=== PATIENT | female | born 1940 | race Caucasian/White ===

== ENCOUNTER 2019-04-30 11:19 | Outpatient (CLI) | payer MEDICARE, OTHER, SELFPAY ==
[2019-04-30 12:04] LABS: Basophils # 0.1 10^3/uL (0.0-0.1); Basophils % 1.1 %; Eosinophils # 0.4 10^3/uL (0.0-0.8); Eosinophils % 4.4 %; Hematocrit 36.5 % (37.0-47.0); Hemoglobin 11.9 g/dL (11.5-15.3); Lymphocytes # 2.5 10^3/uL (0.8-4.8); Lymphocytes % 30.6 %; Mean Corpuscular HGB Conc 32.6 g/dL (30.0-36.0); Mean Corpuscular Hemoglobin 30.4 pg (28.0-34.0); Mean Corpuscular Volume 93.1 fL (81-99); Mean Platelet Volume 9.4 fL (7.4-10.4); Monocytes # 0.6 10^3/uL (0.2-0.9); Monocytes % 7.9 %; Neutrophils # 4.5 10^3/uL (1.8-7.7); Neutrophils % 55.6 %; Nucleated Red Blood Cells % 0 %; Platelet Count 373 10^3/cmm (130-400); Red Blood Count 3.92 10^6/uL (4.1-5.3); Red Cell Distribution Width 12.3 % (12.1-15.1)
[2019-04-30 12:22] LABS: Alanine Aminotransferase < 5 U/L (0-33); Albumin Level 4.1 g/dL (3.5-5.2); Alkaline Phosphatase 84 IU/L (35-105); Anion Gap 19.2 (5-19); Aspartate Amino Transferase 12 U/L (0-32); Blood Urea Nitrogen 13 mg/dL (8-23); Calcium 9.4 mg/dL (8.5-10.5); Carbon Dioxide 23 mmol/L (22-29); Chloride 103 mmol/L (98-107); Glucose 108 mg/dL (65-115); Potassium 4.2 mmol/L (3.5-5.1); Sodium 141 mmol/L (136-145); Total Bilirubin 0.5 mg/dL (0.15-1.2); Total Protein 7.1 g/dL (6.6-8.7)
[2019-04-30 14:34] LABS: Ferritin 64 ng/mL (15-150); Iron 99 ug/dL (37-145); Percent Saturation 34.8 % (20-50); Thyroid Stimulating Hormone 1.39 uIU/mL (0.27-4.20); Total Iron Binding Capacity 284 mcg/dl; Unsaturated Iron Binding 185 ug/dL (112-347)
--- NOTE | 2019-05-04 08:43 | ONC FU_ITS ---
Dr. Foley Patient Follow-Up Note Patient: Haylie Garcia Unit #: [id number]: 1940 Dicatated By: Zeke Foley M.D.Date of Visit:Apr 30, 2019 Onc Med Follow-up/Prog Note Chief Complaint: Von Willebrand's disease/pulmonary embolism. History of Present Illness: This is a 78 year-old woman with a known history of von Willebrand's disease who was diagnosed with multiple pulmonary emboli in April 2016. I had seen her initially on 05/21/2016. She gave a history of what appeared to be mild von Willebrand's disease. It was initially diagnosed at around age 41. She didn't know the specific subtype, and it may not have even been determined. I did not have any records available. She had indicated that her treatment had been limited to prophylactic DDAVP infusions prior to procedures. She was having excessive bruising at the time of the initial diagnosis. She had no other bleeding manifestations. She indicated that she also was found to have both pernicious anemia and iron deficiency. She has been on long-term B12 injections. On 04/25/2016 she had presented to the emergency room with shortness of breath which have been getting worse over a period of at least one week. She actually had started getting short of breath a few months earlier, but at that point it was mainly just with more strenuous exertion. At that time she had been traveling back and forth to [place] frequently to help care for a sister who was terminally ill with cancer. Her breathing, though, got worse fairly abruptly. Her evaluation in the emergency room included CT pulmonary angiogram which showed bilateral upper lobe, right middle lobe and left lower lobe segmental level pulmonary emboli. Also noted was bilateral lower lobe subsegmental atelectasis or scarring and a mosaic perfusion pattern of the lung parenchyma. She was admitted to the hospital where she began on anticoagulation with apixaban. Her further evaluation included echocardiogram which showed mild diastolic and systolic dysfunction with global hypokinesis and estimated ejection fraction of 52%. A Sestamibi stress test on 04/27/2016 showed a normal perfusion scan ejection fraction estimated at 66%. She was discharged home on apixaban 10 mg twice a day. At the time of her initial visit she continued to complain of fatigue and exertional dyspnea. A follow-up CT pulmonary angiogram on 05/23/2016 showed interval resolution of the bilateral segmental and subsegmental multilobar pulmonary emboli compared to the study from 04/25/2016. Also noted was moderate improvement of the mosaic attenuation throughout the lungs. With that finding and her ongoing complain of exertional dyspnea, she had pulmonary consultation with Dr. Jose A Deshpande in [place] on 07/18/2016. He felt that her fatigue and exertional dyspnea was likely related to the apixaban, and he had recommended transitioning her anticoagulation to warfarin. In the meantime, she had cardiology follow-up with Dr. Peraza, and he opted to switch her from apixaban to rivaroxaban 20 mg daily. As of her followup visit here in October 2016 she changed her maintenance anticoagulation to apixaban 2.5 mg bid. She has additional history of exercise-induced asthma, and she has been on treatment with Advair and Singulair. Her other medical illnesses include hypertension, GERD, degenerative arthritis, and osteoporosis. She is a nonsmoker. INTERIM HISTORY: She was seen in the emergency room with bronchitis on 04/18/2017. CT pulmonary angiogram at that time showed no evidence for pulmonary embolism. There was slight atelectasis in the lung bases, right greater than left. There was no acute infiltrate. There was no mediastinal or hilar adenopathy noted. I had seen her for a follow-up visit on 08/22/2017. She was otherwise stable clinically, at that point I did arrange for pulmonary consultation with Dr. Mark Ochoa. Her further evaluation did include a sleep study, which apparently did show evidence of sleep apnea. She was started on CPAP, but she tolerated it poorly. I had seen her for a follow-up visit on 05/29/2018. At that point she appeared stable clinically other than she was having significant pain in her right foot. Bone scan on 06/09/2018 showed increased uptake in all 3 phases of the bone scan involving the right foot and ankle. The appearance was suggestive of stress fracture. She was referred to Dr. Crooks for further management. She is seen for a follow-up visit. She complains that her energy is gone, though she is still able to do some light work at home. Her ECOG score is 1. She has good appetite. She has not had fever or night sweats, but she does complain that she stays hot all the time. She has had ongoing problems with her right foot and she complains that it stays swollen, but it has been gradually healing. She has some hoarseness and she previously has seen Dr. Garcia for a nodule in her throat. She continues to complain of shortness of breath. She says her breathing is no better. She does not complain of cough and she has not been having chest pain. She was having nausea, but that she attributes to antibiotic therapy, and it is better now. Bowel and bladder function have been okay. She has generalized joint pain. She also has been having muscle spasms. She does not complain of headache. She does have dizziness. She has no focal neurologic symptoms. Medications: Advair Diskus 1 (250-50 mcg/dose) Aerosol Powder, Breath Activated Inhalation b.i.d., Eliquis 1 (2.5 mg) Tablet Oral b.i.d., Imdur 1 Tablet (of 30 mg) Tablet SR 24 HR Oral daily, Klor-Con M20 1 Tablet (of 20 meq) Tablet, controlled release Oral b.i.d., Lodine 1 (400 mg) Tablet Oral b.i.d., Neurontin 1 Tablet (of 300 mg) Capsule Oral t.i.d., Protonix 1 Tablet (of 40 mg) Tablet, enteric coated Oral b.i.d., Requip 2 (0.25 mg) Tablet Oral daily PRN, Singulair 1 Tablet (of 10 mg) Oral daily PRN, Toprol XL 1 Tablet (of 100 mg) Tablet SR 24 HR Oral b.i.d., Verapamil HCl ER 1 Tablet (of 300 mg) Capsule SR 24 HR Oral daily, Vitamin B12 1 Solution Oral q 4 weeks for 1 dose, Zantac 1 Tablet (of 150 mg) Oral b.i.d. Allergies: Aminoglycosides, Amoxicillin, Aspirin, ChlordiazePOXIDE HCl, Codeine Sulfate, Dexamethasone, Etomidate, Milk, Neosporin Original, Onion, Penicillin V Potassium, Polysporin, and Valium. Review of Systems: Constitutional - Her energy is low and she is very tired. She is able to do light work at home. Her appetite is good and her weight is down a couple of pounds since her last visit. No fever, chills, hot flashes, or night sweats. ECOG score is 1, ENMT - She has sinus congestion/drainage. No mouth sores. She has sore throat. Her voice is raspy and hoarse. No difficulty swallowing, Hematologic/Lymphatic - She bruises easily, Respiratory - She has shortness of breath with activity. No cough. No pleuritic pain or hemoptysis, Cardiovascular - No angina pain. No palpitations, Gastrointestinal - She has had some nausea and acid reflux while being on Keflex. No diarrhea or constipation. No blood in the stool or black stools, Genitourinary (F) - No dysuria or hematuria. No urinary frequency. No urgency or incontinence, Musculoskeletal - She has pain in her hips, mostly in her right side. She has muscle spasms. She has pain in her right foot and in both hands, Integumentary - She has a healing wound on the right foot, Neurologic - No headache. She takes Meclizine 3 times a day for dizziness. No numbness/paresthesias or other focal neurologic symptoms, Psychiatric - No anxiety or depression. No insomnia. Vital Signs: Performed on Apr 30, 2019 13:00 Height - 64.00 in Weight - 193.4 lbs (LOW) BSA - 1.93 sq.m BMI - 33.20 (HIGH) Temperature - 98.4 F Pulse - 102 /min (HIGH) Respiration - 24 /min BP - 147/76 mm(hg) (HIGH) O2 Sat - 95 % (LOW) Pain - 0 Physical Examination: Constitutional - She looks pretty good generally, though she still appears short of breath with any effort, Eyes - Sclerae nonicteric. Conjunctivae clear, ENMT - No lesions noted in the oral cavity, Hematologic/Lymphatic - No cervical, clavicular, or axillary adenopathy, Respiratory - Lungs sound clear with some decrease in air movement bilaterally, Cardiovascular - Heart rhythm is regular. There is a II/ systolic murmur. There is no gallop or rub noted, Abdomen - Mildly distended but soft. Liver and spleen are not enlarged. There is no abdominal mass or ascites noted and there is no inguinal adenopathy, Extremities - There is mild pedal edema on the right. The wound does appear to be healing. The foot is warm to touch. She has palpable dorsalis pedis pulses, Neurologic - No focal neurologic deficits noted. Lab/Imaging: Test performed on Apr 30, 2019 11:51 Sodium 141 mmol/L Potassium 4.2 mmol/L Chloride 103 mmol/L CO2 23 mmol/L Anion Gap 19.2 BUN 13 mg/dL Creatinine 0.7 mg/dL Cr Clearance (Est) 93.21 mL/min Glucose 108 mg/dL Calcium 9.4 mg/dL Protein, Total 7.1 g/dL Albumin 4.1 g/dL Globulin 3.0 g/dL Bilirubin, Total 0.5 mg/dL ALT (SGPT) < 5 U/L AST (SGOT) 12 U/L Alkaline Phosphatase 84 IU/L WBC 8.0 10 3/uL RBC 3.92 10 6/uL HGB 11.9 g/dL HCT 36.5 % MCV 93.1 fL MCH 30.4 pg MCHC 32.6 g/dL RDW 12.3 % Platelet Count 373 10 3/cmm MPV 9.4 fL Neutrophils 4.5 10 3/uL Lymphocytes 2.5 10 3/uL Monocytes 0.6 10 3/uL Eosinophils 0.4 10 3/uL Basophils 0.1 10 3/uL Neutrophil % 55.6 % Lymphocyte % 30.6 % Monocyte % 7.9 % Eosinophil % 4.4 % Basophils % 1.1 % Impression: 1. Patient with episode of bilateral pulmonary emboli in April 2016. This may been precipitated by multiple car trips to [place]. 2. She has a known history of mild von Willebrand's disease, specific subtype unknown to me. Her previous treatment has been limited to prophylactic infusions of DDAVP prior to surgical procedures. She has had easy bruising, but no other bleeding manifestations. Her other medical illnesses include: 3. Hypertension. 4. Exercise-induced asthma. 5. She has a history of pernicious anemia, for which she has been on long-term B12 replacement. 6. She also reports having a history of iron deficiency. 7. GERD. 8. Degenerative arthritis/degenerative disease of the spine. 9. Osteoporosis. She began anticoagulation with apixaban with the initial diagnosis of the pulmonary emboli in April 2016. Her follow-up CT pulmonary angiogram on 05/23/2016 showed interval resolution of the pulmonary emboli as well as moderate improvement of mosaic attenuation throughout the lungs. Despite that improvement, she continued to have fatigue and exertional dyspnea with very limited activity tolerance. There was no significant improvement in her symptoms after transitioning her anticoagulation from apixaban to rivaroxaban. As of her follow-up visit on 10/16/2016 she has continued anticoagulation with apixaban at a maintenance dosage of 2.5 mg twice a day. She restarted Lodine for her arthritis pain. Repeat CT pulmonary angiogram on 04/18/2017 showed no evidence of pulmonary embolism or other acute pathology. She continued, though, to have shortness of breath and limited activity tolerance. I was not been able to determine a specific cause for it. Her echocardiogram showed adequate LV function. Her pulmonary function studies showed no significant obstructive defect. There was a decrease in diffusion capacity, but it was felt to be normal when corrected for alveolar volume. She then had further pulmonary consultation with Dr. Mark Ochoa. She apparently was found to have evidence of sleep apnea on her sleep study, and she was started on CPAP, which she tolerated very poorly. She did have some improvement in her activity tolerance with pulmonary rehabilitation. In May 2018 she had presented with increasing pain in her right ankle and foot. X-ray showed no acute findings, but a subsequent bone scan showed findings consistent with stress fracture. That problem has been managed by Dr. Crooks and it has been resolving very gradually. She is otherwise continued to have shortness of breath and limited activity tolerance. A specific cause for that has not really been determined. Her overall clinical status, though, remained stable. Plan: She will continue anticoagulation with apixaban 2.5 mg bid. I will see her again in 6 months, or sooner as needed. Signed By: Zeke Foley M.D. <<Signature on File>>
== END 2019-04-30 11:20 | disposition home or self-care (01) ==
LOC: ONCMED 11:19
PROVIDERS: PCP Family Medicine; Visit Provider Internal Medicine Medical Oncology
DX: D68.0 Von Willebrand disease (principal); D64.9 Anemia, unspecified; R53.83 Other fatigue; J45.990 Exercise induced bronchospasm; I10 Essential (primary) hypertension; K21.9 Gastro-esophageal reflux disease without esophagitis; M19.90 Unspecified osteoarthritis, unspecified site; M81.0 Age-related osteoporosis without current pathological fracture; Z79.51 Long term (current) use of inhaled steroids; Z86.711 Personal history of pulmonary embolism
CPT/HCPCS: 36415; 80053; 82728; 83540; 83550; 84443; 85025; G0463

== ENCOUNTER 2019-07-22 08:53 | Emergency (ER) | payer MEDICARE, OTHER, SELFPAY ==
--- NOTE | 2019-07-22 09:03 | XR_ITS ---
WS: [id number] PORTABLE CHEST HISTORY: SOB COMPARISON: 07/21/2018 Subsegmental atelectasis at the lingula. No pneumonia. No pleural effusion or pneumothorax. Cardiac size: Normal. Mediastinum/Aorta: Mild ectasia and atherosclerosis aorta. No osseous abnormality seen. XR/XR chest 1V portable [id number] IMPRESSION: Subsegmental lingular atelectasis. No pneumonia.
--- NOTE | 2019-07-22 09:03 | ECG_ITS ---
Measurements Intervals [place] Rate: 79 P: 22 MT: 141 QRS: -20 QRSD: 89 T: 14 QT: 382 QTc: 438 SINUS RHYTHM MODERATE VOLTAGE CRITERIA FOR LVH, CONSIDER NORMAL VARIANT [MEETS CRITERIA IN ONE OF: R(aVL), S(V1), R(V5), R(V5/V6)+S(V1)] Compared to ECG 04/18/2017 08:45:20 T-wave abnormality no longer present Electronically Signed On 07-22-2019 20:35:05 CDT by Salud Mccartney M.D. [email or web address]
[2019-07-22 09:20] VITALS: BP 154/74; PULSE 80; RESP 18; TEMP 37.2; O2SAT 93; BMI 32.5
--- NOTE | 2019-07-22 09:20 | W.ED.SOB ---
HPI - SOB/Dyspnea General: Chief Complaint: Shortness of Breath/Dyspnea Stated Complaint: SHORTNESS OF BREATH Time Seen by Provider: 07/22/19 09:20 Source: patient Mode of arrival: ambulatory Limitations: no limitations History of Present Illness: HPI Narrative: Patient is a 78-year-old female who presents to ED today with complaint of shortness of breath. Patient tells me she initially began feeling short of breath about a week ago. On she was seen by her PCP who gave her IM steroids and a prescription for a steroid taper and cefdinir. Patient thought initially she was getting a little better however today while being active and cleaning her house she developed worsening shortness of breath that made her concerned. Patient tells me she has had exertional dyspnea for quite some time now. States she used to walk 4-5 miles a day and now can barely walk around her house. She does have a history of asthma and takes albuterol and fluticasone/salmeterol at home. States her chart says she has a hx of COPD but has not definitely every been diagnosed with that. She states her shortness of breath does not feel like a typical asthma attack. She does have a history of pulmonary emboli that were diagnosed after a long car ride from [place]. She takes Eliquis for that. Patient has not been running fevers. She reports a small cough beginning this morning-no hemoptysis. Denies chest pains. Reports mild bilateral lower extremity swelling. States she does not have a history of CHF. MD elicited complaint: shortness of breath Severity: moderate Exacerbating factors: exertion Relieving factors: nothing Known history of: asthma and PE Associated symptoms: Deny abdominal pain, chest congestion, chest pain, dizziness, fever(s), hemoptysis, lightheadedness, nausea, orthopnea, palpitations, syncope or vomiting Related Data: Home oxygen amount: none Review of Systems General: Reports: 10 or more systems reviewed and unremarkable except in HPI and below Const: Denies: fever(s), chills, body aches, fatigue or malaise Eyes: Denies: change in vision, blurry vision, photophobia, floaters or seeing flashes ENMT: Denies: throat pain, enlarged tonsils or odynophagia Card: Reports: dyspnea on exertion; Denies: chest pain, palpitations, irregular heart rhythm, swelling of feet/ankles, lightheadedness, syncope, pre-syncope, orthopnea, leg pain with exertion or acrocyanosis Resp: Reports: dyspnea and non-productive cough; Denies: wheezing, pain on inspiration, hemoptysis or chest congestion GI: Denies: abdominal pain, nausea, vomiting, heartburn or diarrhea : Denies: flank pain or dysuria Musc: Denies: neck pain, back pain or joint pain Skin/Breast: Denies: rash Neuro: Denies: headache(s), numbness in extremities, weakness in extremities, sensory changes, difficulty walking or dizziness [facility] ED PFSH: Medical History (Updated 07/22/19 @ 12:14 by KAITLYN Dobbs) Afib Anemia Asthma Chronic GERD COPD (chronic obstructive pulmonary disease) Pulmonary embolism PVD (peripheral vascular disease) Sleep apnea Von Willebrand disease Surgical History H/O: hysterectomy (~1975) History of tonsillectomy (~1959) Social History Smoking and tobacco status: never smoked Alcohol intake: never Marital status: Current occupational status: retired Physical Exam Const: COMMON NORMALS: average body habitus, patient oriented x3, no limitations, healthy appearing, alert and well nourished GENERAL APPEARANCE: in distress (speaks in short sentences ) ORIENTATION/CONSCIOUSNESS: Yes oriented to person, Yes oriented to place and Yes oriented to time HENMT: COMMON NORMALS: normocephalic and atraumatic HEAD & SCALP: normocephalic and atraumatic Chest: COMMONS NORMALS: normal inspection of the chest and normal palpation of entire chest wall Resp: COMMON NORMALS: clear to auscultation bilaterally EFFORT & INSPECTION: No able to speak in complete sentences and Yes tachypneic (mild) AUSCULTATION: clear to auscultation bilaterally Cardio: COMMON NORMALS: regular rate and regular rhythm RATE: regular rate RHYTHM: regular rhythm GI: COMMON NORMALS: Normal to inspection, nondistended, normoactive bowel sounds present, Soft to palpation, non-tender, No hepatosplenomegaly present and no masses PALPATION: Yes Soft to palpation and Yes No hepatosplenomegaly present Extremity: COMMON NORMALS: normal to inspection Neuro: KYLAH COMA SCALE: document GCS findings Kylah coma scale eye opening: Spontaneous [place] coma scale verbal response: Orientated [place] coma scale motor response: Obey commands Kylah coma scale total score: 15 COMMON NORMALS: patient oriented x3, moves all extremities, no focal motor deficits, no sensory deficits noted and gait normal SENSORIUM/ORIENTATION: Yes alert, Yes oriented to person, Yes oriented to place and Yes oriented to time Skin: COMMON NORMALS: no rashes or lesions noted GENERAL SKIN EXAM: no rashes or lesions noted Course Vital Signs: Vital signs: Vital Signs Temperature 98.9 F 07/22/19 09:20 Pulse Rate 77 07/22/19 11:32 Respiratory Rate 20 H 07/22/19 11:32 Blood Pressure 137/79 07/22/19 11:32 Pulse Oximetry 91 07/22/19 11:32 MDM - SOB/Dyspnea MDM Narrative: Medical decision making narrative: Patient reports chronic exertional dyspnea. She apparently had seen a science faculty member in [place] back in 2016 but has not had any further follow-up. I did recommend a repeat pulmonology consultation and she is agreeable to see Dr. Plummer here. On patient's labs she has a mild leukocytosis at 12.6. Her chemistry panel is essentially normal. Her BNP and troponin were both within normal limits. Her CXR shows no effusion or pneumonia. She does have some atelectasis. Her CTA is negative for pulmonary embolus. Patient is not tachycardic or hypoxic. Spoke with Dr. Mensah who agrees that patient is stable for outpt treatment-recommends placing her on another round of steroids and switching abx to doxycycline. Return to ED precautions given. Lab Data: Labs: Lab Results 07/22/19 07/22/19 07/22/19 Range/Units 09:56 09:56 09:56 WBC 12.6 H (4.0-10.0) 10^3/ uL RBC 3.99 L (4.1-5.3) 10^6/u L Hgb 12.5 (11.5-15.3) g/dL Hct 38.7 (37.0-47.0) % MCV 97.0 (81-99) fL MCH 31.3 (28.0-34.0) pg MCHC 32.3 (30.0-36.0) g/dL RDW 12.8 (12.1-15.1) % Plt Count 364 (130-400) 10^3/c mm MPV 9.6 (7.4-10.4) fL Neut % (Auto) 57.4 % Lymph % (Auto) 31.4 % [place] % (Auto) 8.0 % Eos % (Auto) 1.3 % Baso % (Auto) 0.2 % Neut # (Auto) 7.2 (1.8-7.7) 10^3/u L Lymph # (Auto) 4.0 (0.8-4.8) 10^3/u L [place] # (Auto) 1.0 H (0.2-0.9) 10^3/u L Eos # (Auto) 0.2 (0.0-0.8) 10^3/u L Baso # (Auto) 0.0 (0.0-0.1) 10^3/u L Nucleated RBC % (a uto) 0 % Nucleated RBCs # 0.0 /100WBC Specimen Type Sample Site ABG pH (7.35-7.45) ABG pCO2 (35-45) mmHg ABG pO2 (80.0-100.0) mmH g ABG HCO3 (22-26) mmol/L ABG O2 Saturation ABG Base Excess (-2.0-2.0) mmol/ L Maxx Test A-a O2 Gradient (5-10) mmHg Hematocrit (37-47) % Hgb O2 Saturation (95-100) % Carboxyhemoglobin (0.4-20.1) %THgb Methemoglobin (0.4-1.5) % Total Hemoglobin (12-16) g/dL Ionized Calcium (1.1-1.4) mmol/L O2 Delivery Device Interpretive Program Coordinator ID Sodium 137 (136-145) mmol/L Potassium 4.0 (3.5-5.1) mmol/L Chloride 100 (98-107) mmol/L Carbon Dioxide 24 (22-29) mmol/L Anion Gap 17.0 (5-19) BUN 19 (8-23) mg/dL Creatinine 0.8 (0.5-0.9) mg/dL Glucose 98 (65-115) mg/dL Calculated Osmolal ity 280 L (285-295) mOsm/k g Calcium 9.5 (8.5-10.5) mg/dL Total Bilirubin 0.5 (0.15-1.2) mg/dL AST 10 (0-32) U/L ALT 9 (0-33) U/L Alkaline Phosphata se 71 (35-105) IU/L Troponin T Baselin e 9 (0-10) ng/mL NT-Pro-B Natriuret Pep 181 (0-450) pg/mL Total Protein 6.4 L (6.6-8.7) g/dL Albumin 4.1 (3.5-5.2) g/dL Globulin 2.3 (1.3-4.6) g/dL 07/22/19 Range/Units 10:17 WBC (4.0-10.0) 10^3/ uL RBC (4.1-5.3) 10^6/u L Hgb (11.5-15.3) g/dL Hct (37.0-47.0) % MCV (81-99) fL MCH (28.0-34.0) pg MCHC (30.0-36.0) g/dL RDW (12.1-15.1) % Plt Count (130-400) 10^3/c mm MPV (7.4-10.4) fL Neut % (Auto) % Lymph % (Auto) % [place] % (Auto) % Eos % (Auto) % Baso % (Auto) % Neut # (Auto) (1.8-7.7) 10^3/u L Lymph # (Auto) (0.8-4.8) 10^3/u L [place] # (Auto) (0.2-0.9) 10^3/u L Eos # (Auto) (0.0-0.8) 10^3/u L Baso # (Auto) (0.0-0.1) 10^3/u L Nucleated RBC % (a uto) % Nucleated RBCs # /100WBC Specimen Type Arterial Sample Site Radial, right ABG pH 7.47 H (7.35-7.45) ABG pCO2 40.7 (35-45) mmHg ABG pO2 64.5 L (80.0-100.0) mmH g ABG HCO3 29.8 H (22-26) mmol/L ABG O2 Saturation 93.6 ABG Base Excess 5.7 H (-2.0-2.0) mmol/ L Maxx Test Pos A-a O2 Gradient 34.5 H (5-10) mmHg Hematocrit 40.1 (37-47) % Hgb O2 Saturation 91.5 L (95-100) % Carboxyhemoglobin 1.2 (0.4-20.1) %THgb Methemoglobin 1.1 (0.4-1.5) % Total Hemoglobin 13.1 (12-16) g/dL Ionized Calcium 1.2 (1.1-1.4) mmol/L O2 Delivery Device Room air Interpretive Program Coordinator ID havar Sodium 140.0 (136-145) mmol/L Potassium 3.9 (3.5-5.1) mmol/L Chloride (98-107) mmol/L Carbon Dioxide (22-29) mmol/L Anion Gap (5-19) BUN (8-23) mg/dL Creatinine (0.5-0.9) mg/dL Glucose 88.0 (65-115) mg/dL Calculated Osmolal ity (285-295) mOsm/k g Calcium (8.5-10.5) mg/dL Total Bilirubin (0.15-1.2) mg/dL AST (0-32) U/L ALT (0-33) U/L Alkaline Phosphata se (35-105) IU/L Troponin T Baselin e (0-10) ng/mL NT-Pro-B Natriuret Pep (0-450) pg/mL Total Protein (6.6-8.7) g/dL Albumin (3.5-5.2) g/dL Globulin (1.3-4.6) g/dL Imaging Data^: CXR: Radiologist's impression: [address] [address] XRay Report Signed Patient: Haylie Garcia Unit #: [id number] : 1940 Age/Sex: 78 / F ADM Date: 07/22/19 Loc: ER Room/Bed: Attending Dr: Ordering Provider/Ordering MD: Jennifer Deleon Date of Service: 07/22/19 Procedure(s): XR chest 1V portable [id number] Accession Number(s): [id number] Report Number: [id number] WS: [id number] PORTABLE CHEST HISTORY: SOB COMPARISON: 07/21/2018 Subsegmental atelectasis at the lingula. No pneumonia. No pleural effusion or pneumothorax. Cardiac size: Normal. Mediastinum/Aorta: Mild ectasia and atherosclerosis aorta. No osseous abnormality seen. XR/XR chest 1V portable [id number] IMPRESSION: Subsegmental lingular atelectasis. No pneumonia. Dictated By: Annika Quintero DO Signed By: Annika Quintero DO Signed Date/Time: 07/22/19 100 DD/ 04 CTA Chest: Radiologist's impression: [place] [address] CT Scan Report Signed Patient: Haylie Garcia Unit #: [id number] : 1940 Age/Sex: 78 / F ADM Date: 07/22/19 Loc: ER Room/Bed: Attending Dr: Ordering Provider/Ordering MD: Jennifer Deleon Date of Service: 07/22/19 Procedure(s): CT angio chest PE protcl [id number] Accession Number(s): [id number] Report Number: [id number] WS: [id number] CT CHEST ANGIOGRAPHY WITH REFORMATS HISTORY: SOB; hx of PE TECHNIQUE: Contiguous axial images are obtained through the chest during arterial injection of intravenous contrast. Images are reconstructed to evaluate the pulmonary arteries. MIP imaging also reviewed. All CT scans at [facility] use at least one of these dose optimization techniques: automated exposure control; mA and/or kV adjustment per patient size (includes targeted exams where dose is matched to clinical indication); or iterative reconstruction. CONTRAST: Omnipaque 350; 95 mL IV. DLP: 547.42 mGy.cm COMPARISON: 04/18/2017 Excellent opacification of the pulmonary arteries. No filling defects to the segmental and subsegmental branches. Pulmonary artery size is normal. Mild atherosclerosis aorta. Cardiac chamber size is slightly enlarged. No filling defect in the LEFT atrial appendage. No pericardial effusion. No pleural effusions. Subsegmental atelectasis at the lingula and at the lung bases bilaterally. No mass or pneumonia. Mild atherosclerosis of aorta. No adenopathy. No abnormality in the upper abdomen. Increase in thoracic kyphosis. CT/CT angio chest PE protcl [id number] IMPRESSION: 1. No pulmonary embolism. 2. Mild atherosclerosis aorta. 3. Subsegmental atelectasis at the lung bases and lingula. 4. No pneumonia. 5. Mild cardiomegaly. Dictated By: Annika Quintero DO Signed By: Annika Quintero DO Signed Date/Time: 07/22/19 1130 DD/ 1126 EKG Data^: EKG 1: EKG Interpretation Date: 07/22/19 EKG interpretation time: 10:12 Interpretation: Sinus rhythm Rate 79 No ischemic changes noted EKG 2: EKG Interpretation Date: 07/22/19 EKG interpretation time: 12:03 Interpretation: Sinus rhythm Rate 75 No ischemic changes noted; no changes noted from EKG performed on same day Discharge Plan Discharge Patient Disposition: Home, Self-Care Clinical Impression: COPD exacerbation Condition: Stable Prescriptions: New prednisone 10 mg tablet 10 mg PO DAILY 7 Days Qty: 27 RF: 0 doxycycline monohydrate 100 mg capsule 100 mg PO BID 10 Days Qty: 20 RF: 0 No Action fluticasone propion-salmeterol [Advair Diskus] 250-50 mcg/dose blister with device 1 inh INHALATION BID RF: 0 albuterol sulfate [ProAir HFA] 90 mcg/actuation HFA aerosol inhaler 2 puff INHALATION QID PRN (Reason: Shortness Of Breath) RF: 0 Eliquis 2.5 mg tablet 2.5 mg PO BID RF: 0 verapamil 300 mg capsule, [address] 300 mg PO DAILY RF: 0 potassium chloride 20 mEq tablet extended release 20 meq PO BID RF: 0 isosorbide mononitrate 30 mg tablet extended release 24 hr 30 mg PO DAILY RF: 0 gabapentin [Neurontin] 300 mg capsule 300 mg PO TID RF: 0 pantoprazole 40 mg tablet,delayed release (DR/EC) 40 mg PO DAILY RF: 0 ropinirole 0.5 mg tablet 1 mg PO BID RF: 0 methylprednisolone 4 mg Tablet See Rx Instructions .ROUTE .COMPLEX RF: 0 etodolac 400 mg Tablet 400 mg PO BID RF: 0 cefdinir 300 mg Capsule 300 mg PO BID RF: 0 cyanocobalamin (vitamin B-12) 1,000 mcg/mL Kit 1,000 mcg IM Q30D RF: 0 Discharge Orders: Discharge Order (Routine); Ordered 07/22/19 Ordered By: Jennifer Deleon Referrals: Roslyn Reeder MD [Primary Care Provider] - Activity Restrictions/Additional Instructions: As discussed case management should contact you to set you up with a pulmonology appointment with Dr. Plummer. I am placing you on a different antibiotic and another steroid taper. Please follow-up with primary care if you cannot see Dr. Plummer in the next week or so. You need to return to the emergency department for worsening shortness of breath, chest pain, difficulty breathing, fevers, or any other concerns you may have. Coding Level of Care Code ED Feather Mixer for Elishag Fwd Exam Comprehensive
--- NOTE | 2019-07-22 09:34 | CT_ITS ---
WS: [id number] CT CHEST ANGIOGRAPHY WITH REFORMATS HISTORY: SOB; hx of PE TECHNIQUE: Contiguous axial images are obtained through the chest during arterial injection of intrav enous contrast. Images are reconstructed to evaluate the pulmonary arteries. MIP imaging also reviewe d. All CT scans at [facility] use at least one of these dose optimization techniques: aut omated exposure control; mA and/or kV adjustment per patient size (includes targeted exams where dose is matched to clinical indication); or iterative reconstruction. CONTRAST: Omnipaque 350; 95 mL IV. DLP: 547.42 mGy.cm COMPARISON: 04/18/2017 Excellent opacification of the pulmonary arteries. No filling defects to the segmental and subsegment al branches. Pulmonary artery size is normal. Mild atherosclerosis aorta. Cardiac chamber size is sli ghtly enlarged. No filling defect in the LEFT atrial appendage. No pericardial effusion. No pleural e ffusions. Subsegmental atelectasis at the lingula and at the lung bases bilaterally. No mass or pneum onia. Mild atherosclerosis of aorta. No adenopathy. No abnormality in the upper abdomen. Increase in thoracic kyphosis. CT/CT angio chest PE protcl [id number] IMPRESSION: 1. No pulmonary embolism. 2. Mild atherosclerosis aorta. 3. Subsegmental atelectasis at the lung bases and lingula. 4. No pneumonia. 5. Mild cardiomegaly.
[2019-07-22 10:08] LABS: Basophils % 0.2 %; Eosinophils # 0.2 10^3/uL (0.0-0.8); Eosinophils % 1.3 %; Hematocrit 38.7 % (37.0-47.0); Hemoglobin 12.5 g/dL (11.5-15.3); Lymphocytes % 31.4 %; Mean Corpuscular HGB Conc 32.3 g/dL (30.0-36.0); Mean Corpuscular Hemoglobin 31.3 pg (28.0-34.0); Mean Platelet Volume 9.6 fL (7.4-10.4); Neutrophils # 7.2 10^3/uL (1.8-7.7); Neutrophils % 57.4 %; Nucleated Red Blood Cells % 0 %; Platelet Count 364 10^3/cmm (130-400); Red Blood Count 3.99 10^6/uL (4.1-5.3); Red Cell Distribution Width 12.8 % (12.1-15.1); White Blood Count 12.6 10^3/uL (4.0-10.0)
[2019-07-22] MEDS: ipratropium-albuterol 3 mL Neb INHALATION (10:16)
[2019-07-22 10:25] VITALS: PULSE 76; RESP 16; O2SAT 93
[2019-07-22 10:29] LABS: ABG PCO2 40.7 mmHg (35-45); ABG PH Result 7.47 (7.35-7.45); Alveolar-Arterial Oxygen Gradi 34.5 mmHg (5-10); Arterial Blood Gas Hematocrit 40.1 % (37-47); Base Excess ABG 5.7 mmol/L (-2.0-2.0); Blood Gas Allen Test Pos; Blood Gas Sample Site Radial, right; Blood Gas Sample Type Arterial; Carboxyhemoglobin 1.2 %THgb (0.4-20.1); HCO3 ABG 29.8 mmol/L (22-26); HGB O2 Sat 91.5 % (95-100); Ionized Calcium Level - ABG 1.2 mmol/L (1.1-1.4); Methemoglobin 1.1 % (0.4-1.5); Oxygen Device ROOM AIR; Oxygen Saturation ABG 93.6; PO2 ABG 64.5 mmHg (80.0-100.0); Potassium Level - ABG 3.9 mmol/L (3.5-5.0); Total Hemoglobin 13.1 g/dL (12-16)
[2019-07-22 10:30] LABS: Troponin(5th) Baseline 9 ng/mL (0-10)
[2019-07-22 10:33] VITALS: PULSE 80; RESP 16; O2SAT 93
[2019-07-22 10:39] LABS: Alanine Aminotransferase 9 U/L (0-33); Albumin Level 4.1 g/dL (3.5-5.2); Alkaline Phosphatase 71 IU/L (35-105); Aspartate Amino Transferase 10 U/L (0-32); Blood Urea Nitrogen 19 mg/dL (8-23); Calcium 9.5 mg/dL (8.5-10.5); Carbon Dioxide 24 mmol/L (22-29); Chloride 100 mmol/L (98-107); Globulin 2.3 g/dL (1.3-4.6); Glucose 98 mg/dL (65-115); NT Pro B Type Natriuretic Pept 181 pg/mL (0-450); Osmolality Calculated 280 mOsm/kg (285-295); Sodium 137 mmol/L (136-145); Total Bilirubin 0.5 mg/dL (0.15-1.2); Total Protein 6.4 g/dL (6.6-8.7)
[2019-07-22] MEDS: iohexol 350 mg/mL 100 mL Btl IV (11:11)
[2019-07-22 11:32] VITALS: BP 137/79; PULSE 77; RESP 20; O2SAT 91
--- NOTE | 2019-07-22 11:34 | ECG_ITS ---
Measurements Intervals [place] Rate: 75 P: 26 AK: 154 QRS: -19 QRSD: 86 T: 1 QT: 406 QTc: 455 SINUS RHYTHM LEFT VENTRICULAR HYPERTROPHY AND ST-T CHANGE [VOLTAGE CRITERIA PLUS ST/T AB ABNORMALITY] Compared to ECG 04/18/2017 08:45:20 ST (T wave) deviation now present T-wave abnormality no longer present Electronically Signed On 07-22-2019 20:35:16 CDT by Salud Mccartney M.D. [email or web address]
[2019-07-22 12:36] VITALS: BP 164/85; PULSE 76; RESP 21; O2SAT 96
--- NOTE | 2019-07-23 13:46 | DCPLANNER ---
watershed manager had message to schedule a follow up appointment for patient with [facility]. watershed manager called the ortho clinic, spoke with Jannette, a follow up appointment was scheduled for Saturday, August 10, 2019 at 2:[address] Plummer. Clinic will call patient with appointment information.
--- NOTE | 2019-08-18 09:54 | DCPLANNER ---
Patient did attend appointment scheduled for 08.10.19 with [facility].
== END 2019-07-22 12:37 | disposition home or self-care (01) ==
PROVIDERS: Emergency Provider Physician Assistant; PCP Family Medicine
DX: J44.1 Chronic obstructive pulmonary disease with (acute) exacerbation (principal); Z79.01 Long term (current) use of anticoagulants; I48.91 Unspecified atrial fibrillation; J44.9 Chronic obstructive pulmonary disease, unspecified
CPT/HCPCS: 12345; 36600; 71045; 71275; 80051; 80053; 82810; 83880; 83986; 84484; 85025; 93005; 94640; 99283; 99284; Q9967

== ENCOUNTER 2019-09-11 11:28 | Outpatient (CLI) | payer MEDICARE, OTHER, SELFPAY ==
--- NOTE | 2019-09-11 11:45 | USCV_ITS ---
Haylie Garcia Age: 78 Gender: F : 1940 Exam Date: 09/11/2019 12:10 Ordering Phys: Vivian Plummer MD Technologist: Dimple Lee [place] [facility] [place]: shortness of breath BP: / HR: 89 Rhythm: Sinus Technical Quality: Adequate MEASUREMENTS (Male / Female) Normal Values 2D ECHO LV Diastolic Diameter PLAX 3.9 cm 4.2 - 5.9 / 3.9 - 5.3 cm LV Systolic Diameter PLAX 1.4 cm IVS Diastolic Thickness 1.6 cm 0.6 - 1.0 / 0.6 - 0.9 cm IVS Systolic Thickness 1.9 cm LVPW Diastolic Thickness 1.1 cm 0.6 - 1.0 / 0.6 - 0.9 cm LVPW Systolic Thickness 2.0 cm LVOT Diameter 2.0 cm LV Ejection Fraction 2D Teich 91.8 % LV Ejection Fraction MOD 2C 85.0 % LV Ejection Fraction 2C AL 84.9 % LA Diameter 4.5 cm LA Width 3.0 cm LA Height 5.0 cm RA Width 2.2 cm RA Height 4.7 cm M-MODE LV Diastolic Diameter MM 4.9 cm 4.2 - 5.9 / 3.9 - 5.3 cm LV Systolic Diameter MM 3.5 cm LV Ejection Fraction MM Teich 55.1 % IVS Diastolic Thickness MM 1.0 cm 0.6 - 1.0 / 0.6 - 0.9 cm IVS Systolic Thickness MM 1.1 cm LVPW Diastolic Thickness MM 0.9 cm 0.6 - 1.0 / 0.6 - 0.9 cm LVPW Systolic Thickness MM 1.6 cm Aortic Annulus Diameter 3.5 cm LA Ao Ratio MM 1.3 MV E Point Septal Separation 0.5 cm DOPPLER AV Peak Velocity 138.0 cm/s LVOT Peak Velocity 104.0 cm/s AV Area Cont Eq vti 2.5 cm squared AV Area Cont Eq pk 2.4 cm squared MV E' Velocity 10.0 cm/s TR Peak Velocity 165.0 cm/s TR Peak Gradient 10.8 mmHg Right Atrial Pressure 3.0 mmHg Pulmonary Artery Systolic Pressu 13.9 mmHg PV Peak Velocity 102.0 cm/s RV Acceleration Time 0.1 s FINDINGS Left Ventricle Normal left ventricular cavity size. Normal left ventricular systolic function. No regional wall motion abnormalities. Left ventricular ejection fraction is estimated at 55 %. Right Ventricle The right ventricle is normal in size and function. Right Atrium The right atrium is normal in size. Left Atrium The left atrium is normal in size. Mitral Valve Moderately thickened mitral valve. No mitral valve stenosis. Mild mitral valve regurgitation. Aortic Valve Mild aortic valve calcification. No aortic valve stenosis. No aortic valve regurgitation. Tricuspid Valve Structurally normal tricuspid valve without significant stenosis or regurgitation. Pulmonary artery systolic pressure is normal. Pulmonic Valve Structurally normal pulmonic valve without significant stenosis. There is no pulmonic regurgitation. Pericardium Normal pericardium without effusion. Aorta Normal ascending aorta dimension. CONCLUSIONS 1-Normal left ventricular cavity size. Normal left ventricular systolic function. No regional wall motion abnormalities. Left ventricular ejection fraction is estimated at 55 %. 2-There is no pericardial effusion. 3-No significant valve abnormalities. 4-Pulmonary artery systolic pressure is within normal limits. 5-Right atrial pressure is around 5 mm of mercury. 6-No significant change since the prior echocardiogram study of 03/07/2017. Erika Peraza MD (Electronically Signed) Final Date: 13 September 2019 18:20 S
--- NOTE | 2019-09-11 14:25 | PFTS_ITS ---
Date of Study:09/11/19 Date of Dictation: MECHANICS: Forced vital capacity (FVC) is mildly reduced. Forced expiratory volume in one second (FEV1) is normal. FEV1/FVC is normal. FLOW VOLUME LOOP: Reduced flow at lower lung volume with scooping. LUNG VOLUMES: Total lung capacity (TLC) is normal. Residual volume (RV) is normal. DIFFUSING CAPACITY FOR CARBON MONOXIDE: Mildly reduced. INTERPRETATION: The pulmonary function tests are consistent with minimal restriction. The maximal voluntary ventilation, maximal expiratory and inspiratory pressures are reduced. Lung volumes are normal. Gas exchange (DLCO) is mildly reduced. MTDD
--- NOTE | 2019-09-11 14:33 | PFTS_ITS ---
Date of Study:09/22/19 Date of Dictation: MECHANICS: Forced vital capacity (FVC) is minimally reduced. Forced expiratory volume in one second (FEV1) is normal. FEV1/FVC is normal. FLOW VOLUME LOOP: Mild scooping. LUNG VOLUMES: Total lung capacity (TLC) is normal. Residual volume (RV) is normal. DIFFUSING CAPACITY FOR CARBON MONOXIDE: Mildly reduced. INTERPRETATION: The pulmonary function tests are essentially normal. Lung volumes are normal. Gas exchange (DLCO) is mildly reduced. MTDD
== END 2019-09-11 11:29 | disposition home or self-care (01) ==
LOC: RAD 11:32
PROVIDERS: PCP Family Medicine; Visit Provider Internal Medicine Critical Care Medicine
DX: R06.02 Shortness of breath (principal)
CPT/HCPCS: 93306; 94010; 94726; 94729

== ENCOUNTER 2019-09-23 08:18 | Outpatient (CLI) | payer MEDICARE, OTHER, SELFPAY ==
--- NOTE | 2019-09-23 08:44 | CT_ITS ---
WS: [id number] CT scan of the neck. Additional two-dimensional coronal and sagittal reconstruction was performed. Clinical Data: CHRONIC PHARYNGITIS Comparison: None. DLP: 2304.[address] scans at [facility] use at least one of these dose optimization techniques: automat ed exposure control; mA and/or kV adjustment per patient size (includes targeted exams where dose is matched to clinical indication); or iterative reconstruction. Findings: No lymphadenopathy is noted. The salivary glands are unremarkable. There is no prevertebral soft tiss ue swelling. The larynx is symmetric. The thyroid gland shows normal enhancement. The floor of the mo uth and parapharyngeal spaces are normal. The oral cavity is unremarkable. The carotid arteries bifurcate normally. The cervical spine is unremarkable. The lung apices show no abnormalities. The portions of the intracranial circulation which are seen demonstrate no abnormaliti es. The mastoid air cells, internal auditory canals, sella turcica, paranasal sinuses and intraorbita l contents show no significant abnormalities. There is an enhancing lesion which is well circumscribe d of the left middle cranial fossa measuring 2.03 cm. The appearance and location are suggestive of a meningioma. Impression: 1. Negative CT scan of the neck. 2. Incidental finding of left middle cranial fossa enhancing lesion measuring 2.03 cm which is most l ikely a meningioma. 3. Recommend MRI of the head and brain with contrast.
[2019-09-23] MEDS: iohexol 300 mg/mL 100 mL Btl IV (09:40)
[2019-09-23 09:47] LABS: Blood Urea Nitrogen 16 mg/dL (8-23)
== END 2019-09-23 08:19 | disposition home or self-care (01) ==
LOC: RADWPI 08:24
PROVIDERS: Family Provider Family Medicine; PCP Family Medicine; Visit Provider Specialist
DX: J31.2 Chronic pharyngitis (principal)
CPT/HCPCS: 70491; 82565; 84520; Q9967

== ENCOUNTER 2019-10-05 11:59 | Outpatient (CLI) | payer MEDICARE, OTHER, SELFPAY ==
--- NOTE | 2019-10-05 12:06 | XRR_ITS ---
PROCEDURE INFORMATION: Exam: XR Left Knee Exam date and time: 10/05/2019 12:32 PM Age: 78 years old Clinical indication: Swelling or effusion of joint; Knee; Prior surgery; Surgery date: 6+ months; Surgery type: Torn ligament; Patient HX: C/O sudden pain and swelling x 2 weeks. HX of skin cancer; Additional info: Left knee pain TECHNIQUE: Imaging protocol: XR Left knee. Views: 1 or 2 views. COMPARISON: No relevant prior studies available. FINDINGS: Bones/joints: No fracture. No dislocation. There is tricompartmental osteoarthritis, most severe in the patellofemoral joint compartment. Soft tissues: No acute soft tissue abnormality. XR/XR knee LT 1-2V [id number] IMPRESSION: Osteoarthritis.
[2019-10-05 13:01] LABS: Blood Urea Nitrogen 13 mg/dL (8-23); Calcium 8.9 mg/dL (8.5-10.5); Carbon Dioxide 25 mmol/L (22-29); Chloride 102 mmol/L (98-107); Glucose 111 mg/dL (65-115); Osmolality Calculated 287 mOsm/kg (285-295); Sodium 140 mmol/L (136-145); Uric Acid 4.2 mg/dL (2.4-5.7)
== END 2019-10-05 12:00 | disposition home or self-care (01) ==
LOC: RAD 12:05
PROVIDERS: PCP Family Medicine; Visit Provider Internal Medicine Critical Care Medicine
DX: M17.12 Unilateral primary osteoarthritis, left knee
CPT/HCPCS: 73560; 80048; 84550

== ENCOUNTER → 2019-10-12 14:41 | Outpatient (BNVA) | payer MEDICARE, OTHER, SELFPAY | PROVIDERS: PCP Family Medicine; Visit Provider Family Medicine | DX: M17.12 Unilateral primary osteoarthritis, left knee (principal); R09.89 Other specified symptoms and signs involving the circulatory and respiratory systems | CPT/HCPCS: 84550; 86431 ==

== ENCOUNTER 2019-10-14 08:29 | Outpatient (CLI) | payer MEDICARE, OTHER, SELFPAY ==
--- NOTE | 2019-10-14 09:06 | MR_ITS ---
WS: [id number] MRI HEAD WITH CONTRAST TECHNIQUE: Sagittal T1, T2 axial, T2 axial FLAIR, axial susceptibility weighted imaging, axial diffus ion weighted images, and coronal T2 images were obtained. Pre and post-T1 axial and post T1 coronal i mages. ADC and FSPGR images. CLINICAL INFORMATION: BENIGN NEOPLASM OF MENINGES COMPARISON: September 23, 2019 FINDINGS: No evidence of restricted diffusion to suggest acute ischemia. Ventricular system and basal cisterns are patent. Mild small vessel changes. Moderate parenchymal volume loss. Normal posterior fossa. Norm al vascular flow voids at the skull base. No extra-axial fluid collections. Mild mucosal thickening in the paranasal sinuses and mastoid air cells. Dural based enhancing lesion left middle cranial fossa consistent with meningioma. This measures 1.7 x 1.9 x 1.9 CM. Mass effect on the left anterior temporal lobe and inferior frontal lobe. No underlyi ng edema. Meningioma slightly abuts the left middle cerebral artery without significant stenosis. Additional tiny possible lesion measuring 5 mm at the dorsal medulla caudal to the fourth ventricle. This is equivocal and difficult to visualize due to artifact. Recommend 3-6 month follow-up with MRI of the head without and with gadolinium enhancement IAC protocol. This may represent a small ependymo ma/subependymoma. Normal optic chiasm and pituitary infundibulum. Cavernous sinuses and Meckel's cave normal in appeara nce. No other abnormal areas of enhancement. MR/MR head wo/w con [id number] IMPRESSION: 1. Left middle cranial fossa meningioma measuring 1.7 x 1.9 x 1.9 cm 2. Associated mass effect on the left anterior temporal lobe and inferior fron sandhya lobe. No underlying edema. 3. Additional tiny possible lesion measuring 5 mm at the dorsal medulla caudal to the fourth ventricle. This is equivocal and difficult to visualize due to a rtifact. Recommend 3-6 month follow-up with MRI of the head without and with ga dolinium enhancement IAC protocol. This may represent a small ependymoma/subepe ndymoma. 4. No restricted diffusion to suggest acute ischemia. 5. Mild small vessel changes. Moderate parenchymal volume loss. 6. Mild mucosal thickening in the paranasal sinuses.
== END 2019-10-14 08:30 | disposition home or self-care (01) ==
LOC: RADWPI 08:33
PROVIDERS: PCP Family Medicine; Visit Provider Specialist
DX: D32.9 Benign neoplasm of meninges, unspecified (principal); R22.0 Localized swelling, mass and lump, head
CPT/HCPCS: 70553; A9579

== ENCOUNTER 2019-10-28 09:55 | Outpatient (CLI) | payer MEDICARE, OTHER, SELFPAY ==
--- NOTE | 2019-10-28 10:15 | USCV_ITS ---
Haylie Garcia Age: 79 Gender: F : 1940 Exam Date: 10/28/2019 10:22 Ordering Phys: Erika Peraza MD ([email or web address]) Technologist: Rin Lozano Exam Location: [facility] [place] Indication: HISTORY: Swollen legs PROCEDURES: The venous duplex Doppler examination of both lower extremities was performed in the standard fashion. The following venous structures were evaluated: common femoral vein, the greater saphenous vein, superficial femoral vein, and the popliteal vein. In addition, the posterior tibial veins were evaluated. The SSV was also examined FINDINGS: No reflux worth mentioning. The veins were found to be easily compressible with spontaneous blood flow. Non pulsatile flow pattern. CONCLUSIONS No evidence of DVT in the above-mentioned identifiable veins. No significant venous reflux Dr Salud Mccartney MD FAC (Electronically Signed) Final Date: 29 October 2019 08:21 S
== END 2019-10-28 09:56 | disposition home or self-care (01) ==
LOC: RAD 09:58
PROVIDERS: PCP Family Medicine; Visit Provider Internal Medicine Cardiovascular Disease
DX: I83.893 Varicose veins of bilateral lower extremities with other complications (principal); M79.89 Other specified soft tissue disorders
CPT/HCPCS: 93970

== ENCOUNTER 2019-10-30 08:05 | Outpatient (CLI) | payer MEDICARE, OTHER, SELFPAY ==
[2019-10-30 09:56] LABS: Basophils # 0.1 10^3/uL (0.0-0.1); Basophils % 0.9 %; Eosinophils # 0.3 10^3/uL (0.0-0.8); Eosinophils % 4.5 %; Hematocrit 36.5 % (37.0-47.0); Hemoglobin 11.4 g/dL (11.5-15.3); Lymphocytes # 2.3 10^3/uL (0.8-4.8); Lymphocytes % 41.8 %; Mean Corpuscular HGB Conc 31.2 g/dL (30.0-36.0); Mean Corpuscular Hemoglobin 30.2 pg (28.0-34.0); Mean Corpuscular Volume 96.8 fL (81-99); Monocytes # 0.7 10^3/uL (0.2-0.9); Monocytes % 11.6 %; Neutrophils # 2.28 10^3/uL (1.8-7.7); Neutrophils % 40.8 %; Nucleated Red Blood Cells % 0 %; Platelet Count 361 10^3/cmm (130-400); Red Blood Count 3.77 10^6/uL (4.1-5.3); Red Cell Distribution Width 13.1 % (12.1-15.1); White Blood Count 5.6 10^3/uL (4.0-10.0)
[2019-10-30 10:35] LABS: 25 Hydroxy Vitamin D 21 ng/mL (30-100); Alanine Aminotransferase 8 U/L (0-33); Alkaline Phosphatase 68 IU/L (35-105); Anion Gap 14.7 (5-19); Aspartate Amino Transferase 10 U/L (0-32); Blood Urea Nitrogen 18 mg/dL (8-23); Calcium 8.4 mg/dL (8.5-10.5); Carbon Dioxide 24 mmol/L (22-29); Chloride 105 mmol/L (98-107); Globulin 2.5 g/dL (1.3-4.6); Glucose 132 mg/dL (65-115); Osmolality Calculated 288 mOsm/kg (285-295); Potassium 3.7 mmol/L (3.5-5.1); Sodium 140 mmol/L (136-145); Total Bilirubin 0.4 mg/dL (0.15-1.2); Total Protein 6.5 g/dL (6.6-8.7)
[2019-10-30 10:38] LABS: Erythrocyte Sedimentation Rate 35 mm/hr (0-15)
[2019-10-31 08:25] LABS: PROTEIN, TOTAL 5.8 g/dL (6.1-8.1)
[2019-11-02 12:57] LABS: ALBUMIN 3.7 g/dL (3.8-4.8); ALPHA 1 GLOBULIN 0.3 g/dL (0.2-0.3); ALPHA 2 GLOBULIN 0.8 g/dL (0.5-0.9); BETA 1 GLOBULIN 0.4 g/dL (0.4-0.6); BETA 2 GLOBULIN 0.2 g/dL (0.2-0.5); GAMMA GLOBULIN 0.5 g/dL (0.8-1.7)
[2019-11-02 16:47] LABS: KAPPA LIGHT CHAIN, FREE, SERUM 15.6 mg/L (3.3-19.4); KAPPA/LAMBDA LIGHT CHAINS FREE 1.47 (0.26-1.65); LAMBDA LIGHT CHAIN, FREE, SERU 10.6 mg/L (5.7-26.3)
== END 2019-10-30 08:06 | disposition home or self-care (01) ==
LOC: ONCMED 11:41
PROVIDERS: PCP Family Medicine; Visit Provider Internal Medicine Medical Oncology
DX: D68.0 Von Willebrand disease (principal); D51.0 Vitamin B12 deficiency anemia due to intrinsic factor deficiency; E61.1 Iron deficiency; E83.32 Hereditary vitamin D-dependent rickets (type 1) (type 2)
CPT/HCPCS: 80053; 82306; 83883; 84155; 84165; 85025; 85651

== ENCOUNTER 2019-11-03 13:36 | Outpatient (CLI) | payer MEDICARE, OTHER, SELFPAY ==
--- NOTE | 2019-11-05 08:39 | ONC FU_ITS ---
Dr. Foley Patient Follow-Up Note Patient: Haylie Garcia Unit #: [id number]: 1940 Dicatated By: Zeke Foley M.D.Date of Visit:Nov 03, 2019 Onc Med Follow-up/Prog Note Chief Complaint: Von Willebrand's disease/pulmonary embolism. History of Present Illness: This is a 79 year-old woman with a known history of von Willebrand's disease who was diagnosed with multiple pulmonary emboli in April 2016. I had seen her initially on 05/21/2016. She gave a history of what appeared to be mild von Willebrand's disease. It was initially diagnosed at around age 41. She didn't know the specific subtype, and it may not have even been determined. I did not have any records available. She had indicated that her treatment had been limited to prophylactic DDAVP infusions prior to procedures. She was having excessive bruising at the time of the initial diagnosis. She had no other bleeding manifestations. She indicated that she also was found to have both pernicious anemia and iron deficiency. She has been on long-term B12 injections. On 04/25/2016 she had presented to the emergency room with shortness of breath which have been getting worse over a period of at least one week. She actually had started getting short of breath a few months earlier, but at that point it was mainly just with more strenuous exertion. At that time she had been traveling back and forth to [place] frequently to help care for a sister who was terminally ill with cancer. Her breathing, though, got worse fairly abruptly. Her evaluation in the emergency room included CT pulmonary angiogram which showed bilateral upper lobe, right middle lobe and left lower lobe segmental level pulmonary emboli. Also noted was bilateral lower lobe subsegmental atelectasis or scarring and a mosaic perfusion pattern of the lung parenchyma. She was admitted to the hospital where she began on anticoagulation with apixaban. Her further evaluation included echocardiogram which showed mild diastolic and systolic dysfunction with global hypokinesis and estimated ejection fraction of 52%. A Sestamibi stress test on 04/27/2016 showed a normal perfusion scan ejection fraction estimated at 66%. She was discharged home on apixaban 10 mg twice a day. At the time of her initial visit she continued to complain of fatigue and exertional dyspnea. A follow-up CT pulmonary angiogram on 05/23/2016 showed interval resolution of the bilateral segmental and subsegmental multilobar pulmonary emboli compared to the study from 04/25/2016. Also noted was moderate improvement of the mosaic attenuation throughout the lungs. With that finding and her ongoing complain of exertional dyspnea, she had pulmonary consultation with Dr. Jose A Deshpande in [place] on 07/18/2016. He felt that her fatigue and exertional dyspnea was likely related to the apixaban, and he had recommended transitioning her anticoagulation to warfarin. In the meantime, she had cardiology follow-up with Dr. Peraza, and he opted to switch her from apixaban to rivaroxaban 20 mg daily. As of her followup visit here in October 2016 she changed her maintenance anticoagulation to apixaban 2.5 mg bid. She has additional history of exercise-induced asthma, and she has been on treatment with Advair and Singulair. Her other medical illnesses include hypertension, GERD, degenerative arthritis, and osteoporosis. She is a nonsmoker. INTERIM HISTORY: She was seen in the emergency room with bronchitis on 04/18/2017. CT pulmonary angiogram at that time showed no evidence for pulmonary embolism. There was slight atelectasis in the lung bases, right greater than left. There was no acute infiltrate. There was no mediastinal or hilar adenopathy noted. I had seen her for a follow-up visit on 08/22/2017. She was otherwise stable clinically, at that point I did arrange for pulmonary consultation with Dr. Mark Ochoa. Her further evaluation did include a sleep study, which apparently did show evidence of sleep apnea. She was started on CPAP, but she tolerated it poorly. I had seen her for a follow-up visit on 05/29/2018. At that point she appeared stable clinically other than she was having significant pain in her right foot. Bone scan on 06/09/2018 showed increased uptake in all 3 phases of the bone scan involving the right foot and ankle. The appearance was suggestive of stress fracture. She was referred to Dr. Crooks for further management. On 07/22/2019 she was seen in the emergency room with shortness of breath. She was diagnosed with COPD exacerbation. Her CT pulmonary angiogram showed no evidence of pulmonary embolism and no evidence of pneumonia or other acute pathololgy. In September she had seen Dr. Max because of persistent sore throat and hoarseness. Her evaluation included a neck CT which showed an incidental finding of a left middle cranial fossa enhancing lesion measuring 2.03 cm felt to be most likely a meningioma. Further evaluation with head MRI on 10/14/2019 showed a dural based enhancing lesion in the left middle cranial fossa consistent with a meningioma. It measured 1.7 x 1.9 x 1.9 cm. There was associated mass effect on the left anterior temporal bone and inferior frontal lobe. There was an additional possible lesion at the doral medulla caudal to the fourth ventricle measuring 5 mm. There were no other significant findings. She is seen for a follow-up visit. She continues to complain of shortness of breath. She has limited activity. Her ECOG score is 1. She has good appetite. She has not had fever. She says she has sweating all the time. She says she wakes up with sore throat and she still has hoarseness. She sometimes has cough. She has occasional chest pain in asociation with more strenuous activity. She has been having acid reflux, and she says that Protonix is not working. She has no other GI or complaints other than acid reflux. She has been having pain in both legs just below the knees. At times the pain is pretty severe. She says her arthritis overall is getting worse. She takes meclizine as needed for dizziness. She does not have headache or focal neurologic symptoms. Medications: Advair Diskus 1 (250-50 mcg/dose) Aerosol Powder, Breath Activated Inhalation b.i.d., Bumetanide 1 Tablet (of 1 mg) Oral daily, Eliquis 1 (2.5 mg) Tablet Oral b.i.d., Ferrous Sulfate 1 Tablet (of 325 (65 fe) mg) Oral daily, Folic Acid 1 Tablet (of 400 mcg) Oral daily, Imdur 1 Tablet (of 30 mg) Tablet SR 24 HR Oral daily, Klor-Con M20 1 Tablet (of 20 meq) Tablet, controlled release Oral daily, Lodine 1 (400 mg) Tablet Oral b.i.d., Magnesium 1 Capsule Oral daily, Meclizine HCl 1 Tablet (of 25 mg) Oral t.i.d. PRN, Neurontin 1 Tablet (of 300 mg) Capsule Oral t.i.d., Requip 2 Tablet (of 1 mg) Oral daily PRN, Singulair 1 Tablet (of 10 mg) Oral daily PRN, Toprol XL 1 Tablet (of 100 mg) Tablet SR 24 HR Oral b.i.d., Verapamil HCl ER 1 Tablet (of 300 mg) Capsule SR 24 HR Oral daily, Vitamin C 1 Capsule (of 500 mg) Oral daily, Vitamin D3 1 Tablet Oral daily, Zantac 1 Tablet (of 150 mg) Oral b.i.d. Allergies: Aminoglycosides, Amoxicillin, Aspirin, ChlordiazePOXIDE HCl, Codeine Sulfate, Dexamethasone, Etomidate, Milk, Neosporin Original, Onion, Penicillin V Potassium, Polysporin, and Valium. Review of Systems: Constitutional - She has limited activity. Appetite is good and weight is stable. No fever. She has sweating with activity. ECOG score is 1, ENMT - She has sinus congestion/drainage. No mouth sores. She has been waking up with sore throat and she has been having hoarseness. No difficulty swallowing, Hematologic/Lymphatic - She has had some bruising, Respiratory - She has shortness of breath. She sometimes has cough. No pleuritic pain or hemoptysis, Cardiovascular - She has occasional chest pain which tends to be associated with more strenuous activity. No palpitations, Gastrointestinal - No nausea or vomiting. She has acid reflux. No diarrhea or constipation. No blood in the stool or black stools, Genitourinary (F) - No dysuria or hematuria. No urinary frequency. No urgency or incontinence, Musculoskeletal - She has been having awful pain in both legs, just below the knees. It is worse with activity. Overall, her arthritis is getting worse, Integumentary - No skin rash, Neurologic - No headache. She takes meclizine for dizziness. No numbness or tingling. No other focal neurologic symptoms, Psychiatric - No anxiety or depression. Most of the time she sleeps OK. Vital Signs: Performed on Nov 03, 2019 13:49 Height - 64.00 in Weight - 195.6 lbs (HIGH) BSA - 1.94 sq.m BMI - 33.57 (HIGH) Temperature - 98.3 F (LOW) Pulse - 89 /min Respiration - 26 /min BP - 131/73 mm(hg) O2 Sat - 92 % (LOW) Pain - 0 Physical Examination: Constitutional - She appears short of breath with effort, Eyes - Sclerae nonicteric. Conjunctivae clear, ENMT - No lesions noted in the oral cavity, Hematologic/Lymphatic - No cervical, clavicular, or axillary adenopathy, Respiratory - Lungs sound clear with diminished air movement bilaterally, Cardiovascular - Heart rhythm is regular. There is a II/ systolic murmur. There is no gallop or rub noted, Abdomen - Mildly distended but soft. Liver and spleen are not enlarged. There is no abdominal mass or ascites noted and there is no inguinal adenopathy, Extremities - Mild edema. There is mild tenderness in the anterior tibial area just below the knees on both sides. Dorsalis pedis pulses are palpable bilaterally, Neurologic - No focal neurologic deficits noted. Lab/Imaging: Test performed on Oct 30, 2019 08:05 Sodium 140 mmol/L Vitamin D (25-Hydroxy), Total 21 ng/mL Potassium 3.7 mmol/L Chloride 105 mmol/L CO2 24 mmol/L Anion Gap 14.7 BUN 18 mg/dL Creatinine 0.7 mg/dL Cr Clearance (Est) 91.7300 mL/min Glucose 132 mg/dL Calcium 8.4 mg/dL Protein, Total 6.5 g/dL Albumin 4.0 g/dL Globulin 2.5 g/dL Bilirubin, Total 0.4 mg/dL ALT (SGPT) 8 U/L AST (SGOT) 10 U/L Alkaline Phosphatase 68 IU/L ESR (Sed Rate) 35 mm/hr WBC 5.6 10 3/uL RBC 3.77 10 6/uL HGB 11.4 g/dL HCT 36.5 % MCV 96.8 fL MCH 30.2 pg MCHC 31.2 g/dL RDW 13.1 % Platelet Count 361 10 3/cmm MPV 10.0 fL Neutrophils 2.28 10 3/uL Lymphocytes 2.3 10 3/uL Monocytes 0.7 10 3/uL Eosinophils 0.3 10 3/uL Basophils 0.1 10 3/uL Neutrophil % 40.8 % Lymphocyte % 41.8 % Monocyte % 11.6 % Eosinophil % 4.5 % Basophils % 0.9 % NRBC % 0 % Impression: 1. Patient with episode of bilateral pulmonary emboli in April 2016. This may been precipitated by multiple car trips to [place]. 2. She has a known history of mild von Willebrand's disease, specific subtype unknown to me. Her previous treatment has been limited to prophylactic infusions of DDAVP prior to surgical procedures. She has had easy bruising, but no other bleeding manifestations. Her other medical illnesses include: 3. Hypertension. 4. Exercise-induced asthma. 5. She has a history of pernicious anemia, for which she has been on long-term B12 replacement. 6. She also reports having a history of iron deficiency. 7. GERD. 8. Degenerative arthritis/degenerative disease of the spine. 9. Osteoporosis. She began anticoagulation with apixaban with the initial diagnosis of the pulmonary emboli in April 2016. Her follow-up CT pulmonary angiogram on 05/23/2016 showed interval resolution of the pulmonary emboli as well as moderate improvement of mosaic attenuation throughout the lungs. Despite that improvement, she continued to have fatigue and exertional dyspnea with very limited activity tolerance. There was no significant improvement in her symptoms after transitioning her anticoagulation from apixaban to rivaroxaban. As of her follow-up visit on 10/16/2016 she has continued anticoagulation with apixaban at a maintenance dosage of 2.5 mg twice a day. She restarted Lodine for her arthritis pain. Repeat CT pulmonary angiogram on 04/18/2017 showed no evidence of pulmonary embolism or other acute pathology. She continued, though, to have shortness of breath and limited activity tolerance. I was not been able to determine a specific cause for it. Her echocardiogram showed adequate LV function. Her pulmonary function studies showed no significant obstructive defect. There was a decrease in diffusion capacity, but it was felt to be normal when corrected for alveolar volume. She then had further pulmonary consultation with Dr. Mark Ochoa. She apparently was found to have evidence of sleep apnea on her sleep study, and she was started on CPAP, which she tolerated very poorly. She did have some improvement in her activity tolerance with pulmonary rehabilitation. In May 2018 she had presented with increasing pain in her right ankle and foot. X-ray showed no acute findings, but a subsequent bone scan showed findings consistent with stress fracture. That problem was managed by Dr. Crooks. During follow-up she continued to complain of shortness of breath. In July she was seen in the emergency room and was diagnosed with a COPD exacerbation. At that time she had another negative CT pulmonary angiogram. She had also complained of persistent sore throat and hoarseness, for which she was seen by Dr. Max. On evaluation she was found to have a left middle cranial fossa lesion which appeared consistent with meningioma. She has had this evaluated previously in [place], as far back as 2007. As of February 2012 the lesion appeared stable on her follow-up MRI there and the reported findings appear similar to the current study. At this point she is still very short of breath with effort. She has a resting room air oxygen saturation of 90%, and after walking it drops to 86% with a heart rate of 106. On walking with oxygen at 3 L/min her oxygen saturation increases to 93% with heart rate 102, and at rest that increases to 96% with heart rate 87. Plan: I will arrange to have her start home oxygen. She will continue anticoagulation with apixaban 2.5 mg bid. She will be given a prescription for Pepcid for her acid reflux. I will see her again in 6 months, or sooner as needed. In the meantime, I will request her pior MRI from [place] for comparison. Signed By: Zeke Foley M.D. <<Signature on File>>
== END 2019-11-03 13:37 | disposition home or self-care (01) ==
LOC: ONCMED 13:39
PROVIDERS: PCP Family Medicine; Visit Provider Internal Medicine Medical Oncology
DX: D68.0 Von Willebrand disease (principal); Z86.711 Personal history of pulmonary embolism; J44.9 Chronic obstructive pulmonary disease, unspecified; K21.9 Gastro-esophageal reflux disease without esophagitis; I10 Essential (primary) hypertension; D51.0 Vitamin B12 deficiency anemia due to intrinsic factor deficiency; M19.90 Unspecified osteoarthritis, unspecified site; M47.9 Spondylosis, unspecified; M81.0 Age-related osteoporosis without current pathological fracture; Z79.01 Long term (current) use of anticoagulants; Z99.81 Dependence on supplemental oxygen
CPT/HCPCS: 99214

== ENCOUNTER 2020-02-10 10:15 | Outpatient (CLI) | payer MEDICARE, OTHER, SELFPAY ==
[2020-02-10 11:58] LABS: Basophils # 0.1 10^3/uL (0.0-0.1); Basophils % 1.3 %; Eosinophils # 0.2 10^3/uL (0.0-0.8); Eosinophils % 2.4 %; Hematocrit 36.3 % (37.0-47.0); Hemoglobin 11.9 g/dL (11.5-15.3); Lymphocytes # 2.6 10^3/uL (0.8-4.8); Lymphocytes % 29.3 %; Mean Corpuscular HGB Conc 32.8 g/dL (30.0-36.0); Mean Corpuscular Hemoglobin 30.7 pg (28.0-34.0); Mean Corpuscular Volume 93.6 fL (81-99); Mean Platelet Volume 10.3 fL (7.4-10.4); Monocytes # 0.9 10^3/uL (0.2-0.9); Monocytes % 9.7 %; Neutrophils # 4.98 10^3/uL (1.8-7.7); Neutrophils % 56.7 %; Nucleated Red Blood Cells % 0 %; Platelet Count 375 10^3/cmm (130-400); Red Blood Count 3.88 10^6/uL (4.1-5.3); Red Cell Distribution Width 12.2 % (12.1-15.1); White Blood Count 8.8 10^3/uL (4.0-10.0)
[2020-02-10 12:31] LABS: Alanine Aminotransferase 10 U/L (0-33); Albumin Level 4.2 g/dL (3.5-5.2); Alkaline Phosphatase 101 IU/L (35-105); Aspartate Amino Transferase 11 U/L (0-32); Blood Urea Nitrogen 14 mg/dL (8-23); Carbon Dioxide 25 mmol/L (22-29); Chloride 104 mmol/L (98-107); Globulin 2.2 g/dL (1.3-4.6); Glucose 97 mg/dL (65-115); Lactate Dehydrogenase 174 U/L (135-214); Osmolality Calculated 290 mOsm/kg (285-295); Sodium 140 mmol/L (136-145); Total Bilirubin 0.3 mg/dL (0.15-1.2); Total Protein 6.4 g/dL (6.6-8.7)
[2020-02-10 12:59] LABS: Erythrocyte Sedimentation Rate 40 mm/hr (0-15)
[2020-02-10 13:03] LABS: Ferritin 98 ng/mL (15-150); Iron 78 ug/dL (37-145); Percent Saturation 26.9 % (20-50); Total Iron Binding Capacity 289 mcg/dl; Unsaturated Iron Binding 211 ug/dL (112-347)
== END 2020-02-10 10:16 | disposition home or self-care (01) ==
LOC: ONCMED 13:25
PROVIDERS: PCP Family Medicine; Visit Provider Internal Medicine Medical Oncology
DX: D68.0 Von Willebrand disease (principal); D51.0 Vitamin B12 deficiency anemia due to intrinsic factor deficiency; E61.1 Iron deficiency
CPT/HCPCS: 36415; 80053; 82728; 83540; 83550; 83615; 85025; 85651

== ENCOUNTER 2020-02-11 06:01 | Outpatient (CLI) | payer MEDICARE, OTHER, SELFPAY ==
--- NOTE | 2020-02-14 15:51 | ONC FU_ITS ---
Dr. Foley Patient Follow-Up Note Patient: Haylie Garcia Unit #: [id number]: 1940 Dicatated By: Zeke Foley M.D.Date of Visit:Feb 11, 2020 Onc Med Follow-up/Prog Note Chief Complaint: Von Willebrand's disease/pulmonary embolism. History of Present Illness: This is a 79 year-old woman with a known history of von Willebrand's disease who was diagnosed with multiple pulmonary emboli in April 2016. I had seen her initially on 05/21/2016. She gave a history of what appeared to be mild von Willebrand's disease. It was initially diagnosed at around age 41. She didn't know the specific subtype, and it may not have even been determined. I did not have any records available. She had indicated that her treatment had been limited to prophylactic DDAVP infusions prior to procedures. She was having excessive bruising at the time of the initial diagnosis. She had no other bleeding manifestations. She indicated that she also was found to have both pernicious anemia and iron deficiency. She has been on long-term B12 injections. On 04/25/2016 she had presented to the emergency room with shortness of breath which have been getting worse over a period of at least one week. She actually had started getting short of breath a few months earlier, but at that point it was mainly just with more strenuous exertion. At that time she had been traveling back and forth to [place] frequently to help care for a sister who was terminally ill with cancer. Her breathing, though, got worse fairly abruptly. Her evaluation in the emergency room included CT pulmonary angiogram which showed bilateral upper lobe, right middle lobe and left lower lobe segmental level pulmonary emboli. Also noted was bilateral lower lobe subsegmental atelectasis or scarring and a mosaic perfusion pattern of the lung parenchyma. She was admitted to the hospital where she began on anticoagulation with apixaban. Her further evaluation included echocardiogram which showed mild diastolic and systolic dysfunction with global hypokinesis and estimated ejection fraction of 52%. A Sestamibi stress test on 04/27/2016 showed a normal perfusion scan ejection fraction estimated at 66%. She was discharged home on apixaban 10 mg twice a day. At the time of her initial visit she continued to complain of fatigue and exertional dyspnea. A follow-up CT pulmonary angiogram on 05/23/2016 showed interval resolution of the bilateral segmental and subsegmental multilobar pulmonary emboli compared to the study from 04/25/2016. Also noted was moderate improvement of the mosaic attenuation throughout the lungs. With that finding and her ongoing complain of exertional dyspnea, she had pulmonary consultation with Dr. Jose A Deshpande in [place] on 07/18/2016. He felt that her fatigue and exertional dyspnea was likely related to the apixaban, and he had recommended transitioning her anticoagulation to warfarin. In the meantime, she had cardiology follow-up with Dr. Peraza, and he opted to switch her from apixaban to rivaroxaban 20 mg daily. As of her followup visit here in October 2016 she changed her maintenance anticoagulation to apixaban 2.5 mg bid. She has additional history of exercise-induced asthma, and she has been on treatment with Advair and Singulair. Her other medical illnesses include hypertension, GERD, degenerative arthritis, and osteoporosis. She is a nonsmoker. INTERIM HISTORY: She was seen in the emergency room with bronchitis on 04/18/2017. CT pulmonary angiogram at that time showed no evidence for pulmonary embolism. There was slight atelectasis in the lung bases, right greater than left. There was no acute infiltrate. There was no mediastinal or hilar adenopathy noted. I had seen her for a follow-up visit on 08/22/2017. She was otherwise stable clinically, at that point I did arrange for pulmonary consultation with Dr. Mark Ochoa. Her further evaluation did include a sleep study, which apparently did show evidence of sleep apnea. She was started on CPAP, but she tolerated it poorly. I had seen her for a follow-up visit on 05/29/2018. At that point she appeared stable clinically other than she was having significant pain in her right foot. Bone scan on 06/09/2018 showed increased uptake in all 3 phases of the bone scan involving the right foot and ankle. The appearance was suggestive of stress fracture. She was referred to Dr. Crooks for further management. On 07/22/2019 she was seen in the emergency room with shortness of breath. She was diagnosed with COPD exacerbation. Her CT pulmonary angiogram showed no evidence of pulmonary embolism and no evidence of pneumonia or other acute pathololgy. In September she had seen Dr. Max because of persistent sore throat and hoarseness. Her evaluation included a neck CT which showed an incidental finding of a left middle cranial fossa enhancing lesion measuring 2.03 cm felt to be most likely a meningioma. Further evaluation with head MRI on 10/14/2019 showed a dural based enhancing lesion in the left middle cranial fossa consistent with a meningioma. It measured 1.7 x 1.9 x 1.9 cm. There was associated mass effect on the left anterior temporal bone and inferior frontal lobe. There was an additional possible lesion at the doral medulla caudal to the fourth ventricle measuring 5 mm. There were no other significant findings. She is seen for a follow-up visit. She comes in today reporting that she has been having swelling in her feet and legs for the last 2 weeks. She recently started an increased dosage of bumetanide, 2 mg daily, but thus far with no improvement. She is still short of breath with any activity and she has very limited activity tolerance. She still gets things done, but she says it takes longer. Her ECOG score is 1. She has good appetite. She has not had fever. She has sweating with activity. She has some cough, but not a lot. She does not complain of chest pain. She has no GI/ complaints other than occasional acid reflux. She says her joints ache all the time. She has restless leg syndrome, and that seems to be getting worse. She has no focal neurologic symptoms. Medications: Advair Diskus 1 (250-50 mcg/dose) Aerosol Powder, Breath Activated Inhalation b.i.d., Bumetanide 1 Tablet (of 2 mg) Oral daily, Eliquis 1 (2.5 mg) Tablet Oral b.i.d., Ferrous Sulfate 1 Tablet (of 325 (65 fe) mg) Oral daily, Folic Acid 1 Tablet (of 400 mcg) Oral daily, Imdur 1 Tablet (of 30 mg) Tablet SR 24 HR Oral daily, Klor-Con M20 1 Tablet (of 20 meq) Tablet, controlled release Oral daily, Lodine 1 (400 mg) Tablet Oral b.i.d., Magnesium 1 Capsule Oral daily, Meclizine HCl 1 Tablet (of 25 mg) Oral t.i.d. PRN, Neurontin 1 Tablet (of 600 mg) Capsule Oral t.i.d., Requip 2 Tablet (of 1 mg) Oral daily PRN, Singulair 1 Tablet (of 10 mg) Oral daily PRN, Toprol XL 1 Tablet (of 100 mg) Tablet SR 24 HR Oral b.i.d., Verapamil HCl ER 1 Tablet (of 300 mg) Capsule SR 24 HR Oral daily, Vitamin C 1 Capsule (of 500 mg) Oral daily, Vitamin D3 1 Tablet Oral daily, Zantac 1 Tablet (of 150 mg) Oral b.i.d. Allergies: Aminoglycosides, Amoxicillin, Aspirin, ChlordiazePOXIDE HCl, Codeine Sulfate, Dexamethasone, Etomidate, Milk, Neosporin Original, Onion, Penicillin V Potassium, Polysporin, and Valium. Review of Systems: Constitutional - She has limited activity tolerance. She still completes most of her activities, but she says it takes longer. Appetite is good. She has not had fever. She does have sweating with activity. ECOG score is 1, ENMT - She has sinus drainage, but no more than normal. No mouth sores. No sore throat or difficulty swallowing, Hematologic/Lymphatic - She has easy bruising, Respiratory - She has shortness of breath. She has some cough, but not a lot. No pleuritic pain or hemoptysis, Cardiovascular - No angina pain. No palpitations. She is having increased swelling in the lower extremities, Gastrointestinal - No nausea or vomiting. She occasionally has acid reflux. No diarrhea or constipation. No blood in the stool or black stools, Genitourinary (F) - No dysuria or hematuria. No urinary frequency. No urgency or incontinence, Musculoskeletal - She aches all the time. She has restless leg syndrome, and she says that is getting worse, Integumentary - No skin rash, Neurologic - No headache. She takes meclizine for dizziness. No numbness or tingling. No other focal neurologic symptoms, Psychiatric - No anxiety or depression. No insomnia. Vital Signs: Performed on Feb 11, 2020 13:02 Height - 64.00 in Weight - 192.4 lbs (LOW) BSA - 1.92 sq.m BMI - 33.03 (HIGH) Temperature - 97.5 F (LOW) Pulse - 86 /min Respiration - 24 /min BP - 142/86 mm(hg) (HIGH) O2 Sat - 96 % Pain - 2 Physical Examination: Constitutional - She appears short of breath with effort, Eyes - Sclerae nonicteric. Conjunctivae clear, ENMT - No lesions noted in the oral cavity, Hematologic/Lymphatic - No cervical, clavicular, or axillary adenopathy, Respiratory - Lungs sound clear with diminished air movement bilaterally, Cardiovascular - Heart rhythm is regular. There is a II/ systolic murmur. There is no gallop or rub noted, Abdomen - Mildly distended but soft. Liver and spleen are not enlarged. There is no abdominal mass or ascites noted and there is no inguinal adenopathy, Extremities - She now has 2-3+ lower extremity edema. There are scattered purpuric lesions, Neurologic - No focal neurologic deficits noted. Lab/Imaging: CBC shows hemoglobin 11.9 g, white blood cell count 8800, and platelet count 375,000. Comprehensive metabolic profile is unremarkable. Impression: 1. Patient with episode of bilateral pulmonary emboli in April 2016. This may been precipitated by multiple car trips to [place]. 2. She has a known history of mild von Willebrand's disease, specific subtype unknown to me. Her previous treatment has been limited to prophylactic infusions of DDAVP prior to surgical procedures. She has had easy bruising, but no other bleeding manifestations. Her other medical illnesses include: 3. Hypertension. 4. Exercise-induced asthma. 5. She has a history of pernicious anemia, for which she has been on long-term B12 replacement. 6. She also reports having a history of iron deficiency. 7. GERD. 8. Degenerative arthritis/degenerative disease of the spine. 9. Osteoporosis. She began anticoagulation with apixaban with the initial diagnosis of the pulmonary emboli in April 2016. Her follow-up CT pulmonary angiogram on 05/23/2016 showed interval resolution of the pulmonary emboli as well as moderate improvement of mosaic attenuation throughout the lungs. Despite that improvement, she continued to have fatigue and exertional dyspnea with very limited activity tolerance. There was no significant improvement in her symptoms after transitioning her anticoagulation from apixaban to rivaroxaban. As of her follow-up visit on 10/16/2016 she has continued anticoagulation with apixaban at a maintenance dosage of 2.5 mg twice a day. She restarted Lodine for her arthritis pain. Repeat CT pulmonary angiogram on 04/18/2017 showed no evidence of pulmonary embolism or other acute pathology. She continued, though, to have shortness of breath and limited activity tolerance. I was not been able to determine a specific cause for it. Her echocardiogram showed adequate LV function. Her pulmonary function studies showed no significant obstructive defect. There was a decrease in diffusion capacity, but it was felt to be normal when corrected for alveolar volume. She then had further pulmonary consultation with Dr. Mark Ochoa. She apparently was found to have evidence of sleep apnea on her sleep study, and she was started on CPAP, which she tolerated very poorly. She did have some improvement in her activity tolerance with pulmonary rehabilitation. In May 2018 she had presented with increasing pain in her right ankle and foot. X-ray showed no acute findings, but a subsequent bone scan showed findings consistent with stress fracture. That problem was managed by Dr. Crooks. During follow-up she continued to complain of shortness of breath. In July she was seen in the emergency room and was diagnosed with a COPD exacerbation. At that time she had another negative CT pulmonary angiogram. She had also complained of persistent sore throat and hoarseness, for which she was seen by Dr. Max. On evaluation she was found to have a left middle cranial fossa lesion which appeared consistent with meningioma. She has had this evaluated previously in [place], as far back as 2007. As of February 2012 the lesion appeared stable on her follow-up MRI there and the reported findings appear similar to the current study. During follow-up she was started on home oxygen, as she was desaturating with activity. She comes in now with increasing lower extremity edema over the past 2 weeks. Thus far it has not responded to an increase in her bumetanide dosage to 2 mg daily. Plan: She continues anticoagulation with apixaban 2.5 mg twice daily. She will increase bumetanide to 2 mg twice daily. I also asked her to start weighing herself more regularly. I will recheck her chemistry studies next week. In the meantime, she is to let us know if the swelling is not getting better. Signed By: Zeke Foley M.D. <<Signature on File>>
== END 2020-02-11 06:02 | disposition home or self-care (01) ==
LOC: ONCMED 06:04
PROVIDERS: PCP Family Medicine; Visit Provider Internal Medicine Medical Oncology
DX: D68.0 Von Willebrand disease (principal); I26.99 Other pulmonary embolism without acute cor pulmonale; J45.990 Exercise induced bronchospasm; R60.0 Localized edema; I10 Essential (primary) hypertension; K21.9 Gastro-esophageal reflux disease without esophagitis; M19.90 Unspecified osteoarthritis, unspecified site; D51.0 Vitamin B12 deficiency anemia due to intrinsic factor deficiency; Z79.899 Other long term (current) drug therapy; Z79.01 Long term (current) use of anticoagulants
CPT/HCPCS: 99214

== ENCOUNTER 2020-02-18 10:02 | Outpatient (CLI) | payer MEDICARE, OTHER, SELFPAY ==
[2020-02-18 15:32] LABS: Anion Gap 17.2 (5-19); Blood Urea Nitrogen 24 mg/dL (8-23); Calcium 8.9 mg/dL (8.5-10.5); Carbon Dioxide 31 mmol/L (22-29); Chloride 93 mmol/L (98-107); Glucose 75 mg/dL (65-115); NT Pro B Type Natriuretic Pept 164 pg/mL (0-450); Osmolality Calculated 289 mOsm/kg (285-295); Potassium 3.2 mmol/L (3.5-5.1); Sodium 138 mmol/L (136-145)
== END 2020-02-18 10:03 | disposition home or self-care (01) ==
LOC: ONCMED 15:47
PROVIDERS: PCP Family Medicine; Visit Provider Internal Medicine Medical Oncology
DX: D68.0 Von Willebrand disease (principal); D51.0 Vitamin B12 deficiency anemia due to intrinsic factor deficiency; E61.1 Iron deficiency; R60.9 Edema, unspecified
CPT/HCPCS: 36415; 80048; 83735; 83880

== ENCOUNTER 2020-02-25 08:29 | Emergency (ER) | payer MEDICARE, OTHER, SELFPAY ==
[2020-02-25 08:38] VITALS: BP 150/80; PULSE 73; RESP 20; TEMP 36.7; O2SAT 95; BMI 32.8
--- NOTE | 2020-02-25 08:52 | XR_ITS ---
WS: [id number] XR chest 1V portable [id number] REASON FOR EXAM: Weakness FINDINGS: The chest is unchanged compared to the most recent examination of 07/22/2019. Moderate tortuosity thoracic aorta without aneurysmal dilatation. The heart is at the upper limits of normal in size Presumed linear fibrotic scarring in the left lung base. Calcified granulomatous changes both hemitho races. No active pulmonary parenchymal or pleural disease noted. Moderate changes in the mid and lower thoracic spine and the shoulder joints. XR/XR chest 1V portable [id number] IMPRESSION: Stable abnormal chest with no acute abnormality.
--- NOTE | 2020-02-25 08:52 | ECG_ITS ---
[facility] Test Date: 2020-02-25 Pat Name: Haylie Garcia Department: Room: Gender: Female Ophthalmology Technician: : 1940 Requested By: Patrick Marin Order Number: [id number] Eugenia Box MD: Salud Mccartney M.D. Measurements Intervals [place] Rate: 70 P: 45 FL: 208 QRS: -20 QRSD: 88 T: -6 QT: 415 QTc: 449 Interpretive Statements SINUS RHYTHM LOW QRS VOLTAGE IN PRECORDIAL LEADS [QRS DEFLECTION < 1.0 mV IN CHEST LEADS] MODERATE VOLTAGE CRITERIA FOR LVH, CONSIDER NORMAL VARIANT [MEETS CRITERIA IN ONE OF: R(aVL), S(V1), R(V5), R(V5/V6)+S(V1)] POSSIBLE ANTERIOR MYOCARDIAL INFARCTION [30 ms Q WAVE IN V3/V4, OR R < 0.2 mV IN V4], OF INDETERMINATE AGE INTERPRETATION BASED ON A DEFAULT AGE OF 40 YEARS Compared to ECG 07/22/2019 12:03:38 Low QRS voltage now present Myocardial infarct finding now present ST (T wave) deviation no longer present Electronically Signed On 02-25-2020 22:42:42 [employer] by Salud Mccartney M.D. [id number]
--- NOTE | 2020-02-25 08:54 | ED_ITS ---
HPI - Weakness General: Chief complaint: Weakness Stated complaint: FEELS WEAK, DEHYDRATION Time Seen by Provider: 02/25/20 08:38 History of Present Illness: HPI Narrative: Patient is a 79-year-old female who comes to the ED with weakness. Past medical history of PE, COPD, A. fib, PVD, von Willebrand's disease, fibromyalgia and GERD. Patient says approximately 1 month ago her feet started to swell and she was placed on Bumex daily. She was not having any relief with that dose of Dr. Foley I increased it to twice a day and added metolazone. Patient took that for couple days and all her swelling went down and on February 18 she felt very weak. She has stopped taking the water pill and her last dose was on Saturday. She saw her PCP on February 22 and they told her that she is dehydrated. They told her to come to the ED if she is not feeling better. Patient drink about a Gatorade yesterday and woke up today still not feeling very well and she had gained 5 pounds from yesterday. She denies any past CHF diagnosis. Denies any chest pain or Increasing shortness of breath. Patient says she has some shortness of breath but has been chronic, but no acute change. MD Complaint: generalized weakness Associated symptoms: Denies chest pain, chills, dysuria, fever(s), headache(s), nausea or vomiting Review of Systems Const: Reports: other (Generalized weakness); Denies: fever(s), chills or fatigue Eyes: Denies: change in vision or eye discomfort ENMT: Denies: throat pain, odynophagia, nasal discharge or nasal congestion Card: Reports: edema (bilateral lower leg edema); Denies: chest pain, palpitations, swelling of feet/ankles, dyspnea on exertion or orthopnea Resp: Reports: dyspnea (chronic issue-no acute change); Denies: productive cough or non-productive cough GI: Denies: abdominal pain, nausea, vomiting, diarrhea, constipation or hematochezia : Denies: flank pain, dysuria or hematuria Musc: Denies: neck pain, back pain or extremity swelling Skin/Breast: Denies: rash or new lesions Neuro: Denies: headache(s), numbness in extremities or weakness in extremities PFSH ED PFSH: Medical History Afib Anemia Asthma Chronic GERD COPD (chronic obstructive pulmonary disease) Pulmonary embolism PVD (peripheral vascular disease) Sleep apnea Von Willebrand disease Surgical History H/O: hysterectomy (~1975) History of tonsillectomy (~1959) Social History Smoking and tobacco status: never smoked Alcohol intake: never Lives independently: Yes Household members: spouse Marital status: Current occupational status: retired History of recent travel: No Current gender identity: Female Physical Exam Const: COMMON NORMALS: no acute distress, patient oriented x3 and alert GENERAL APPEARANCE: cooperative and comfortable HENMT: COMMON NORMALS: normocephalic HEAD & SCALP: normocephalic MOUTH: Normal oral and palatal mucosa present THROAT: posterior oropharynx normal and uvula midline Eye: COMMON NORMALS: Equal, round and reactive pupils present PUPIL: Yes Equal, round and reactive pupils present Neck/C-Spine: COMMON NORMALS: supple GENERAL: Yes normal visual inspection Resp: COMMON NORMALS: normal respiratory effort, No retractions, No use of accessory muscles and clear to auscultation bilaterally AUSCULTATION: clear to auscultation bilaterally Cardio: COMMON NORMALS: regular rate, regular rhythm, S1 normal heart sound present, S2 normal heart sound present, No gallops present (Cardio), No clicks present (Cardio), No murmurs present (Cardio) and Peripheral pulses 2+ throughout RATE: regular rate RHYTHM: regular rhythm HEART SOUNDS: S1 n ormal heart sound present and S2 normal heart sound present PERIPHERAL PULSES: Peripheral pulses 2+ throughout GI: COMMON NORMALS: Normal to inspection, nondistended, normoactive bowel sounds present, Soft to palpation, non-tender and no masses PALPATION: Yes Soft to palpation : COMMON NORMALS: Yes no CVA tenderness BLADDER/KIDNEY EXAM: Yes no CVA tenderness Back/Pelvis: COMMON NORMALS: no CVA tenderness Extremity: GENERAL: Yes normal exam except as noted and Yes edema (1+ pitting edema bilaterally) Neuro: COMMON NORMALS: patient oriented x3 and moves all extremities SENSORIUM/ORIENTATION: Yes alert Skin: GENERAL SKIN EXAM: dry skin Course Vital Signs: Vital signs: Vital Signs Temperature 98.0 F 02/25/20 08:38 Pulse Rate 70 02/25/20 11:38 Respiratory Rate 18 02/25/20 11:38 Blood Pressure 165/80 02/25/20 11:38 Pulse Oximetry 95 02/25/20 11:38 MDM - Weakness MDM Narrative: Medical decision making narrative: Patient is a 79-year-old female comes to the ED with weakness. Patient has a history of A. fib, COPD, GERD and von Willebrand's disease. Patient had been seeing her PCP for the past month to address some bilateral lower extremity edema. She was put on some Bumex and her dose was increased. Patient's edema greatly improved last Saturday after the increased dose but she started feeling unwell and weak. She went and saw her PCP on February 22 and they told her she was dehydrated. Saturday, February 23 patient drink lots of Gatorade and she still is not feeling better. She has not taken any of her diuretic since last February 18. Patient says she is put on 5 pounds since yesterday when she drank all the Gatorade. Exam shows a patient in no acute distress or pain. Lungs were clear to auscultation bilaterally. Patient does have 1+ pitting edema bilaterally in the lower extremities. CBC and CMP were unremarkable. UA showed no signs of UTI. Troponin negative, BNP 242 and EKG showed normal sinus rhythm [address] segment elevation or depression seen. Chest x-ray showed no acute abnormalities. Patient's creatinine on 02/17 was elevated at 1.1, so some of her weakness symptoms are probably the result of dehydration from diuretic. Today her creatinine is 0.7. Patient was diagnosed with weakness and she was instructed to continue taking her meds as prescribed. I told her she can take h er Bumex to help with lower extremity edema as needed. Follow-up with her PCP in 7 to 10 days for reevaluation. Return to ED precautions given. Patient understood and agreed with plan. Lab Data: Attestation: I reviewed the patient's lab results. Labs: Lab Results 02/25/20 02/25/20 02/25/20 Range/Units 09:00 09:00 09:00 WBC 7.4 (4.0-10.0) 10^3/ uL RBC 3.91 L (4.1-5.3) 10^6/u L Hgb 11.9 (11.5-15.3) g/dL Hct 36.5 L (37.0-47.0) % MCV 93.4 (81-99) fL MCH 30.4 (28.0-34.0) pg MCHC 32.6 (30.0-36.0) g/dL RDW 12.0 L (12.1-15.1) % Plt Count 358 (130-400) 10^3/c mm MPV 9.9 (7.4-10.4) fL Neut % (Auto) 53.3 % Lymph % (Auto) 33.4 % [place] % (Auto) 8.9 % Eos % (Auto) 2.7 % Baso % (Auto) 1.3 % Neut # (Auto) 3.96 (1.8-7.7) 10^3/u L Lymph # (Auto) 2.5 (0.8-4.8) 10^3/u L [place] # (Auto) 0.7 (0.2-0.9) 10^3/u L Eos # (Auto) 0.2 (0.0-0.8) 10^3/u L Baso # (Auto) 0.1 (0.0-0.1) 10^3/u L Nucleated RBC % (a uto) 0 % Nucleated RBCs # 0.0 /100WBC Sodium 138 (136-145) mmol/L Potassium 3.7 (3.5-5.1) mmol/L Chloride 97 L (98-107) mmol/L Carbon Dioxide 30 H (22-29) mmol/L Anion Gap 14.7 (5-19) BUN 13 (8-23) mg/dL Creatinine 0.7 (0.5-0.9) mg/dL GFR Calculation Not Reportable Glucose 91 (65-115) mg/dL Calculated Osmolal ity 286 (285-295) mOsm/k g Calcium 9.1 (8.5-10.5) mg/dL Total Bilirubin 0.4 (0.15-1.2) mg/dL AST 13 (0-32) U/L ALT 11 (0-33) U/L Alkaline Phosphata se 91 (35-105) IU/L Troponin T Baselin e 9 (0-10) ng/L NT-Pro-B Natriuret Pep 242 (0-450) pg/mL Total Protein 5.9 L (6.6-8.7) g/dL Albumin 4.1 (3.5-5.2) g/dL Globulin 1.8 (1.3-4.6) g/dL Urine Color (Yellow) Urine Appearance (CLEAR) Urine pH (5-7) Ur Specific Gravit y (1.005-1.030) Urine Protein (Negative) Urine Glucose (UA) (Normal) Urine Ketones (Negative) Urine Blood (Negative) Urine Nitrate (Negative) Urine Bilirubin (Negative) Urine Urobilinogen (Negative) mg/dL Ur Leukocyte Latosha ase (Negative) Urine RBC (0-2) /hpf Urine WBC (0-5) /hpf Ur Squamous Epith Cells (0-5) /hpf Amorphous Sediment Urine Bacteria (NONE) /hpf Urine Mucus /hpf 02/25/20 Range/Units 09:55 WBC (4.0-10.0) 10^3/ uL RBC (4.1-5.3) 10^6/u L Hgb (11.5-15.3) g/dL Hct (37.0-47.0) % MCV (81-99) fL MCH (28.0-34.0) pg MCHC (30.0-36.0) g/dL RDW (12.1-15.1) % Plt Count (130-400) 10^3/c mm MPV (7.4-10.4) fL Neut % (Auto) % Lymph % (Auto) % [place] % (Auto) % Eos % (Auto) % Baso % (Auto) % Neut # (Auto) (1.8-7.7) 10^3/u L Lymph # (Auto) (0.8-4.8) 10^3/u L [place] # (Auto) (0.2-0.9) 10^3/u L Eos # (Auto) (0.0-0.8) 10^3/u L Baso # (Auto) (0.0-0.1) 10^3/u L Nucleated RBC % (a uto) % Nucleated RBCs # /100WBC Sodium (136-145) mmol/L Potassium (3.5-5.1) mmol/L Chloride (98-107) mmol/L Carbon Dioxide (22-29) mmol/L Anion Gap (5-19) BUN (8-23) mg/dL Creatinine (0.5-0.9) mg/dL GFR Calculation Glucose (65-115) mg/dL Calculated Osmolal ity (285-295) mOsm/k g Calcium (8.5-10.5) mg/dL Total Bilirubin (0.15-1.2) mg/dL AST (0-32) U/L ALT (0-33) U/L Alkaline Phosphata se (35-105) IU/L Troponin T Baselin e (0-10) ng/L NT-Pro-B Natriuret Pep (0-450) pg/mL Total Protein (6.6-8.7) g/dL Albumin (3.5-5.2) g/dL Globulin (1.3-4.6) g/dL Urine Color Straw (Yellow) Urine Appearance Clear (CLEAR) Urine pH 8.0 H (5-7) Ur Specific Gravit y 1.010 (1.005-1.030) Urine Protein Neg (Negative) Urine Glucose (UA) Norm (Normal) Urine Ketones Negative (Negative) Urine Blood Neg (Negative) Urine Nitrate Negative (Negative) Urine Bilirubin 1+ H (Negative) Urine Urobilinogen Norm (Negative) mg/dL Ur Leukocyte Latosha ase Negative (Negative) Urine RBC None (0-2) /hpf Urine WBC 0-4 H (0-5) /hpf Ur Squamous Epith Cells 0-4 H (0-5) /hpf Amorphous Sediment Not Reportable Urine Bacteria Trace (NONE) /hpf Urine Mucus Trace /hpf Imaging Data^: CXR: Attestation: I personally reviewed and interpreted this imaging study as follows: Radiologist's impression: [address] [address] XRay Report Signed Patient: Haylie Garcia Unit #: [id number] : 1940 Age/Sex: 79 / F ADM Date: 02/25/20 Loc: ER Room/Bed: Attending Dr: Ordering Provider/Ordering MD: Patrick Marin Date of Service: 02/25/20 Procedure(s): XR chest 1V portable [id number] Accession Number(s): [id number] Report Number: [id number] WS: [id number] XR chest 1V portable [id number] REASON FOR EXAM: Weakness FINDINGS: The chest is unchanged compared to the most recent examination of 07/22/2019. Moderate tortuosity thoracic aorta without aneurysmal dilatation. The heart is at the upper limits of normal in size Presumed linear fibrotic scarring in the left lung base. Calcified granulomatous changes both hemithoraces. No active pulmonary parenchymal or pleural disease noted. Moderate changes in the mid and lower thoracic spine and the shoulder joints. XR/XR chest 1V portable [id number] IMPRESSION: Stable abnormal chest with no acute abnormality. Dictated By: Kosta Guevara Jr, MD Signed By: Kosta Guevara Jr, MD Signed Date/Time: 02/25/20916 DD/ 4 EKG Data^: EKG 1: Attestation: I personally reviewed and interpreted this EKG as follows: EKG interpretation date: 02/25/20 Interpretation: Normal sinus rhythm, 70 bpm, no ST segment elevation or depression seen. Discharge Plan Discharge Patient Disposition: Home Clinical Impression: Generalized weakness Condition: Stable Prescriptions: No Action ferrous sulfate 325 mg (65 mg iron) tablet 325 mg PO DAILY@06 RF: 0 bumetanide 2 mg tablet 2 mg PO DAILY Qty: 30 RF: 2 albuterol sulfate [ProAir HFA] 90 mcg/actuation HFA aerosol inhaler 2 puff INHALATION QID PRN (Reason: Shortness Of Breath) RF: 0 Eliquis 2.5 mg tablet 2.5 mg PO BID@ RF: 0 verapamil 300 mg capsule, [address] 300 mg PO DAILY@ RF: 0 ropinirole 0.5 mg tablet 2 mg PO BEDTIME@ RF: 0 potassium chloride 20 mEq tablet extended release 20 meq PO DAILY@06 RF: 0 etodolac 400 mg Tablet 400 mg PO BID@ RF: 0 cyanocobalamin (vitamin B-12) 1,000 mcg/mL Kit 1,000 mcg IM Q30D RF: 0 Advair Diskus 250-50 mcg/dose blister with device 1 inh INHALATION BID@ RF: 0 Neurontin 600 mg tablet See Rx Instructions .ROUTE .COMPLEX RF: 0 isosorbide mononitrate 30 mg tablet extended release 24 hr 30 mg PO DAILY@06 RF: 0 metoprolol succinate 100 mg tablet extended release 24 hr 100 mg PO DAILY@21 RF: 0 omeprazole 20 mg capsule,delayed release(DR/EC) 20 mg PO DAILY@12 RF: 0 Discharge Orders: Discharge ED (Routine); Ordered 02/25/20 Ordered By: Patrick Marin Referrals: Roslyn Reeder MD [Primary Care Provider] - Discharge Diet: Regular Discharge Activity: Increase activity as tolerated Patient Instructions: Weakness (Generalized) Activity Restrictions/Additional Instructions: Follow-up with medical provider as directed. Contact your PCP or damage appraiser and try to set up an appointment with them in the next 7 to 10 days. Continue taking home medications as prescribed. Take Bumex to reduce any leg swelling. Return to the ER or your medical provider if condition worsens. Please read and understand discharge instructions. If any questions, please ask. Coding Level of Care Code ED Ag Equipment Field Service Technician for Julio Fwsully Exam Comprehensive
[2020-02-25 09:24] VITALS: BP 148/68; PULSE 73; RESP 17; O2SAT 93
[2020-02-25 09:27] LABS: Basophils # 0.1 10^3/uL (0.0-0.1); Basophils % 1.3 %; Eosinophils # 0.2 10^3/uL (0.0-0.8); Eosinophils % 2.7 %; Hematocrit 36.5 % (37.0-47.0); Hemoglobin 11.9 g/dL (11.5-15.3); Lymphocytes # 2.5 10^3/uL (0.8-4.8); Lymphocytes % 33.4 %; Mean Corpuscular HGB Conc 32.6 g/dL (30.0-36.0); Mean Corpuscular Hemoglobin 30.4 pg (28.0-34.0); Mean Corpuscular Volume 93.4 fL (81-99); Mean Platelet Volume 9.9 fL (7.4-10.4); Monocytes # 0.7 10^3/uL (0.2-0.9); Monocytes % 8.9 %; Neutrophils # 3.96 10^3/uL (1.8-7.7); Neutrophils % 53.3 %; Nucleated Red Blood Cells % 0 %; Platelet Count 358 10^3/cmm (130-400); Red Blood Count 3.91 10^6/uL (4.1-5.3); White Blood Count 7.4 10^3/uL (4.0-10.0)
[2020-02-25 09:42] LABS: Troponin(5th) Baseline 9 ng/L (0-10)
[2020-02-25 09:50] LABS: Alanine Aminotransferase 11 U/L (0-33); Albumin Level 4.1 g/dL (3.5-5.2); Alkaline Phosphatase 91 IU/L (35-105); Anion Gap 14.7 (5-19); Aspartate Amino Transferase 13 U/L (0-32); Blood Urea Nitrogen 13 mg/dL (8-23); Calcium 9.1 mg/dL (8.5-10.5); Carbon Dioxide 30 mmol/L (22-29); Chloride 97 mmol/L (98-107); Globulin 1.8 g/dL (1.3-4.6); Glucose 91 mg/dL (65-115); NT Pro B Type Natriuretic Pept 242 pg/mL (0-450); Osmolality Calculated 286 mOsm/kg (285-295); Potassium 3.7 mmol/L (3.5-5.1); Sodium 138 mmol/L (136-145); Total Bilirubin 0.4 mg/dL (0.15-1.2); Total Protein 5.9 g/dL (6.6-8.7)
[2020-02-25 10:27] LABS: Bacteria Urine TRACE /hpf; Bilirubin Urine 1+ (Negative); Blood Urine Neg (Negative); Glucose Urine UA Norm (Normal); Ketones Urine Negative (Negative); Leukocyte Esterase Urine Negative (Negative); Mucus Urine TRACE /hpf; Nitrate Urine Negative (Negative); Protein Urine Neg (Negative); Squamous Epithelial Cell Urine 0-4 /hpf (0-5); Urine Appearance Clear (CLEAR); Urine Color Straw (Yellow); Urobilinogen Urine Norm (Negative); WBC Urine 0-4 /hpf (0-5)
[2020-02-25 10:28] LABS: Add Urine Culture? No
[2020-02-25 11:24] VITALS: BP 165/80; PULSE 70; RESP 18; O2SAT 95
[2020-02-25 11:38] VITALS: BP 165/80; PULSE 70; RESP 18; O2SAT 95
== END 2020-02-25 11:39 | disposition home or self-care (01) ==
PROVIDERS: Emergency Provider Physician Assistant; PCP Family Medicine
DX: R53.1 Weakness (principal); Z79.01 Long term (current) use of anticoagulants; I48.91 Unspecified atrial fibrillation; J44.9 Chronic obstructive pulmonary disease, unspecified; D68.0 Von Willebrand disease
CPT/HCPCS: 12345; 71045; 80053; 81001; 83880; 84484; 85025; 93005; 99283

== ENCOUNTER → 2020-03-07 15:07 | Outpatient (BNVA) | payer MEDICARE, OTHER, SELFPAY | PROVIDERS: PCP Family Medicine; Visit Provider Nurse Practitioner Family | DX: Z20.828 Contact with and (suspected) exposure to other viral communicable diseases (principal); R06.02 Shortness of breath; R50.9 Fever, unspecified | CPT/HCPCS: 71046; 87635 ==

== ENCOUNTER 2020-03-11 11:22 | Inpatient (IN) | payer MEDICARE, OTHER, SELFPAY ==
[2020-03-11] VITALS (43 sets, daily range): BP systolic 122–177; BP diastolic 75–99; PULSE 61–101; RESP 18–40; TEMP 36.8–37.1; O2SAT 54–96; BMI 56.4
--- NOTE | 2020-03-11 11:36 | XR_ITS ---
WS: [id number] Exam: XR chest 1V portable [id number] Date/Time of Exam: 03/11/2020 11:50 AM Reason For Exam: sob Comparison 03/07/2020. There are now groundglass infiltrates throughout the mid and lower lung zones bilaterally consistent with pneumonia. Heart size is normal. The mediastinum and bony thorax are intact. The lungs are fully expanded. No pleural effusions. XR/XR chest 1V portable [id number] IMPRESSION: 1. New groundglass infiltrates throughout the mid and lower lung zones bilatera lly consistent with pneumonia. This pattern can be seen with Covid 19 pneumonia but is nonspecific.
--- NOTE | 2020-03-11 11:38 | ECG_ITS ---
[facility] Test Date: 2020-03-11 Pat Name: Haylie Garcia Department: Room: Gender: Female Building Performance Consultant: : 1940 Requested By: Alejandra Meraz Order Number: [id number] Isauro MD: Nick Cano M.D. Measurements Intervals [place] Rate: 96 P: 13 NM: 165 QRS: -15 QRSD: 86 T: 10 QT: 349 QTc: 441 Interpretive Statements SINUS RHYTHM LOW QRS VOLTAGE IN PRECORDIAL LEADS [QRS DEFLECTION < 1.0 mV IN CHEST LEADS] LEFT VENTRICULAR HYPERTROPHY AND ST-T CHANGE [VOLTAGE CRITERIA PLUS ST/T ABNORMALITY] Compared to ECG 02/25/2020 09:04:40 ST (T wave) deviation now present Myocardial infarct finding no longer present Electronically Signed On 03-11-2020 18:24:04 RETAIL BANKER by Nick Cano M.D. [email or web address]
[2020-03-11 11:54] LABS: ABG PH Result 7.47 (7.35-7.45); Alveolar-Arterial Oxygen Gradi 77.8 mmHg (5-10); Arterial Blood Gas Hematocrit 36.8 % (37-47); Base Excess ABG 3.5 mmol/L (-2.0-2.0); Blood Gas Allen Test Pos; Blood Gas Operator Identificat glc; Blood Gas Sample Site Radial, right; Blood Gas Sample Type Arterial; Carboxyhemoglobin 1.2 %THgb (0.4-20.1); HCO3 ABG 27.1 mmol/L (22-26); HGB O2 Sat 90.2 % (95-100); Ionized Calcium Level - ABG 1.1 mmol/L (1.1-1.4); Methemoglobin 0.5 % (0.4-1.5); Oxygen Device NRB; Oxygen Saturation ABG 91.8
--- NOTE | 2020-03-11 11:58 | ED_ITS ---
HPI - COVID General: Chief Complaint: COVID symptoms Stated Complaint: COVID POSTIVE Time Seen by Provider: 03/11/20 11:30 Source: patient Mode of arrival: ambulatory Limitations: no limitations Triage information: Has fever, cough or shortness of breath . Exposure to COVID + person last 14 days History of Present Illness: HPI Narrative: 79-year-old female presents to emergency room chief complaint of progressive shortness of breath difficulty breathing has been ongoing since Saturday. The patient recently found to be Covid positive on this past Saturday. The patient reports progressive shortness of breath with difficulty breathing. Patient reports of progressive edema on her legs reports a history of both lung issues with COPD. She reports she is started on some steroids couple of days ago. She reports that her is also sick but was Covid negative. MD complaint: known COVID positive (March 07, 2020) Prior covid testing: yes, results known COVID 19 common symptoms: positive cough, non-productive cough, productive cough, dyspnea, fatigue, nasal congestion and diarrhea; negative fever(s), chills, body aches, nausea or vomiting COVID 19 other sytmptoms: positive chest pressure, requiring oxygen and requiring more oxygen; negative chest pain Onset (ago): day(s) (5) Severity: moderate and rapidly worsening Pertinent comorbid conditions: COPD/respiratory disease Treatment prior to arrival: antibiotics and steroids COVID Results: Nasal/Oral Coronavirus 2019 PCR Detected H 03/07/20 15:22 03/07/20 Review of Systems General: Reports: 10 or more systems reviewed and unremarkable except in HPI and below Const: Reports: change in appetite and fatigue; Denies: fever(s), chills, body aches, change in weight or change in sleep pattern Eyes: Denies: change in vision, blurry vision, blind spots, photophobia, eye discomfort, eye discharge, floaters, seeing flashes or decreased night vision ENMT: Reports: nasal congestion Card: Reports: swelling of feet/ankles and dyspnea on exertion; Denies: chest pain Resp: Reports: dyspnea, productive cough, non-productive cough, wheezing and chest congestion GI: Reports: diarrhea; Denies: abdominal pain, nausea, vomiting, hematemesis, coffee ground emesis, dysphagia or constipation : Denies: flank pain, urinary frequency or urinary urgency Musc: Denies: neck pain, back pain or extremity pain Skin/Breast: Denies: rash, pruritus, skin pain or skin swelling Psych: Denies: anxiety or depression Endo: Reports: tired all the time; Denies: polydipsia PFSH ED PFSH: Medical History (Updated 03/11/20 @ 14:43 by Rocael Mi) Afib Anemia Asthma Chronic GERD COPD (chronic obstructive pulmonary disease) Pulmonary embolism PVD (peripheral vascular disease) Sleep apnea Von Willebrand disease Surgical History H/O: hysterectomy (~1975) History of tonsillectomy (~1959) Social History (Updated 03/07/20 @ 14:13 by ANA Morel) Smoking and tobacco status: never smoked Alcohol intake: never Lives independently: Yes Household members: spouse Marital status: Current occupational status: retired History of recent travel: No Current gender identity: Female Physical Exam Const: COMMON NORMALS: no acute distress and patient oriented x3 EXAM LIMITATIONS: altered mental status GENERAL APPEARANCE: cooperative, well de veloped and in distress HENMT: COMMON NORMALS: normocephalic and atraumatic HEAD & SCALP: normal to inspection, normocephalic and atraumatic Eye: COMMON NORMALS: Equal, round and reactive pupils present and EOMs intact bilaterally PUPIL: Yes Equal, round and reactive pupils present Neck/C-Spine: COMMON NORMALS: full ROM and supple GENERAL: Yes normal visual inspection Chest: COMMONS NORMALS: normal inspection of the chest and normal palpation of entire chest wall Resp: COMMON NORMALS: normal respiratory effort (Patient has moderate wheezing noted bilaterally diminished breath sounds ap) EFFORT & INSPECTION: Yes abnormal respiratory pattern, Yes tachypneic and Yes decreased respiratory effort AUSCULTATION: wheezes Cardio: COMMON NORMALS: regular rate (Tachycardic heart rates in the low 100s.) GI: COMMON NORMALS: Normal to inspection, nondistended, normoactive bowel sounds present, Soft to palpation and non-tender INSPECTION: Yes normal to inspection PALPATION: Yes Soft to palpation Extremity: COMMON NORMALS: normal to inspection, full ROM and capillary refill normal Neuro: COMMON NORMALS: patient oriented x3, CN's II-XII intact bilaterally, moves all extremities and no focal motor deficits Psych: COMMON NORMALS: mental status grossly normal, Normal thought process present, cooperative, normal affect and speech normal SPEECH: Yes normal speech THOUGHT PROCESS: Normal thought process present Skin: COMMON NORMALS: no rashes or lesions noted and no wounds GENERAL SKIN EXAM: no rashes or lesions noted Course ED course: due to the patient's significant symptoms an IV was established ABG obtained neb treatments provided as well steroids will continue to follow. Underlying concerns or worsening of Covid pneumonia versus bronchitis are prominent. Spoke to Dr. Sequeira at 1400 is granted acceptance of the patient patient will going to the VICU, patient is currently on BiPAP oxygen saturation 90-92% on 65% FiO2. Vital Signs: Vital signs: Vital Signs Temperature 98.7 F 03/11/20 11:39 Pulse Rate 97 03/11/20 14:19 Respiratory Rate 22 H 03/11/20 14:19 Blood Pressure 151/85 03/11/20 14:19 Pulse Oximetry 94 03/11/20 14:19 MDM - COVID Differential Diagnosis: Differential diagnosis: Likely COVID 19, other viral infection, bacterial infection, pneumonia, copd exacerbation and CHF exacerbation Lab Data: Labs: Lab Results 03/11/20 03/11/20 03/11/20 Range/Units 11:44 12:30 12:30 WBC 9.2 (4.0-10.0) 10^3/ uL RBC 3.56 L (4.1-5.3) 10^6/u L Hgb 10.7 L (11.5-15.3) g/dL Hct 33.4 L (37.0-47.0) % MCV 93.8 (81-99) fL MCH 30.1 (28.0-34.0) pg MCHC 32.0 (30.0-36.0) g/dL RDW 13.1 (12.1-15.1) % Plt Count 290 (130-400) 10^3/c mm MPV 9.9 (7.4-10.4) fL Neut % (Auto) 73.9 % Lymph % (Auto) 16.1 % [place] % (Auto) 8.5 % Eos % (Auto) 0.0 % Baso % (Auto) 0.2 % Neut # (Auto) 6.82 (1.8-7.7) 10^3/u L Lymph # (Auto) 1.5 (0.8-4.8) 10^3/u L [place] # (Auto) 0.8 (0.2-0.9) 10^3/u L Eos # (Auto) 0.0 (0.0-0.8) 10^3/u L Baso # (Auto) 0.0 (0.0-0.1) 10^3/u L Nucleated RBC % (a uto) 0 % Nucleated RBCs # 0.0 /100WBC Specimen Type Arterial Sample Site Radial, right ABG pH 7.47 H (7.35-7.45) ABG pCO2 37.0 (35-45) mmHg ABG pO2 60.0 L (80.0-100.0) mmH g ABG HCO3 27.1 H (22-26) mmol/L ABG O2 Saturation 91.8 ABG Base Excess 3.5 H (-2.0-2.0) mmol/ L Maxx Test Pos A-a O2 Gradient 77.8 H (5-10) mmHg Hematocrit 36.8 L (37-47) % Hgb O2 Saturation 90.2 L (95-100) % Carboxyhemoglobin 1.2 (0.4-20.1) %THgb Methemoglobin 0.5 (0.4-1.5) % Total Hemoglobin 12.0 (12-16) g/dL Sodium 145.0 H 145 (131-143) mmol/L Potassium 3.0 L 3.5 (3.5-5.0) mmol/L Glucose 95.0 90 (70-115) mg/dL Ionized Calcium 1.1 (1.1-1.4) mmol/L O2 Delivery Device Nrb O2 Liters/Min 15.0 % FiO2 100.0 % Vehicle Calibration Engineer ID glc Chloride 105 (98-107) mmol/L Carbon Dioxide 28 (22-29) mmol/L Anion Gap 15.5 (5-19) BUN 13 (8-23) mg/dL Creatinine 0.7 (0.5-0.9) mg/dL GFR Calculation Not Reportable Calculated Osmolal ity 300 H (285-295) mOsm/k g Calcium 8.1 L (8.5-10.5) mg/dL Ferritin 361 H (15-150) ng/mL Total Bilirubin 0.3 (0.15-1.2) mg/dL AST 24 (0-32) U/L ALT 9 (0-33) U/L Alkaline Phosphata se 80 (35-105) IU/L Lactate Dehydrogen ase 493 H (135-214) U/L Troponin T Gen 5 n g/L (0-10) ng/L NT-Pro-B Natriuret Pep 1402 H (0-450) pg/mL Total Protein 5.8 L (6.6-8.7) g/dL Albumin 3.6 (3.5-5.2) g/dL Globulin 2.2 (1.3-4.6) g/dL 03/11/20 Range/Units 12:30 WBC (4.0-10.0) 10^3/ uL RBC (4.1-5.3) 10^6/u L Hgb (11.5-15.3) g/dL Hct (37.0-47.0) % MCV (81-99) fL MCH (28.0-34.0) pg MCHC (30.0-36.0) g/dL RDW (12.1-15.1) % Plt Count (130-400) 10^3/c mm MPV (7.4-10.4) fL Neut % (Auto) % Lymph % (Auto) % [place] % (Auto) % Eos % (Auto) % Baso % (Auto) % Neut # (Auto) (1.8-7.7) 10^3/u L Lymph # (Auto) (0.8-4.8) 10^3/u L [place] # (Auto) (0.2-0.9) 10^3/u L Eos # (Auto) (0.0-0.8) 10^3/u L Baso # (Auto) (0.0-0.1) 10^3/u L Nucleated RBC % (a uto) % Nucleated RBCs # /100WBC Specimen Type Sample Site ABG pH (7.35-7.45) ABG pCO2 (35-45) mmHg ABG pO2 (80.0-100.0) mmH g ABG HCO3 (22-26) mmol/L ABG O2 Saturation ABG Base Excess (-2.0-2.0) mmol/ L Maxx Test A-a O2 Gradient (5-10) mmHg Hematocrit (37-47) % Hgb O2 Saturation (95-100) % Carboxyhemoglobin (0.4-20.1) %THgb Methemoglobin (0.4-1.5) % Total Hemoglobin (12-16) g/dL Sodium (131-143) mmol/L Potassium (3.5-5.0) mmol/L Glucose (70-115) mg/dL Ionized Calcium (1.1-1.4) mmol/L O2 Delivery Device O2 Liters/Min % FiO2 % Vehicle Calibration Engineer ID Chloride (98-107) mmol/L Carbon Dioxide (22-29) mmol/L Anion Gap (5-19) BUN (8-23) mg/dL Creatinine (0.5-0.9) mg/dL GFR Calculation Calculated Osmolal ity (285-295) mOsm/k g Calcium (8.5-10.5) mg/dL Ferritin (15-150) ng/mL Total Bilirubin (0.15-1.2) mg/dL AST (0-32) U/L ALT (0-33) U/L Alkaline Phosphata se (35-105) IU/L Lactate Dehydrogen ase (135-214) U/L Troponin T Gen 5 n g/L 14 H (0-10) ng/L NT-Pro-B Natriuret Pep (0-450) pg/mL Total Protein (6.6-8.7) g/dL Albumin (3.5-5.2) g/dL Globulin (1.3-4.6) g/dL EKG Data: EKG 1: Attestation: I personally reviewed and interpreted this EKG as follows: EKG interpretation date: 03/11/20 EKG interpretation time: 12:18 Prior EKG tracings: not available for review Ischemic changes: non-specific ST-T wave changes Other EKG comments: Normal sinus rhythm rate of [address] segment alterations appreciated with mild left ventricular hypertrophy appreciated otherwise unremarkable. COVID Results: Nasal/Oral Coronavirus 2019 PCR Detected H 03/07/20 15:22 03/07/20 Discharge Plan Discharge Patient Disposition: Admitted As Inpatient Clinical Impression: Acute hypoxemic respiratory failure due to COVID-19 Condition: Stable Coding Level of Care Code ED Engraver Tender for Chg Fwd Exam Comprehensive
[2020-03-11] MEDS: ipratropium-albuterol 3 mL Neb INHALATION (12:32)
[2020-03-11 12:59] LABS: Basophils % 0.2 %; Hematocrit 33.4 % (37.0-47.0); Hemoglobin 10.7 g/dL (11.5-15.3); Lymphocytes # 1.5 10^3/uL (0.8-4.8); Lymphocytes % 16.1 %; Mean Corpuscular Hemoglobin 30.1 pg (28.0-34.0); Mean Corpuscular Volume 93.8 fL (81-99); Mean Platelet Volume 9.9 fL (7.4-10.4); Monocytes # 0.8 10^3/uL (0.2-0.9); Monocytes % 8.5 %; Neutrophils # 6.82 10^3/uL (1.8-7.7); Neutrophils % 73.9 %; Nucleated Red Blood Cells % 0 %; Platelet Count 290 10^3/cmm (130-400); Red Blood Count 3.56 10^6/uL (4.1-5.3); Red Cell Distribution Width 13.1 % (12.1-15.1); White Blood Count 9.2 10^3/uL (4.0-10.0)
[2020-03-11 13:11] LABS: Troponin T (5th) Once 14 ng/L (0-10)
[2020-03-11 13:20] LABS: Alanine Aminotransferase 9 U/L (0-33); Albumin Level 3.6 g/dL (3.5-5.2); Alkaline Phosphatase 80 IU/L (35-105); Blood Urea Nitrogen 13 mg/dL (8-23); Calcium 8.1 mg/dL (8.5-10.5); Carbon Dioxide 28 mmol/L (22-29); Chloride 105 mmol/L (98-107); Ferritin 361 ng/mL (15-150); Globulin 2.2 g/dL (1.3-4.6); Glucose 90 mg/dL (65-115); NT Pro B Type Natriuretic Pept 1402 pg/mL (0-450); Osmolality Calculated 300 mOsm/kg (285-295); Sodium 145 mmol/L (136-145); Total Bilirubin 0.3 mg/dL (0.15-1.2); Total Protein 5.8 g/dL (6.6-8.7)
[2020-03-11] MEDS: sodium chloride 0.9% 1,000 ML 150 ML IV (13:21)
[2020-03-11] MEDS: dexamethasone 10 mg/mL INJ IVP (13:21)
[2020-03-11 13:28] LABS: Anion Gap 15.5 (5-19); Aspartate Amino Transferase 24 U/L (0-32); Lactate Dehydrogenase 493 U/L (135-214); Potassium 3.5 mmol/L (3.5-5.1)
[2020-03-11 15:52] LABS: ABG PCO2 38.3 mmHg (35-45); ABG PH Result 7.44 (7.35-7.45); Arterial Blood Gas Hematocrit 35.1 % (37-47); Base Excess ABG 1.7 mmol/L (-2.0-2.0); Blood Gas Operator Identificat glc; Blood Gas Sample Site Brachial, left; Blood Gas Sample Type Arterial; Carboxyhemoglobin 0.9 %THgb (0.4-20.1); HCO3 ABG 25.9 mmol/L (22-26); HGB O2 Sat 93.8 % (95-100); Ionized Calcium Level - ABG 1.1 mmol/L (1.1-1.4); Methemoglobin 0.6 % (0.4-1.5); Oxygen Device BIPAP; Oxygen Saturation ABG 95.1; PO2 ABG 73.8 mmHg (80.0-100.0); Potassium Level - ABG 3.1 mmol/L (3.5-5.0); Total Hemoglobin 11.5 g/dL (12-16)
[2020-03-11] MEDS: ondansetron 2 mg/ML SDV 2 mL 4 MG IVP (18:38)
[2020-03-11] MEDS: ketorolac 30 mg/mL INJ 15 MG IVP (18:38)
--- NOTE | 2020-03-11 21:57 | P.HP_ITS ---
Providers/Chief Complaint Admitting Physician: Eileen Sequeira Primary Care Provider: Roslyn Reeder MD Chief Complaint: COVID POSTIVE History of Present Illness 79-year-old female with past medical history significant for Von Willebrand's disease with subsequent pulmonary embolism on eliquis 2.5 mg PO BID, gastroesophageal reflux disease, osteoporosis, hypertension, pernicious anemia on b21 replacement, meningioma with associated mass effect, paroxysmal atrial fibrillation, peripheral vascular disease, obstructive sleep apnea non compliant with CPAP, and chronic obstructive pulmonary disease who is presenting to ER with shortness of breath. patient was recently seen by primary care physician with a complaint of upper respiratory tract infection. She was prescribed azithromycin and prednisone. COVID-19 test was later found to be positive on 03/07. Continued to have ongoing fever, chills, bellyaches, headache and intermittent cough. Due to this patient presented to the ER for evaluation. Patient was apparently having labored respiration. She was placed on BiPAP aft er which oxygen saturations had improved to 92% however she was requiring 65% FiO2. Emergency room patient was given Decadron 10 mg IV x1. This was listed as patient's allergy and thus not continued as patient noted severe myalgias. Laboratory workup on arrival showed a WBC of 9.2, hemoglobin 10.7, hematocrit 33.4 and a platelet count of 290. sodium 145, potassium 3.5, chloride 105, bicarb 28, BUN 13 and creatinine is 0.7. Arterial blood gases showed a pH 7.44, pCO2 38.3, PO2 of 73.8 and a bicarb 25.9. Ferritin of 361, LDH of 493, troponin of 14, proBNP of 1402. Chest x-ray on arrival showed new ground-glass infiltrates throughout mid and lower lung zones bilaterally consistent with pneumonia. Review of Systems General: Reports: 10 or more systems reviewed and unremarkable except in HPI and below Medications/Allergies Home Medications Medication Instructions Recorded Confirmed Last Taken Type albuterol sulfate 90 mcg/actuation 2 puff INHALATION QID PRN 07/16/19 03/11/20 07/22/19 History aerosol inhaler apixaban 2.5 mg tablet 2.5 mg PO BID@06,21 07/16/19 03/11/20 03/11/20 History ropinirole 0.5 mg tablet 2 mg PO BEDTIME@21 tab 07/16/19 03/11/20 03/10/20 History verapamil 300 mg capsule 24hr 300 mg PO DAILY@ cap 07/16/19 03/11/20 03/10/[address],ext.release cyanocobalamin (vitamin B-12) 1,000 mcg IM Q30D 07/22/19 03/11/20 02/23/20 History etodolac 400 mg PO BID@07/22/19 03/11/20 03/10/20 History ferrous sulfate 325 mg (65 mg 325 mg PO DAILY@06 tab 10/02/19 03/11/20 03/10/20 History iron) tablet potassium chloride 20 mEq 20 meq PO DAILY@06 tab 10/02/19 03/11/20 03/10/20 History tablet,extended release fluticasone propion-salmeterol 1 inh INHALATION BID@02/25/20 03/11/20 03/11/20 History [Advair Diskus] gabapentin [Neurontin] See Rx Instructions .ROUTE .COMPLEX 02/25/20 03/11/20 03/11/20 History isosorbide mononitrate 30 mg PO DAILY@02/25/20 03/11/20 03/10/20 History metoprolol succinate 100 mg PO DAILY@02/25/20 03/11/20 03/10/20 History omeprazole 20 mg PO DAILY@12 02/25/20 03/11/20 03/10/20 History azithromycin 250 mg tablet See Rx Instructions PO .COMPLEX #6 03/07/20 03/11/20 03/11/20 Rx tab ondansetron HCl 4 mg tablet 4 mg PO Q6H PRN #10 tab 03/08/20 03/11/20 Unknown Rx prednisone 20 mg tablet 20 mg PO DAILY #20 tab 03/08/20 03/11/20 03/10/20 Rx Allergies Allergy/AdvReac Type Severity Reaction Status Date / Time Aminoglycosides Allergy Unknown Verified 02/23/20 16:19 aspirin Allergy Unknown Verified 03/07/20 14:10 bacitracin [From Polysporin] Allergy Unknown Verified 03/07/20 14:10 chlordiazepoxide Allergy Unknown Verified 03/07/20 14:10 codeine Allergy Unknown Verified 03/07/20 14:10 dexamethasone Allergy Unknown Verified 03/07/20 14:10 diazepam [From Valium] Allergy Unknown Verified 03/07/20 14:10 etomidate Allergy Unknown Verified 03/07/20 14:10 hydrocortisone Allergy Unknown Verified 03/07/20 14:10 lactose Allergy Unknown Verified 03/07/20 14:10 miconazole Allergy Unknown Verified 03/07/20 14:10 [From Neosporin AF] Penicillins Allergy Unknown Verified 03/07/20 14:10 phenobarbital Allergy Unknown Verified 03/07/20 14:10 polymyxin B [From Polysporin] Allergy Unknown Verified 03/07/20 14:10 PFSH Acute PFSH: Medical History (Updated 03/11/20 @ 14:43 by Rocael Mi) Afib Anemia Asthma Chronic GERD COPD (chronic obstructive pulmonary disease) Pulmonary embolism PVD (peripheral vascular disease) Sleep apnea Von Willebrand disease Surgical History H/O: hysterectomy (~1975) History of tonsillectomy (~1959) Social History (Updated 03/07/20 @ 14:13 by ANA Morel) Smoking and tobacco status: never smoked Alcohol intake: never Lives independently: Yes Household members: spouse Marital status: Current occupational status: retired History of recent travel: No Current gender identity: Female Vitals/I&O/Wt Last Vital Signs Temp 98.2 F 03/11/20 22:09 Pulse 76 03/12/20 11:10 Resp 26 H 03/12/20 10:00 BP 183/94 03/12/20 05:00 Pulse Ox 93 03/12/20 11:10 03/11/20 03/12/20 03/12/20 22:59 06:59 14:59 Intake Total 320 / 320 1000 / 1000 Balance 320 / 320 1000 / 1000 Weight last 48 hrs Weight 87.543 kg Weight 87.815 kg Weight 83.915 kg Physical Exam Narrative: EXAM NARRATIVE: General : Alert, awake, oriented x 3 HEENT : Grossly unremarkable Chest : Mildly labored respiration on bipap Abd : Non-distended Ext : Mild bilateral LE edema Data : 03/12/20 04:08 03/12/20 04:08 A&P Assessment and plan (1) Acute hypoxemic respiratory failure due to COVID-19: Status: Acute (2) Asthma exacerbation in COPD: Status: Acute (3) Von Willebrand disease: Status: Acute (4) Sleep apnea: Status: Acute (5) Pulmonary embolus: Status: Acute Acute hypoxic respiratory distress due to COVID-19 with underlying hx of Asthma - 03/07 - COVID-19 positive - Chest xray - >B/l Ground-glass opacities - Ferritin 361, LDH of 493. - S/p prednisone prior to arrival / Decadron 10 mg IV x 1 in ER - Will hold off on further steroids due to intolerance - Will d/w pharmacy to start Remdesivir 200 mg IV x 1 -> 100 mg IV daily - Continue albuterol MDI - Resume Advair 1 puff BID - No obvious superimposed underlying bacterial component - Will trend inflammatory markers - Ferritin, CRP, D-dimer q2days - Check pro-calcitonin - Continue BiPAP, Wean Fio2 - > transition to heated HFNC - Chest x-ray in 2 days - Droplet precautions Additional Medical Problems - Paroxysmal Atrial fibrillation - Von Willibrands disease / Pulmonary embolism - Pernecious Anemia on B12 replacement - Meningioma with mass effect - Osteoporosis - Hypertension - PVD - GERD DVT ppx - Eliquis 2.5 mg PO BID CODE STATUS : FULL CODE Attestations Medical Necessity Statement*: Due to hypoxic respiratory failure patient require over 2 midnights stay in hospital for evaluation and treatment. Time Spent in Patient Care: Greater than 35 minutes (>than 50% of time spent in counselling and/or direct pt care on unit) . Coding Level of Care Code Acute Lawn Care Technician for Julio Fwsully Diagnoses Acute hypoxemic respiratory failure due to COVID-19 U07.1; J96.01 Asthma exacerbation in COPD J44.1; J45.901 Von Willebrand disease D68.0 Sleep apnea G47.30 Pulmonary embolus I26.99
[2020-03-12] VITALS (246 sets, daily range): BP systolic 134–184; BP diastolic 71–114; PULSE 60–105; RESP 17–45; TEMP 36.9–37.6; O2SAT 67–99; BMI 33.2
[2020-03-12] MEDS: sodium chloride 0.9% 1,000 ML 100 ML IV ×2 (00:48→11:35)
--- NOTE | 2020-03-12 03:21 | PC.NURSE ---
TRANSFER FROM ER Report received from Patrick in ER. Reported that patient had been given dexamethasone and zofran. Vital signs within normal range at this time. Patient on BIPAP at 65% and alert and oriented. Patient brought to unit by CAT Gage and accompanied by RT.
--- NOTE | 2020-03-12 03:33 | PC.NURSE ---
HYPERTENSION Physician notified of patient being hypertensive. Patients BP has been trending upward, currently 182/92. Patient takes 100 mg metoprolol succinate at home. Physician ordered one time dose now and daily at 2100 like patient takes at home.
--- NOTE | 2020-03-12 03:35 | PC.NURSE ---
LOVENOX DOSE Lovenox order clarified with Dr. Zepeda due to patients Von Willebrand disease. Patient already on chronic eliquis 2.5 mg twice daily. Lovenox order discontinued and patient will continue on home eliquis.
[2020-03-12 03:43] LABS: ABG PCO2 40.2 mmHg (35-45); ABG PH Result 7.43 (7.35-7.45); Arterial Blood Gas Hematocrit 28.7 % (37-47); Base Excess ABG 2.2 mmol/L (-2.0-2.0); Blood Gas Allen Test Pos; Blood Gas Sample Site Radial, left; Blood Gas Sample Type Arterial; HCO3 ABG 26.7 mmol/L (22-26); Oxygen Device BIPAP
[2020-03-12] MEDS: metoprolol succinate ER (24 HR) 100 mg Tablet PO ×2 (04:01→20:25)
[2020-03-12] MEDS: apixaban 5 mg Tablet 2.5 MG PO ×2 (05:48→20:25)
[2020-03-12] MEDS: isosorbide mononitrate ER 30 mg Tablet PO (05:48)
[2020-03-12 06:02] LABS: Basophils % 0.2 %; Hematocrit 32.8 % (37.0-47.0); Hemoglobin 10.6 g/dL (11.5-15.3); Lymphocytes # 0.8 10^3/uL (0.8-4.8); Lymphocytes % 12.8 %; Mean Corpuscular HGB Conc 32.3 g/dL (30.0-36.0); Mean Corpuscular Hemoglobin 29.9 pg (28.0-34.0); Mean Corpuscular Volume 92.7 fL (81-99); Monocytes # 0.4 10^3/uL (0.2-0.9); Monocytes % 5.6 %; Neutrophils # 5.16 10^3/uL (1.8-7.7); Neutrophils % 79.7 %; Nucleated Red Blood Cells % 0 %; Platelet Count 297 10^3/cmm (130-400); Red Blood Count 3.54 10^6/uL (4.1-5.3); Red Cell Distribution Width 13.1 % (12.1-15.1); White Blood Count 6.5 10^3/uL (4.0-10.0)
[2020-03-12] MEDS: ondansetron 2 mg/ML SDV 2 mL 4 MG IVP (06:12)
[2020-03-12] MEDS: hyDRALAzine 20 mg/mL INJ 1 mL 5 MG IVP (06:12)
[2020-03-12 06:24] LABS: Alanine Aminotransferase 8 U/L (0-33); Albumin Level 3.4 g/dL (3.5-5.2); Alkaline Phosphatase 78 IU/L (35-105); Anion Gap 14.6 (5-19); Aspartate Amino Transferase 20 U/L (0-32); Blood Urea Nitrogen 14 mg/dL (8-23); Calcium 8.2 mg/dL (8.5-10.5); Carbon Dioxide 26 mmol/L (22-29); Chloride 106 mmol/L (98-107); Globulin 2.7 g/dL (1.3-4.6); Glucose 140 mg/dL (65-115); Osmolality Calculated 299 mOsm/kg (285-295); Potassium 3.6 mmol/L (3.5-5.1); Sodium 143 mmol/L (136-145); Total Bilirubin 0.3 mg/dL (0.15-1.2); Total Protein 6.1 g/dL (6.6-8.7)
[2020-03-12] MEDS: bumetanide 1 mg Tablet PO (08:01)
--- NOTE | 2020-03-12 13:32 | PC.NURSE ---
Shift update Patient has been up to bedside commode to void multiple times this shift. Patient becomes very short of breath and oxygen drops in the low 80's but is able to recover quickly. Patient was placed on high flow nasal canula this am and was switched back to bipap around 1200. Resting in bed with eyes closed.
[2020-03-12] MEDS: remdesivir 200 MG in sodium chloride 0.9% (100 ml) 100 ML 100 MG IV (20:25)
--- NOTE | 2020-03-12 20:30 | PM.PN ---
Subjective Subjective: Interval history: 79-year-old female with past medical history significant for Von Willebrand's disease with subsequent pulmonary embolism on eliquis 2.5 mg PO BID, gastroesophageal reflux disease, osteoporosis, hypertension, pernicious anemia on b21 replacement, meningioma with associated mass effect, paroxysmal atrial fibrillation, peripheral vascular disease, obstructive sleep apnea non compliant with CPAP, and chronic obstructive pulmonary disease who is presenting to ER with shortness of breath. patient was recently seen by primary care physician with a complaint of upper respiratory tract infection. She was prescribed azithromycin and prednisone. COVID-19 test was later found to be positive on 03/07. Continued to have ongoing fever, chills, bellyaches, headache and intermittent cough. Due to this patient presented to the ER for evaluation. Patient was apparently having labored respiration. She was placed on BiPAP after which oxygen saturations had improved to 92% however she was requiring 65% FiO2. Emergency room patient was given Decadron 10 mg IV x1. This was listed as patient's allergy and thus not continued as patient noted severe myalgias. Laboratory workup on arrival showed a WBC of 9.2, hemoglobin 10.7, hematocrit 33.4 and a platelet count of 290. sodium 145, potassium 3.5, chloride 105, bicarb 28, BUN 13 and creatinine is 0.7. Arterial blood gases showed a pH 7.44, pCO2 38.3, PO2 of 73.8 and a bicarb 25.9. Ferritin of 361, LDH of 493, troponin of 14, proBNP of 1402. Chest x-ray on arrival showed new ground-glass infiltrates throughout mid and lower lung zones bilaterally consistent with pneumonia. Subjective: 03/12/2019 Upon admission patient was not continued on decadron. Was started on remdesivir 200 mg IV x 1 -> 100 mg IV daily. No fever, chills, nausea or vomiting. Noted to have desaturation due to non-compliance with bipap. Medications: Reviewed: Yes Vitals/I&O/Wt Last Vital Signs Temp 98.5 F 03/12/20 18:59 Pulse 76 03/12/20 18:10 Resp 33 H 03/12/20 18:10 BP 152/71 03/12/20 18:10 Pulse Ox 90 03/12/20 18:10 03/12/20 03/12/20 03/12/20 06:59 14:59 22:59 Intake Total 320 / 320 1000 / 1000 Balance 320 / 320 1000 / 1000 Weight last 48 hrs Weight 87.543 kg Weight 87.815 kg Weight 83.915 kg Physical Exam Narrative: EXAM NARRATIVE: General : Alert, awake, oriented x 3 HEENT : Grossly unremarkable Chest : Mildly labored respiration on bipap Abd : Non-distended Ext : Mild bilateral LE edema Urinary Catheter Management^: Jimenez: Cath Placed During This Visit: yes Reason for Continuing Indwelling Catheter: Accurate Measurement of Urinary Output in Critically Ill Patients Urinary Catheter Date of Insertion: 03/12/20 Urinary Catheter Time of Insertion: 12:34 Data : 03/12/20 04:08 03/12/20 04:08 A&P Assessment and plan (1) Acute hypoxemic respiratory failure due to COVID-19: Status: Acute (2) Asthma exacerbation in COPD: Status: Acute (3) Von Willebrand disease: Status: Acute (4) Sleep apnea: Status: Acute (5) Pulmonary embolus: Status: Acute Acute Hypoxic respiratory distress due to COVID-19 with underlying hx of Asthma - 03/07 - COVID-19 positive - Chest xray - >B/l Ground-glass opacities - Ferritin 361, LDH of 493. - S/p prednisone prior to arrival / Decadron 10 mg IV x 1 in ER - Will hold off on further steroids due to intolerance - Remdesivir 200 mg IV x 1 -> 100 mg IV daily - Continue albuterol MDI - Advair 1 puff BID - No obvious superimposed underlying bacterial component - Will trend inflammatory markers - Ferritin, CRP, D-dimer q2days - Check pro-calcitonin in AM - Continue BiPAP, Wean Fio2 - > transition to heated HFNC - If remaining on high fio2 - patient is high risk to get intubated - Chest x-ray in am - Droplet precautions Additional Medical Problems - Paroxysmal Atrial fibrillation - Von Willibrands disease / Pulmonary embolism - Pernicious Anemia on B12 replacement - Meningioma with mass effect - Osteoporosis - Hypertension - PVD - GERD DVT ppx - Eliquis 2.5 mg PO BID CODE STATUS : FULL CODE Attestations Medical Necessity Statement*: Patient will require further hospitalization for management of respiratory failure Time Spent in Patient Care: Greater than 35 minutes (>than 50% of time spent in counselling and/or direct pt care on unit). Coding Level of Care Code Acute Polymer Specialist for Chg Fwd Diagnoses Acute hypoxemic respiratory failure due to COVID-19 U07.1; J96.01 Asthma exacerbation in COPD J44.1; J45.901 Von Willebrand disease D68.0 Sleep apnea G47.30 Pulmonary embolus I26.99
--- NOTE | 2020-03-12 22:44 | PC.NURSE ---
ASSUMING CARE Patient is resting in bed with eyes closed on BIPAP with FiO2 at 80%. Patient denies any needs at this time. Respiratory rate of 28/minute and oxygen saturation of 93%.
--- NOTE | 2020-03-12 23:08 | PC.NURSE ---
WISHES Patient was expressing concerns regarding discussion with physician today about possible need for intubation if patients oxygen demand continues to increase. Patient was told that it was completely her decision and patient decided that she was nervous about plan of care and her outcome, but verbalized to nurse that she does wish to have all interventions done in the event of an emergency or need for intubation.
[2020-03-13] VITALS (294 sets, daily range): BP systolic 117–183; BP diastolic 55–89; PULSE 55–80; RESP 15–38; TEMP 37.4–37.5; O2SAT 80–97
[2020-03-13 04:47] LABS: ABG PCO2 37.3 mmHg (35-45); Arterial Blood Gas Hematocrit 37.3 % (37-47); Base Excess ABG 5.4 mmol/L (-2.0-2.0); Blood Gas Sample Site Brachial, right; Blood Gas Sample Type Arterial; HCO3 ABG 28.9 mmol/L (22-26); Oxygen Device BIPAP; PO2 ABG 82.9 mmHg (80.0-100.0)
[2020-03-13 05:14] LABS: Basophils % 0.1 %; Hematocrit 32.2 % (37.0-47.0); Hemoglobin 10.5 g/dL (11.5-15.3); Lymphocytes # 1.2 10^3/uL (0.8-4.8); Lymphocytes % 10.2 %; Mean Corpuscular HGB Conc 32.6 g/dL (30.0-36.0); Monocytes # 0.9 10^3/uL (0.2-0.9); Monocytes % 7.4 %; Neutrophils # 9.84 10^3/uL (1.8-7.7); Neutrophils % 81.2 %; Nucleated Red Blood Cells % 0 %; Platelet Count 339 10^3/cmm (130-400); Red Cell Distribution Width 13.1 % (12.1-15.1); White Blood Count 12.1 10^3/uL (4.0-10.0)
[2020-03-13 05:48] LABS: Procalcitonin 0.05 ng/mL (0-0.5)
[2020-03-13 06:00] LABS: D Dimer 1.63 ug/mIFEU (0-0.59)
[2020-03-13 06:03] LABS: Alanine Aminotransferase 8 U/L (0-33); Albumin Level 3.1 g/dL (3.5-5.2); Alkaline Phosphatase 70 IU/L (35-105); Anion Gap 14.9 (5-19); Aspartate Amino Transferase 17 U/L (0-32); Blood Urea Nitrogen 15 mg/dL (8-23); Calcium 7.8 mg/dL (8.5-10.5); Carbon Dioxide 27 mmol/L (22-29); Chloride 104 mmol/L (98-107); Ferritin 349 ng/mL (15-150); Globulin 2.7 g/dL (1.3-4.6); Glucose 101 mg/dL (65-115); Osmolality Calculated 297 mOsm/kg (285-295); Sodium 143 mmol/L (136-145); Total Bilirubin 0.4 mg/dL (0.15-1.2); Total Protein 5.8 g/dL (6.6-8.7)
[2020-03-13 06:11] LABS: Potassium 2.9 mmol/L (3.5-5.1)
--- NOTE | 2020-03-13 06:17 | PC.NURSE ---
BIPAP Patients BIPAP taken off of patient to take oral medications, patient quickly transitioned to 15 L high flow nasal cannula to take oral medications. Before putting patient back on BIPAP, nasal cannula removed. Patient was blowing nose and coughing and quickly desatted to low 70s. Patient instructed on importance of getting back on BIPAP and recovered within a few minutes.
--- NOTE | 2020-03-13 07:00 | XRR_ITS ---
PROCEDURE INFORMATION: Exam: XR Chest, 1 View Exam date and time: 03/12/2020 11:59 PM Age: 79 years old Clinical indication: Shortness of breath; Additional info: Respiratory failure TECHNIQUE: Imaging protocol: XR of the chest Views: 1 view. COMPARISON: CR XR chest 1V portable [id number] 03/11/2020 12:34 PM FINDINGS: Lungs: Bilateral interstitial pulmonary infiltrates are present predominantly in the right upper lobe and left base. The infiltrates in the right upper lobe are worsening when compared to previous study. This could be due to interstitial pneumonia probably viral in nature. Pleural space: Unremarkable. No pleural effusion. No pneumothorax. Heart/Mediastinum: Unremarkable. No cardiomegaly. Bones/joints: Unremarkable. XR/XR chest 1V portable [id number] IMPRESSION: Worsening interstitial pulmonary infiltrates.
--- NOTE | 2020-03-13 07:06 | PC.NURSE ---
OFF BIPAP Patient was found off BIPAP in her room with oxygen saturation in the low 80s. Once placed back on patient, she had a hard time recovering. Eliquis and imdur not given at this time to give patient time to recover. Breathing in the upper 30s per minute and oxygen in low 90s.
[2020-03-13] MEDS: hyDRALAzine 10 mg Tablet PO ×3 (08:44→21:50)
[2020-03-13] MEDS: bumetanide 1 mg Tablet PO (08:44)
[2020-03-13] MEDS: isosorbide mononitrate ER 30 mg Tablet PO (08:44)
[2020-03-13] MEDS: apixaban 5 mg Tablet 2.5 MG PO ×2 (08:44→21:50)
--- NOTE | 2020-03-13 09:16 | P.PN_ITS ---
Subjective Subjective: Interval history: 79-year-old female with past medical history significant for Von Willebrand's disease with subsequent pulmonary embolism on eliquis 2.5 mg PO BID, gastroesophageal reflux disease, osteoporosis, hypertension, pernicious anemia on b21 replacement, meningioma with associated mass effect, paroxysmal atrial fibrillation, peripheral vascular disease, obstructive sleep apnea non compliant with CPAP, and chronic obstructive pulmonary disease who is presenting to ER with shortness of breath. patient was recently seen by primary care physician with a complaint of upper respiratory tract infection. She was prescribed azithromycin and prednisone. COVID-19 test was later found to be positive on 03/07. Continued to have ongoing fever, chills, bellyaches, headache and intermittent cough. Due to this patient presented to the ER for evaluation. Patient was apparently having labored respiration. She was placed on BiPAP after which oxygen saturations had improved to 92% however she was requiring 65% FiO2. Emergency room patient was given Decadron 10 mg IV x1. This was listed as patient's allergy and thus not continued as patient noted severe myalgias. Laboratory workup on arrival showed a WBC of 9.2, hemoglobin 10.7, hematocrit 33.4 and a platelet count of 290. sodium 145, potassium 3.5, chloride 105, bicarb 28, BUN 13 and creatinine is 0.7. Arterial blood gases showed a pH 7.44, pCO2 38.3, PO2 of 73.8 and a bicarb 25.9. Ferritin of 361, LDH of 493, troponin of 14, proBNP of 1402. Chest x-ray on arrival showed new ground-glass infiltrates throughout mid and lower lung zones bilaterally consistent with pneumonia. Subjective: 03/12/2019 Upon admission patient was not continued on decadron. Was started on remdesivir 200 mg IV x 1 -> 100 mg IV daily. No fever, chills, nausea or vomiting. Noted to have desaturation due to non-compliance with bipap. 03/13/2019 Patient was stable on bipap. no fever or chills, no nausea or vomiting Medications: Reviewed: Yes Vitals/I&O/Wt Last Vital Signs Temp 99.1 F 03/14/20 04:20 Pulse 76 03/14/20 08:21 Resp 28 H 03/14/20 06:00 BP 130/59 03/14/20 06:00 Pulse Ox 90 03/14/20 08:21 03/13/20 03/14/20 03/14/20 22:59 06:59 14:59 Intake Total 325 / 325 240 / 565 Output Total 1000 / 1000 450 / 1450 Balance -675 / -675 -210 / -885 Weight last 48 hrs Weight 84.17 kg Weight 87.861 kg Physical Exam Narrative: EXAM NARRATIVE: General : Alert, awake, oriented x 3 HEENT : Grossly unremarkable Chest : Mildly labored respiration on bipap Abd : Non-distended Ext : Mild bilateral LE edema Urinary Catheter Management^: Jimenez: Cath Placed During This Visit: yes Reason for Continuing Indwelling Catheter: Accurate Measurement of Urinary Output in Critically Ill Patients Urinary Catheter Date of Insertion: 03/12/20 Urinary Catheter Time of Insertion: 12:34 Data : 03/14/20 04:30 03/14/20 04:30 Micro: Microbiology 03/12/20 09:45 Sputum Culture - Preliminary Sputum - Expectorated Sputum A&P Assessment and plan (1) Acute hypoxemic respiratory failure due to COVID-19: Status: Acute (2) Asthma exacerbation in COPD: Status: Acute (3) Von Willebrand disease: Status: Acute (4) Sleep apnea: Status: Acute (5) Pulmonary embolus: Status: Acute Acute Hypoxic respiratory distress due to COVID-19 with underlying hx of Asthma - 03/07 - COVID-19 positive - Chest xray - >B/l Ground-glass opacities - Ferritin 361, LDH of 493. - S/p prednisone prior to arrival / Decadron 10 mg IV x 1 in ER - Will hold off on further steroids due to intolerance - Remdesivir 200 mg IV x 1 -> 100 mg IV daily - Continue albuterol MDI - Advair 1 puff BID - No obvious superimposed underlying bacterial component - Will trend inflammatory markers - Ferritin, CRP, D-dimer q2days - If remaining on high fio2 - patient is high risk to get intubated - Chest x-ray in am - Droplet precautions - Anticipate likley needing vent in am Additional Medical Problems - Paroxysmal Atrial fibrillation - Von Willibrands disease / Pulmonary embolism - Pernicious Anemia on B12 replacement - Meningioma with mass effect - Osteoporosis - Hypertension - PVD - GERD DVT ppx - Eliquis 2.5 mg PO BID CODE STATUS : FULL CODE Attestations Medical Necessity Statement*: continue hosptialization for management of vent Time Spent in Patient Care: Greater than 35 minutes (>than 50% of time spent in counselling and/or direct pt care on unit) . Coding Level of Care Code Acute Slasher Tender Helper for Julio Francis Diagnoses Acute hypoxemic respiratory failure due to COVID-19 U07.1; J96.01 Asthma exacerbation in COPD J44.1; J45.901 Von Willebrand disease D68.0 Sleep apnea G47.30 Pulmonary embolus I26.99
[2020-03-13] MEDS: lidocaine 1% 5 ML in potassium chloride premix 100 ML 25 ML IV (09:47)
[2020-03-13] MEDS: remdesivir 100 MG in sodium chloride 0.9% (100 ml) 100 ML IV (18:16)
--- NOTE | 2020-03-13 22:42 | PC.NURSE ---
Received bed side shift report from off going nurse. Pt's plan of care reviewed. Pt resting in bed. Respirations are even and unlabored. No s/sx of distress noted. Pt is alert and oriented and able to make her own decisions. Pt denies any pains or concerns at this time. Pt is currently on bi-pap at 80% Fi02 and satting 93%. Pt was asked if she wanted a bed bath tonight but pt refused. Pt is also refusing to be turned at this time. Will continue to monitor pt.
[2020-03-13 23:05] LABS: Glucose Point of Care 101 mg/dL (70-110)
[2020-03-14] VITALS (91 sets, daily range): BP systolic 84–167; BP diastolic 55–74; PULSE 56–109; RESP 14–34; TEMP 37.3–38.5; O2SAT 82–96; BMI 31.8
--- NOTE | 2020-03-14 | XRR_ITS ---
PROCEDURE INFORMATION: Exam: XR Chest, 1 View Exam date and time: 03/14/2020 10:35 PM Age: 79 years old Clinical indication: Device placement; Chest tube; Additional info: Follow up chest tube TECHNIQUE: Imaging protocol: XR of the chest Views: 1 view. COMPARISON: CR XR chest 1V portable [id number] 03/14/2020 8:25 PM FINDINGS: Tubes, catheters and devices: Endotracheal tube tip resides 1.6 cm above the mily. Enteric tube extends to the abdomen. Central vascular catheter tip remains at the upper superior vena cava. Similar position of right chest tube. Lungs: Persistent bilateral pulmonary consolidations most suggestive of pneumonia. Pleural space: Further reduction of right pneumothorax remaining superiorly with pleural separation measuring 2.2 cm. Heart/Mediastinum: Unremarkable. No cardiomegaly. Bones/joints: Unremarkable. Soft tissues: Soft tissue emphysema increased at the right chest wall. XR/XR chest 1V portable [id number] IMPRESSION: 1. Further reduction in the size of residual superior right pneumothorax and improved aeration of the right upper lobe. 2. Persistent bilateral pulmonary consolidations most suspicious for pneumonia.
[2020-03-14 05:44] LABS: Basophils % 0.3 %; Eosinophils % 0.1 %; Hematocrit 33.6 % (37.0-47.0); Hemoglobin 10.8 g/dL (11.5-15.3); Lymphocytes # 1.6 10^3/uL (0.8-4.8); Lymphocytes % 13.5 %; Mean Corpuscular HGB Conc 32.1 g/dL (30.0-36.0); Mean Corpuscular Hemoglobin 30.3 pg (28.0-34.0); Mean Corpuscular Volume 94.4 fL (81-99); Mean Platelet Volume 10.2 fL (7.4-10.4); Monocytes % 8.9 %; Neutrophils # 8.71 10^3/uL (1.8-7.7); Neutrophils % 75.9 %; Nucleated Red Blood Cells % 0 %; Platelet Count 314 10^3/cmm (130-400); Red Blood Count 3.56 10^6/uL (4.1-5.3); Red Cell Distribution Width 13.1 % (12.1-15.1); White Blood Count 11.5 10^3/uL (4.0-10.0)
[2020-03-14 06:12] LABS: Anion Gap 15.8 (5-19); Blood Urea Nitrogen 20 mg/dL (8-23); Calcium 7.9 mg/dL (8.5-10.5); Carbon Dioxide 29 mmol/L (22-29); Chloride 103 mmol/L (98-107); Glucose 96 mg/dL (65-115); Magnesium 1.6 mg/dL (1.7-2.3); Osmolality Calculated 302 mOsm/kg (285-295); Phosphorus 2.9 mg/dL (2.5-4.5); Sodium 145 mmol/L (136-145)
[2020-03-14 06:16] LABS: D Dimer 9.98 ug/mIFEU (0-0.59)
[2020-03-14 06:21] LABS: Potassium 2.8 mmol/L (3.5-5.1)
[2020-03-14] MEDS: apixaban 5 mg Tablet 2.5 MG PO ×2 (06:22→22:33)
[2020-03-14] MEDS: isosorbide mononitrate ER 30 mg Tablet PO (06:22)
[2020-03-14] MEDS: potassium chloride premix 100 ML 25 MEQ IV (08:29)
[2020-03-14] MEDS: lidocaine 1% INJ 20 mL 5 ML IV (08:30)
--- NOTE | 2020-03-14 13:24 | PC.RESP ---
Pulmonary Rehab information sent to patient.
--- NOTE | 2020-03-14 15:34 | PC.SOCIAL ---
Provided pt's daughter, Jerri with IMM. Pt's daughter understood. Placed in chart
[2020-03-14 16:12] LABS: ABG PH Result 7.49 (7.35-7.45); Alveolar-Arterial Oxygen Gradi 55.5 mmHg (5-10); Arterial Blood Gas Hematocrit 37.3 % (37-47); Base Excess ABG 5.1 mmol/L (-2.0-2.0); Blood Gas Allen Test Pos; Blood Gas Operator Identificat AMH; Blood Gas Sample Site Radial, right; Blood Gas Sample Type Arterial; HCO3 ABG 28.8 mmol/L (22-26); HGB O2 Sat 89.1 % (95-100); Ionized Calcium Level - ABG 1.1 mmol/L (1.1-1.4); Oxygen Device BIPAP; Oxygen Saturation ABG 90.9; PO2 ABG 59.1 mmHg (80.0-100.0); Total Hemoglobin 12.2 g/dL (12-16)
[2020-03-14] MEDS: magnesium sulfate premix 2 GM/50 ML PIGGYBACK IV (16:20)
[2020-03-14] MEDS: hyDRALAzine 10 mg Tablet PO (16:20)
--- NOTE | 2020-03-14 18:25 | P.PN_ITS ---
Subjective Subjective: Interval history: 79-year-old female with past medical history significant for Von Willebrand's disease with subsequent pulmonary embolism on eliquis 2.5 mg PO BID, gastroesophageal reflux disease, osteoporosis, hypertension, pernicious anemia on b21 replacement, meningioma with associated mass effect, paroxysmal atrial fibrillation, peripheral vascular disease, obstructive sleep apnea non compliant with CPAP, and chronic obstructive pulmonary disease who is presenting to ER with shortness of breath. patient was recently seen by primary care physician with a complaint of upper respiratory tract infection. She was prescribed azithromycin and prednisone. COVID-19 test was later found to be positive on 03/07. Continued to have ongoing fever, chills, bellyaches, headache and intermittent cough. Due to this patient presented to the ER for evaluation. Patient was apparently having labored respiration. She was placed on BiPAP after which oxygen saturations had improved to 92% however she was requiring 65% FiO2. Emergency room patient was given Decadron 10 mg IV x1. This was listed as patient's allergy and thus not continued as patient noted severe myalgias. Laboratory workup on arrival showed a WBC of 9.2, hemoglobin 10.7, hematocrit 33.4 and a platelet count of 290. sodium 145, potassium 3.5, chloride 105, bicarb 28, BUN 13 and creatinine is 0.7. Arterial blood gases showed a pH 7.44, pCO2 38.3, PO2 of 73.8 and a bicarb 25.9. Ferritin of 361, LDH of 493, troponin of 14, proBNP of 1402. Chest x-ray on arrival showed new ground-glass infiltrates throughout mid and lower lung zones bilaterally consistent with pneumonia. Subjective: 03/12/2020 Upon admission patient was not continued on decadron. Was started on remdesivir 200 mg IV x 1 -> 100 mg IV daily. No fever, chills, nausea or vomiting. Noted to have desaturation due to non-compliance with bipap. 03/13/2020 Patient was stable on bipap. no fever or chills, no nausea or vomiting 03/14/2020 Patient was noted to have difficult oxygenating throughout the day with increased work of breathing with oxygen saturation in 88% to 90% with desaturation with any exertion. Also noted to have fever. Medications: Reviewed: Yes Vitals/I&O/Wt Last Vital Signs Temp 101.3 F H 03/14/20 18:00 Pulse 109 H 03/14/20 19:29 Resp 14 03/14/20 19:29 BP 154/67 03/14/20 18:00 Pulse Ox 82 L 03/14/20 19:29 03/14/20 03/14/20 03/14/20 06:59 14:59 22:59 Intake Total 240 / 565 150 / 150 Output Total 450 / 1450 500 / 500 Balance -210 / -885 -350 / -350 Weight last 48 hrs Weight 84.17 kg Weight 87.861 kg Physical Exam Narrative: EXAM NARRATIVE: General : Labored respiration. Intubated, placed on vent HEENT : ET tube Chest : vented sounds Abd : Non-distended Ext : Mild bilateral LE edema Urinary Catheter Management^: Jimenez: Cath Placed During This Visit: yes Reason for Continuing Indwelling Catheter: Accurate Measurement of Urinary Output in Critically Ill Patients Urinary Catheter Date of Insertion: 03/12/20 Urinary Catheter Time of Insertion: 12:34 Data : 03/14/20 04:30 03/14/20 04:30 Micro: Microbiology 03/12/20 09:45 Sputum Culture - Final Sputum - Expectorated Sputum A&P Assessment and plan (1) Acute hypoxemic respiratory failure due to COVID-19: Status: Acute (2) Asthma exacerbation in COPD: Status: Acute (3) Von Willebrand disease: Status: Acute (4) Sleep apnea: Status: Acute (5) Pulmonary embolus: Status: Acute Acute Hypoxic respiratory distress due to COVID-19 with underlying hx of Asthma - 03/07 - COVID-19 positive - Chest xray - >B/l Ground-glass opacities - Ferritin 361, LDH of 493. - S/p prednisone prior to arrival / Decadron 10 mg IV x 1 in ER - Will hold off on further steroids due to intolerance - Remdesivir 200 mg IV x 1 -> 100 mg IV daily - Continue albuterol MDI - Advair 1 puff BID - Patient was intubated and placed on MV - Fever 101 today - blood culture done stat - Started empirically on vancomycin pharmacy to dose - Aztreonam 1g IV q12hr - Tylenol PRN for fever - Chest x-ray in am - Droplet precautions Left Sided Pneumothorax - S/p chest tube placement - Placed to suction - Repeat chest x-ray in am - Repeat ABG in am - Will consult pulmonary Hypokalemia - K 2.8 - > replaced - Repeat K in am Paroxysmal Atrial fibrillation - On Metoprolol - currently held - May consider starting in am if BP tolerates Von Willibrands disease / Pulmonary embolism - Eliquis 2.5 mg PO BID Additional medical history - Pernicious Anemia on B12 replacement - Meningioma with mass effect - Osteoporosis - Hypertension - PVD - GERD DVT ppx - Eliquis 2.5 mg PO BID CODE STATUS : FULL CODE Attestations Medical Necessity Statement*: Patient intubated placed on mechanical vent. Will require further hospitalization for management Procedures Time out/Consent Time Out Performed: Yes Consent for Procedure: Consent obtained from patient Additional information: Intubation/MV Central line placement Central Line Placement^ Right IJ: Time out performed: Yes Patient placed on monitor/pulse ox: Yes MD prep: mask, gown and gloves Central line prep: sterile drapes applied Ultrasound used for placement: Yes Central line lumen inserted: triple Post procedure: sutured in place, good blood return, all ports aspirated, flushed, capped and sterile dressing applied Post procedure x-ray: tip of catheter in good position Patient tolerated procedure: well Complications: none Additional comments: Supervision: Dr. Mendez Intubation Time out performed: Yes Sedative: other (Propofol ) Mg given: 50 Paralytic: rocuronium Laryngoscope: fiber optic video scope Assist device used: fiber optic device ET tube size: 8 ET tube uncuffed: No Tube secured depth (cm): 24 Tube secured location: teeth Tube placement confirmation: visualized tube passing through cords, equal breath sounds bilaterally, no breath sounds over epigastrium, confirmation by capnometry and color change noted Patient tolerated procedure: well Intubation complications: none Coding Level of Care Code Acute Process Control Programmer for Chg Fwd Diagnoses Acute hypoxemic respiratory failure due to COVID-19 U07.1; J96.01 Asthma exacerbation in COPD J44.1; J45.901 Von Willebrand disease D68.0 Sleep apnea G47.30 Pulmonary embolus I26.99
[2020-03-14] MEDS: rocuronium 10 mg/mL INJ 5mL 84 MG IVP (18:45)
[2020-03-14] MEDS: propofol 1,000 MG/100 ML INJ 15.2 MG IV (18:46)
--- NOTE | 2020-03-14 18:47 | PC.NURSE ---
1835--INTUBATION DONE BY DR BULLOCK 24 LIP, 8.0, 100%, RATE 16, PEEP 10
--- NOTE | 2020-03-14 19:02 | XRR_ITS ---
PROCEDURE INFORMATION: Exam: XR Chest, 1 View Exam date and time: 03/14/2020 7:20 PM Age: 79 years old Clinical indication: Device placement; Other: Intubation, og, central line placement TECHNIQUE: Imaging protocol: XR of the chest Views: 1 view. COMPARISON: CR (CHEST, ) 03/13/2020 7:37 AM FINDINGS: Tubes, catheters and devices: Central vascular catheter placement at the superior vena cava near the right kevin. Enteric tube tip position lateral area of gastric fundus. Endotracheal tube tip positioning 2.0 cm above the mily. Lungs: Consolidation of the atelectatic right lung. Persistent infiltrate left lung most prominent in the lower lung. Pleural space: Unremarkable. No pleural effusion. Heart/Mediastinum: Development of large right pneumothorax possibly tension component with shift of cardiomediastinal structures to the left. Vasculature: Calcified thoracic aorta. Bones/joints: Unremarkable. XR/XR chest 1V portable [id number] IMPRESSION: 1. Large right pneumothorax with suspected tension component. A subsequent chest image demonstrates placement of right chest tube see dictation of follow-up chest. 2. Bilateral pulmonary consolidations suspicious for pneumonia and could be atypical of viral origin.
--- NOTE | 2020-03-14 19:42 | XRR_ITS ---
PROCEDURE INFORMATION: Exam: XR Chest, 1 View Exam date and time: 03/14/2020 7:59 PM Age: 79 years old Clinical indication: Device placement; Chest tube; Additional info: Chest tube placement TECHNIQUE: Imaging protocol: XR of the chest Views: 1 view. COMPARISON: CR XR chest 1V portable [id number] 03/14/2020 7:19 PM FINDINGS: Tubes, catheters and devices: Interval placement of right thoracotomy drainage tube tip projected medially in the mid chest. Reduction of size of right pneumothorax with residual remaining superiorly. Lungs: Consolidation within both lungs predominantly perihilar and lower lobe most suspicious for pneumonia. Pleural space: See Tubes, catheters and devices finding. Heart/Mediastinum: Unremarkable. No cardiomegaly. Bones/joints: Unremarkable. Soft tissues: Soft tissue emphysema right chest wall. Other findings: Similar position of life support structures. XR/XR chest 1V portable [id number] IMPRESSION: Right chest tube placement with reduction in the size of right pneumothorax with residual superiorly.
--- NOTE | 2020-03-14 19:53 | PC.NURSE ---
184- CENTRAL LINE PLACED BY DR BULLOCK & [facility] HERE, PNEUMOTHORAX NOTED TO RIGHT LUNG. DR BULLOCK NOTIFIED. CALLED ER, DR CHANEL TO COME DOWN TO PLACE CHEST TUBE. SEDATION INCREASED FOR PROCEDURE. DR BULLOCK TO NOTIFY FAMILY.
--- NOTE | 2020-03-14 20:11 | XRR_ITS ---
PROCEDURE INFORMATION: Exam: XR Chest, 1 View Exam date and time: 03/14/2020 8:13 PM Age: 79 years old Clinical indication: Device placement; Other: PT o2 sats low after chest tube TECHNIQUE: Imaging protocol: XR of the chest Views: 1 view. COMPARISON: CR XR chest 1V portable [id number] 03/14/2020 7:47 PM FINDINGS: Tubes, catheters and devices: Stable right chest tube. Stable endotracheal tube. Stable enteric tube. Lungs: Continued dense airspace disease and/or atelectasis in the right lung superior to the minor fissure. Stable moderate left basilar atelectasis and/or infiltrate and/or effusion. Pleural space: Stable residual 10-15% right pneumothorax. Heart/Mediastinum: Unremarkable. No cardiomegaly. Bones/joints: Unremarkable. Soft tissues: Slight increased soft tissue emphysema in the right lateral chest wall. XR/XR chest 1V portable [id number] IMPRESSION: 1. Stable right chest tube. 2. Stable residual 10-15% right pneumothorax. 3. Continued dense airspace disease and/or atelectasis in the right lung superior to the minor fissure. 4. Stable moderate left basilar atelectasis and/or infiltrate and/or effusion.
[2020-03-14 20:27] LABS: ABG PCO2 38.7 mmHg (35-45); ABG PH Result 7.42 (7.35-7.45); Alveolar-Arterial Oxygen Gradi 79.9 mmHg (5-10); Arterial Blood Gas Hematocrit 36.2 % (37-47); Base Excess ABG 0.5 mmol/L (-2.0-2.0); Blood Gas Allen Test Pos; Blood Gas Sample Site Radial, left; Blood Gas Sample Type Arterial; Blood Gas Tidal Volume 0.45; Carboxyhemoglobin 1.1 %THgb (0.4-20.1); HGB O2 Sat 82.6 % (95-100); Ionized Calcium Level - ABG 1.1 mmol/L (1.1-1.4); Oxygen Device VENT; Oxygen Saturation ABG 84.4; PO2 ABG 50.6 mmHg (80.0-100.0); Total Hemoglobin 11.8 g/dL (12-16)
--- NOTE | 2020-03-14 21:03 | PC.PHAR ---
Vancomycin is dosed at 1250mg IVPB every 12 hours to produce a predicted trough level of 16.39 (population based pharmacokinetic analysis). A trough level has been ordered from the lab to be obtained before the fourth dose to confirm and adjust if needed.
[2020-03-14] MEDS: lidocaine 1% 5 ML in potassium chloride premix 100 ML 25 ML IV (22:21)
[2020-03-14] MEDS: aztreonam 1,000 MG in sodium chloride 0.9% (plus) 50 ML 100 MG IV (22:22)
[2020-03-14] MEDS: propofol 1,000 MG/100 ML INJ 17.7 MG IV (22:31)
[2020-03-14] MEDS: remdesivir 100 MG in sodium chloride 0.9% (100 ml) 100 ML IV (22:33)
--- NOTE | 2020-03-14 23:34 | W.ED.COVID ---
HPI - COVID General: Chief Complaint: COVID symptoms Stated Complaint: COVID POSTIVE Time Seen by Provider: 03/11/20 11:30 Source: patient Mode of arrival: ambulatory Limitations: no limitations Triage information: Has fever, cough or shortness of breath. Exposure to COVID + person last 14 days History of Present Illness: Severity: moderate and rapidly worsening COVID Results: Nasal/Oral Coronavirus 2019 PCR Detected H 03/07/20 15:22 03/07/20 [facility] ED PFSH: Medical History (Updated 03/11/20 @ 14:43 by Rocael Mi) Afib Anemia Asthma Chronic GERD COPD (chronic obstructive pulmonary disease) Pulmonary embolism PVD (peripheral vascular disease) Sleep apnea Von Willebrand disease Surgical History H/O: hysterectomy (~1975) History of tonsillectomy (~1959) Social History (Updated 03/07/20 @ 14:13 by ANA Morel) Smoking and tobacco status: never smoked Alcohol intake: never Lives independently: Yes Household members: spouse Marital status: Current occupational status: retired History of recent travel: No Current gender identity: Female Procedures Chest Tube Chest Tube 1: Chest Tube Location: right Size of Tube (cm): 28 Chest Tube Prep: Yes betadine prep and sterile drapes applied Incision Made With: #10 blade Post Procedure: sutured to skin and sterile dressing applied Tube Drainage: none Post Procedure CXR?: Yes Patient Tolerated Procedure: Yes Complications: tube needs to be repositioned Progress: I did go back and reposition the tube. Improve or resolve meant of the pneumothorax after repositioning. Course Vital Signs: Vital signs: Vital Signs Temperature 101.3 F H 03/14/20 18:00 Pulse Rate 82 03/14/20 23:01 Respiratory Rate 18 03/14/20 23:01 Blood Pressure 103/57 03/14/20 22:00 Pulse Oximetry 95 03/14/20 23:01 MDM - COVID Lab Data: Labs: Lab Results 03/11/20 03/11/20 03/11/20 Range/Units 11:44 12:30 12:30 WBC 9.2 (4.0-10.0) 10^3/ uL RBC 3.56 L (4.1-5.3) 10^6/u L Hgb 10.7 L (11.5-15.3) g/dL Hct 33.4 L (37.0-47.0) % MCV 93.8 (81-99) fL MCH 30.1 (28.0-34.0) pg MCHC 32.0 (30.0-36.0) g/dL RDW 13.1 (12.1-15.1) % Plt Count 290 (130-400) 10^3/c mm MPV 9.9 (7.4-10.4) fL Neut % (Auto) 73.9 % Lymph % (Auto) 16.1 % [place] % (Auto) 8.5 % Eos % (Auto) 0.0 % Baso % (Auto) 0.2 % Neut # (Auto) 6.82 (1.8-7.7) 10^3/u L Lymph # (Auto) 1.5 (0.8-4.8) 10^3/u L [place] # (Auto) 0.8 (0.2-0.9) 10^3/u L Eos # (Auto) 0.0 (0.0-0.8) 10^3/u L Baso # (Auto) 0.0 (0.0-0.1) 10^3/u L Nucleated RBC % (a uto) 0 % Nucleated RBCs # 0.0 /100WBC Specimen Type Arterial Sample Site Radial, right ABG pH 7.47 H (7.35-7.45) ABG pCO2 37.0 (35-45) mmHg ABG pO2 60.0 L (80.0-100.0) mmH g ABG HCO3 27.1 H (22-26) mmol/L ABG O2 Saturation 91.8 ABG Base Excess 3.5 H (-2.0-2.0) mmol/ L Maxx Test Pos A-a O2 Gradient 77.8 H (5-10) mmHg Hematocrit 36.8 L (37-47) % Hgb O2 Saturation 90.2 L (95-100) % Carboxyhemoglobin 1.2 (0.4-20.1) %THgb Methemoglobin 0.5 (0.4-1.5) % Total Hemoglobin 12.0 (12-16) g/dL Sodium 145.0 H 145 (131-143) mmol/L Potassium 3.0 L 3.5 (3.5-5.0) mmol/L Glucose 95.0 90 (70-115) mg/dL Ionized Calcium 1.1 (1.1-1.4) mmol/L O2 Delivery Device Nrb O2 Liters/Min 15.0 % FiO2 100.0 % Statement Distribution Clerk ID glc Chloride 105 (98-107) mmol/L Carbon Dioxide 28 (22-29) mmol/L Anion Gap 15.5 (5-19) BUN 13 (8-23) mg/dL Creatinine 0.7 (0.5-0.9) mg/dL GFR Calculation Not Reportable Calculated Osmolal ity 300 H (285-295) mOsm/k g Calcium 8.1 L (8.5-10.5) mg/dL Ferritin 361 H (15-150) ng/mL Total Bilirubin 0.3 (0.15-1.2) mg/dL AST 24 (0-32) U/L ALT 9 (0-33) U/L Alkaline Phosphata se 80 (35-105) IU/L Lactate Dehydrogen ase 493 H (135-214) U/L Troponin T Gen 5 n g/L (0-10) ng/L NT-Pro-B Natriuret Pep 1402 H (0-450) pg/mL Total Protein 5.8 L (6.6-8.7) g/dL Albumin 3.6 (3.5-5.2) g/dL Globulin 2.2 (1.3-4.6) g/dL 03/11/20 Range/Units 12:30 WBC (4.0-10.0) 10^3/ uL RBC (4.1-5.3) 10^6/u L Hgb (11.5-15.3) g/dL Hct (37.0-47.0) % MCV (81-99) fL MCH (28.0-34.0) pg MCHC (30.0-36.0) g/dL RDW (12.1-15.1) % Plt Count (130-400) 10^3/c mm MPV (7.4-10.4) fL Neut % (Auto) % Lymph % (Auto) % [place] % (Auto) % Eos % (Auto) % Baso % (Auto) % Neut # (Auto) (1.8-7.7) 10^3/u L Lymph # (Auto) (0.8-4.8) 10^3/u L [place] # (Auto) (0.2-0.9) 10^3/u L Eos # (Auto) (0.0-0.8) 10^3/u L Baso # (Auto) (0.0-0.1) 10^3/u L Nucleated RBC % (a uto) % Nucleated RBCs # /100WBC Specimen Type Sample Site ABG pH (7.35-7.45) ABG pCO2 (35-45) mmHg ABG pO2 (80.0-100.0) mmH g ABG HCO3 (22-26) mmol/L ABG O2 Saturation ABG Base Excess (-2.0-2.0) mmol/ L Maxx Test A-a O2 Gradient (5-10) mmHg Hematocrit (37-47) % Hgb O2 Saturation (95-100) % Carboxyhemoglobin (0.4-20.1) %THgb Methemoglobin (0.4-1.5) % Total Hemoglobin (12-16) g/dL Sodium (131-143) mmol/L Potassium (3.5-5.0) mmol/L Glucose (70-115) mg/dL Ionized Calcium (1.1-1.4) mmol/L O2 Delivery Device O2 Liters/Min % FiO2 % Statement Distribution Clerk ID Chloride (98-107) mmol/L Carbon Dioxide (22-29) mmol/L Anion Gap (5-19) BUN (8-23) mg/dL Creatinine (0.5-0.9) mg/dL GFR Calculation Calculated Osmolal ity (285-295) mOsm/k g Calcium (8.5-10.5) mg/dL Ferritin (15-150) ng/mL Total Bilirubin (0.15-1.2) mg/dL AST (0-32) U/L ALT (0-33) U/L Alkaline Phosphata se (35-105) IU/L Lactate Dehydrogen ase (135-214) U/L Troponin T Gen 5 n g/L 14 H (0-10) ng/L NT-Pro-B Natriuret Pep (0-450) pg/mL Total Protein (6.6-8.7) g/dL Albumin (3.5-5.2) g/dL Globulin (1.3-4.6) g/dL COVID Results: Nasal/Oral Coronavirus 2019 PCR Detected H 03/07/20 15:22 03/07/20 Discharge Plan Discharge Patient Disposition: Admitted As Inpatient Admit Provider: Eileen Sequeira Clinical Impression: Acute hypoxemic respiratory failure due to COVID-19 Condition: Stable Coding Level of Care Code ED Cutter And Presser for Julio Francis
[2020-03-15] VITALS (36 sets, daily range): BP systolic 89–158; BP diastolic 52–85; PULSE 72–150; RESP 12–26; TEMP 37.4–38.8; O2SAT 81–98
--- NOTE | 2020-03-15 | XRR_ITS ---
PROCEDURE INFORMATION: Exam: XR Chest, 1 View Exam date and time: 03/15/2020 1:00 AM Age: 79 years old Clinical indication: Device placement; Chest tube; Additional info: Chest tube adjustment TECHNIQUE: Imaging protocol: XR of the chest Views: 1 view. COMPARISON: CR XR chest 1V portable [id number] 03/14/2020 10:45 PM FINDINGS: Lungs: Persistent bilateral pulmonary consolidations without significant interval change. Pleural space: Residual right apical pneumothorax pleural separation measuring 1.9 cm slightly diminished compared to the chest less than 1 hour previous. Heart/Mediastinum: Stable heart size. Bones/joints: Unremarkable. Soft tissues: Persistent right chest wall soft tissue emphysema. Other findings: Life support structures remain in similar position. XR/XR chest 1V [id number] IMPRESSION: 1. Further reduction in the size of superior right residual pneumothorax. 2. Stable position of life support structures. 3. Similar right lung consolidations with noninclusion of the entirety of the left lung.
[2020-03-15] MEDS: vancomycin 1,250 MG/250 ML PIGGYBACK 250 MG IV ×3 (00:16→21:44)
--- NOTE | 2020-03-15 00:23 | PC.NURSE ---
2000 - Dr Velazquez @ bedside to place chest tube right right pneumothorax. HR 115, O2 78%. Sterile technique used, pt sedated with intubation meds. Pt placed chest tube with immediate air release and placed on atrium, placement confirmed with chest x ray. Central line placement, ET and OG also confirmed by CXR. Physician x 2 verbalized the central line was in good placement and ok to use, good blood return noted in all lumens. ER physician concenred that pt O2 not increasing fast enough, ordered additional CXR to monitor expansion of right lung. 0030 - ER physician not satisfied with lung expansion, at bedside to reposition chest tube.
[2020-03-15] MEDS: propofol 1,000 MG/100 ML INJ 37.9 MG IV (01:34)
[2020-03-15 03:57] LABS: ABG PH Result 7.41 (7.35-7.45); Blood Gas Allen Test Pos; Blood Gas Sample Site Radial, right; Blood Gas Sample Type Arterial; Blood Gas Tidal Volume 0.45; Oxygen Device VENT
[2020-03-15 03:58] LABS: ABG PCO2 39.4 mmHg (35-45); Arterial Blood Gas Hematocrit 26.9 % (37-47); Base Excess ABG 0.5 mmol/L (-2.0-2.0); HCO3 ABG 25.2 mmol/L (22-26); PO2 ABG 67.3 mmHg (80.0-100.0)
[2020-03-15] MEDS: propofol 1,000 MG/100 ML INJ 25.3 MG IV ×5 (05:10→23:06)
[2020-03-15] MEDS: apixaban 5 mg Tablet 2.5 MG PO ×2 (05:11→20:45)
[2020-03-15 05:28] LABS: D Dimer 7.27 ug/mIFEU (0-0.59)
--- NOTE | 2020-03-15 06:00 | XRR_ITS ---
PROCEDURE INFORMATION: Exam: XR Chest, 1 View Exam date and time: 03/15/2020 7:20 AM Age: 79 years old Clinical indication: Other: Hypoxia; Patient HX: Covid TECHNIQUE: Imaging protocol: XR of the chest Views: 1 view. COMPARISON: CR XR chest 1V [id number] 03/14/2020 11:24 PM FINDINGS: Tubes, catheters and devices: Thoracotomy tube slightly within the hemithorax. This has been adjusted from the prior study. Moderate residual pneumothorax. Central venous catheter via the right jugular approach with the tip projecting over the superior vena cava. The endotracheal tube is above the level of the mily. nasogastric tube extends below the diaphragm although the location of the tip not identified as it is outside of the [id number]. Lungs: Patchy ground-glass airspace disease in the perihilar regions and right lower lobe. Dense consolidation left lower lobe. Pleural space: See Tubes, catheters and devices finding. Heart/Mediastinum: Unremarkable. No cardiomegaly. Bones/joints: Unremarkable. XR/XR chest 1V portable [id number] IMPRESSION: 1. Thoracotomy tube slightly within the hemithorax. This has been adjusted from the prior study. Moderate residual pneumothorax. Slightly larger than the previous day's. Subcutaneous emphysema in the soft tissues about the right thorax. 2. Patchy ground-glass airspace disease in the perihilar regions and right lower lobe. Dense consolidation left lower lobe. Minimal change.
[2020-03-15 07:35] LABS: Basophils % 0.2 %; Eosinophils % 0.1 %; Hematocrit 34.9 % (37.0-47.0); Hemoglobin 10.8 g/dL (11.5-15.3); Lymphocytes # 1.6 10^3/uL (0.8-4.8); Lymphocytes % 10.3 %; Mean Corpuscular HGB Conc 30.9 g/dL (30.0-36.0); Mean Corpuscular Hemoglobin 30.3 pg (28.0-34.0); Mean Platelet Volume 10.6 fL (7.4-10.4); Monocytes # 1.2 10^3/uL (0.2-0.9); Monocytes % 7.3 %; Neutrophils # 12.62 10^3/uL (1.8-7.7); Neutrophils % 80.6 %; Nucleated Red Blood Cells % 0 %; Platelet Count 323 10^3/cmm (130-400); Red Blood Count 3.56 10^6/uL (4.1-5.3); Red Cell Distribution Width 13.2 % (12.1-15.1); White Blood Count 15.7 10^3/uL (4.0-10.0)
[2020-03-15 08:02] LABS: Alanine Aminotransferase 7 U/L (0-33); Alkaline Phosphatase 71 IU/L (35-105); Anion Gap 19.6 (5-19); Aspartate Amino Transferase 13 U/L (0-32); Blood Urea Nitrogen 24 mg/dL (8-23); Calcium 8.2 mg/dL (8.5-10.5); Carbon Dioxide 24 mmol/L (22-29); Chloride 102 mmol/L (98-107); Globulin 2.5 g/dL (1.3-4.6); Glucose 98 mg/dL (65-115); Osmolality Calculated 298 mOsm/kg (285-295); Potassium 3.6 mmol/L (3.5-5.1); Sodium 142 mmol/L (136-145); Total Bilirubin 0.5 mg/dL (0.15-1.2); Total Protein 5.5 g/dL (6.6-8.7)
[2020-03-15 08:03] LABS: Lactate (Lactic Acid level) 1.5 mmol/L (0.5-2.2)
[2020-03-15 08:13] LABS: Procalcitonin 0.33 ng/mL (0-0.5)
[2020-03-15] MEDS: LORazepam 2 mg/mL INJ 1 mL IVP (08:15)
[2020-03-15 08:23] LABS: Ferritin 764 ng/mL (15-150)
--- NOTE | 2020-03-15 08:29 | PC.NURSE ---
SEIZURE ACTIVITY-- 0810 DR COPE, RN & RESP THERAPIST IN ROOM. PT BEGAN SEIZING. LASTING APPROXIMATELY 30-60 SECONDS. ATIVAN 2MG IV ORDERED & ADMINISTERED. DR COPE REQUESTED TO HAVE CHEST & HEAD CT WITHOUT CONTRAST DONE.
--- NOTE | 2020-03-15 08:43 | CT_ITS ---
WS: [id number] CT HEAD NONCONTRAST HISTORY: SEIZURE, NEW ONSET TECHNIQUE: Contiguous axial imaging performed through the brain in 2.5 mm imaging. Bone and soft tiss ue windows. Sagittal and coronal reformats reviewed. All CT scans at [facility] use at ast one of these dose optimization techniques: automated exposure control; mA and/or kV adjustment pe r patient size (includes targeted exams where dose is matched to clinical indication); or iterative r econstruction. DLP: 736.99 mGy.cm COMPARISON: None available. No acute intracranial hemorrhage, midline shift or mass effect. Mild atrophy and chronic ischemic disease. No sulcal effacement or hemorrhage. Ventricles: Normal size with no hydrocephalus. No inferior displacement of the cerebellar tonsils. Paranasal sinuses: Postsurgical changes involving the maxillary sinuses. No air-fluid levels. Mastoid air cells: Small amount of fluid in the RIGHT mastoid air cells. Calvarium and scalp: Skull is intact with no soft tissue edema or swelling. CT/CT head wo con* [id number] IMPRESSION: 1. No acute intracranial hemorrhage. 2. Mild atrophy and chronic ischemic disease.
--- NOTE | 2020-03-15 08:43 | CT_ITS ---
WS: [id number] CT CHEST WITHOUT INTRAVENOUS CONTRAST HISTORY: PNEUMOTHORAX, CHEST TUBE PLACEMENT TECHNIQUE: Contiguous 5 mm axial imaging performed on the thorax. Coronal and sagittal reformats are submitted. All CT scans at [facility] use at least one of these dose optimization techniq ues: automated exposure control; mA and/or kV adjustment per patient size (includes targeted exams wh ere dose is matched to clinical indication); or iterative reconstruction. CONTRAST: None DLP: 1132.18 mGy.cm COMPARISON: Chest CT 07/22/2019 Endotracheal tube ends just above the mily. Nasogastric tube is present with tip extending into the stomach. RIGHT jugular line with tip in the distal SVC. There is a single RIGHT chest tube present with the tip extending inferiorly into the atelectatic carlos g. There is a persistent small pneumothorax on the RIGHT. There is diffuse bilateral pulmonary hazine ss and interstitial thickening. Bilateral lower lobe consolidations. Heart size is normal. Moderate a mount of RIGHT sided subcutaneous emphysema. Upper abdomen: Nasogastric tube in the stomach. Visualized upper abdominal structures are negative fo r acute process. Osseous structures: Increase in thoracic kyphosis. CT/CT chest wo con [id number] IMPRESSION: 1. Nasogastric and endotracheal tubes in good position. 2. Right-sided thoracostomy tube with persistent small pneumothorax. 3. Dense areas of consolidation at the lung bases bilaterally from pneumonia, atelectasis with additional pneumonitis and/or edema bilaterally. 4. Subcutaneous emphysema on the RIGHT.
[2020-03-15] MEDS: aztreonam 1,000 MG in sodium chloride 0.9% (plus) 50 ML 100 MG IV ×2 (09:34→20:28)
--- NOTE | 2020-03-15 12:23 | PC.NURSE ---
1015--OFF FLOOR TO CT SCAN. RN & X2 RT TRANSPORT.
--- NOTE | 2020-03-15 12:24 | PC.NURSE ---
1215-- O2 SAT 75%, 100% FIO2. RT IN ROOM. DR BULLOCK & DATAR NOTIFIED.
--- NOTE | 2020-03-15 12:48 | XR_ITS ---
WS: [id number] PORTABLE CHEST HISTORY: Pneumothorax. COMPARISON: 03/15/2020 at 7:25 AM. Nasogastric and endotracheal tubes are unchanged. RIGHT central line with tip in distal SVC. Right-sided chest tube with the proximal port external to the pleural space. There is a small persist ent RIGHT pneumothorax. Similar to the prior study. Continued bilateral pulmonary opacifications without improvement. There may be slight progression of opacification centrally. Cardiac size: Mildly enlarged cardiac silhouette. Mediastinum/Aorta: Normal mediastinum. No osseous abnormality seen. XR/XR chest 1V portable [id number] IMPRESSION: 1. RIGHT thoracostomy tube with the proximal port external to the pleural spac e. 2. Persistent small RIGHT pneumothorax. 3. Persistent bilateral airspace disease. Mild progression since the prior vanessa dy.
--- NOTE | 2020-03-15 13:32 | XRR_ITS ---
PROCEDURE INFORMATION: Exam: XR Chest, 1 View Exam date and time: 03/15/2020 1:46 PM Age: 79 years old Clinical indication: Device placement; Other: S/P thoravent TECHNIQUE: Imaging protocol: XR of the chest Views: 1 view. COMPARISON: CR XR chest 1V portable [id number] 03/15/2020 12:59 PM FINDINGS: Tubes, catheters and devices: ET tube tip at the mily, this could be pulled back 1 cm. Enteric tube tip is beyond the proximal portion of the stomach and is not seen because it is below the inferior margin of the film. Lungs: Continued moderate to severe bilateral pulmonary opacities consistent with pneumonia versus atypical pulmonary edema. Pleural space: Interval placement of a 2nd right chest tube with apparent complete resolution of right pneumothorax. Heart/Mediastinum: Unremarkable. No cardiomegaly. Bones/joints: Unremarkable. Soft tissues: Continued right lower chest tube with the side hole outside the chest cavity. XR/XR chest 1V portable [id number] IMPRESSION: 1. Interval placement of a 2nd right chest tube with apparent complete resolution of right pneumothorax. 2. Continued right lower chest tube with the side hole outside the chest cavity. 3. Continued moderate to severe bilateral pulmonary opacities consistent with pneumonia versus atypical pulmonary edema. 4. ET tube tip at the mily, this could be pulled back 1 cm.
--- NOTE | 2020-03-15 13:48 | ECG_ITS ---
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 Measurements Intervals [place] Rate: 139 P: WI: QRS: -7 QRSD: 79 T: -18 QT: 268 QTc: 408 Interpretive Statements ATRIAL FIBRILLATION WITH RAPID VENTRICULAR RESPONSE INFERIOR MYOCARDIAL INFARCTION [40+ ms Q WAVE AND/OR ST/T ABNORMALITY IN II/aVF], OF INDETERMINATE AGE ST DEPRESSION, CONSIDER SUBENDOCARDIAL INJURY [0.1+ mV ST DEPRESSION] Compared to ECG 03/11/2020 11:40:54 Myocardial infarct finding now present Sinus rhythm no longer present Left ventricular hypertrophy no longer present ST (T wave) deviation still present Electronically Signed On 03-18-2020 13:53:44 INFORMATION SYSTEMS DIRECTOR by Xiomy Juarez M.D. [id number]
[2020-03-15 14:45] LABS: ABG PH Result 7.39 (7.35-7.45); Alveolar-Arterial Oxygen Gradi 78.7 mmHg (5-10); Arterial Blood Gas Hematocrit 34.8 % (37-47); Base Excess ABG 0.5 mmol/L (-2.0-2.0); Blood Gas Allen Test Pos; Blood Gas Operator Identificat MONRO; Blood Gas Sample Site Radial, left; Blood Gas Sample Type Arterial; Blood Gas Tidal Volume 0.45; Carboxyhemoglobin 0.9 %THgb (0.4-20.1); HCO3 ABG 25.7 mmol/L (22-26); HGB O2 Sat 86.2 % (95-100); Ionized Calcium Level - ABG 1.1 mmol/L (1.1-1.4); Methemoglobin 1.1 % (0.4-1.5); Oxygen Device VENT; PO2 ABG 57.3 mmHg (80.0-100.0); Potassium Level - ABG 3.1 mmol/L (3.5-5.0); Total Hemoglobin 11.4 g/dL (12-16)
--- NOTE | 2020-03-15 15:22 | PM.PN ---
Subjective Subjective: Interval history: 79-year-old female with past medical history significant for Von Willebrand's disease with subsequent pulmonary embolism on eliquis 2.5 mg PO BID, gastroesophageal reflux disease, osteoporosis, hypertension, pernicious anemia on b21 replacement, meningioma with associated mass effect, paroxysmal atrial fibrillation, peripheral vascular disease, obstructive sleep apnea non compliant with CPAP, and chronic obstructive pulmonary disease who is presenting to ER with shortness of breath. patient was recently seen by primary care physician with a complaint of upper respiratory tract infection. She was prescribed azithromycin and prednisone. COVID-19 test was later found to be positive on 03/07. Continued to have ongoing fever, chills, bellyaches, headache and intermittent cough. Due to this patient presented to the ER for evaluation. Patient was apparently having labored respiration. She was placed on BiPAP after which oxygen saturations had improved to 92% however she was requiring 65% FiO2. Emergency room patient was given Decadron 10 mg IV x1. This was listed as patient's allergy and thus not continued as patient noted severe myalgias. Laboratory workup on arrival showed a WBC of 9.2, hemoglobin 10.7, hematocrit 33.4 and a platelet count of 290. sodium 145, potassium 3.5, chloride 105, bicarb 28, BUN 13 and creatinine is 0.7. Arterial blood gases showed a pH 7.44, pCO2 38.3, PO2 of 73.8 and a bicarb 25.9. Ferritin of 361, LDH of 493, troponin of 14, proBNP of 1402. Chest x-ray on arrival showed new ground-glass infiltrates throughout mid and lower lung zones bilaterally consistent with pneumonia. Subjective: 03/12/2020 Upon admission patient was not continued on decadron. Was started on remdesivir 200 mg IV x 1 -> 100 mg IV daily. No fever, chills, nausea or vomiting. Noted to have desaturation due to non-compliance with bipap. 03/13/2020 Patient was stable on bipap. no fever or chills, no nausea or vomiting 03/14/2020 Patient was noted to have difficult oxygenating throughout the day with increased work of breathing with oxygen saturation in 88% to 90% with desaturation with any exertion. Also noted to have fever. 03/15/20 Unfortunately patient was noted to have low oxygen saturation this am. Chest tube was repositioned last evening. Noted to have a persistent leak this am. CT chest was performed. Unfortunately patient desturated to mid 70s. Repeat chest xray showed worsening ptx. CTS surgery was consulted at which point an additional anterior chest tube was placed with connected to hemlich one way valve. Oxygen saturation improved subsequently to low 90s. Medications: Reviewed: Yes Vitals/I&O/Wt Last Vital Signs Temp 100.3 F H 03/15/20 12:00 Pulse 90 03/15/20 12:00 Resp 15 03/15/20 13:19 BP 136/70 03/15/20 12:00 Pulse Ox 84 L 03/15/20 12:00 03/15/20 03/15/20 03/15/20 06:59 14:59 22:59 Intake Total 613.047 / 820.047 709.484 / 709.484 Output Total 300 / 800 0 / 0 Balance 313.047 / 20.047 709.484 / 709.484 Weight last 48 hrs Weight 79.107 kg Weight 84.17 kg Physical Exam Narrative: EXAM NARRATIVE: General : Labored respiration. Intubated, placed on vent HEENT : ET tube Chest : vented sounds -R.ant - thoravent -R-lat - Chest tube Abd : Non-distended Ext : Mild bilateral LE edema Urinary Catheter Management^: Jimenez: Cath Placed During This Visit: yes Reason for Continuing Indwelling Catheter: Accurate Measurement of Urinary Output in Critically Ill Patients Urinary Catheter Date of Insertion: 03/12/20 Urinary Catheter Time of Insertion: 12:34 Data : 03/15/20 04:00 03/15/20 04:00 Micro: Microbiology 03/14/20 00:05 Blood Culture - Preliminary Blood SPECIMEN COLLECTED 03/14/20 18:50 Gram Stain - Preliminary Sputum - Endotracheal Wash 03/14/20 21:37 Blood Culture - Preliminary Blood SPECIMEN COLLECTED 03/12/20 09:45 Sputum Culture - Final Sputum - Expectorated Sputum A&P Assessment and plan (1) Acute hypoxemic respiratory failure due to COVID-19: Status: Acute (2) Asthma exacerbation in COPD: Status: Acute (3) Von Willebrand disease: Status: Acute (4) Sleep apnea: Status: Acute (5) Pulmonary embolus: Status: Acute Acute Hypoxic respiratory distress due to COVID-19/PTX with underlying hx of Asthma - 03/07 - COVID-19 positive - Chest xray - >B/l Ground-glass opacities - Ferritin 361, LDH of 493. - S/p prednisone prior to arrival / Decadron 10 mg IV x 1 in ER - Will hold off on further steroids due to intolerance - Exact allergic reaction unknown - Remdesivir 200 mg IV x 1 -> 100 mg IV daily - Continue albuterol - Advair 1 puff BID - Patient was intubated and placed on MV ( 03/14/20) - Continue sedation with Propofol/Fenanyl - Maintain RASS neg 3 - Pulmonary medicine consulted - Repeat CXR in am Left Sided Pneumothorax - S/p chest tube placement - Noted to have persistent leak - CT chest w/o contrast performed - Thoravent chest tube placed in addition - CTS consulted - ABG post ant CT placement - 7.35, PCO2 - 43, PO2 57.3, HCO3 25.7 Sepsis due to COVID19 with super-imposed Bacterial - Persistent fever - Continue remdesivir as noted above - Continue vancomycin pharmacy to dose - Aztreonam 1g IV q12hr - 03/14/20 - Blood culture x 2 - negative - 03/14/20 - Sputum culture - negative - Tylenol PRN for fever - Chest x-ray in am - Droplet precautions Paroxysmal Atrial fibrillation with RVR - On Metoprolol - currently held initially due to hypotension - Started on Cardizem gtt to maintain HR < 110, Hold if SBP < 90 - May consider changing to Lopressor - Obtain ECHO New-onset Seizure on hx of Meningioma - Started on Keppra 500 mg IV BID - No prior documented seizure disorder - Will consider EEG once off sedatives - CT head - No acute intra-cranial bleed - Seizure precautions - Versed/Ativan PRN for seizure like activity Von Willibrands disease / Pulmonary embolism - Eliquis 2.5 mg PO BID - held this am due to chest tube - D/w Pulmonary - start heparin once initial CT removed - Continue SCDs Hypertension - On cardizem gtt currently - Home PO antihypertensive held Pernicious Anemia - B12 replacement prior DVT ppx - Eliquis 2.5 mg PO BID CODE STATUS : FULL CODE Attestations Medical Necessity Statement*: Patient remains in critical condition, will need to continue current hospitalizaiton for management Time Spent in Patient Care: Greater than 35 minutes (>than 50% of time spent in counselling and/or direct pt care on unit). Critical Care Time: Critical Care Time (min): 65 Coding Level of Care Code Acute Quality Assurance Representative for Julio Fwd Diagnoses Acute hypoxemic respiratory failure due to COVID-19 U07.1; J96.01 Asthma exacerbation in COPD J44.1; J45.901 Von Willebrand disease D68.0 Sleep apnea G47.30 Pulmonary embolus I26.99
--- NOTE | 2020-03-15 16:00 | P.OP_ITS ---
Operative Report Date of procedure: March 15, 2020 Pre-op Diagnosis: Respiratory failure currently mechanically ventilated with right pneumothor Post-op diagnosis: same Procedure Done: Right 13 Vietnamese thoracic vent placement Pathology: none sent Surgeon: Joshua Mckeon Anesthesia: Local Condition: critical Disposition: ICU Brief History: 79-year-old female with progressive respiratory failure and positive COVID-19 testing. Numerous comorbidities including history of pulmonary embolism, paroxysmal H fibrillation, obstructive sleep apnea, obstructive pulmonary disease, peripheral vascular disease, and worsening right pneumothorax following mechanical ventilation. Requiring high dilatory settings. Previous right chest tube has failed to resolve right pneumothorax. I was consulted urgently by Dr. Sequeira. To the most recent chest x-ray and CT scan and recommend right thoracic vent placement. Procedure: Ms. Garcia is currently sedated and on mechanical ventilation with high settings. O2 saturation 88 to 90%. Her right anterior chest wall was then sterilely prepped and draped. 1% lidocaine was infiltrated in the mid clavicular line over the second intercostal space. A #11 scalpel blade was used to incise the skin. Next, a trocar 13 Vietnamese thoracic vent was inserted through the incision and then by direct firm and controlled pressure into the right pleural space where the vent was advanced over the trocar as it was removed. There was a prompt return of air under pressure. The vent was secured to the skin with adhesive tabs. The vent was then connected to Pleur-evac 20 cm suction where further air was evacuated. Vital signs remained unchanged throughout the procedure. Dressings were secured. Chest x-ray post procedure reveals improved expansion of the right lung resolution of the pneumothorax. Family was counseled by the VICU staff prior to my arrival in preparation for this bed placement which I proceeded with expeditiously given the critical condition of the patient. I recommend continuing the vent on suction at this time. As well, I would leave the previously placed chest tube in position at least for 24 hours and assess air leak in both systems at that time.
--- NOTE | 2020-03-15 18:16 | PC.NURSE ---
1300- DR BULLOCK NOTIFIED FAMILY OF PT CONDITION. & DAUGHTER WILL BE HERE [place] TO VISIT. ODALYS, VERY UPSET & TEARFUL. STATES THAT SHE (JUANA) DOESN'T WANT ANY HEROIC MEASURES TAKEN, NO CPR, NO FEEDING TUBES. JUST MAKE SURE THAT SHE IS COMFORTABLE & WITHOUT PAIN. NOTIFIED DR BULLOCK OF FAMILY/PT WISHES. SPOKE WITH RENÉE EVANS [phone], SHE REPORTS THAT PT SON IS DRIVING UP FROM [place] AND IT IS A [address] THE FAMILY WOULD LIKE TO LET THE SON SEE HER.
[2020-03-15] MEDS: remdesivir 100 MG in sodium chloride 0.9% (100 ml) 100 ML IV (19:10)
--- NOTE | 2020-03-15 20:25 | PC.NURSE ---
UPDATED FAMILY IN REGARDS TO PT STATUS.
[2020-03-16] VITALS (37 sets, daily range): BP systolic 91–122; BP diastolic 41–80; PULSE 68–130; RESP 12–17; TEMP 36.8–37.7; O2SAT 82–94
[2020-03-16] MEDS: propofol 1,000 MG/100 ML INJ 25.3 MG IV ×2 (03:19→14:51)
[2020-03-16 04:08] LABS: Basophils # 0.1 10^3/uL (0.0-0.1); Basophils % 0.4 %; Eosinophils # 0.2 10^3/uL (0.0-0.8); Eosinophils % 1.4 %; Hematocrit 34.2 % (37.0-47.0); Hemoglobin 10.5 g/dL (11.5-15.3); Lymphocytes # 1.5 10^3/uL (0.8-4.8); Lymphocytes % 8.8 %; Mean Corpuscular HGB Conc 30.7 g/dL (30.0-36.0); Mean Corpuscular Hemoglobin 29.8 pg (28.0-34.0); Mean Corpuscular Volume 97.2 fL (81-99); Monocytes # 1.4 10^3/uL (0.2-0.9); Neutrophils # 13.42 10^3/uL (1.8-7.7); Neutrophils % 79.6 %; Nucleated Red Blood Cells % 0 %; Platelet Count 298 10^3/cmm (130-400); Red Blood Count 3.52 10^6/uL (4.1-5.3); Red Cell Distribution Width 13.3 % (12.1-15.1); White Blood Count 16.9 10^3/uL (4.0-10.0)
[2020-03-16 04:33] LABS: Alanine Aminotransferase 6 U/L (0-33); Albumin Level 2.5 g/dL (3.5-5.2); Alkaline Phosphatase 68 IU/L (35-105); Anion Gap 15.3 (5-19); Aspartate Amino Transferase 9 U/L (0-32); Blood Urea Nitrogen 32 mg/dL (8-23); Calcium 7.9 mg/dL (8.5-10.5); Carbon Dioxide 25 mmol/L (22-29); Chloride 102 mmol/L (98-107); Globulin 2.6 g/dL (1.3-4.6); Glucose 114 mg/dL (65-115); Osmolality Calculated 296 mOsm/kg (285-295); Potassium 3.3 mmol/L (3.5-5.1); Sodium 139 mmol/L (136-145); Total Bilirubin 0.4 mg/dL (0.15-1.2); Total Protein 5.1 g/dL (6.6-8.7)
[2020-03-16 04:38] LABS: Blood Gas Sample Type Arterial
[2020-03-16 04:43] LABS: ABG PCO2 54.4 mmHg (35-45); ABG PH Result 7.26 (7.35-7.45); Arterial Blood Gas Hematocrit 46.7 % (37-47); Base Excess ABG -3.6 mmol/L (-2.0-2.0); HCO3 ABG 24.4 mmol/L (22-26); PO2 ABG 63.7 mmHg (80.0-100.0)
[2020-03-16 04:44] LABS: Procalcitonin 2.05 ng/mL (0-0.5)
[2020-03-16 04:46] LABS: Blood Gas Operator Identificat HARKR; Blood Gas Sample Site Brachial, left; Blood Gas Tidal Volume 0.45; Oxygen Device VENT
[2020-03-16 05:00] LABS: Lactate (Lactic Acid level) 1.4 mmol/L (0.5-2.2)
--- NOTE | 2020-03-16 05:00 | USCV_ITS ---
Haylie Garcia Age: 79 Gender: F : 1940 Exam Date: 03/16/2020 13:40 Ordering Phys: Eileen Sequeira MD Technologist: Nilo Aguilar [place] [facility] [place]: ASSESS LV FUNCTION BP: 94 / 47 HR: 71 Rhythm: Sinus Technical Quality: Technically difficult study MEASUREMENTS (Male / Female) Normal Values 2D ECHO LV Diastolic Diameter PLAX 3.5 cm 4.2 - 5.9 / 3.9 - 5.3 cm LV Systolic Diameter PLAX 2.0 cm IVS Diastolic Thickness 0.8 cm 0.6 - 1.0 / 0.6 - 0.9 cm IVS Systolic Thickness 1.2 cm LVPW Diastolic Thickness 0.9 cm 0.6 - 1.0 / 0.6 - 0.9 cm LVPW Systolic Thickness 1.0 cm LVOT Diameter 2.0 cm LV Ejection Fraction 2D Teich 73.4 % LV Ejection Fraction MOD 2C 62.2 % LV Ejection Fraction 2C AL 62.3 % LA Diameter 4.1 cm LA Width 4.5 cm LA Height 5.4 cm RA Width 4.0 cm RA Height 4.8 cm M-MODE LV Diastolic Diameter MM 5.6 cm 4.2 - 5.9 / 3.9 - 5.3 cm LV Systolic Diameter MM 3.8 cm LV Ejection Fraction MM Teich 61.4 % IVS Diastolic Thickness MM 1.1 cm 0.6 - 1.0 / 0.6 - 0.9 cm IVS Systolic Thickness MM 1.8 cm LVPW Diastolic Thickness MM 1.2 cm 0.6 - 1.0 / 0.6 - 0.9 cm LVPW Systolic Thickness MM 2.2 cm RV Diastolic Diameter MM 1.1 cm Aortic Annulus Diameter 3.3 cm LA Ao Ratio MM 1.4 MV E Point Septal Separation 0.9 cm FINDINGS Left Ventricle Normal left ventricular size and systolic function with no diagnostic regional wall motion abnormalities. Left ventricular ejection fraction is estimated at 70 %. Right Ventricle Probably normal right ventricular systolic function. Right Atrium Right atrium not well visualized. Left Atrium Left atrium not well visualized. Mitral Valve Mitral valve not well visualized. Aortic Valve Aortic valve not well visualized. Tricuspid Valve Tricuspid valve not well visualized. Pulmonic Valve Pulmonic valve not well visualized. Pericardium No pericardial effusion. Aorta Normal-sized inferior vena cava CONCLUSIONS 1. Normal left ventricular size and systolic function with no diagnostic regional wall motion abnormalities. Left ventricular ejection fraction is estimated at 70 %. 2. Probably normal right ventricular systolic function. 3. Direct comparison to previous study is not possible given technical differences in the study. Xiomy Juarez MD (Electronically Signed) Final Date: 16 March 2020 17:35 S
[2020-03-16] MEDS: apixaban 5 mg Tablet 2.5 MG PO ×2 (05:37→21:25)
[2020-03-16 05:48] LABS: Ferritin 681 ng/mL (15-150)
[2020-03-16] MEDS: aztreonam 1,000 MG in sodium chloride 0.9% (plus) 50 ML 100 MG IV ×2 (09:09→21:25)
[2020-03-16 10:37] LABS: Vancomycin Trough 26.8 ug/mL (10-15)
[2020-03-16] MEDS: propofol 1,000 MG/100 ML INJ 15.2 MG IV (11:18)
--- NOTE | 2020-03-16 11:27 | PC.NURSE ---
Washed hands and face
--- NOTE | 2020-03-16 12:46 | PC.SOCIAL ---
IMM not given to pt. Pt is not expected to discharge within 48 hrs.
--- NOTE | 2020-03-16 17:25 | XR_ITS ---
WS: [id number] Portable AP upright chest, 03/16/2020,1805 hours. Clinical Data: chest tube removal Comparison: Portable chest, 03/15/2020. Findings: The right lower chest tube has been removed. No recurrence of pneumothorax is seen. There i s a small right superior chest tube. Bilateral patchy opacifications remain the same. The heart size is not changed. The endotracheal tube remains above the mily. The right internal jugular venous cat heter and nasogastric tube remain unchanged. XR/XR chest 1V portable [id number] Impression: 1. Removal of right lower chest tube with no recurrence of pneumothorax. 2. No change in multiple tubes. 3. No change in bilateral patchy opacifications.
--- NOTE | 2020-03-16 18:03 | P.PN_ITS ---
Subjective Subjective: Interval history: 79-year-old female with past medical history significant for Von Willebrand's disease with subsequent pulmonary embolism on eliquis 2.5 mg PO BID, gastroesophageal reflux disease, osteoporosis, hypertension, pernicious anemia on b21 replacement, meningioma with associated mass effect, paroxysmal atrial fibrillation, peripheral vascular disease, obstructive sleep apnea non compliant with CPAP, and chronic obstructive pulmonary disease who is presenting to ER with shortness of breath. patient was recently seen by primary care physician with a complaint of upper respiratory tract infection. She was prescribed azithromycin and prednisone. COVID-19 test was later found to be positive on 03/07. Continued to have ongoing fever, chills, bellyaches, headache and intermittent cough. Due to this patient presented to the ER for evaluation. Patient was apparently having labored respiration. She was placed on BiPAP after which oxygen saturations had improved to 92% however she was requiring 65% FiO2. Emergency room patient was given Decadron 10 mg IV x1. This was listed as patient's allergy and thus not continued as patient noted severe myalgias. Laboratory workup on arrival showed a WBC of 9.2, hemoglobin 10.7, hematocrit 33.4 and a platelet count of 290. sodium 145, potassium 3.5, chloride 105, bicarb 28, BUN 13 and creatinine is 0.7. Arterial blood gases showed a pH 7.44, pCO2 38.3, PO2 of 73.8 and a bicarb 25.9. Ferritin of 361, LDH of 493, troponin of 14, proBNP of 1402. Chest x-ray on arrival showed new ground-glass infiltrates throughout mid and lower lung zones bilaterally consistent with pneumonia. Subjective: 03/12/2020 Upon admission patient was not continued on decadron. Was started on remdesivir 200 mg IV x 1 -> 100 mg IV daily. No fever, chills, nausea or vomiting. Noted to have desaturation due to non-compliance with bipap. 03/13/2020 Patient was stable on bipap. no fever or chills, no nausea or vomiting 03/14/2020 Patient was noted to have difficult oxygenating throughout the day with increased work of breathing with oxygen saturation in 88% to 90% with desaturation with any exertion. Also noted to have fever. 03/15/20 Unfortunately patient was noted to have low oxygen saturation this am. Chest tube was repositioned last evening. Noted to have a persistent leak this am. CT chest was performed. Unfortunately patient desturated to mid 70s. Repeat chest xray showed worsening ptx. CTS surgery was consulted at which point an additional anterior chest tube was placed with connected to hemlich one way valve. Oxygen saturation improved subsequently to low 90s. 03/16/20 Oxygen saturation improved to 90s. Medications: Reviewed: Yes Vitals/I&O/Wt Last Vital Signs Temp 101.2 F H 03/17/20 00:28 Pulse 88 03/17/20 00:07 Resp 16 03/17/20 00:15 BP 122/56 03/16/20 18:00 Pulse Ox 95 03/17/20 00:07 03/16/20 03/16/20 03/17/20 14:59 22:59 06:59 Intake Total 434.293 / 434.293 458.728 / 893.021 Output Total 0 / 0 200 / 200 Balance 434.293 / 434.293 258.728 / 693.021 Weight last 48 hrs Weight 82.327 kg Weight 79.107 kg Physical Exam Narrative: EXAM NARRATIVE: General : Labored respiration. Intubated, placed on vent HEENT : ET tube Chest : vented sounds -R.ant - thoravent -R-lat - Chest tube- removed Abd : Non-distended Ext : Mild bilateral LE edema Urinary Catheter Management^: Jimenez: Cath Placed During This Visit: yes Reason for Continuing Indwelling Catheter: Accurate Measurement of Urinary Output in Critically Ill Patients Urinary Catheter Date of Insertion: 03/12/20 Urinary Catheter Time of Insertion: 12:34 Data : 03/16/20 03:34 03/16/20 03:34 Micro: Microbiology 03/14/20 18:50 Gram Stain - Final Sputum - Endotracheal Wash Sputum Culture - Preliminary 03/14/20 00:05 Blood Culture - Preliminary Blood NEGATIVE TO DATE 03/14/20 21:37 Blood Culture - Preliminary Blood NEGATIVE TO DATE A&P Assessment and plan (1) Acute hypoxemic respiratory failure due to COVID-19: Status: Acute (2) Asthma exacerbation in COPD: Status: Acute (3) Von Willebrand disease: Status: Acute (4) Sleep apnea: Status: Acute (5) Pulmonary embolus: Status: Acute Acute Hypoxic respiratory distress due to COVID-19/PTX with underlying hx of Asthma - 12/28 - COVID-19 positive - Chest xray - >B/l Ground-glass opacities - Ferritin 361, LDH of 493. - S/p prednisone prior to arrival / Decadron 10 mg IV x 1 in ER - Will hold off on further steroids due to intolerance - Exact allergic reaction unknown - Remdesivir 200 mg IV x 1 -> 100 mg IV daily - Continue albuterol - Advair 1 puff BID - Patient was intubated and placed on MV ( 03/14/20) - Continue sedation with Propofol/Fenanyl - Maintain RASS neg 3 - Pulmonary medicine consulted - Repeat CXR in am Left Sided Pneumothorax - S/p chest tube placement - Noted to have persistent leak - CT chest w/o contrast performed - Thoravent chest tube placed in addition - Initial chest tube removed - CTS consulted - ABG post ant CT placement - 7.35, PCO2 - 43, PO2 57.3, HCO3 25.7 Sepsis due to COVID19 with super-imposed Bacterial - Persistent fever - Continue remdesivir as noted above - Continue vancomycin pharmacy to dose - Aztreonam 1g IV q12hr - 03/14/20 - Blood culture x 2 - negative - 03/14/20 - Sputum culture - negative - Tylenol PRN for fever - Chest x-ray in am - Droplet precautions Paroxysmal Atrial fibrillation with RVR - On Metoprolol - currently held initially due to hypotension - Started on Cardizem gtt to maintain HR < 110, Hold if SBP < 90 - May consider changing to Lopressor - Obtain ECHO New-onset Seizure on hx of Meningioma - Started on Keppra 500 mg IV BID - No prior documented seizure disorder - Will consider EEG once off sedatives - CT head - No acute intra-cranial bleed - Seizure precautions - Versed/Ativan PRN for seizure like activity Von Willibrands disease / Pulmonary embolism - Eliquis 2.5 mg PO BID - D/w Pulmonary - start heparin once initial CT removed - Continue SCDs Hypertension - On cardizem gtt currently - Home PO antihypertensive held Pernicious Anemia - B12 replacement prior DVT ppx - Eliquis 2.5 mg PO BID CODE STATUS : FULL CODE Attestations Medical Necessity Statement*: Continue hospitalization for managemnet of respiratory failure Time Spent in Patient Care: Greater than 35 minutes (>than 50% of time spent in counselling and/or direct pt care on unit) . Coding Level of Care Code Acute Network Architect for Chg Fwd Diagnoses Acute hypoxemic respiratory failure due to COVID-19 U07.1; J96.01 Asthma exacerbation in COPD J44.1; J45.901 Von Willebrand disease D68.0 Sleep apnea G47.30 Pulmonary embolus I26.99
[2020-03-16] MEDS: remdesivir 100 MG in sodium chloride 0.9% (100 ml) 100 ML IV (19:26)
[2020-03-16] MEDS: propofol 1,000 MG/100 ML INJ 17.7 MG IV (19:40)
--- NOTE | 2020-03-16 21:20 | PM.CONSULT ---
Providers/Reason For Consult Consulting Physican/Specialty*: Tulio Diaz MD/Pulmonary Crtical Care Reason for Consult*: Acute hypoxemic respiratory failure secondary to COVID-19 pneumonia, mechanically ventilated, complicated by iatrogenic pneumothorax Attending Physician: Eileen Sequeira Primary Care Provider: Roslyn Reeder MD History of Present Illness History of Present Illness 79-year-old female with PMH y significant for Von Willebrand's disease with subsequent pulmonary embolism on eliquis 2.5 mg PO BID, GERD, osteoporosis, hypertension, pernicious anemia on b21 replacement, meningioma with associated mass effect, paroxysmal atrial fibrillation, PVD, JEANNE non compliant with CPAP, and asthma admitted to Covid ICU for acute respiratory failure secondary to COVID-19 pneumonia. She recently had complaints of upper respiratory tract infection for which she received azithromycin and prednisone. COVID-19 test was later found to be positive on 03/07. Continued to have ongoing fever, chills, bellyaches, headache and intermittent cough and patient presented to the ER for evaluation. She was placed on BiPAP after which oxygen saturations improved to 92% however she was requiring 65% FiO2. Emergency room patient was given Decadron 10 mg IV x1. This was listed as patient's allergy and thus not continued as patient noted severe myalgias. Chest x-ray on arrival showed new ground-glass infiltrates throughout mid and lower lung zones bilaterally consistent with pneumonia.Upon admission patient was not continued on decadron. Was started on remdesivir 200 mg IV x 1 -> 100 mg IV daily. No fever, chills, nausea or vomiting. On day 4 patient was desaturating and required intubation. Later that night, patient developed pneumothorax after central line placement and required a chest tube placement. On day 5 patient had episodes of seizures and also desaturated and CT chest revealed normal resolution of right-sided pneumothorax despite chest tube, increasing entering into the atelectatic lung. A Thora vent was placed anteriorly in second intercostal space with a CT surgeon Dr. Mckeon and patient saturations improved and later imaging showed resolution of pneumothorax. After 24 hours, on day 6 the first chest tube was removed as there was no air leak in the chamber and left Thora vent in place due to persistent air leak in the atrium. Review of Systems General: Reports: ROS unobtainable due to endotracheal tube, ROS unobtainable due to medical condition and ROS unobtainable due to mental status Meds/Allergies Home Medications and Allergies Home Medications Medication Instructions Recorded Confirmed Last Taken Type albuterol sulfate 90 mcg/actuation 2 puff INHALATION QID PRN 07/16/19 03/11/20 07/22/19 History aerosol inhaler apixaban 2.5 mg tablet 2.5 mg PO BID@,07/16/19 03/11/20 03/11/20 History ropinirole 0.5 mg tablet 2 mg PO BEDTIME@ tab 07/16/19 03/11/20 03/10/20 History verapamil 300 mg capsule 24hr 300 mg PO DAILY@ cap 07/16/19 03/11/20 03/10/[address],ext.release cyanocobalamin (vitamin B-12) 1,000 mcg IM Q30D 07/22/19 03/11/20 02/23/20 History etodolac 400 mg PO BID@07/22/19 03/11/20 03/10/20 History ferrous sulfate 325 mg (65 mg 325 mg PO DAILY@ tab 10/02/19 03/11/20 03/10/20 History iron) tablet potassium chloride 20 mEq 20 meq PO DAILY@06 tab 10/02/19 03/11/20 03/10/20 History tablet,extended release fluticasone propion-salmeterol 1 inh INHALATION BID@02/25/20 03/11/20 03/11/20 History [Advair Diskus] gabapentin [Neurontin] See Rx Instructions .ROUTE .COMPLEX 02/25/20 03/11/20 03/11/20 History isosorbide mononitrate 30 mg PO DAILY@02/25/20 03/11/20 03/10/20 History metoprolol succinate 100 mg PO DAILY@02/25/20 03/11/20 03/10/20 History omeprazole 20 mg PO DAILY@02/25/20 03/11/20 03/10/20 History azithromycin 250 mg tablet See Rx Instructions PO .COMPLEX #6 03/07/20 03/11/20 03/11/20 Rx tab ondansetron HCl 4 mg tablet 4 mg PO Q6H PRN #10 tab 03/08/20 03/11/20 Unknown Rx prednisone 20 mg tablet 20 mg PO DAILY #20 tab 03/08/20 03/11/20 03/10/20 Rx Allergies Allergy/AdvReac Type Severity Reaction Status Date / Time Aminoglycosides Allergy Unknown Verified 02/23/20 16:19 aspirin Allergy Unknown Verified 03/07/20 14:10 bacitracin [From Polysporin] Allergy Unknown Verified 03/07/20 14:10 chlordiazepoxide Allergy Unknown Verified 03/07/20 14:10 codeine Allergy Unknown Verified 03/07/20 14:10 dexamethasone Allergy Unknown Verified 03/07/20 14:10 diazepam [From Valium] Allergy Unknown Verified 03/07/20 14:10 etomidate Allergy Unknown Verified 03/07/20 14:10 hydrocortisone Allergy Unknown Verified 03/07/20 14:10 lactose Allergy Unknown Verified 03/07/20 14:10 miconazole Allergy Unknown Verified 03/07/20 14:10 [From Neosporin AF] Penicillins Allergy Unknown Verified 03/07/20 14:10 phenobarbital Allergy Unknown Verified 03/07/20 14:10 polymyxin B [From Polysporin] Allergy Unknown Verified 03/07/20 14:10 Current Medications Current Medications Generic Name Dose Route Start Last Admin Trade Name Freq PRN Reason Stop Dose Admin Albuterol Sulfate 2.5 mg 03/14/20 12:00 03/16/20 19:43 Albuterol 2.5 Mg/0.5 Ml Neb INHALATION 2.5 mg Q4H.RESPIRATORY KUSUM Administration Apixaban 2.5 mg 03/12/20 06:00 03/16/20 05:37 Apixaban 5 Mg Tablet PO 2.5 mg BID@ KUSUM Administration Propofol 1,000 mg in 100 mls @ 0 mls/hr 03/14/20 11:45 03/16/20 19:40 Diprivan IV 35 mcg/kg/min .Q0M KUSUM 17.7 mls/hr Administration Protocol Per Protocol Fentanyl 1,000 mcg/ Sodium 100 mls @ 0 mls/hr 03/14/20 19:15 03/16/20 19:33 Chloride IV 75 mcg/hr .Q0M KUSUM 7.5 mls/hr Administration Protocol Per Protocol Aztreonam 1,000 mg/ Sodium 50 mls @ 100 mls/hr 03/14/20 20:45 03/16/20 09:40 Chloride IV Infused Q12H KUSUM Infusion Protocol Levetiracetam 500 mg/ Sodium 105 mls @ 420 mls/hr 03/15/20 10:15 03/16/20 13:20 Chloride IV Infused Q12H KUSUM Infusion Diltiazem HCl 125 mg/ Sodium 125 mls @ 0 mls/hr 03/15/20 14:00 03/16/20 09:30 Chloride IV 0 mg/hr .Q0M KUSUM 0 mls/hr Titration Protocol Per Protocol Midazolam HCl 100 mg/ Sodium 100 mls @ 0 mls/hr 03/15/20 19:30 03/15/20 19:35 Chloride IV 2 mg/hr .Q0M KUSUM 2 mls/hr Administration Protocol Per Protocol Ondansetron HCl 4 mg 03/12/20 06:03 03/12/20 06:12 Ondansetron 2 Mg/Ml Sdv 2 Ml IVP 4 mg Q6H PRN Administration NAUSEA AND VOMITING PFSH Acute PFSH: Medical History (Updated 03/16/20 @ 22:00 by Tulio Diaz MD) Afib Anemia Asthma Chronic GERD COPD (chronic obstructive pulmonary disease) Pulmonary embolism PVD (peripheral vascular disease) Sleep apnea Von Willebrand disease Surgical History H/O: hysterectomy (~1975) History of tonsillectomy (~1959) Social History Smoking and tobacco status: never smoked Alcohol intake: never Lives independently: Yes Household members: spouse Marital status: Current occupational status: retired History of recent travel: No Current gender identity: Female Vitals/I&O/Wt Last Vital Signs Temp 99.9 F H 03/16/20 19:53 Pulse 81 03/16/20 19:44 Resp 16 03/16/20 19:45 BP 122/56 03/16/20 18:00 Pulse Ox 92 03/16/20 19:44 03/16/20 03/16/20 03/16/20 06:59 14:59 22:59 Intake Total 853.513 / 1963.997 434.293 / 434.293 100 / 534.293 Output Total 200 / 550 0 / 0 200 / 200 Balance 653.513 / 1413.997 434.293 / 434.293 -100 / 334.293 Weight last 48 hrs Weight 181 lb 8 oz Weight 174 lb 6.4 oz Physical Exam Narrative: EXAM NARRATIVE: PHYSICAL EXAM: General: lying in bed, sedated and intubated. HEENT:NCAT, PERRLA, EOMI Neck: Supple Lungs: Diffuse crackles Heart: s1/s2, RRR Abd: soft, NT, ND, BS + Normoactive Extremities: 1+ pedal edema DIRECTOR OF ENGINEERING: sedated and limited DIRECTOR OF ENGINEERING exam possible. SKIN: no rash LDA: # CVC: Right IJ 03/14/2020 # Chest tubes: 13 [place] Thora vent on right chest 03/15/2020 #Pa: 03/12/2019 Urinary Catheter Management^: Pa: Cath Placed During This Visit: yes Reason for Continuing Indwelling Catheter: Accurate Measurement of Urinary Output in Critically Ill Patients Urinary Catheter Date of Insertion: 03/12/20 Urinary Catheter Time of Insertion: 12:34 Data Micro: Micro: Microbiology 03/14/20 18:50 Gram Stain - Final Sputum - Endotrac heal Wash Sputum Culture - P reliminary 03/14/20 00:05 Blood Culture - Pr eliminary Blood NEGATIVE TO RADHA E 03/14/20 21:37 Blood Culture - Pr eliminary Blood NEGATIVE TO RADHA E A&P Assessment and plan (1) Acute hypoxemic respiratory failure due to COVID-19: Status: Acute (2) Edema: Status: Acute Qualifiers: Edema type: localized Qualified Code(s): R60.0 - Localized edema (3) Asthma exacerbation in COPD: Status: Acute (4) Von Willebrand disease: Status: Acute (5) Pneumothorax on right: Status: Acute Overall # 79-year-old Ms. Haylie Garcia admitted to viral ICU for acute hypoxic respiratory failure requiring mechanical ventilation complicated by pneumothorax s/p chest tube with persistent air leak. -NEURO: #seizures secondary to hypoxia/Meningioma #Sedation -Currently on in fentanyl/Versed/propofol - dc versed and start awakening trial -on keppra PULM: #Acute hypoxic and hypercapneic respiratory failure secondary to ARDS due to COVID pna #h/o asthma #right side pnemothorax 03/14/2020 - iatrogenic s/p central line placement vs covid PNA; S/P 1st chest tube 03/14/2020 followed by thoracic vent in 2nd intercostal space on 03/15/2020 # Previous h/o PE - Complete resolution of pneumothorax on imaging - 1st chest tube removed 03/16/2020 as no air leak noted in connected chamber - 2nd Thoracic vent still in place due to persistent air leak in connected chamber -Intubated on 03/14/2020: -ABG today am: 7.26/54/63/24/88% on 450/100/10/12 - increased rate to 16 -Recommended -DuoNeb nebulization every 6 hours prn -If hypoxia is persistent on maximum settings recommended starting on paralytic and prone -CXR: Interval placement of a 2nd right chest tube with apparent complete resolution of right pneumothorax. Continued right lower chest tube with the side hole outside the chest cavity. Continued moderate to severe bilateral pulmonary opacities consistent with pneumonia versus atypical pulmonary edema. -Increased inflammatory markers CRP, ferritin and repeat every 2 days to trend markers of inflammation -not on dexamethasone due to reported allergies - myalgias -Currently on vancomycin & aztreonam CVS: # A fib with RVR - On Cardizem drip -hemodynamically stable -Monitor blood pressure and taper of pressors -Echo 09/13/2019: Normal LV EF 55% GI: -Start tube feeding tomorrow -H2 chevy for GI prophylaxis -Normal LFTs RENAL: -Renal functions worsening -1.9L/500 ml/ + 1.4L -reduced urine out - lasix 40 mg once -Continue pa cath -Avoid nephrotoxins -Monitor BUN/creatinine and electrolytes and supplement accordingly to keep K between 4-4.5, Mg >2 HEM: # h/o Von willbrand Disease - H&H stable -DVT prophylaxis on ELLIQUIS 2.5 MG BID ENDO: -Sugars well controlled -monitor sugars and not on scale coverage ID: #Sepsis secondary to COVID pna -fever spikes and worsening leucocytosis -elevated procalcitonin 2.67- can also be due to worseing renal parameters - lactate normal -Covered with vancomycin, aztreonam - cultures negative so far - follow up final cultures Prognosis: Critical Disposition: Remains in ICU Code:DNR Plan of care and recommendations conveyed to Dr. Sequeira hospitalist on the case, RN and RT ICU CHECKLIST: Problem list updated Verbal orders reviewed and signed Analgesia: Fentanyl Glycemic Control: Not needed Nutrition: start tube feeding tomorrow Restraint Renewal (within 24 hrs): Yes Ulcer Prophylaxis: H2 chevy Chemical Thromboprophylaxis: Prophylaxis: elliquis Mechanical Thromboprophylaxis: Yes Need for Central line: Yes requiring any infusions sedation and pressors Need for Pa catheter: Yes for urine output monitoring Critical Care Time (No Overlap): 45 min This patient has a high probability of sudden, clinically significant deterioration, which requires the highest level of physician preparedness to intervene urgently. I managed/supervised life or organ supporting interventions that required frequent physician assessment. I devoted my full attention in the ICU to the direct care of this patient for the period of time indicated above. Time I spent with family or surrogate(s) is included only if the patient was incapable of providing necessary information or participating in decision making. Time devoted to teaching and to any procedures I billed separately is not included. Services Provided: Telemetry review Mechanical Ventilation Hemodynamic interpretation, assessment and management Review and interpretation of CXR Review and interpretation of lab values Review and interpretation of microbiologic data and culture results Review of medications and administration Review and interpretation of Nutrition requirements and management Discussion of management with other consultants and services Clinical update to family members Consult Attestations Medical Necessity Statement: Acute hypoxic respiratory failure secondary to COVID-19 pneumonia, intubated and mechanically ventilated to provide oxygenation, complicated by pneumothorax with chest tube in place. Time Spent in Patient Care: Greater than 35 minutes (>than 50% of time spent in counselling and/or direct pt care on unit). Critical Care Time: Critical Care Time (min): 45 Coding Level of Care Code New Pt Acute Career Information Specialist for g Fwd Patient Type New History Comprehensive Exam Comprehensive Medical Decision Making High Complexity Diagnoses Acute hypoxemic respiratory failure due to COVID-19 U07.1; J96.01 Edema R60.0 Edema type: localized Asthma exacerbation in COPD J44.1; J45.901 Von Willebrand disease D68.0 Pneumothorax on right J93.9 Time Spent (min) 45
[2020-03-16] MEDS: famotidine 20 mg/2 mL INJ IVP (23:35)
[2020-03-16] MEDS: FUROsemide 10 mg/mL SDV 4mL 40 MG IVP (23:35)
[2020-03-17] VITALS (47 sets, daily range): BP systolic 90–125; BP diastolic 45–80; PULSE 76–123; RESP 16–20; TEMP 36.7–38.6; O2SAT 83–97
[2020-03-17] MEDS: magnesium sulfate premix 2 GM/50 ML PIGGYBACK IV (00:34)
[2020-03-17] MEDS: acetaminophen 650 mg/20.3 mL UDC 500 MG OG-TUBE ×2 (02:01→23:00)
[2020-03-17] MEDS: propofol 1,000 MG/100 ML INJ 12.6 MG IV (03:29)
[2020-03-17 03:52] LABS: Basophils # 0.1 10^3/uL (0.0-0.1); Basophils % 0.4 %; Eosinophils # 0.4 10^3/uL (0.0-0.8); Eosinophils % 2.6 %; Hematocrit 31.9 % (37.0-47.0); Hemoglobin 10.1 g/dL (11.5-15.3); Lymphocytes # 0.7 10^3/uL (0.8-4.8); Lymphocytes % 3.9 %; Mean Corpuscular HGB Conc 31.7 g/dL (30.0-36.0); Mean Corpuscular Hemoglobin 30.2 pg (28.0-34.0); Mean Corpuscular Volume 95.5 fL (81-99); Mean Platelet Volume 11.2 fL (7.4-10.4); Monocytes # 1.1 10^3/uL (0.2-0.9); Monocytes % 6.6 %; Neutrophils # 14.37 10^3/uL (1.8-7.7); Neutrophils % 85.3 %; Nucleated Red Blood Cells % 0 %; Platelet Count 304 10^3/cmm (130-400); Red Blood Count 3.34 10^6/uL (4.1-5.3); Red Cell Distribution Width 13.8 % (12.1-15.1); White Blood Count 16.8 10^3/uL (4.0-10.0)
[2020-03-17 04:34] LABS: Alanine Aminotransferase < 5 U/L (0-33); Albumin Level 2.4 g/dL (3.5-5.2); Alkaline Phosphatase 83 IU/L (35-105); Anion Gap 19.2 (5-19); Aspartate Amino Transferase 13 U/L (0-32); Blood Urea Nitrogen 50 mg/dL (8-23); Calcium 7.8 mg/dL (8.5-10.5); Carbon Dioxide 22 mmol/L (22-29); Chloride 104 mmol/L (98-107); Globulin 2.8 g/dL (1.3-4.6); Glucose 109 mg/dL (65-115); Osmolality Calculated 308 mOsm/kg (285-295); Potassium 3.2 mmol/L (3.5-5.1); Sodium 142 mmol/L (136-145); Total Bilirubin 0.4 mg/dL (0.15-1.2); Total Protein 5.2 g/dL (6.6-8.7)
[2020-03-17 04:57] LABS: ABG PCO2 43.5 mmHg (35-45); ABG PH Result 7.32 (7.35-7.45); Arterial Blood Gas Hematocrit 41.7 % (37-47); Base Excess ABG -3.9 mmol/L (-2.0-2.0); Blood Gas Sample Site Brachial, left; Blood Gas Sample Type Arterial; Blood Gas Tidal Volume 0.45; HCO3 ABG 22.3 mmol/L (22-26); Oxygen Device VENT; PO2 ABG 86.9 mmHg (80.0-100.0)
[2020-03-17] MEDS: vancomycin 1,250 MG/250 ML PIGGYBACK 250 MG IV (06:26)
[2020-03-17] MEDS: apixaban 5 mg Tablet 2.5 MG PO ×2 (06:27→22:02)
--- NOTE | 2020-03-17 07:18 | PC.NURSE ---
Shift Summary: Pt overnight had a max axillary temp of 101.2. MD labor relations worker gave PO APAP, which helped in decreasing temp. Numerous attempts were made to titrate down current running drips. See MAR flowsheet. Pt was unable to tolerate small changes in drip titrations, and would bite down against ET tube resulting in desat of SPO2 fluctuating between 70-80%. RT adjusted vent settings, and patient currently remains at 95% FIO2. Patient resting comfortably. Thoravent total output 23mL to date. 450 total u/o Propofol @20 Fentanyl @75 Report given to david ventura RN
[2020-03-17] MEDS: aztreonam 1,000 MG in sodium chloride 0.9% (plus) 50 ML 100 MG IV (10:15)
[2020-03-17] MEDS: propofol 1,000 MG/100 ML INJ 10.1 MG IV (10:42)
--- NOTE | 2020-03-17 11:12 | XR_ITS ---
WS: [id number] Portable AP upright chest, 03/17/2020 Clinical Data: hypoxia Comparison: Portable chest, 03/16/2020 Findings: The patient has developed subcutaneous emphysema adjacent to the right lower chest wall. No recurrence of the pneumothorax is seen. The right upper chest tube, endotracheal tube, right interna l jugular venous catheter, nasogastric tube and monitor leads remain the same. There are still diffus e bilateral patchy opacities. The heart is not enlarged. XR/XR chest 1V portable [id number] Impression: 1. Development of subcutaneous emphysema adjacent to the right lower chest wall . 2. No change in position of multiple tubes. 3. No change in diffuse bilateral patchy opacities.
--- NOTE | 2020-03-17 11:43 | PM.PN ---
Subjective Subjective: Interval history: remains intubated and sedated. Tmax : 101.2 She went in A.fib with RVR.S/P Adenosine 6 mg I.V * 1 Dose.started on Cardizem Drip. Vitals and labs have been reviewed. Medications: Reviewed: Yes Vitals/I&O/Wt Last Vital Signs Temp 98.7 F 03/17/20 08:00 Pulse 87 03/17/20 11:39 Resp 18 03/17/20 11:36 BP 116/60 03/17/20 10:00 Pulse Ox 90 03/17/20 11:36 03/16/20 03/17/20 03/17/20 22:59 06:59 14:59 Intake Total 458.728 / 893.021 190.981 / 1084.002 499.055 / 499.055 Output Total 200 / 200 450 / 650 200 / 200 Balance 258.728 / 693.021 -259.019 / 434.002 299.055 / 299.055 Weight last 48 hrs Weight 82.34 kg Weight 82.327 kg Physical Exam Narrative: EXAM NARRATIVE: Intubated and sedated. HENMT: COMMON NORMALS: normocephalic and atraumatic HEAD & SCALP: normocephalic and atraumatic OTHER: Right IJ 03/14/2020 Chest: CHEST: Yes Symmetrical chest wall rise Resp: EFFORT & INSPECTION: Yes symmetric chest movement OTHER: Coarse Breath Sound, Chest tubes: 13 [place] Thora vent on right chest 03/15/2020 Cardio: COMMON NORMALS: regular rate, regular rhythm, S1 normal heart sound present, S2 normal heart sound present, No gallops present (Cardio), No murmurs present (Cardio), No rub (Cardio) and Peripheral pulses 2+ throughout RATE: regular rate RHYTHM: regular rhythm HEART SOUNDS: S1 normal heart sound present and S2 normal heart sound present PERIPHERAL PULSES: Peripheral pulses 2+ throughout GI: COMMON NORMALS: Normal to inspection, nondistended, normoactive bowel sounds present, Soft to palpation, non-tender, No hepatosplenomegaly present and no masses AUSCULTATION: Yes normoactive bowel sounds PALPATION: Yes Soft to palpation and Yes No hepatosplenomegaly present RECTAL EXAM: deferred Extremity: COMMON NORMALS: no clubbing, cyanosis or edema and no pedal edema Urinary Catheter Management^: Jimenez: Cath Placed During This Visit: yes Reason for Continuing Indwelling Catheter: Accurate Measurement of Urinary Output in Critically Ill Patients Urinary Catheter Date of Insertion: 03/12/20 Urinary Catheter Time of Insertion: 12:34 Data : 03/17/20 02:20 03/17/20 02:20 Micro: Microbiology 03/14/20 18:50 Gram Stain - Final Sputum - Endotracheal Wash Sputum Culture - Preliminary A&P Assessment and plan (1) Acute hypoxemic respiratory failure due to COVID-19: Status: Acute (2) Asthma exacerbation in COPD: Status: Acute (3) Von Willebrand disease: Status: Acute (4) Sleep apnea: Status: Acute (5) Pulmonary embolus: Status: Acute Acute Hypoxic respiratory distress due to COVID-19/PTX with underlying hx of Asthma - 03/07 - COVID-19 positive - Chest xray - >B/l Ground-glass opacities - Ferritin 361, LDH of 493. - S/p prednisone prior to arrival / Decadron 10 mg IV x 1 in ER - Will hold off on further steroids due to intolerance - Exact allergic reaction unknown - Remdesivir 200 mg IV x 1 -> 100 mg IV daily - Continue albuterol - Advair 1 puff BID - Patient was intubated and placed on MV ( 03/14/20) - Continue sedation with Propofol/Fenanyl - Maintain RASS neg 3 - Pulmonary medicine consulted - Repeat CXR in am Left Sided Pneumothorax - S/p chest tube placement - Noted to have persistent leak - CT chest w/o contrast performed - Thoravent chest tube placed in addition - Initial chest tube removed - CTS consulted - ABG post ant CT placement - 7.35, PCO2 - 43, PO2 57.3, HCO3 25.7 Sepsis due to COVID19 with super-imposed Bacterial - Persistent fever - Continue remdesivir as noted above - Continue vancomycin pharmacy to dose - Aztreonam 1g IV q12hr (Stopped on 03/17 ) -Imipenam 500 mg q6 h ( 03/17 - ) -Azithromycin 500 MG I.V Q24 H (03-17 ) - 03/14/20 - Blood culture x 2 - negative - 03/14/20 - Sputum culture - negative - Tylenol PRN for fever - Chest x-ray in am - Droplet precautions Paroxysmal Atrial fibrillation with RVR - Started on Cardizem gtt to maintain HR < 110, Hold if SBP < 90 - ECHO : LVEF : Normal, NO RWMA, No pericardial effusion. New-onset Seizure on hx of Meningioma - Started on Keppra 500 mg IV BID - No prior documented seizure disorder - Will consider EEG once off sedatives - CT head - No acute intra-cranial bleed - Seizure precautions - Versed/Ativan PRN for seizure like activity Von Willibrands disease / Pulmonary embolism - Eliquis 2.5 mg PO BID - D/w Pulmonary - start heparin once initial CT removed - Continue SCDs Hypertension - On cardizem gtt currently - Home PO antihypertensive held Pernicious Anemia - B12 replacement prior DVT ppx - Eliquis 2.5 mg PO BID CODE STATUS : FULL CODE Attestations Medical Necessity Statement*: Patient needs to be in hospital for the management of R/F 2/2 PNA/ PTX Coding Level of Care Code Acute Primary Care Sales Representative for g Fwd Exam Detailed Diagnoses Acute hypoxemic respiratory failure due to COVID-19 U07.1; J96.01 Asthma exacerbation in COPD J44.1; J45.901 Von Willebrand disease D68.0 Sleep apnea G47.30 Pulmonary embolus I26.99
[2020-03-17] MEDS: famotidine 20 mg/2 mL INJ IVP (11:52)
[2020-03-17] MEDS: adenosine 3 mg/mL SDV 2mL 6 MG IVP (12:53)
[2020-03-17] MEDS: metoprolol tartrate 1 mg/1 mL SDV 5 mL 5 MG IV (13:03)
--- NOTE | 2020-03-17 13:05 | PC.NURSE ---
Adenosine 6mg IVP given for HR 140s narrow sinus tach, per Dr. Cormier. HR dropped to 30s, then resumed back to 140s. Order for Metoprolol 5mg IVP now, then start Cardizem gtt.
[2020-03-17] MEDS: azithromycin 500 MG in sodium chloride 0.9% 250 ML 250 MG IV (16:31)
[2020-03-17] MEDS: dexmedetomidine 400 MCG in sodium chloride 0.9% (100 ml) 100 ML IV (17:20)
[2020-03-17] MEDS: lidocaine 1% INJ 20 mL INJECTION (19:50)
--- NOTE | 2020-03-17 20:39 | XR_ITS ---
WS: [id number] PORTABLE CHEST HISTORY: chest tube placement COMPARISON: Study earlier the same day. Nasogastric and endotracheal tubes and RIGHT central line remain in good positions. Small bore chest tube is noted overlying the RIGHT apex. No definite pneumothorax. There is increasing subcutaneous em physema. New chest tube has been placed overlying the RIGHT lung base with tip directed medially. Continued bilateral pulmonary opacifications and actually worsened since the study earlier the same d ay. Cardiac size: Mildly enlarged cardiac silhouette. Mediastinum/Aorta: Normal mediastinum. No osseous abnormality seen. XR/XR chest 1V portable [id number] IMPRESSION: 1. Nasogastric, endotracheal and RIGHT central line remain in good positions. 2. Small bore chest tube overlying the RIGHT apex and a larger thoracostomy tu be overlying the RIGHT lower chest. No pneumothorax identified. 3. Increasing subcutaneous emphysema on the RIGHT since the study earlier the same day. 4. Mild progression in the bilateral pulmonary opacifications which are likely pneumonia.
--- NOTE | 2020-03-17 21:19 | XR_ITS ---
WS: [id number] PORTABLE CHEST HISTORY: chest tube placement COMPARISON: Study earlier the same day. Nasogastric, endotracheal and RIGHT central line are in good positions. Small bore chest tube with tip overlying the RIGHT upper thorax. Previously described chest tube at t he RIGHT lung base has been readjusted and the tip is now also at the RIGHT apex. Increasing amount o f subcutaneous emphysema over the RIGHT thorax. Continued bilateral pulmonary opacifications without change. Cardiac size: Normal. Mediastinum/Aorta: Normal mediastinum. No osseous abnormality seen. XR/XR chest 1V portable [id number] IMPRESSION: 1. In the interval the RIGHT thoracostomy tube has been readjusted with the ti p now directed superiorly. There is an additional small bore thoracostomy tube overlying the RIGHT upper thorax. 2. No definite residual pneumothorax. 3. Continued bilateral pulmonary opacifications. 4. Endotracheal and nasogastric tubes remain in good position.
--- NOTE | 2020-03-17 23:00 | PC.NURSE ---
Dr. Diaz, Dr. Mckeon at bedside to place chest tube for right pneumo. HR 120, SPO2 86% with 100% FIO2 vent settings. Sterile technique used. Pt remained sedated with running drips (see MAR flowsheet). [place] wet seal chamber initiated, hooked to suction. RN called for chest XR to confirm placement, with Datar remaining at bedside. Reposition of chest tube completed by Joe and Linda DOMINGUEZ. Second chest XR to reconfirm placement. Thoravent chest tube removed at this time and discontinued. SPO2 status immediate increase to 96-98% on vent settings. Small air leak noted on inspiration, and was verbalized to MD Diaz and secondary RN Clarisse Guerrier
--- NOTE | 2020-03-17 23:09 | P.PN_ITS ---
Subjective Subjective: Interval history: Thora vent chamber still shows intermittent air leak -Patient has significant right-sided subcutaneous emphysema - - Saturating a mid 80s to low 90s throughout the day requiring 100% FiO2 and 14 PEEP -with anterior chest tube in place morning is difficult -In order to facilitate proning and to better drain possible persistent air leak from ?? Lung injury (might be the cause of subcutaneous emphysema) - placed another 28 [place] chest tube through the inferior lateral right chest chest wall along the lateral right lung to the apex and the pleural cavity and removed Thora vent to facilitate proning -As patient saturations improved to 95 to 96% -would hold off on proning for now and recommended to sedate well tonight ; also Lasix 20 mg given to facilitate diuresis -If saturations tend to drop to mid 80s; recommend to paralyze and take risk of proning especially in patient with chest tube. Medications: Reviewed: Yes Vitals/I&O/Wt Last Vital Signs Temp 98.0 F 03/17/20 12:00 Pulse 80 03/17/20 20:56 Resp 20 H 03/17/20 22:55 BP 96/70 03/17/20 18:00 Pulse Ox 93 03/17/20 20:50 03/17/20 03/17/20 03/18/20 14:59 22:59 06:59 Intake Total 504.888 / 504.888 517.582 / 1022.470 Output Total 450 / 450 Balance 54.888 / 54.888 517.582 / 572.470 Weight last 48 hrs Weight 181 lb 8.458 oz Weight 181 lb 8 oz Physical Exam Narrative: EXAM NARRATIVE: PHYSICAL EXAM: General: lying in bed, sedated and intubated. 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 SKIN: no rash LDA: # CVC: Right IJ 03/14/2020 # Chest tubes: 28 [place] right chest tube placed on 03/17/2020 #Pa: 03/12/2019 Urinary Catheter Management^: Pa: Cath Placed During This Visit: yes Reason for Continuing Indwelling Catheter: Accurate Measurement of Urinary Output in Critically Ill Patients Urinary Catheter Date of Insertion: 03/12/20 Urinary Catheter Time of Insertion: 12:34 Data : 03/17/20 02:20 03/17/20 02:20 Micro: Microbiology 03/14/20 18:50 Gram Stain - Final Sputum - Endotracheal Wash Sputum Culture - Final A&P Assessment and plan (1) Acute hypoxemic respiratory failure due to COVID-19: Status: Acute (2) Edema: Status: Acute Qualifiers: Edema type: localized Qualified Code(s): R60.0 - Localized edema (3) Asthma exacerbation in COPD: Status: Acute (4) Von Willebrand disease: Status: Acute (5) Pneumothorax on right: Status: Acute Overall # 79-year-old Ms. Haylie Garcia admitted to viral ICU for acute hypoxic respirator y failure due to ARDS secondary to COVID-19 pneumonia requiring mechanical ventilation complicated by pneumothorax s/p chest tube with persistent air leak. -NEURO: #seizures secondary to hypoxia/Meningioma #Sedation -Currently on in fentanyl/propofol/Precedex- dc versed -on keppra PULM: #Acute hypoxic and hypercapneic respiratory failure secondary to ARDS due to COVID pna #h/o asthma #right side pnemothorax 03/14/2020 - iatrogenic s/p central line placement vs covid PNA; S/P 1st chest tube 03/14/2020 followed by thoracic vent in 2nd intercostal space on 03/15/2020 - #Persistent air leak with worsening the right-sided subcutaneous emphysema - placed another 28 [place] lateral chest tube on 03/17/2020 and remote thoracic vent # Previous h/o PE - Complete resolution of pneumothorax on imaging - 1st chest tube removed 03/16/2020 as no air leak noted in connected chamber; 2nd Thoracic vent still in place due to intermittent air leak in connected ch mohit but worsening subcutaneous emphysema suspicious for persistent air leak from -placed second 28 [place] chest tube along lateral right chest wall along the lateral pleural cavity towards the apex 1 03/17/2020 to facilitate proning the patient if necessary to improve oxygen saturations. Removed thoracic vent. -Intubated on 03/14/2020: -Currently saturating 94 to 96% on PEEP of 14 and FiO2 100% -Recommended -DuoNeb nebulization every 6 hours prn -If hypoxia is persistent in mid 80s on maximum settings recommended starting on paralytic and prone -caution with chest tube dislodgment (at least placed laterally to avoid chances of dislodgment) -CXR: Interval placement of a 2nd right chest tube with apparent complete resolution of right pneumothorax. Continued right lower chest tube with the side hole outside the chest cavity. Continued moderate to severe bilateral pulmonary opacities consistent with pneumonia versus atypical pulmonary edema. -Increased inflammatory markers CRP, ferritin and repeat every 2 days to trend markers of inflammation -not on dexamethasone due to reported allergies - myalgias -Recommended to give vancomycin and aztreonam as patient has documented penicillin allergy, DC azithromycin CVS: # A fib with RVR - On Cardizem drip -hemodynamically stable -Monitor blood pressure -Echo 09/13/2019: Normal LV EF 55% GI: -Start tube feeding tomorrow -H2 chevy for GI prophylaxis -Normal LFTs RENAL: -Renal functions worsening - 6.9 L / 4.6 L/+2.3 L since admission -Continue pa cath -Avoid nephrotoxins -Monitor BUN/creatinine and electrolytes and supplement accordingly to keep K between 4-4.5, Mg >2 HEM: # h/o Von willbrand Disease - H&H stable -DVT prophylaxis on ELLIQUIS 2.5 MG BID ENDO: -Sugars well controlled -monitor sugars and not on scale coverage ID: #Sepsis secondary to COVID pna -fever spikes and worsening leucocytosis -elevated procalcitonin 2.67- can also be due to worseing renal parameters - lactate normal -Recommended vancomycin, aztreonam - cultures negative so far - follow up final cultures Prognosis: Critical Disposition: Remains in ICU Code:DNR Plan of care and recommendations conveyed to hospitalist on the case, RN and RT ICU CHECKLIST: Problem list updated Verbal orders reviewed and signed Analgesia: Fentanyl Glycemic Control: Not needed Nutrition: start tube feeding tomorrow Restraint Renewal (within 24 hrs): Yes Ulcer Prophylaxis: H2 chevy Chemical Thromboprophylaxis: Prophylaxis: elliquis Mechanical Thromboprophylaxis: Yes Need for Central line: Yes requiring any infusions sedation and pressors Need for Pa catheter: Yes for urine output monitoring Critical Care Time (No Overlap): 45 min This patient has a high probability of sudden, clinically significant dete rioration, which requires the highest level of physician preparedness to intervene urgently. I managed/supervised life or organ supporting interventions that required frequent physician assessment. I devoted my full attention in the ICU to the direct care of this patient for the period of time indicated above. Time I spent with family or surrogate(s) is included only if the patient was incapable of providing necessary information or participating in decision making. Time devoted to teaching and to any procedures I billed separately is not included. Services Provided: Telemetry review Mechanical Ventilation Hemodynamic interpretation, assessment and management Review and interpretation of CXR Review and interpretation of lab values Review and interpretation of microbiologic data and culture results Review of medications and administration Review and interpretation of Nutrition requirements and management Discussion of management with other consultants and services Clinical update to family members Attestations Medical Necessity Statement*: Acute hypoxic respiratory failure secondary to ARDS due to COVID-19 pneumonia complicated away iatrogenic pneumothorax Time Spent in Patient Care: Greater than 35 minutes (>than 50% of time spent in counselling and/or direct pt care on unit) . Critical Care Time: Critical Care Time (min): 45 Coding Level of Care Code Acute [employer] for [facility] Diagnoses Acute hypoxemic respiratory failure due to COVID-19 U07.1; J96.01 Edema R60.0 Edema type: localized Asthma exacerbation in COPD J44.1; J45.901 Von Willebrand disease D68.0 Pneumothorax on right J93.9
[2020-03-17] MEDS: FUROsemide 10 mg/mL SDV 2mL 20 MG IVP (23:26)
[2020-03-17] MEDS: potassium chloride premix 100 ML 25 MEQ IV (23:27)
--- NOTE | 2020-03-17 23:40 | P.PCN_ITS ---
Procedure/Consent Procedure Narrative: Date of procedure: 03/17/2020 Pre-op Diagnosis: persistent air leak and expanding subcutaneaus emphysema despite of right anterior Thora vent in place and saturating mid 80s on 100% FiO2 and 14 PEEP on ventilator Post-op diagnosis: same Procedure Done: Right 28 [place] thoracostomy tube placement Pathology: none sent Kinesiology Professor: Tulio Diaz MD; assisted by Dr. Mckeon Anesthesia: Local Complications: None: Condition: Patient remained critical Disposition: ICU Brief History: 79 female Ms. Haylie Garcia with past medical history of asthma, von Willebrand disease, meningioma admitted to the ICU for acute hypoxic respiratory failure secondary to COVID-19 pneumonia on mechanical ventilation complicated by pneumothorax. persistent air leak and expanding subcutaneaus emphysema despite of right anterior Thora vent in place and saturating mid 80s on 100% FiO2 and 14 PEEP on ventilator. Plan is to place 28 [place] chest tube along the lateral border of the right lung for better evacuation of pneumothorax and removal anterior Thora vent to facilitate proning the patient. Procedure: The patient was placed in the supine position with the right chest slightly elevated. IV conscious sedation continued with continous monitoring of heart rate, rhythm, ekg, and O2 saturation. The entire right chest was thoroughly prepped and draped. 1% lidocaine was infiltrated in the midaxillary line over the 7th rib. A #15 scalpel blade was used to incise the skin, silk stay suture was placed, followed by utilizing a small hemostat to enter the pleural space with return of air and pleural fluid. A 28 [place] drain was placed. Chest tube was secured to the skin followed by placement of sterile dressings. Chest tube is placed to Pleur-evac suction. tidaling seen but with no air leak. Post procedure chest x-ray:showed chest tube traveling along inferior border of right lung possibly due to adhesions. Complications: None but decision was made to pull the chest tube and redirect along the lateral border for better placement. Dr. Mckeon was consulted to help with repositioning of the chest tube and he removed this chest tube and placed another one along the lateral border of the right lung. Post procedure chest x-ray showed desired placement of the chest tube.
[2020-03-18] VITALS (41 sets, daily range): BP systolic 88–123; BP diastolic 43–87; PULSE 64–94; RESP 16–21; TEMP 36.9–38.6; O2SAT 86–99
[2020-03-18] MEDS: famotidine 20 mg/2 mL INJ IVP ×3 (00:49→22:50)
--- NOTE | 2020-03-18 02:00 | PC.NURSE ---
Datar, phoned early AM for update in status on patient condition. RN updated that FIO2 decreased based on v/s and SPO2 status remaining 97-100%. MD gave v/o to continue slowly start titrating down FIO2 based on patient toleration.
[2020-03-18] MEDS: apixaban 5 mg Tablet 2.5 MG PO ×2 (05:06→21:16)
[2020-03-18 05:41] LABS: Basophils # 0.1 10^3/uL (0.0-0.1); Basophils % 0.3 %; Eosinophils # 0.1 10^3/uL (0.0-0.8); Eosinophils % 0.3 %; Hematocrit 28.9 % (37.0-47.0); Lymphocytes # 0.7 10^3/uL (0.8-4.8); Lymphocytes % 4.3 %; Mean Corpuscular HGB Conc 31.1 g/dL (30.0-36.0); Mean Corpuscular Hemoglobin 30.3 pg (28.0-34.0); Mean Corpuscular Volume 97.3 fL (81-99); Mean Platelet Volume 11.8 fL (7.4-10.4); Monocytes # 1.2 10^3/uL (0.2-0.9); Monocytes % 7.2 %; Neutrophils # 14.42 10^3/uL (1.8-7.7); Neutrophils % 86.4 %; Nucleated Red Blood Cells % 0 %; Platelet Count 294 10^3/cmm (130-400); Red Blood Count 2.97 10^6/uL (4.1-5.3); Red Cell Distribution Width 13.8 % (12.1-15.1); White Blood Count 16.7 10^3/uL (4.0-10.0)
--- NOTE | 2020-03-18 05:45 | XR_ITS ---
WS: [id number] PORTABLE CHEST HISTORY: Pneumonia and pneumothorax. COMPARISON: 03/17/2020 Nasogastric tube terminates in the fundus of the stomach. The proximal port is near the GE junction a nd has been retracted slightly. Endotracheal tube remains in good position. There is a RIGHT central line with tip in the distal SVC. RIGHT chest tube is present with tip directed superiorly. No residual pneumothorax. Subcutaneous emph ysema over the RIGHT lateral chest wall. Bilateral scattered opacifications without significant improvement. No definite pleural effusion. Cardiac size: Normal. Mediastinum/Aorta: Mild atherosclerosis aorta. No osseous abnormality seen. XR/XR chest 1V portable [id number] IMPRESSION: 1. Endotracheal tube in good position. 2. RIGHT chest tube with tip directed superiorly. No definite residual pneumot horax. 3. Improving subcutaneous emphysema on the RIGHT. 4. Continued moderate bilateral diffuse pulmonary opacifications without impro vement.
--- NOTE | 2020-03-18 05:54 | PM.OP ---
Operative Report Date of procedure: March 18, 2020 Pre-op Diagnosis: Respiratory failure currently mechanically ventilated with right pneumothor Post-op diagnosis: same Procedure Done: Right 28 [place] thoracostomy tube placement Pathology: none sent Surgeon: Joshua Mckeon Anesthesia: Local Complications: None: Condition: critical Disposition: ICU Brief History: Ms. Garcia is a 29-year-old female with respiratory failure and COVID-19. She is status post a right 13 [place] thoracic vent placement due to pneumothorax. A previously placed large bore right chest tube laterally and inferiorly which had been positioned in the emergency department was simply removed and she developed subcutaneous emphysema on the right chest wall consistent with continued air leak from this previously placed tube in position. Dr. Diaz replaced a right 28 [place] chest tube to help control this subcutaneous air leak. Chest tube was placed laterally to allow for possible repositioning into the prone position to hopefully allow for improved ventilation. This chest tube is situated inferiorly over the diaphragm but ideally would probably be more beneficial if this were directed more apically. Dr. Diaz requested that I assist with this repositioning of the chest tube. Procedure: Procedure: The patient was placed in the supine position with the right chest slightly elevated. IV conscious sedation continues with continous monitoring of heart rate, rhythm, ekg, and O2 saturation. The entire right chest was thoroughly prepped and draped. 1% lidocaine was infiltrated in the midaxillary line over the seventh rib. A #10 scalpel blade was used to incise the skin, silk stay suture was placed, followed by utilizing a small hemostat to enter the pleural space. 28 [place] chest tube was advanced over trocar into the pleural space and into position. Chest tube was then secured to the skin followed by placement of sterile dressings. Chest tube is placed to Pleur-evac suction. The patient tolerated the procedure well and chest x-ray reveals the chest tube is now positioned laterally and to the apex. We will leave chest tube to suction with planned serial chest x-rays.
[2020-03-18 06:14] LABS: Alanine Aminotransferase 6 U/L (0-33); Albumin Level 2.2 g/dL (3.5-5.2); Alkaline Phosphatase 81 IU/L (35-105); Anion Gap 18.6 (5-19); Aspartate Amino Transferase 17 U/L (0-32); Blood Urea Nitrogen 59 mg/dL (8-23); Calcium 7.5 mg/dL (8.5-10.5); Carbon Dioxide 22 mmol/L (22-29); Chloride 107 mmol/L (98-107); Globulin 2.9 g/dL (1.3-4.6); Glucose 123 mg/dL (65-115); Magnesium 2.7 mg/dL (1.7-2.3); Osmolality Calculated 316 mOsm/kg (285-295); Potassium 3.6 mmol/L (3.5-5.1); Sodium 144 mmol/L (136-145); Total Bilirubin 0.6 mg/dL (0.15-1.2); Total Protein 5.1 g/dL (6.6-8.7)
[2020-03-18] MEDS: vancomycin 1,250 MG/250 ML PIGGYBACK 250 MG IV (06:14)
[2020-03-18 06:53] LABS: ABG PCO2 45.4 mmHg (35-45); ABG PH Result 7.29 (7.35-7.45); Arterial Blood Gas Hematocrit 45.8 % (37-47); Blood Gas Operator Identificat HARKR; Blood Gas Sample Site Brachial, left; Blood Gas Sample Type Arterial; Blood Gas Tidal Volume 0.43; HCO3 ABG 21.8 mmol/L (22-26); Oxygen Device VENT
[2020-03-18] MEDS: dexmedetomidine 400 MCG in sodium chloride 0.9% (100 ml) 100 ML 8.6 MCG IV ×2 (07:18→18:31)
--- NOTE | 2020-03-18 07:56 | PC.NURSE ---
Shift Summary: Pt continued to fluctuate in SPO2 between 96-100%. Current FIO2 80%. Levo reinitiated based on declining MAP throughout shift. Titration of running drips based on needs. (See MAR flowsheet). Type and cross completed based on v/o from Jes for convalescent plasma of 1 unit to be admin 03/18. New v/o for Amio bolus and drip to be initiated with Cardizem to be stopped. Small air leak still noted that comes intermittently with inspiration. No increase in leak noted. Chest tube site reinforced by this RN. v/o given by MD Casa for K-rider and Lasix to be administered overnight as well. Fever tx with PRN PO APAP through OG. Q2H turns. Drips currently running @ Cardizem 2 Levo 2 Fentanyl 100 Precedex 0.4 600 u/o
--- NOTE | 2020-03-18 08:30 | PC.NURSE ---
WASTE: Propofol bottle left from previous dayshift RN after reported d/c of brand new spike was wasted with CAT Garner.
--- NOTE | 2020-03-18 09:17 | PC.SOCIAL ---
*IMM* Pt critical, not discharging in the next 2 days.
[2020-03-18] MEDS: sodium chloride 0.9% 1,000 ML 50 ML IV (09:31)
--- NOTE | 2020-03-18 09:37 | PM.PN ---
Subjective Subjective: Interval history: Ms Garcia :Is intubated and sedated. Tmax in Last 24h: 101.5 . Other Vitals and labs have been reviewed. Medications: Reviewed: Yes Vitals/I&O/Wt Last Vital Signs Temp 99.5 F 03/18/20 04:00 Pulse 65 03/18/20 08:15 Resp 16 03/18/20 08:12 BP 107/52 03/18/20 06:00 Pulse Ox 98 03/18/20 08:12 03/17/20 03/18/20 03/18/20 22:59 06:59 14:59 Intake Total 567.582 / 1072.470 511.333 / 1583.803 437.7 / 437.7 Balance 567.582 / 622.470 511.333 / 1133.803 437.7 / 437.7 Weight last 48 hrs Weight 82.345 kg Weight 82.34 kg Physical Exam Chest: COMMONS NORMALS: normal inspection of the chest Resp: EFFORT & INSPECTION: Yes symmetric chest movement OTHER: B/L Basal Crackles Present in both lung solorio. A 28 [place]vian drain in rt axillary region . Cardio: COMMON NORMALS: regular rate, regular rhythm, S1 normal heart sound present, S2 normal heart sound present, No gallops present (Cardio), No murmurs present (Cardio), No rub (Cardio) and Peripheral pulses 2+ throughout RATE: regular rate RHYTHM: regular rhythm HEART SOUNDS: S1 normal heart sound present and S2 normal heart sound present PERIPHERAL PULSES: Peripheral pulses 2+ throughout GI: COMMON NORMALS: Normal to inspection, nondistended, normoactive bowel sounds present, Soft to palpation, non-tender, No hepatosplenomegaly present and no masses AUSCULTATION: Yes normoactive bowel sounds PALPATION: Yes Soft to palpation and Yes No hepatosplenomegaly present RECTAL EXAM: deferred Extremity: COMMON NORMALS: no clubbing, cyanosis or edema and no pedal edema Urinary Catheter Management^: Jimenez: Cath Placed During This Visit: yes Reason for Continuing Indwelling Catheter: Accurate Measurement of Urinary Output in Critically Ill Patients Urinary Catheter Date of Insertion: 03/12/20 Urinary Catheter Time of Insertion: 12:34 Data : 03/18/20 03:15 03/18/20 03:15 Micro: Microbiology 03/14/20 18:50 Gram Stain - Final Sputum - Endotracheal Wash Sputum Culture - Final A&P Assessment and plan (1) Acute hypoxemic respiratory failure due to COVID-19: Status: Acute (2) Asthma exacerbation in COPD: Status: Acute (3) Von Willebrand disease: Status: Acute (4) Sleep apnea: Status: Acute (5) Pulmonary embolus: Status: Acute Acute Hypoxic respiratory distress due to COVID-19/Rt sided PTX with underlying hx of Asthma - 03/07 - COVID-19 positive - Chest xray - >B/l Ground-glass opacities - Ferritin 361, LDH of 493. - S/p prednisone prior to arrival / Decadron 10 mg IV x 1 in ER - Will hold off on further steroids due to intolerance - Exact allergic reaction unknown - Remdesivir 200 mg IV x 1 -> 100 mg IV daily -S/P I bag Plasma (03/17 ) - Continue albuterol - Advair 1 puff BID - Patient was intubated and placed on MV ( 03/14/20) - Continue sedation with Propofol/Fenanyl - Maintain RASS neg 3 - Pulmonary medicine consulted - Repeat CXR in am Rt Sided Pneumothorax - S/p chest tube placement - Noted to have persistent leak - CT chest w/o contrast performed - Thoravent chest tube placed but removed on 03/17 addition - Initial chest tube removed was removed followed by placement Of new 28 Latvian drain in rt axillary region ( 03/17 ) - CTS consulted - ABG Sepsis due to COVID19 with super-imposed Bacterial - Persistent fever - Continue remdesivir as noted above - Continue vancomycin pharmacy to dose - Aztreonam 1g IV q12hr (Stopped on 03/17 ) -Imipenam 500 mg q6 h ( 03/17 - ) -Azithromycin 500 MG I.V Q24 H (03-17 ) - 03/14/20 - Blood culture x 2 - negative -Repeat Blood Culture Drawn on 03/18 - 03/14/20 - Sputum culture - negative - Tylenol PRN for fever - Chest x-ray in am - Droplet precautions Paroxysmal Atrial fibrillation with RVR - Initially on Cardizem gtt ( stopped on 03/18 ) -Currently on Amiodarone Drip ( 03/18 ) - ECHO : LVEF : Normal, NO RWMA, No pericardial effusion. New-onset Seizure on hx of Meningioma - Started on Keppra 500 mg IV BID - No prior documented seizure disorder - Will consider EEG once off sedatives - CT head - No acute intra-cranial bleed - Seizure precautions - Versed/Ativan PRN for seizure like activity Von Willibrands disease / Pulmonary embolism - Eliquis 2.5 mg PO BID - Continue SCDs Hypertension - On cardizem gtt currently - Home PO antihypertensive held Pernicious Anemia - B12 replacement prior DVT ppx - Eliquis 2.5 mg PO BID Lines and Tubes : Rt I.J Rt Chest Tube CODE STATUS : AND Attestations Medical Necessity Statement*: Patient needs to be in hospital for the management of R/F , Sepsis, COVID Coding Level of Care Code Acute [employer] for [facility] Fwd Diagnoses Acute hypoxemic respiratory failure due to COVID-19 U07.1; J96.01 Asthma exacerbation in COPD J44.1; J45.901 Von Willebrand disease D68.0 Sleep apnea G47.30 Pulmonary embolus I26.99
--- NOTE | 2020-03-18 11:04 | XR_ITS ---
WS: [id number] Portable AP upright chest, 03/18/2020, 1118 hours Clinical Data: Decompasition Comparison: Portable chest, 03/18/2020, 0732 hours. Findings: Nasogastric tube, right internal jugular venous catheter, right chest tube, endotracheal tu be and monitor leads remain in the same position. The heart is normal. Bilateral lung opacities have not changed. There is subcutaneous emphysema along the right lateral chest wall unchanged. XR/XR chest 1V portable [id number] Impression: No change from the malted milk supervisor portable chest.
[2020-03-18 13:32] LABS: ABG PCO2 34.6 mmHg (35-45); Alveolar-Arterial Oxygen Gradi 81.1 mmHg (5-10); Arterial Blood Gas Hematocrit 25.1 % (37-47); Base Excess ABG -2.7 mmol/L (-2.0-2.0); Blood Gas Allen Test Pos; Blood Gas Operator Identificat CAK; Blood Gas Sample Site Radial, left; Blood Gas Sample Type Arterial; Blood Gas Tidal Volume 0.43; Carboxyhemoglobin 1.6 %THgb (0.4-20.1); HCO3 ABG 21.6 mmol/L (22-26); HGB O2 Sat 83.6 % (95-100); Ionized Calcium Level - ABG 1.1 mmol/L (1.1-1.4); Methemoglobin 0.9 % (0.4-1.5); Oxygen Device VENT; Oxygen Saturation ABG 85.8; PO2 ABG 50.3 mmHg (80.0-100.0); Potassium Level - ABG 3.7 mmol/L (3.5-5.0); Total Hemoglobin 8.2 g/dL (12-16)
[2020-03-18] MEDS: acetylcysteine 200 mg/mL SDV 4 mL 300 MG INHALATION ×2 (15:23→20:51)
[2020-03-18] MEDS: azithromycin 500 MG in sodium chloride 0.9% 250 ML 250 MG IV (15:33)
--- NOTE | 2020-03-18 19:27 | PM.PN ---
Subjective Subjective: Interval history: Seen patient at bedside today morning Yesterday night after placement of 28 Fr chest tube in rt lung pt saturations improved and FiO2 came down to 70% on ventilator But today morning she had an episode of acute decompensation and has to increase FiO2 back to 100% Repeat chest x-ray did not show any acute change. Has the same bilateral lung opacities which did not change and subcutaneous emphysema along the right lateral chest wall she is unchanged. Patient has T-max 101.5 Worsening BUN noted on labs Bedside ultrasound showed greater than 50% collapse of IVC on inspiration-recommended 500 mL bolus and hold diuretics Medications: Reviewed: Yes Vitals/I&O/Wt Last Vital Signs Temp 99.2 F 03/18/20 12:26 Pulse 83 03/18/20 18:00 Resp 20 H 03/18/20 17:28 BP 99/50 03/18/20 18:00 Pulse Ox 93 03/18/20 18:00 03/18/20 03/18/20 03/18/20 06:59 14:59 22:59 Intake Total 511.333 / 1583.803 951.7 / 951.7 1126.481 / 2078.181 Output Total 150 / 150 150 / 300 Balance 511.333 / 1133.803 801.7 / 801.7 976.481 / 1778.181 Weight last 48 hrs Weight 181 lb 8.634 oz Weight 181 lb 8.458 oz Physical Exam Narrative: EXAM NARRATIVE: PHYSICAL EXAM: General: lying in bed, sedated and intubated. HEENT:NCAT, PERRLA, EOMI Neck: Supple Lungs: Diffuse crackles; 28 Hungarian right chest tube placed on 03/17/2020 Heart: s1/s2, RRR Abd: soft, NT, ND, BS + Normoactive Extremities: 1+ pedal edema GEOTHERMAL HVAC TECHNICIAN: sedated and limited GEOTHERMAL HVAC TECHNICIAN exam possible. SKIN: no rash LDA: # CVC: Right IJ 03/14/2020 # Chest tubes: 28 Hungarian right chest tube placed on 03/17/2020 #Pa: 03/12/2019 Urinary Catheter Management^: Pa: Cath Placed During This Visit: yes Reason for Continuing Indwelling Catheter: Accurate Measurement of Urinary Output in Critically Ill Patients Urinary Catheter Date of Insertion: 03/12/20 Urinary Catheter Time of Insertion: 12:34 Data : 03/18/20 03:15 03/18/20 03:15 Micro: Microbiology 03/18/20 12:45 Blood Culture - Preliminary Blood SPECIMEN COLLECTED 03/18/20 12:30 Blood Culture - Preliminary Blood SPECIMEN COLLECTED 03/14/20 18:50 Gram Stain - Final Sputum - Endotracheal Wash Sputum Culture - Final A&P Assessment and plan (1) Acute hypoxemic respiratory failure due to COVID-19: Status: Acute (2) Edema: Status: Acute Qualifiers: Edema type: localized Qualified Code(s): R60.0 - Localized edema (3) Asthma exacerbation in COPD: Status: Acute (4) Von Willebrand disease: Status: Acute (5) Pneumothorax on right: Status: Acute Overall # 79-year-old Ms. Haylie Garcia admitted to viral ICU for acute hypoxic respiratory failure due to ARDS secondary to COVID-19 pneumonia requiring mechanical ventilation complicated by pneumothorax s/p chest tube with persistent air leak. -NEURO: #seizures secondary to hypoxia/Meningioma #Sedation -Currently on in fentanyl/propofol/Precedex- dc versed -on keppra PULM: #Acute hypoxic and hypercapneic respiratory failure secondary to ARDS due to COVID pna #h/o asthma #right side pnemothorax 03/14/2020 - iatrogenic s/p central line placement vs covid PNA; S/P 1st chest tube 03/14/2020 followed by thoracic vent in 2nd intercostal space on 03/15/2020 - #Persistent air leak with worsening the right-sided subcutaneous emphysema -placed another 28 Hungarian lateral chest tube on 03/17/2020 and remote thoracic vent # Previous h/o PE - Complete resolution of pneumothorax on imaging - 1st chest tube removed 03/16/2020 as no air leak noted in connected chamber; 2nd Thoracic vent still in place due to intermittent air leak in connected chamber but worsening subcutaneous emphysema suspicious for persistent air leak from -placed second 28 Hungarian chest tube along lateral right chest wall along the lateral pleural cavity towards the apex 1 03/17/2020 to facilitate proning the patient if necessary to improve oxygen saturations. Removed thoracic vent. -Intubated on 03/14/2020: -Currently saturating 94 to 96% on PEEP of 14 and FiO2 100%; on CMV 430/16/14/80 percent FiO2 -Recommended -DuoNeb nebulization every 6 hours prn -If hypoxia is persistent in mid 80s on maximum settings recommended starting on paralytic and prone -caution with chest tube dislodgment (at least placed laterally to avoid chances of dislodgment) -CXR: Bilateral opacities unchanged, right subcutaneous emphysema unchanged -Increased inflammatory markers CRP, ferritin and repeat every 2 days to trend markers of inflammation -not on dexamethasone due to reported allergies - myalgias -Recommended to give vancomycin and aztreonam as patient has documented penicillin allergy, DC azithromycin CVS: # A fib with RVR -DC'd Cardizem and started on amiodarone drip -hemodynamically stable -Monitor blood pressure -Echo 09/13/2019: Normal LV EF 55% GI: -Start tube feeding tomorrow -H2 chevy for GI prophylaxis -Normal LFTs RENAL: -Renal functions worsening - 6.9 L / 4.6 L/+2.3 L since admission -Bedside ultrasound revealed IVC collapsibility greater than 50% inspiration-recommended 500 mL NS/LR and discontinued diuretics -Continue pa cath -Avoid nephrotoxins -Monitor BUN/creatinine and electrolytes and supplement accordingly to keep K between 4-4.5, Mg >2 HEM: # h/o Von willbrand Disease - H&H stable -DVT prophylaxis on ELLIQUIS 2.5 MG BID ENDO: -Sugars well controlled -monitor sugars and not on scale coverage ID: #Sepsis secondary to COVID pna -fever spikes and WBC 16 K -elevated procalcitonin 2.67- can also be due to worseing renal parameters -lactate normal -Recommended vancomycin, aztreonam -cultures negative so far - follow up final cultures Prognosis: Critical Disposition: Remains in ICU Code:DNR Plan of care and recommendations conveyed to hospitalist on the case, RN and RT ICU CHECKLIST: Problem list updated Verbal orders reviewed and signed Analgesia: Fentanyl Glycemic Control: Not needed Nutrition: start tube feeding tomorrow Restraint Renewal (within 24 hrs): Yes Ulcer Prophylaxis: H2 chevy Chemical Thromboprophylaxis: Prophylaxis: elliquis Mechanical Thromboprophylaxis: Yes Need for Central line: Yes requiring any infusions sedation and pressors Need for Pa catheter: Yes for urine output monitoring Critical Care Time (No Overlap): 45 min This patient has a high probability of sudden, clinically significant deterioration, which requires the highest level of physician preparedness to intervene urgently. I managed/supervised life or organ supporting interventions that required frequent physician assessment. I devoted my full attention in the ICU to the direct care of this patient for the period of time indicated above. Time I spent with family or surrogate(s) is included only if the patient was incapable of providing necessary information or participating in decision making. Time devoted to teaching and to any procedures I billed separately is not included. Services Provided: Telemetry review Mechanical Ventilation Hemodynamic interpretation, assessment and management Review and interpretation of CXR Review and interpretation of lab values Review and interpretation of microbiologic data and culture results Review of medications and administration Review and interpretation of Nutrition requirements and management Discussion of management with other consultants and services Clinical update to family members Attestations Medical Necessity Statement*: acute hypoxic respiratory failure due to ARDS secondary to COVID-19 pneumonia requiring mechanical ventilation complicated by pneumothorax s/p chest tube with persistent air leak. Time Spent in Patient Care: Greater than 35 minutes (>than 50% of time spent in counselling and/or direct pt care on unit). Critical Care Time: Critical Care Time (min): 45 Coding Level of Care Code Acute Operations Processor for Julio Francis Diagnoses Acute hypoxemic respiratory failure due to COVID-19 U07.1; J96.01 Edema R60.0 Edema type: localized Asthma exacerbation in COPD J44.1; J45.901 Von Willebrand disease D68.0 Pneumothorax on right J93.9
[2020-03-18] MEDS: acetaminophen 650 mg/20.3 mL UDC 500 MG OG-TUBE (21:42)
[2020-03-19] VITALS (83 sets, daily range): BP systolic 85–140; BP diastolic 44–63; PULSE 71–97; RESP 16–20; TEMP 36.9–37.7; O2SAT 89–96
[2020-03-19] MEDS: acetylcysteine 200 mg/mL SDV 4 mL 300 MG INHALATION ×6 (00:30→23:29)
[2020-03-19 05:00] LABS: ABG PCO2 42.7 mmHg (35-45); ABG PH Result 7.34 (7.35-7.45); Arterial Blood Gas Hematocrit 58.6 % (37-47); Blood Gas Allen Test Pos; Blood Gas Sample Type Arterial; HCO3 ABG 22.9 mmol/L (22-26)
[2020-03-19 05:02] LABS: Blood Gas Operator Identificat HARKR; Blood Gas Sample Site Radial, left; Blood Gas Tidal Volume 0.43; Oxygen Device VENT
[2020-03-19] MEDS: apixaban 5 mg Tablet 2.5 MG PO ×2 (05:03→21:49)
[2020-03-19] MEDS: dexmedetomidine 400 MCG in sodium chloride 0.9% (100 ml) 100 ML 8.6 MCG IV (05:41)
[2020-03-19 06:02] LABS: Basophils % 0.3 %; Eosinophils # 0.3 10^3/uL (0.0-0.8); Eosinophils % 2.1 %; Hematocrit 27.1 % (37.0-47.0); Hemoglobin 8.5 g/dL (11.5-15.3); Lymphocytes # 0.8 10^3/uL (0.8-4.8); Lymphocytes % 4.9 %; Mean Corpuscular HGB Conc 31.4 g/dL (30.0-36.0); Mean Corpuscular Hemoglobin 30.4 pg (28.0-34.0); Mean Corpuscular Volume 96.8 fL (81-99); Mean Platelet Volume 11.6 fL (7.4-10.4); Monocytes % 6.4 %; Neutrophils # 13.22 10^3/uL (1.8-7.7); Neutrophils % 84.8 %; Nucleated Red Blood Cells % 0 %; Platelet Count 268 10^3/cmm (130-400); White Blood Count 15.6 10^3/uL (4.0-10.0)
--- NOTE | 2020-03-19 06:17 | XRR_ITS ---
PROCEDURE INFORMATION: Exam: XR Chest, 1 View Exam date and time: 03/19/2020 6:18 AM Age: 79 years old Clinical indication: Shortness of breath; Additional info: Change in patient condition TECHNIQUE: Imaging protocol: XR of the chest Views: 1 view. COMPARISON: CR XR chest 1V portable [id number] 03/18/2020 11:15 AM FINDINGS: Tubes, catheters and devices: Endotracheal tube tip 3 cm above the mily. Enteric tube tip in stomach. Right jugular central line tip in the superior vena cava. Right large bore thoracostomy tube unchanged in position. Lungs: Bilateral multifocal pulmonary opacities remain, somewhat changed in distribution but overall not significantly changed in degree when allowing for technical differences. This could be due to pneumonia or atypical pulmonary edema. Pleural space: No pneumothorax. Trace left pleural effusion is not excluded. Heart/Mediastinum: The cardiac silhouette is not enlarged. The mediastinal contours are normal. Bones/joints: No acute osseous abnormality. Soft tissues: Near resolution of right chest wall subcutaneous emphysema. XR/XR chest 1V portable [id number] IMPRESSION: 1. Line and tubes as described. 2. Bilateral airspace disease not significantly changed overall.
--- NOTE | 2020-03-19 06:18 | ECG_ITS ---
[facility] ED Test Date: 2020-03-19 Pat Name: Haylie Garcia Department: Room: ICU19 Gender: Female Sliver Former: : 1940 Requested By: Satish Oliver Order Number: [id number] Reading MD: Xiomy Juarez M.D. Measurements Intervals [place] Rate: 94 P: 32 WI: 152 QRS: 15 QRSD: 86 T: 127 QT: 356 QTc: 447 Interpretive Statements SINUS RHYTHM ST DEVIATION AND MODERATE T-WAVE ABNORMALITY, CONSIDER LATERAL ISCHEMIA [-0.1+ mV T WAVE IN I/aVL/V5/V6] Compared to ECG 03/15/2020 13:50:51 T-wave abnormality now present Possible ischemia now present Atrial fibrillation no longer present Myocardial infarct finding no longer present ST (T wave) deviation no longer present Electronically Signed On 03-19-2020 17:50:47 SUPERINTENDENT COMPRESSOR STATIONS by Xiomy Juarez M.D. [id number] f
[2020-03-19 06:21] LABS: Alanine Aminotransferase 7 U/L (0-33); Alkaline Phosphatase 74 IU/L (35-105); Anion Gap 12.3 (5-19); Aspartate Amino Transferase 17 U/L (0-32); Blood Urea Nitrogen 60 mg/dL (8-23); Calcium 7.8 mg/dL (8.5-10.5); Carbon Dioxide 23 mmol/L (22-29); Chloride 111 mmol/L (98-107); Glucose 123 mg/dL (65-115); Magnesium 2.8 mg/dL (1.7-2.3); Osmolality Calculated 314 mOsm/kg (285-295); Potassium 3.3 mmol/L (3.5-5.1); Sodium 143 mmol/L (136-145); Total Bilirubin 0.7 mg/dL (0.15-1.2)
[2020-03-19 07:03] LABS: ABG PCO2 46.1 mmHg (35-45); ABG PH Result 7.29 (7.35-7.45); Arterial Blood Gas Hematocrit 44.4 % (37-47); Base Excess ABG -4.5 mmol/L (-2.0-2.0); Blood Gas Operator Identificat HARKR; Blood Gas Sample Site Brachial, left; Blood Gas Sample Type Arterial; Blood Gas Tidal Volume 0.43; HCO3 ABG 22.3 mmol/L (22-26); Oxygen Device VENT; PO2 ABG 66.7 mmHg (80.0-100.0)
[2020-03-19 07:17] LABS: D Dimer 13.09 ug/mIFEU (0-0.59)
[2020-03-19] MEDS: FUROsemide 10 mg/mL SDV 4mL 40 MG IVP (07:47)
[2020-03-19 07:55] LABS: Vancomycin Trough 11.3 ug/mL (10-15)
[2020-03-19] MEDS: vancomycin 1,250 MG/250 ML PIGGYBACK 250 MG IV (08:05)
--- NOTE | 2020-03-19 08:18 | ECG_ITS ---
[facility] ED Test Date: 2020-03-19 Pat Name: Haylie Garcia Department: Room: ICU19 Gender: Female Growth Media Mixer Mushroom: : 1940 Requested By: Satish Oliver Order Number: [id number] Reading MD: Xiomy Juarez M.D. Measurements Intervals [place] Rate: 77 P: 17 OR: 167 QRS: 24 QRSD: 82 T: 28 QT: 407 QTc: 462 Interpretive Statements SINUS RHYTHM LOW QRS VOLTAGE IN PRECORDIAL LEADS [QRS DEFLECTION < 1.0 mV IN CHEST LEADS] Compared to ECG 03/19/2020 06:31:44 Low QRS voltage now present T-wave abnormality no longer present Possible ischemia no longer present Electronically Signed On 03-19-2020 18:01:16 TOUR ESCORT by Xiomy Juarez M.D. [id number]
[2020-03-19 08:28] LABS: Troponin(5th) Baseline 37 ng/L (0-10)
[2020-03-19] MEDS: rocuronium 10 mg/mL INJ 5mL 50 MG IV (08:39)
[2020-03-19] MEDS: potassium chloride oral liq 20 mEq/15 mL UDC 40 MEQ PO (08:44)
--- NOTE | 2020-03-19 09:11 | PC.NURSE ---
Shift Summary: Pt fluctuated in SPO2 status throughout overnight shift but for the most part remained in mid to low 90%. FIO2 was decreased based on pt toleration and was stationed at 70% for larger part of shift. Pt had increased sputum suctioned throughout shift by RT and RN nursing staff. One episode in restorer lace and textiles hours of sudden desat into higher 70% that resolved with suctioning. Fever recorded, and treated with PO tylenol. Drips titrated based on pt need. (See MAR flowsheet). Chest tube now shows small leak that was noted on insertion to have resolved at least at time of shift change/nursing assessment done by this RN on 03/18. CT output total of 25mL overnight. Notable SubQ emphysema has improved by palpation. See CT management flowsheet. 0600: RN and RT came to bedside based on SPO2 sudden desat into mid 80's. Continued desat despite RN and RT interventions. FIO2 increased to 100% by RT. This RN notified the MD information security engineer overnight of pt status. MD information security engineer gave v/o for STAT CXR, ABG draw, ensure a more deep sedation is implemented with titration of drips, lab draws of Trop and D-Dimer, obtain an EKG, and verbalized that he would consult pulmonology and contact with any further recommendations. RN and RT remained at bedside. Orders fulfilled. New orders from information security engineer MD to give IVP Rocuronium ONCE. MD updated RN that he had update pt's family (See RT documentation for vent settings). Drips titrated based on need. See MAR. EKG results documented. Followup labs drawn. SPO2 status returned to mid 90%. Labourers and AM hospitalist at bedside @0645. New orders given for drips to remain running as listed below. Report given to david ventura RN. SPO2 reporting at 94%. 350 u/o Drips running @: Versed 10 Precedex 1 Fentanyl 150
[2020-03-19 11:47] LABS: Troponin 5 6HR 44.74 ng/L (0-10); Troponin 5 6HR Delta 7.74 ng/L (0-12)
[2020-03-19] MEDS: famotidine 20 mg/2 mL INJ IVP ×2 (11:59→23:45)
--- NOTE | 2020-03-19 12:16 | PM.PN ---
Subjective Subjective: Interval history: - Seen patient at bedside today morning - throughout yesterday patient was down to FiO2 70% and shift supervisor film processing RN mentioned that she desaturated transiently during suctioning during nighttime except today clinical education academic coordinator at 6 AM she desaturated for longer duration; patient was given rocuronium 50 stat dose and has to increase FiO2 to 100% and suctioning showed significant thick mucous plugs. -Today's chest x-ray bilateral interstitial infiltrates with no pneumothorax and resolving right sided subcutaneous emphysema. If it all anything it appears slightly congested - If patient FiO2 requirements does not improve by today afternoon-I agree with paralyzing and proning the patient -No air leak noted in the chamber; with no plan for proning contact the chest tube to underwater seal and repeat x-ray in 12 hours to see for worsening pneumothorax -Patient net -2.2 L over last 24 hours, DC'd IV fluids and gave Lasix 40 mg and potassium 40 M EQ; - Creatinine improved with BUN slightly worsened-check FOBT for other causes - recommended to check BMP in the evening and urine output. If no significant urine output then patient needs extra dose of Lasix. - Patient has T-max 101.5; cultures are pending and patient is covered with vancomycin and imipenem - Patient also on amiodarone drip for A. fib RVR; currently rate is controlled-recommended to switch to p.o. Cardizem Medications: Reviewed: Yes Vitals/I&O/Wt Last Vital Signs Temp 99.3 F 03/19/20 08:00 Pulse 87 03/19/20 12:14 Resp 18 03/19/20 12:14 BP 94/54 03/19/20 11:00 Pulse Ox 94 03/19/20 12:14 03/18/20 03/19/20 03/19/20 22:59 06:59 14:59 Intake Total 1325.741 / 2277.441 605.726 / 2883.167 1132.40 / 1132.40 Output Total 150 / 300 350 / 650 150 / 150 Balance 1175.741 / 1977.441 255.726 / 2233.167 982.40 / 982.40 Weight last 48 hrs Weight 181 lb 8.638 oz Weight 181 lb 8.634 oz Physical Exam Narrative: EXAM NARRATIVE: PHYSICAL EXAM: General: lying in bed, sedated and intubated. HEENT:NCAT, PERRLA, EOMI Neck: Supple Lungs: Diffuse crackles; 28 Congolese right chest tube placed on 03/17/2020 Heart: s1/s2, RRR Abd: soft, NT, ND, BS + Normoactive Extremities: 1+ pedal edema ROUGH ROUNDER: sedated and limited ROUGH ROUNDER exam possible. SKIN: no rash LDA: # CVC: Right IJ 03/14/2020 # Chest tubes: 28 Congolese right chest tube placed on 03/17/2020 #Pa: 03/12/2019 Urinary Catheter Management^: Pa: Cath Placed During This Visit: yes Reason for Continuing Indwelling Catheter: Accurate Measurement of Urinary Output in Critically Ill Patients Urinary Catheter Date of Insertion: 03/12/20 Urinary Catheter Time of Insertion: 12:34 Data : 03/19/20 05:00 03/19/20 05:00 Micro: Microbiology 03/18/20 12:45 Urine Culture - Preliminary Urine Catheterized 03/18/20 12:45 Blood Culture - Preliminary Blood SPECIMEN COLLECTED 03/18/20 12:30 Blood Culture - Preliminary Blood SPECIMEN COLLECTED A&P Assessment and plan (1) Acute hypoxemic respiratory failure due to COVID-19: Status: Acute (2) Edema: Status: Acute Qualifiers: Edema type: localized Qualified Code(s): R60.0 - Localized edema (3) Asthma exacerbation in COPD: Status: Acute (4) Von Willebrand disease: Status: Acute (5) Pneumothorax on right: Status: Acute Overall # 79-year-old Ms. Haylie Garcia admitted to viral ICU for acute hypoxic respiratory failure due to ARDS secondary to COVID-19 pneumonia requiring mechanical ventilation complicated by pneumothorax s/p chest tube with persistent air leak. -NEURO: #seizures secondary to hypoxia/Meningioma #Sedation -Currently on in fentanyl/propofol/Precedex- dc versed -on keppra PULM: #Acute hypoxic and hypercapneic respiratory failure secondary to ARDS due to COVID pna #h/o asthma #right side pnemothorax 03/14/2020 - iatrogenic s/p central line placement vs covid PNA; S/P 1st chest tube 03/14/2020 followed by thoracic vent in 2nd intercostal space on 03/15/2020 - #Persistent air leak with worsening the right-sided subcutaneous emphysema -placed another 28 Congolese lateral chest tube on 03/17/2020 and remote thoracic vent # Previous h/o PE - throughout yesterday patient was down to FiO2 70% and shift supervisor film processing RN mentioned that she desaturated transiently during suctioning during nighttime except today clinical education academic coordinator at 6 AM she desaturated for longer duration; patient was given rocuronium 50 stat dose and has to increase FiO2 to 100% and suctioning showed significant thick mucous plugs. Recommended hypertonic saline/hour Mucomyst nebulizations and aggressive suctioning -Today's chest x-ray bilateral interstitial infiltrates with no pneumothorax and resolving right sided subcutaneous emphysema. If it all anything it appears slightly congested -No air leak noted in atrium - If patient FiO2 requirements does not improve by today afternoon-I agree with paralyzing and proning the patient -Currently saturating 94 to 96% on PEEP of 14 and FiO2 100%; on CMV 430/16/14/80 percent FiO2 -Recommended -DuoNeb nebulization every 6 hours prn -If hypoxia is persistent in mid 80s on maximum settings recommended starting on paralytic and prone -caution with chest tube dislodgment (at least placed laterally to avoid chances of dislodgment) -CXR: Bilateral opacities unchanged, right subcutaneous emphysema unchanged -Increased inflammatory markers CRP, ferritin and repeat every 2 days to trend markers of inflammation -not on dexamethasone due to reported allergies - myalgias -Recommended to give vancomycin and aztreonam as patient has documented penicillin allergy, DC azithromycin CVS: # A fib with RVR -DC'd Cardizem and started on amiodarone drip - Patient also on amiodarone drip for A. fib RVR; patient is in sinus rhythm and rate is controlled-recommended to switch to p.o. Cardizem -hemodynamically stable -Monitor blood pressure -Echo 09/13/2019: Normal LV EF 55% GI: -Start tube feeding tomorrow -H2 chevy for GI prophylaxis -Normal LFTs RENAL: - Creatinine improved with BUN slightly worsened-check FOBT for other causes -2.8 L / 600/ + 2.2 L over last 24 hours - DC'd IV fluids and gave Lasix 40 mg and potassium 40 M EQ; recommended to check BMP in the evening and urine output. If no significant urine output then patient needs 1 dose of Lasix. -Continue pa cath -Avoid nephrotoxins -Monitor BUN/creatinine and electrolytes and supplement accordingly to keep K between 4-4.5, Mg >2 HEM: # h/o Von willbrand Disease - H&H stable -DVT prophylaxis on ELLIQUIS 2.5 MG BID ENDO: -Sugars well controlled -monitor sugars and not on scale coverage ID: #Sepsis secondary to COVID pna -Patient has T-max 101.5; improving leukocytosis -Repeat cultures are pending -elevated procalcitonin 2.67- can also be due to worseing renal parameters -lactate normal -Recommended vancomycin, aztreonam Prognosis: Critical Disposition: Remains in ICU Code:DNR Plan of care and recommendations conveyed to hospitalist on the case, RN and RT ICU CHECKLIST: Problem list updated Verbal orders reviewed and signed Analgesia: Fentanyl Glycemic Control: Not needed Nutrition: start tube feeding Restraint Renewal (within 24 hrs): Yes Ulcer Prophylaxis: H2 chevy Chemical Thromboprophylaxis: Prophylaxis: elliquis Mechanical Thromboprophylaxis: Yes Need for Central line: Yes requiring any infusions sedation and pressors Need for Pa catheter: Yes for urine output monitoring Critical Care Time (No Overlap): 45 min This patient has a high probability of sudden, clinically significant deterioration, which requires the highest level of physician preparedness to intervene urgently. I managed/supervised life or organ supporting interventions that required frequent physician assessment. I devoted my full attention in the ICU to the direct care of this patient for the period of time indicated above. Time I spent with family or surrogate(s) is included only if the patient was incapable of providing necessary information or participating in decision making. Time devoted to teaching and to any procedures I billed separately is not included. Services Provided: Telemetry review Mechanical Ventilation Hemodynamic interpretation, assessment and management Review and interpretation of CXR Review and interpretation of lab values Review and interpretation of microbiologic data and culture results Review of medications and administration Review and interpretation of Nutrition requirements and management Discussion of management with other consultants and services Clinical update to family members Attestations Medical Necessity Statement*: Acute hypoxemic respiratory failure secondary to COVID-19 pneumonia complicated by iatrogenic pneumothorax still requiring mechanical ventilation Time Spent in Patient Care: Greater than 35 minutes (>than 50% of time spent in counselling and/or direct pt care on unit). Critical Care Time: Critical Care Time (min): 45 Coding Level of Care Code Acute Developer Evangelist for Julio Francis Diagnoses Acute hypoxemic respiratory failure due to COVID-19 U07.1; J96.01 Edema R60.0 Edema type: localized Asthma exacerbation in COPD J44.1; J45.901 Von Willebrand disease D68.0 Pneumothorax on right J93.9
--- NOTE | 2020-03-19 12:18 | ECG_ITS ---
[facility] ED Test Date: 2020-03-19 Pat Name: Haylei Garcia Department: Room: ICU19 Gender: Female Senior Principal Architect: : 1940 Requested By: Satish Oliver Order Number: [id number] Reading MD: Xiomy Juarez M.D. Measurements Intervals Circle Rate: 72 P: 32 NJ: 175 QRS: 43 QRSD: 89 T: 40 QT: 439 QTc: 481 Interpretive Statements SINUS RHYTHM NONSPECIFIC T-WAVE ABNORMALITY Compared to ECG 03/19/2020 11:47:28 T-wave abnormality now present Electronically Signed On 03-19-2020 17:55:43 CATHODE RAY TUBE ASSEMBLER by Xiomy Juarez M.D. [id number]
[2020-03-19] MEDS: dexmedetomidine 400 MCG in sodium chloride 0.9% (100 ml) 100 ML 21.4 MCG IV ×3 (13:15→19:50)
[2020-03-19] MEDS: azithromycin 500 MG in sodium chloride 0.9% 250 ML 250 MG IV (16:02)
--- NOTE | 2020-03-19 18:37 | P.PN_ITS ---
Subjective Subjective: Interval history: remains crtically ill, currently she is intuabed and sedated and on mechanical ventilation. Has remained afebrile in the last 24h.Her other vitals and labs have been reviewed. Medications: Reviewed: Yes Vitals/I&O/Wt Last Vital Signs Temp 98.8 F 03/19/20 16:00 Pulse 71 03/19/20 18:15 Resp 16 03/19/20 17:13 BP 100/55 03/19/20 18:15 Pulse Ox 95 03/19/20 18:15 03/19/20 03/19/20 03/19/20 06:59 14:59 22:59 Intake Total 605.726 / 2883.167 1459.277 / 1459.277 Output Total 350 / 650 800 / 800 300 / 1100 Balance 255.726 / 2233.167 659.277 / 659.277 -300 / 359.277 Weight last 48 hrs Weight 82.345 kg Weight 82.345 kg Physical Exam HENMT: COMMON NORMALS: normocephalic and atraumatic HEAD & SCALP: normo cephalic and atraumatic Resp: COMMON NORMALS: clear to auscultation bilaterally EFFORT & INSPECTION: Yes symmetric chest movement AUSCULTATION: clear to auscultation bilaterally Cardio: COMMON NORMALS: regular rate, regular rhythm, S1 normal heart sound present, S2 normal heart sound present, No gallops present (Cardio), No murmurs present (Cardio), No rub (Cardio) and Peripheral pulses 2+ throughout RATE: regular rate RHYTHM: regular rhythm HEART SOUNDS: S1 normal heart sound present and S2 normal heart sound present PERIPHERAL PULSES: Peripheral pulses 2+ throughout GI: COMMON NORMALS: Normal to inspection, nondistended, normoactive bowel hilda nds present, Soft to palpation, non-tender, No hepatosplenomegaly present and no masses AUSCULTATION: Yes normoactive bowel sounds PALPATION: Yes Soft to palpation and Yes No hepatosplenomegaly present RECTAL EXAM: deferred Extremity: COMMON NORMALS: no clubbing, cyanosis or edema and no pedal edema Urinary Catheter Management^: Jimenez: Cath Placed During This Visit: yes Reason for Continuing Indwelling Catheter: Accurate Measurement of Urinary Output in Critically Ill Patients Urinary Catheter Date of Insertion: 03/12/20 Urinary Catheter Time of Insertion: 12:34 Data : 03/19/20 05:00 03/19/20 18:32 Micro: Microbiology 03/18/20 12:45 Blood Culture - Preliminary Blood NEGATIVE TO DATE 03/18/20 12:30 Blood Culture - Preliminary Blood NEGATIVE TO DATE 03/18/20 12:45 Urine Culture - Preliminary Urine Catheterized A&P Assessment and plan (1) Acute hypoxemic respiratory failure due to COVID-19: Status: Acute (2) Asthma exacerbation in COPD: Status: Acute (3) Von Willebrand disease: Status: Acute (4) Sleep apnea: Status: Acute (5) Pulmonary embolus: Status: Acute Acute Hypoxic respiratory distress due to COVID-19/Rt sided PTX with underlying hx of Asthma - 03/07 - COVID-19 positive - Chest xray - >B/l Ground-glass opacities - Ferritin 361, LDH of 493. - S/p prednisone prior to arrival / Decadron 10 mg IV x 1 in ER - Will hold off on further steroids due to intolerance - Exact allergic reaction unknown - Remdesivir 200 mg IV x 1 -> 100 mg IV daily -S/P I bag Plasma (03/17 ) - Continue albuterol - Advair 1 puff BID - Patient was intubated and placed on MV ( 03/14/20) - Continue sedation with Propofol/Fenanyl - Maintain RASS neg 3 - Pulmonary medicine consulted - Repeat CXR in am Rt Sided Pneumothorax - S/p chest tube placement - Noted to have persistent leak - CT chest w/o contrast performed - Thoravent chest tube placed but removed on 03/17 addition - Initial chest tube removed was removed followed by placement Of new 28 Divehi drain in rt axillary region ( 03/17 ) - CTS consulted - ABG Sepsis due to COVID19 with super-imposed Bacterial - Persistent fever - Continue remdesivir as noted above - Continue vancomycin pharmacy to dose - Aztreonam 1g IV q12hr (Stopped on 03/17 ) -Imipenam 500 mg q6 h ( 03/17 - ) -Azithromycin 500 MG I.V Q24 H (03-17 ) - 03/14/20 - Blood culture x 2 - negative -Repeat Blood Culture Drawn on 03/18 :NTD - 03/14/20 - Sputum culture - negative - Tylenol PRN for fever - Chest x-ray in am - Droplet precautions Paroxysmal Atrial fibrillation with RVR - Initially on Cardizem gtt ( stopped on 03/18 ) -Currently on Amiodarone Drip ( 03/18 ) - ECHO : LVEF : Normal, NO RWMA, No pericardial effusion. New-onset Seizure on hx of Meningioma - Started on Keppra 500 mg IV BID - No prior documented seizure disorder - Will consider EEG once off sedatives - CT head - No acute intra-cranial bleed - Seizure precautions - Versed/Ativan PRN for seizure like activity Von Willibrands disease / Pulmonary embolism - Eliquis 2.5 mg PO BID - Continue SCDs Hypertension - On cardizem gtt currently - Home PO antihypertensive held Pernicious Anemia - B12 replacement prior DVT ppx - Eliquis 2.5 mg PO BID Lines and Tubes : Rt I.J Rt Chest Tube CODE STATUS : AND Attestations Medical Necessity Statement*: Patient needs to be in hospital for the management of R/F 2/2 COVID PNA Coding Level of Care Code Acute Verification Clerk for [facility] Fwd Diagnoses Acute hypoxemic respiratory failure due to COVID-19 U07.1; J96.01 Asthma exacerbation in COPD J44.1; J45.901 Von Willebrand disease D68.0 Sleep apnea G47.30 Pulmonary embolus I26.99
--- NOTE | 2020-03-19 18:45 | PC.NURSE ---
Received report on patient from Pascual RN. Verified drips with both off going and on coming RN's. Assumed care at this time.
[2020-03-19 19:05] LABS: Anion Gap 11.2 (5-19); Blood Urea Nitrogen 54 mg/dL (8-23); Carbon Dioxide 24 mmol/L (22-29); Chloride 113 mmol/L (98-107); Glucose 152 mg/dL (65-115); Osmolality Calculated 316 mOsm/kg (285-295); Potassium 4.2 mmol/L (3.5-5.1); Sodium 144 mmol/L (136-145)
[2020-03-19] MEDS: sodium chloride 3.5% neb 4 mL Neb INHALATION (23:29)
[2020-03-20] VITALS (111 sets, daily range): BP systolic 78–137; BP diastolic 43–80; PULSE 72–103; RESP 16–24; TEMP 36.3–38.1; O2SAT 76–97; BMI 31.1
[2020-03-20 00:24] LABS: Basophils # 0.1 10^3/uL (0.0-0.1); Basophils % 0.4 %; Eosinophils # 0.4 10^3/uL (0.0-0.8); Eosinophils % 1.9 %; Hematocrit 30.4 % (37.0-47.0); Hemoglobin 9.3 g/dL (11.5-15.3); Lymphocytes # 1.4 10^3/uL (0.8-4.8); Lymphocytes % 6.3 %; Mean Corpuscular HGB Conc 30.6 g/dL (30.0-36.0); Mean Corpuscular Hemoglobin 30.5 pg (28.0-34.0); Mean Corpuscular Volume 99.7 fL (81-99); Mean Platelet Volume 11.3 fL (7.4-10.4); Monocytes # 1.3 10^3/uL (0.2-0.9); Monocytes % 5.8 %; Neutrophils # 18.94 10^3/uL (1.8-7.7); Neutrophils % 83.5 %; Nucleated Red Blood Cells % 0 %; Platelet Count 300 10^3/cmm (130-400); Red Blood Count 3.05 10^6/uL (4.1-5.3); Red Cell Distribution Width 14.4 % (12.1-15.1); White Blood Count 22.7 10^3/uL (4.0-10.0)
[2020-03-20] MEDS: vancomycin 1,500 MG/300 ML PIGGYBACK 200 MG IV (00:30)
[2020-03-20] MEDS: dexmedetomidine 400 MCG in sodium chloride 0.9% (100 ml) 100 ML 21.4 MCG IV ×3 (01:35→12:50)
[2020-03-20] MEDS: acetylcysteine 200 mg/mL SDV 4 mL 300 MG INHALATION (03:19)
[2020-03-20] MEDS: sodium chloride 3.5% neb 4 mL Neb INHALATION ×6 (03:19→23:11)
[2020-03-20 04:05] LABS: ABG PCO2 55.3 mmHg (35-45); ABG PH Result 7.23 (7.35-7.45); Arterial Blood Gas Hematocrit 44.5 % (37-47); Base Excess ABG -4.9 mmol/L (-2.0-2.0); Blood Gas Allen Test Pos; Blood Gas Operator Identificat CAK; Blood Gas Sample Site Radial, left; Blood Gas Sample Type Arterial; Blood Gas Tidal Volume 0.43; HCO3 ABG 23.4 mmol/L (22-26); Oxygen Device VENT; PO2 ABG 67.4 mmHg (80.0-100.0)
[2020-03-20 06:30] LABS: Basophils # 0.1 10^3/uL (0.0-0.1); Basophils % 0.4 %; Eosinophils # 0.3 10^3/uL (0.0-0.8); Eosinophils % 1.6 %; Hematocrit 30.1 % (37.0-47.0); Hemoglobin 8.9 g/dL (11.5-15.3); Lymphocytes % 4.5 %; Mean Corpuscular HGB Conc 29.6 g/dL (30.0-36.0); Mean Corpuscular Hemoglobin 29.9 pg (28.0-34.0); Mean Platelet Volume 11.6 fL (7.4-10.4); Monocytes # 1.4 10^3/uL (0.2-0.9); Monocytes % 6.5 %; Neutrophils # 17.92 10^3/uL (1.8-7.7); Neutrophils % 84.8 %; Nucleated Red Blood Cells % 0 %; Platelet Count 288 10^3/cmm (130-400); Red Blood Count 2.98 10^6/uL (4.1-5.3); Red Cell Distribution Width 14.5 % (12.1-15.1); White Blood Count 21.1 10^3/uL (4.0-10.0)
[2020-03-20 06:52] LABS: Alanine Aminotransferase 6 U/L (0-33); Albumin Level 2.2 g/dL (3.5-5.2); Alkaline Phosphatase 86 IU/L (35-105); Aspartate Amino Transferase 13 U/L (0-32); Blood Urea Nitrogen 44 mg/dL (8-23); Calcium 8.1 mg/dL (8.5-10.5); Carbon Dioxide 23 mmol/L (22-29); Chloride 113 mmol/L (98-107); Globulin 3.2 g/dL (1.3-4.6); Glucose 126 mg/dL (65-115); Magnesium 2.6 mg/dL (1.7-2.3); Osmolality Calculated 317 mOsm/kg (285-295); Sodium 147 mmol/L (136-145); Total Bilirubin 0.4 mg/dL (0.15-1.2); Total Protein 5.4 g/dL (6.6-8.7)
[2020-03-20] MEDS: FUROsemide 10 mg/mL SDV 4mL 40 MG IVP (10:50)
[2020-03-20] MEDS: famotidine 20 mg/2 mL INJ IVP (11:33)
[2020-03-20] MEDS: amiodarone 200 mg Tablet 400 MG PO ×2 (11:43→19:56)
--- NOTE | 2020-03-20 13:46 | PC.SOCIAL ---
IM follow up not given due to pateint still on [facility] ventilator. DC not planned within two days. IM to be given at next appointed time 03/22/20.
--- NOTE | 2020-03-20 13:48 | P.PN_ITS ---
Subjective Subjective: Interval history: remains critically ill.She continues to desat even at very high Fio2.Repeat serial chest xrays have shown resolution of PTX as well as subcutaneous emphysema,but worsening of PNA. Medications: Reviewed: Yes Vitals/I&O/Wt Last Vital Signs Temp 97.8 F 03/20/20 13:00 Pulse 80 03/20/20 13:00 Resp 22 H 03/20/20 13:00 BP 111/60 03/20/20 13:00 Pulse Ox 87 L 03/20/20 13:00 03/19/20 03/20/20 03/20/20 22:59 06:59 14:59 Intake Total 630.407 / 2089.684 1271.5 / 3361.184 931.881 / 931.881 Output Total 850 / 1650 550 / 2200 1100 / 1100 Balance -219.593 / 439.684 721.5 / 1161.184 -168.119 / -168.119 Weight last 48 hrs Weight 82.345 kg Weight 82.345 kg Physical Exam Narrative: EXAM NARRATIVE: [facility] COMMON NORMALS: normocephalic and atraumatic HEAD & SCALP: normocephalic and atraumatic Resp COMMON NORMALS: clear to auscultation bilaterally EFFORT & INSPECTION: Yes symmetric chest movement AUSCULTATION: clear to auscultation bilaterally Cardio COMMON NORMALS: regular rate, regular rhythm, S1 normal heart sound present, S2 normal heart sound present, No gallops present (Cardio), No murmurs present (Cardio), No rub (Cardio) and Peripheral pulses 2+ throughout RATE: regular rate RHYTHM: regular rhythm HEART SOUNDS: S1 normal heart sound present and S2 normal heart sound present PERIPHERAL PULSES: Peripheral pulses 2+ throughout GI COMMON NORMALS: Normal to inspection, nondistended, normoactive bowel sounds present, Soft to palpation, non-tender, No hepatosplenomegaly present and no masses AUSCULTATION: Yes normoactive bowel sounds PALPATION: Yes Soft to palpation and Yes No hepatosplenomegaly present RECTAL EXAM: deferred Extremity COMMON NORMALS: no clubbing, cyanosis or edema and no pedal edema Urinary Catheter Management^ Urinary Catheter Management^: Jimenez: Cath Placed During This Visit: yes Reason for Continuing Indwelling Catheter: Accurate Measurement of Urinary Output in Critically Ill Patients Urinary Catheter Date of Insertion: 03/12/20 Urinary Catheter Time of Insertion: 12:34 Data : 03/21/20 03:40 03/21/20 03:40 Micro: Microbiology 03/18/20 12:45 Urine Culture - Final Urine Catheterized 03/14/20 00:05 Blood Culture - Final Blood NO GROWTH AFTER 5 DAYS 03/14/20 21:37 Blood Culture - Final Blood NO GROWTH AFTER 5 DAYS 03/18/20 12:45 Blood Culture - Preliminary Blood NEGATIVE TO DATE 03/18/20 12:30 Blood Culture - Preliminary Blood NEGATIVE TO DATE A&P Assessment and plan (1) Acute hypoxemic respiratory failure due to COVID-19: Status: Acute (2) Asthma exacerbation in COPD: Status: Acute (3) Von Willebrand disease: Status: Acute (4) Sleep apnea: Status: Acute (5) Pulmonary embolus: Status: Acute Acute Hypoxic respiratory distress due to COVID-19/Rt sided PTX with underlying hx of Asthma - 03/07 - COVID-19 positive - Chest xray - >B/l Ground-glass opacities - Ferritin 361, LDH of 493. - S/p prednisone prior to arrival / Decadron 10 mg IV x 1 in ER - Will hold off on further steroids due to intolerance - Exact allergic reaction unknown - Remdesivir 200 mg IV x 1 -> 100 mg IV daily -S/P 2 bag Plasma (03/17 ) - Continue albuterol - Advair 1 puff BID - Patient was intubated and placed on MV ( 03/14/20) - Continue sedation with Propofol/Fenanyl - Maintain RASS neg 3 - Pulmonary medicine consulted - Repeat CXR in am Rt Sided Pneumothorax - S/p chest tube placement - Noted to have persistent leak - CT chest w/o contrast performed - Thoravent chest tube placed but removed on 03/17 addition - Initial chest tube removed was removed followed by placement Of new 28 Irish drain in rt axillary region ( 03/17 ) - CTS consulted - ABG Sepsis due to COVID19 with super-imposed Bacterial - Persistent fever - Continue remdesivir as noted above - Continue vancomycin pharmacy to dose - Aztreonam 1g IV q12hr (Stopped on 03/17 ) -Imipenam 500 mg q6 h ( 03/17 - ) -Azithromycin 500 MG I.V Q24 H (03-17 ) - 03/14/20 - Blood culture x 2 - negative -Repeat Blood Culture Drawn on 03/18 :NTD - 03/14/20 - Sputum culture - negative - Tylenol PRN for fever - Chest x-ray in am - Droplet precautions Paroxysmal Atrial fibrillation with RVR - Initially on Cardizem gtt ( stopped on 03/18 ) -Currently on Amiodarone Drip ( 03/18 ) - ECHO : LVEF : Normal, NO RWMA, No pericardial effusion. New-onset Seizure on hx of Meningioma - Started on Keppra 500 mg IV BID - No prior documented seizure disorder - Will consider EEG once off sedatives - CT head - No acute intra-cranial bleed - Seizure precautions - Versed/Ativan PRN for seizure like activity Von Willibrands disease / Pulmonary embolism - Eliquis 2.5 mg PO BID - Continue SCDs Hypertension - On cardizem gtt currently - Home PO antihypertensive held Pernicious Anemia - B12 replacement prior DVT ppx - Eliquis 2.5 mg PO BID Lines and Tubes : Rt I.J Rt Chest Tube CODE STATUS : AND Attestations Medical Necessity Statement*: Patient needs to be in hospital for the management of R/F 2/2 COVID PNA Coding Level of Care Code Acute Clinical Laboratory Medical Director for [facility] Fwd Diagnoses Acute hypoxemic respiratory failure due to COVID-19 U07.1; J96.01 Asthma exacerbation in COPD J44.1; J45.901 Von Willebrand disease D68.0 Sleep apnea G47.30 Pulmonary embolus I26.99
--- NOTE | 2020-03-20 13:52 | P.PN_ITS ---
Subjective Subjective: Interval history: -No overnight events -Again down to 70% FiO2 on ventilator. -Leukocytosis slightly better down to 21,000 and no fever spikes in the last 24 hours. -ABG slightly respiratory acidosis 7.2 355/67/23 on CMV 430/16/14/70 percent FiO2-increase rate to 18 -Received Lasix yesterday, net +1 L, but overall renal functions improving; recommended 1 more dose of Lasix 40 mg daily -Improved right-sided chest subcutaneous emphysema, no air leak noted in the chest tube chamber, recommended to turn off suction and repeat x-ray today evening. Medications: Reviewed: Yes Vitals/I&O/Wt Last Vital Signs Temp 97.8 F 03/20/20 13:00 Pulse 80 03/20/20 13:00 Resp 22 H 03/20/20 13:00 BP 111/60 03/20/20 13:00 Pulse Ox 87 L 03/20/20 13:00 03/19/20 03/20/20 03/20/20 22:59 06:59 14:59 Intake Total 630.407 / 2089.684 1271.5 / 3361.184 931.881 / 931.881 Output Total 850 / 1650 550 / 2200 1100 / 1100 Balance -219.593 / 439.684 721.5 / 1161.184 -168.119 / -168.119 Weight last 48 hrs Weight 181 lb 8.638 oz Weight 181 lb 8.638 oz Physical Exam Narrative: EXAM NARRATIVE: PHYSICAL EXAM: General: lying in bed, sedated and intubated. HEENT:NCAT, PERRLA, EOMI Neck: Supple Lungs: Improved diffuse crackles; 28 Green[place]ic right chest tube placed on 03/17/2020 Heart: s1/s2, RRR Abd: soft, NT, ND, BS + Normoactive Extremities: 1+ pedal edema ENGINE CLEANER: sedated and limited ENGINE CLEANER exam possible. SKIN: no rash LDA: # CVC: Right IJ 03/14/2020 # Chest tubes: 28 Greenlandic right chest tube placed on 03/17/2020 #Pa: 03/12/2019 Urinary Catheter Management^: Pa: Cath Placed During This Visit: yes Reason for Continuing Indwelling Catheter: Accurate Measurement of Urinary Output in Critically Ill Patients Urinary Catheter Date of Insertion: 03/12/20 Urinary Catheter Time of Insertion: 12:34 Data : 03/20/20 05:20 03/20/20 05:20 Micro: Microbiology 03/18/20 12:45 Urine Culture - Final Urine Catheterized 03/14/20 00:05 Blood Culture - Final Blood NO GROWTH AFTER 5 DAYS 03/14/20 21:37 Blood Culture - Final Blood NO GROWTH AFTER 5 DAYS 03/18/20 12:45 Blood Culture - Preliminary Blood NEGATIVE TO DATE 03/18/20 12:30 Blood Culture - Preliminary Blood NEGATIVE TO DATE A&P Assessment and plan (1) Acute hypoxemic respiratory failure due to COVID-19: Status: Acute (2) Edema: Status: Acute Qualifiers: Edema type: localized Qualified Code(s): R60.0 - Localized edema (3) Asthma exacerbation in COPD: Status: Acute (4) Von Willebrand disease: Status: Acute (5) Pneumothorax on right: Status: Acute Overall # 79-year-old Ms. Haylie Garcia admitted to viral ICU for acute hypoxic respiratory failure due to ARDS secondary to COVID-19 pneumonia requiring mechanical ventilation complicated by pneumothorax s/p chest tube with persistent air leak. -NEURO: #seizures secondary to hypoxia/Meningioma #Sedation -Currently on in fentanyl/propofol/Precedex- versed -recommended to taper and DC Versed from tomorrow -on keppra PULM: #Acute hypoxic and hypercapneic respiratory failure secondary to ARDS due to COVID pna #h/o asthma #right side pnemothorax 03/14/2020 - iatrogenic s/p central line placement vs covid PNA; S/P 1st chest tube 03/14/2020 followed by thoracic vent in 2nd inte rcostal space on 03/15/2020 - #Persistent air leak with worsening the right-sided subcutaneous emphysema - placed another 28 Greenlandic lateral chest tube on 03/17/2020 and remote thoracic vent # Previous h/o PE -No overnight events -Again down to 70% FiO2 on ventilator. -ABG slightly respiratory acidosis 7.2 355/67/23 on CMV 430/16/14/80 percent FiO2-increase rate to 18 -Received Lasix yesterday, net +1 L, but overall renal functions improving; recommended 1 more dose of Lasix 40 mg daily -Improved right-sided chest subcutaneous emphysema, no air leak noted in the chest tube chamber, recommended to turn off suction and repeat x-ray today evening. - Recommended hypertonic saline/hour Mucomyst nebulizations and aggressive suctioning -chest x-ray 03/20/20 bilateral interstitial infiltrates with no pneumothorax and resolving right sided subcutaneous emphysema. If it all anything it appears slightly congested - If patient FiO2 requirements detereirate-I agree with paralyzing and proning the patient -Recommended -DuoNeb nebulization every 4 hours scheduled -Increased inflammatory markers CRP, ferritin and repeat every 2 days to trend markers of inflammation -not on dexamethasone due to reported allergies - myalgias -Recommended to give vancomycin and aztreonam as patient has documented penicillin allergy, DC azithromycin CVS: # A fib with RVR -DC'd Cardizem and started on amiodarone drip -Patient also on amiodarone drip for A. fib RVR; patient is in sinus rhythm and rate is controlled-recommended to switch to p.o. Cardizem -hemodynamically stable -Monitor blood pressure -Echo 09/13/2019: Normal LV EF 55% GI: -Start tube feeding tomorrow -H2 chevy for GI prophylaxis -Normal LFTs RENAL: - Creatinine improved with BUN slightly worsened-check FOBT for other causes - 3.2/2.2/+1 L over last 24 hours -Received Lasix yesterday, net +1 L, but overall renal functions improving; recommended 1 more dose of Lasix 40 mg daily -Continue pa cath -Avoid nephrotoxins -Monitor BUN/creatinine and electrolytes and supplement accordingly to keep K between 4-4.5, Mg >2 HEM: # h/o Von willbrand Disease - H&H stable -DVT prophylaxis on ELLIQUIS 2.5 MG BID ENDO: -Sugars well controlled -monitor sugars and not on scale coverage ID: #Sepsis secondary to COVID pna -Leukocytosis slightly better down to 21,000 and no fever spikes in the last 24 hours. -Repeat cultures are final results pending -elevated procalcitonin 2.67- can also be due to worseing renal parameters -lactate normal -Recommended vancomycin, aztreonam Prognosis: Critical Disposition: Remains in ICU Code:DNR Plan of care and recommendations conveyed to hospitalist on the case, RN and RT ICU CHECKLIST: Problem list updated Verbal orders reviewed and signed Analgesia: Fentanyl Glycemic Control: Not needed Nutrition: start tube feeding Restraint Renewal (within 24 hrs): Yes Ulcer Prophylaxis: H2 chevy Chemical Thromboprophylaxis: Prophylaxis: elliquis Mechanical Thromboprophylaxis: Yes Need for Central line: Yes requiring any infusions sedation and pressors Need for Pa catheter: Yes for urine output monitoring Critical Care Time (No Overlap): 45 min This patient has a high probability of sudden, clinically significant deterioration, which requires the highest level of physician preparedness to intervene urgently. I managed/supervised life or organ supporting interventions that required frequent physician assessment. I devoted my full attention in the ICU to the direct care of this patient for the period of time indicated above. Time I spent with family or surrogate(s) is included only if the patient was incapable of providing necessary information or participating in decision making. Time devoted to teaching and to any procedures I billed separately is not included. Services Provided: Telemetry review Mechanical Ventilation Hemodynamic interpretation, assessment and management Review and interpretation of CXR Review and interpretation of lab values Review and interpretation of microbiologic data and culture results Review of medications and administration Review and interpretation of Nutrition requirements and management Discussion of management with other consultants and services Clinical update to family members Attestations Medical Necessity Statement*: acute hypoxic respiratory failure due to ARDS secondary to COVID-19 pneumonia requiring mechanical ventilation complicated by pneumothorax s/p chest tube with persistent air leak. Time Spent in Patient Care: Greater than 35 minutes (>than 50% of time spent in counselling and/or direct pt care on unit) . Critical Care Time: Critical Care Time (min): 45 Coding Level of Care Code Acute Nurse Anesthetist for [facility] Diagnoses Acute hypoxemic respiratory failure due to COVID-19 U07.1; J96.01 Edema R60.0 Edema type: localized Asthma exacerbation in COPD J44.1; J45.901 Von Willebrand disease D68.0 Pneumothorax on right J93.9
[2020-03-20] MEDS: azithromycin 500 MG in sodium chloride 0.9% 250 ML 250 MG IV (15:39)
[2020-03-20] MEDS: propofol 1,000 MG/100 ML INJ 10.1 MG IV (19:00)
--- NOTE | 2020-03-20 19:00 | XRR_ITS ---
PROCEDURE INFORMATION: Exam: XR Chest, 1 View Exam date and time: 03/20/2020 1:36 PM Age: 79 years old Clinical indication: Shortness of breath; Additional info: Decline oxygenation TECHNIQUE: Imaging protocol: XR of the chest Views: 1 view. COMPARISON: CR (CHEST, ) 03/20/2020 1:39 PM FINDINGS: Tubes, catheters and devices: Right-sided chest tube remains in place. There is right jugular central venous catheter with its tip in the superior vena cava. Endotracheal tube remains in place with its tip approximately 3 cm above the mily. Lungs: Extensive bilateral pulmonary infiltrates are not significantly changed. No new infiltrate is identified. Pleural space: No pneumothorax is identified. Heart/Mediastinum: Unremarkable. No cardiomegaly. Bones/joints: Unremarkable. Other findings: Findings are not significantly changed from the examination done earlier today. XR/XR chest 1V portable [id number] IMPRESSION: No recent change.
--- NOTE | 2020-03-20 19:00 | XRR_ITS ---
PROCEDURE INFORMATION: Exam: XR Chest, 1 View Exam date and time: 03/20/2020 2:01 PM Age: 79 years old Clinical indication: Other: Pneumothorax; Additional info: Pneumothorax status TECHNIQUE: Imaging protocol: XR of the chest Views: Frontal portable semiupright view of the chest. COMPARISON: CR (CHEST, ) 03/19/2020 6:22 AM FINDINGS: Tubes, catheters and devices: Stable right chest tube position. The feeding tube enters the stomach with the tip off the limits of the image. The endotracheal tube tip is approximately 3 cm above the mily. The right internal jugular venous catheter tip is in the mid SVC. EKG leads are present overlying the chest. Lungs: The pulmonary vasculature is obscured by increased lung attenuation. Stable heterogeneous air space opacities predominating in the mid-lower lung zones. Pleural space: No pneumothorax. No definite pleural effusion. Heart/Mediastinum: The heart is normal in size and contour. Vasculature: Moderate aortic arch atherosclerotic calcification without ectasia. Bones/joints: Stable. XR/XR chest 1V portable [id number] IMPRESSION: 1. Stable bilateral pulmonary infiltrates, pneumonitis versus atypical pulmonary edema. Clinical correlation is recommended. 2. No pneumothorax.
[2020-03-20] MEDS: acetaminophen 650 mg/20.3 mL UDC 500 MG OG-TUBE (20:26)
--- NOTE | 2020-03-20 21:21 | XRR_ITS ---
PROCEDURE INFORMATION: Exam: XR Chest, 1 View Exam date and time: 03/20/2020 9:48 PM Age: 79 years old Clinical indication: Dyspnea; Additional info: Hypotension, ptx, chest tube TECHNIQUE: Imaging protocol: XR of the chest Views: 1 view. COMPARISON: CR (CHEST, ) 03/20/2020 5:27 PM FINDINGS: Tubes, catheters and devices: Endotracheal tube is in satisfactory position with its tip approximately 3 cm above the mily. Right-sided chest tube remains in place. Right jugular central venous catheter tip is in the superior vena cava. Nasogastric tube extends into the stomach. Lungs: Extensive bilateral airspace opacities with lower lobe predominance are unchanged from recent previous studies. Pleural space: . There may be small left pleural effusion. No pneumothorax. Heart/Mediastinum: Unremarkable. No cardiomegaly. Bones/joints: Unremarkable. XR/XR chest 1V portable [id number] IMPRESSION: No recent change in extensive bilateral pulmonary disease.
--- NOTE | 2020-03-20 21:21 | PC.NURSE ---
CALLED DR PENA ABOUT BP 82/41 WITH A MAP OF 52. DR ORDERED LEVOPHED TO START AT 8MCG AND WE CAN TITRATE DOWN NEEDED. MACHINE LEARNING INTERN NURSE STARTED LEVOPHED AT THIS TIME. WILL CONTINUE TO MONITOR.
[2020-03-20 21:49] LABS: Hemoglobin 9.4 g/dL (11.5-15.3)
[2020-03-20] MEDS: apixaban 5 mg Tablet 2.5 MG PO (22:30)
[2020-03-21] VITALS (112 sets, daily range): BP systolic 90–125; BP diastolic 47–66; PULSE 87–110; RESP 17–25; TEMP 36.1–37.4; O2SAT 85–100
[2020-03-21] MEDS: vancomycin 1,500 MG/300 ML PIGGYBACK 200 MG IV (00:04)
[2020-03-21] MEDS: famotidine 20 mg/2 mL INJ IVP ×3 (00:04→23:30)
--- NOTE | 2020-03-21 01:57 | PC.NURSE ---
Belongings: Patient's wedding ring and bracelet attached to chart.
[2020-03-21] MEDS: propofol 1,000 MG/100 ML INJ 10.1 MG IV ×3 (03:09→20:37)
[2020-03-21] MEDS: sodium chloride 3.5% neb 4 mL Neb INHALATION ×6 (03:24→23:04)
[2020-03-21 04:52] LABS: Basophils # 0.1 10^3/uL (0.0-0.1); Basophils % 0.4 %; Eosinophils # 0.2 10^3/uL (0.0-0.8); Eosinophils % 0.9 %; Hematocrit 30.9 % (37.0-47.0); Lymphocytes # 1.5 10^3/uL (0.8-4.8); Lymphocytes % 6.1 %; Mean Corpuscular HGB Conc 29.1 g/dL (30.0-36.0); Mean Corpuscular Hemoglobin 29.6 pg (28.0-34.0); Mean Corpuscular Volume 101.6 fL (81-99); Mean Platelet Volume 11.4 fL (7.4-10.4); Monocytes # 1.7 10^3/uL (0.2-0.9); Monocytes % 6.9 %; Neutrophils # 20.17 10^3/uL (1.8-7.7); Neutrophils % 84.1 %; Nucleated Red Blood Cells % 0.1 %; Platelet Count 261 10^3/cmm (130-400); Red Blood Count 3.04 10^6/uL (4.1-5.3); Red Cell Distribution Width 14.8 % (12.1-15.1)
--- NOTE | 2020-03-21 05:00 | PC.NURSE ---
New Orders: RN spoke with MD cement production plant operator overnight regarding patients downward trending MAP. Orders recieved are as follows, Initate Levo at 8 and titrate based on need to maintain MAP greater than 65. RN spoke with orders given from MD Casa/hospitalist in charge of care on days to being proning protocol with RT assistance. MD cement production plant operator gave orders to maintain MAP, and keep patient supine without proning until pt was stable enough for proning. RN to keep MD updated on status and condition.
[2020-03-21 05:19] LABS: Alanine Aminotransferase 6 U/L (0-33); Albumin Level 1.9 g/dL (3.5-5.2); Alkaline Phosphatase 94 IU/L (35-105); Anion Gap 14.7 (5-19); Aspartate Amino Transferase 20 U/L (0-32); Blood Urea Nitrogen 45 mg/dL (8-23); Calcium 8.2 mg/dL (8.5-10.5); Carbon Dioxide 23 mmol/L (22-29); Chloride 114 mmol/L (98-107); Globulin 3.4 g/dL (1.3-4.6); Glucose 123 mg/dL (65-115); Osmolality Calculated 319 mOsm/kg (285-295); Potassium 3.7 mmol/L (3.5-5.1); Sodium 148 mmol/L (136-145); Total Bilirubin 0.3 mg/dL (0.15-1.2); Total Protein 5.3 g/dL (6.6-8.7)
[2020-03-21] MEDS: apixaban 5 mg Tablet 2.5 MG PO (05:33)
[2020-03-21] MEDS: amiodarone 200 mg Tablet 400 MG PO ×2 (10:32→18:26)
[2020-03-21] MEDS: cisatracurium 100 MG in sodium chloride 0.9% 50 ML IV (10:44)
--- NOTE | 2020-03-21 11:01 | PC.NURSE ---
Nimbex ordered for proning patient as intervention to treatment plan. Baseline TOF 4/4 twitches using a 5 Hz rate as patient has existing sedation infusing.
--- NOTE | 2020-03-21 11:13 | PC.NURSE ---
Increased neuroblocking paralytic to 0.6mcg/kg/min due to TOF 4/4 twitches after 15 minutes on lower dose. Patient continues with 4/4 on TOF using 50Hz at a 5mA
--- NOTE | 2020-03-21 11:24 | PC.NURSE ---
pt continues to have a RR of 18-20 on ventilator with spontaneous breaths and 4/4 on TOF using 5mA. Drip increased to 5mcg/kg/min to get patient paralysed and assume control of respirations.
[2020-03-21] MEDS: dexamethasone 4 mg/mL INJ 6 MG IVP (15:46)
[2020-03-21] MEDS: azithromycin 500 MG in sodium chloride 0.9% 250 ML 250 MG IV (15:46)
--- NOTE | 2020-03-21 18:45 | PC.NURSE ---
Received bedside report on patient from Marie SHELTON. Drips discussed and dosages and amounts correct. BIS and Train of Fours done with both off going RN and myself. Patient remains in prone position.
--- NOTE | 2020-03-21 19:36 | P.PN_ITS ---
Subjective Subjective: Interval history: Ms. Garcia is intubated and sedated and currently on mechanical ventilation.She has also been paralyzed and prone today.She has remained afebrile. Urine output is close to 30 cc an hour. Her other vitals and labs have been reviewed. Medications: Reviewed: Yes Vitals/I&O/Wt Last Vital Signs Temp 97.7 F 03/21/20 18:00 Pulse 103 H 03/21/20 18:45 Resp 18 03/21/20 18:00 BP 101/55 03/21/20 18:45 Pulse Ox 92 03/21/20 18:45 03/21/20 03/21/20 03/21/20 06:59 14:59 22:59 Intake Total 827.940 / 2328.915 498.920 / 498.920 28.125 / 527.045 Output Total 450 / 2300 360 / 360 Balance 377.940 / 28.915 498.920 / 498.920 -331.875 / 167.045 Weight last 48 hrs Weight 82.351 kg Weight 82.345 kg Physical Exam HENMT: COMMON NORMALS: normocephalic and atraumatic HEAD & SCALP: normocephalic and atraumatic Eye: GENERAL EYE: appearance normal, both eyes and all related structures Chest: OTHER: B/L Basal Crackles present in both solorio.Diminished breath sound B/L. 28 Somali right chest tube placed on 03/17/2020 Resp: COMMON NORMALS: normal respiratory effort, No retractions and No use of accessory muscles EFFORT & INSPECTION: Yes symmetric chest movement Cardio: OTHER: Irregularly Irregular rhythm . S1S2 Of variable intensity. GI: COMMON NORMALS: Normal to inspection, nondistended, normoactive bowel sounds present, Soft to palpation, non-tender, No hepatosplenomegaly present and no masses AUSCULTATION: Yes normoactive bowel sounds PALPATION: Yes Soft t o palpation and Yes No hepatosplenomegaly present RECTAL EXAM: deferred Urinary Catheter Management^: Jimenez: Cath Placed During This Visit: yes Reason for Continuing Indwelling Catheter: Accurate Measurement of Urinary Output in Critically Ill Patients Urinary Catheter Date of Insertion: 03/12/20 Urinary Catheter Time of Insertion: 12:34 Data : 03/21/20 03:40 03/21/20 03:40 A&P Assessment and plan (1) ARDS (adult respiratory distress syndrome): Status: Acute (2) Acute hypoxemic respiratory failure due to COVID-19: Status: Acute (3) Asthma exacerbation in COPD: Status: Acute (4) Von Willebrand disease: Status: Acute (5) Sleep apnea: Status: Acute (6) Pulmonary embolus: Status: Acute Acute Hypoxic respiratory failure 2/2 Severe ARDS 2/2 COVID-19/Rt sided PTX - 03/07 - COVID-19 positive - Chest xray - >B/l Ground-glass opacities - Ferritin 361, LDH of 493. - S/p prednisone prior to arrival / Decadron 10 mg IV x 1 in ER. -Initially steroids were held as She has undocumented allergy to steroid - Exact allergic reaction unknown - Will Initiate decadron 6 mg i.v Daily to give her the benefit of steroids.(03/21) - Remdesivir 200 mg IV x 1 -> 100 mg IV daily. - Will do extended 10 day course of Remdesivir -S/P 2 bag Plasma (03/17 ) - Continue albuterol - Advair 1 puff BID - Patient was intubated and placed on MV ( 03/14/20) - Continue sedation with Propofol/Fenanyl /Versed -Initially on Nimbus, failed to achieve adequate paralysis. -Switch to Rocuronium - Maintain RASS neg 3 - Pulmonary medicine consulted - Repeat CXR in am Rt Sided Pneumothorax - S/p chest tube placement - Noted to have persistent leak - CT chest w/o contrast performed - Thoravent chest tube placed but removed on 03/17 addition - Initial chest tube removed was removed followed by placement Of new 28 Somali drain in rt axillary region ( 03/17 ) - CTS consulted - ABG Sepsis due to COVID19 with super-imposed Bacterial - Persistent fever - Continue remdesivir as noted above - Continue vancomycin pharmacy to dose - Aztreonam 1g IV q12hr (Stopped on 03/17 ) -Imipenam 500 mg q6 h ( 03/17 - ) -Azithromycin 500 MG I.V Q24 H (03-17 ) - 03/14/20 - Blood culture x 2 - negative -Repeat Blood Culture Drawn on 03/18 :NTD - 03/14/20 - Sputum culture - negative - Tylenol PRN for fever - Chest x-ray in am - Droplet precautions Paroxysmal Atrial fibrillation with RVR - Initially on Cardizem gtt ( stopped on 03/18 ) -Currently on Amiodarone Drip ( 03/18 ) - ECHO : LVEF : Normal, NO RWMA, No pericardial effusion. New-onset Seizure on hx of Meningioma - Started on Keppra 500 mg IV BID - No prior documented seizure disorder - Will consider EEG once off sedatives - CT head - No acute intra-cranial bleed - Seizure precautions - Versed/Ativan PRN for seizure like activity Von Willibrands disease / Pulmonary embolism - Eliquis 2.5 mg PO BID - Continue SCDs Pernicious Anemia - B12 replacement prior DVT ppx - Eliquis 2.5 mg PO BID Lines and Tubes : Rt I.J Rt Chest Tube CODE STATUS : AND Attestations Medical Necessity Statement*: Patients needs to be in hospital for the management of R/F 2/2 ARDS 2/2 COVID PNA Coding Level of Care Code 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
--- NOTE | 2020-03-21 19:40 | P.PN_ITS ---
Subjective Subjective: Interval history: -Patient started desaturating even 100% FiO2 and PEEP of 14 -Chest x-ray showed increased bilateral infiltrates-resolution of pneumothorax and subcutaneous emphysema -Patient started on paralytic and then prone; currently on CMV 430/18/14/80 percent saturating 92% Given 1 dose of albumin + Lasix Medications: Reviewed: Yes Vitals/I&O/Wt Last Vital Signs Temp 97.7 F 03/21/20 18:00 Pulse 99 03/21/20 19:38 Resp 18 03/21/20 19:38 BP 101/55 03/21/20 18:45 Pulse Ox 94 03/21/20 19:38 03/21/20 03/21/20 03/21/20 06:59 14:59 22:59 Intake Total 827.940 / 2328.915 498.920 / 498.920 28.125 / 527.045 Output Total 450 / 2300 360 / 360 Balance 377.940 / 28.915 498.920 / 498.920 -331.875 / 167.045 Weight last 48 hrs Weight 181 lb 8.846 oz Weight 181 lb 8.638 oz Physical Exam Narrative: EXAM NARRATIVE: PHYSICAL EXAM: General: lying in bed in prone position, sedated and intubated. 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 SKIN: no rash LDA: # CVC: Right IJ 03/14/2020 # Chest tubes: 28 Citizen Of [place] right chest tube placed on 03/17/2020 #Pa: 03/12/2019 Urinary Catheter Management^: Pa: Cath Placed During This Visit: yes Reason for Continuing Indwelling Catheter: Accurate Measurement of Urinary Output in Critically Ill Patients Urinary Catheter Date of Insertion: 03/12/20 Urinary Catheter Time of Insertion: 12:34 Data : 03/21/20 03:40 03/21/20 03:40 A&P Assessment and plan (1) Acute hypoxemic respiratory failure due to COVID-19: Status: Acute (2) Edema: Status: Acute Qualifiers: Edema type: localized Qualified Code(s): R60.0 - Localized edema (3) Asthma exacerbation in COPD: Status: Acute (4) Von Willebrand disease: Status: Acute (5) Pneumothorax on right: Status: Acute Overall # 79-year-old Ms. Haylie Garcia admitted to viral ICU for acute hypoxic respiratory failure due to ARDS secondary to COVID-19 pneumonia requiring mechanical ventilation complicated by pneumothorax s/p chest tube with persistent air leak. -NEURO: #seizures secondary to hypoxia/Meningioma #Sedation- -Currently on in fentanyl/propofol/Precedex- versed -On Nimbex drip -on keppra PULM: #Acute hypoxic and hypercapneic respiratory failure secondary to ARDS due to COVID pna #h/o asthma #right side pnemothorax 03/14/2020 - iatrogenic s/p central line placement vs covid PNA; S/P 1st chest tube 03/14/2020 followed by thoracic vent in 2nd intercostal space on 03/15/2020 - #Persistent air leak with worsening the right-sided subcutaneous emphysema - placed another 28 Citizen Of [place] lateral chest tube on 03/17/2020 and remote thoracic vent # Previous h/o PE -No overnight events -Paralyzed and proned, on CMV 430/18/14/80 percent FiO2 -Received Lasix yesterday, net -200 mL, but overall renal functions improving; recommended 1 more dose of Lasix 40 mg daily with albumin (albumin 1.9) -Improved right-sided chest subcutaneous emphysema, no air leak noted in the chest tube chamber, -will leave chest tube in until patient completes 3 proning sessions - Recommended hypertonic saline/hour Mucomyst nebulizations and aggressive suctioning -chest x-ray 03/20/20 bilateral interstitial infiltrates with no pneumothorax and resolving right sided subcutaneous emphysema. -Recommended -DuoNeb nebulization every 4 hours scheduled -Increased inflammatory markers CRP, ferritin and repeat every 2 days to trend markers of inflammation -Started on dexamethasone 6 mg daily (previously reported as allergy but patient family confirmed that she has mild tremors with steroids) -Recommended to give vancomycin and aztreonam as patient has documented penicillin allergy, DC azithromycin CVS: # A fib with RVR -DC'd Cardizem and started on amiodarone drip -Patient also on amiodarone drip for A. fib RVR; patient is in sinus rhythm and rate is controlled-recommended to switch to p.o. Cardizem -hemodynamically stable -Monitor blood pressure -Echo 09/13/2019: Normal LV EF 55% GI: -Start tube feeding tomorrow -H2 chevy for GI prophylaxis -Normal LFTs RENAL: - Creatinine improved with BUN slightly worsened-check FOBT for other causes -/-200 and last 24 hours -Received Lasix yesterday, net -200 mL, but overall renal functions improving; recommended 1 more dose of Lasix 40 mg daily with albumin (albumin 1.9) -Improved right-sided chest subcutaneous emphysema, no air leak noted in the chest tube chamber, -will leave chest tube in until patient completes 3 proning sessions -Continue pa cath -Avoid nephrotoxins -Monitor BUN/creatinine and electrolytes and supplement accordingly to keep K b etween 4-4.5, Mg >2 HEM: # h/o Von willbrand Disease - H&H stable -DVT prophylaxis on ELLIQUIS 2.5 MG BID ENDO: -Sugars well controlled -monitor sugars and not on scale coverage ID: #Sepsis secondary to COVID pna -Leukocytosis worsening 20 4K and T-max 100.6 -Repeat cultures negative -elevated procalcitonin 2.67- can also be due to worseing renal parameters -lactate normal -Recommended vancomycin, aztreonam Prognosis: Critical Disposition: Remains in ICU Code:DNR Plan of care and recommendations conveyed to hospitalist on the case, RN and RT ICU CHECKLIST: Problem list updated Verbal orders reviewed and signed Analgesia: Fentanyl Glycemic Control: Not needed Nutrition: Oral feeding as patient is prone Restraint Renewal (within 24 hrs): Yes Ulcer Prophylaxis: H2 chevy Chemical Thromboprophylaxis: Prophylaxis: elliquis Mechanical Thromboprophylaxis: Yes Need for Central line: Yes requiring any infusions sedation and pressors Need for Pa catheter: Yes for urine output monitoring Critical Care Time (No Overlap): 45 min This patient has a high probability of sudden, clinically significant deterioration, which requires the highest level of physician preparedness to intervene urgently. I managed/supervised life or organ supporting interventions that required frequent physician assessment. I devoted my full attention in the ICU to the direct care of this patient for the period of time indicated above. Time I spent with family or surrogate(s) is included only if the patient was incapable of providing necessary information or participating in decision making. Time devoted to teaching and to any procedures I billed separately is not included. Services Provided: Telemetry review Mechanical Ventilation Hemodynamic interpretation, assessment and management Review and interpretation of CXR Review and interpretation of lab values Review and interpretation of microbiologic data and culture results Review of medications and administration Review and interpretation of Nutrition requirements and management Discussion of management with other consultants and services Clinical update to family members Attestations Medical Necessity Statement*: acute hypoxic respiratory failure due to ARDS secondary to COVID-19 pneumonia requiring mechanical ventilation complicated by pneumothorax s/p chest tube with persistent air leak. Time Spent in Patient Care: Greater than 35 minutes (>than 50% of time spent in counselling and/or direct pt care on unit) . 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
--- NOTE | 2020-03-21 19:46 | PC.NURSE ---
Patient has been 0/4 of TOF since patient was placed in prone position. Dr. Cormier aware of TOF 0/4 and titration of drip down as noted on MAY. Patient has maintained acceptable ventilation and perfusion pressures with TOF 0/4.
[2020-03-21] MEDS: FUROsemide 10 mg/mL SDV 2mL 20 MG IVP (19:55)
[2020-03-21] MEDS: cisatracurium 100 MG in sodium chloride 0.9% 50 ML 12.4 MG IV (19:56)
--- NOTE | 2020-03-21 20:00 | PC.NURSE ---
BIS: 35, Train of Fours: 0, Urine Output: 50.
--- NOTE | 2020-03-21 21:00 | PC.NURSE ---
Train of Four: 0, Urine Output: 75
--- NOTE | 2020-03-21 22:00 | PC.NURSE ---
BIS: 31, Train of Four: 0, Urine Output: 25.
[2020-03-21] MEDS: sodium chloride 0.9% 500 ML 999 ML IV (22:26)
--- NOTE | 2020-03-21 23:00 | PC.NURSE ---
Train of Four: 0, Urine Output: 50
[2020-03-22] VITALS (108 sets, daily range): BP systolic 96–127; BP diastolic 46–64; PULSE 74–101; RESP 18–24; TEMP 36–37; O2SAT 85–95
--- NOTE | 2020-03-22 | PC.NURSE ---
BIS: 32, Train of Four: 0, Urine Output: 50. Decreased the Nimbex
--- NOTE | 2020-03-22 01:00 | PC.NURSE ---
Train of Four: 0, Urine Output: 0
--- NOTE | 2020-03-22 02:00 | PC.NURSE ---
BIS: 36, Train of Four: 0, Urine Output: 25
[2020-03-22 02:32] LABS: Vancomycin Trough 18.2 ug/mL (10-15)
--- NOTE | 2020-03-22 03:00 | PC.NURSE ---
Train of Four: 0, Urine Output: 25
[2020-03-22] MEDS: sodium chloride 3.5% neb 4 mL Neb INHALATION ×6 (03:10→23:38)
[2020-03-22 03:45] LABS: ABG PCO2 56.6 mmHg (35-45); Arterial Blood Gas Hematocrit 29.1 % (37-47); Blood Gas Allen Test Pos; Blood Gas Sample Site Radial, right; Blood Gas Sample Type Arterial; Blood Gas Tidal Volume 0.43; HCO3 ABG 20.5 mmol/L (22-26); Oxygen Device VENT; PO2 ABG 76.5 mmHg (80.0-100.0)
--- NOTE | 2020-03-22 04:00 | PC.NURSE ---
BIS: 42, Train of Four: 0, Urine Output: 50
[2020-03-22] MEDS: vancomycin 1,500 MG/300 ML PIGGYBACK 300 MG IV (04:10)
[2020-03-22] MEDS: propofol 1,000 MG/100 ML INJ 10.1 MG IV ×2 (04:21→20:35)
[2020-03-22 04:31] LABS: Basophils # 0.1 10^3/uL (0.0-0.1); Basophils % 0.3 %; Hematocrit 30.5 % (37.0-47.0); Hemoglobin 8.9 g/dL (11.5-15.3); Lymphocytes # 0.8 10^3/uL (0.8-4.8); Lymphocytes % 3.5 %; Mean Corpuscular HGB Conc 29.2 g/dL (30.0-36.0); Mean Corpuscular Hemoglobin 30.4 pg (28.0-34.0); Mean Corpuscular Volume 104.1 fL (81-99); Mean Platelet Volume 11.6 fL (7.4-10.4); Monocytes # 0.6 10^3/uL (0.2-0.9); Monocytes % 2.4 %; Neutrophils # 21.12 10^3/uL (1.8-7.7); Neutrophils % 89.8 %; Nucleated Red Blood Cells # 0.1 /100WBC; Nucleated Red Blood Cells % 0.3 %; Platelet Count 265 10^3/cmm (130-400); Red Blood Count 2.93 10^6/uL (4.1-5.3); Red Cell Distribution Width 15.4 % (12.1-15.1); White Blood Count 23.5 10^3/uL (4.0-10.0)
[2020-03-22 04:47] LABS: Alanine Aminotransferase 6 U/L (0-33); Albumin Level 2.5 g/dL (3.5-5.2); Alkaline Phosphatase 95 IU/L (35-105); Anion Gap 18.6 (5-19); Aspartate Amino Transferase 19 U/L (0-32); Blood Urea Nitrogen 53 mg/dL (8-23); Calcium 8.4 mg/dL (8.5-10.5); Carbon Dioxide 21 mmol/L (22-29); Chloride 113 mmol/L (98-107); Globulin 3.1 g/dL (1.3-4.6); Glucose 135 mg/dL (65-115); Magnesium 2.4 mg/dL (1.7-2.3); Osmolality Calculated 322 mOsm/kg (285-295); Potassium 4.6 mmol/L (3.5-5.1); Sodium 148 mmol/L (136-145); Total Bilirubin 0.3 mg/dL (0.15-1.2); Total Protein 5.6 g/dL (6.6-8.7)
--- NOTE | 2020-03-22 05:00 | PC.NURSE ---
Train of Four: 0, Urine Output: 75
--- NOTE | 2020-03-22 06:00 | XRR_ITS ---
PROCEDURE INFORMATION: Exam: XR Chest, 1 View Exam date and time: 03/22/2020 7:10 AM Age: 79 years old Clinical indication: Condition or disease; Lung condition and disease; Pneumonia; Other: Not specified; Patient HX: Covid; Additional info: Pna TECHNIQUE: Imaging protocol: XR of the chest Views: 1 view. COMPARISON: CR (CHEST, ) 03/20/2020 9:46 PM FINDINGS: Tubes, catheters and devices: An endotracheal tube, nasogastric tube, central venous catheter and right chest tube are present in satisfactory position. Lungs: There are extensive diffuse bilateral pulmonary infiltrates which are more prominently in the left lung. These have not significantly changed. Pleural space: There is slight blunting of left costophrenic angle which may be due to minimal left effusion. Heart/Mediastinum: Unremarkable. No cardiomegaly. Bones/joints: Unremarkable. XR/XR chest 1V portable [id number] IMPRESSION: No significant change in extensive bilateral pulmonary infiltrates.
[2020-03-22] MEDS: cisatracurium 100 MG in sodium chloride 0.9% 50 ML 8.6 MG IV (06:14)
[2020-03-22] MEDS: amiodarone 200 mg Tablet 400 MG PO ×2 (09:22→17:43)
[2020-03-22] MEDS: famotidine 20 mg/2 mL INJ IVP (09:22)
[2020-03-22 11:07] LABS: ABG PH Result 7.23 (7.35-7.45); Alveolar-Arterial Oxygen Gradi 47.5 mmHg (5-10); Arterial Blood Gas Hematocrit 26.7 % (37-47); Base Excess ABG -6.6 mmol/L (-2.0-2.0); Blood Gas Allen Test Pos; Blood Gas Operator Identificat MONRO; Blood Gas Sample Site Radial, right; Blood Gas Sample Type Arterial; Blood Gas Tidal Volume 0.43; Carboxyhemoglobin 1.2 %THgb (0.4-20.1); HCO3 ABG 20.7 mmol/L (22-26); HGB O2 Sat 93.6 % (95-100); Ionized Calcium Level - ABG 1.3 mmol/L (1.1-1.4); Methemoglobin 0.5 % (0.4-1.5); Oxygen Device VENT; Oxygen Saturation ABG 95.2; PO2 ABG 78.2 mmHg (80.0-100.0); Total Hemoglobin 8.7 g/dL (12-16)
--- NOTE | 2020-03-22 12:49 | PC.SOCIAL ---
*IMM Update* IMM not given due to pt being on vent and not discharging in the next two days.
--- NOTE | 2020-03-22 15:09 | P.PN_ITS ---
Subjective Subjective: Interval history: is intubated, sedated,paralysed and proned Has remained afebrile.Vitals, labs, xray chest, ABG have been reviewed. Medications: Reviewed: Yes Vitals/I&O/Wt Last Vital Signs Temp 97.2 F L 03/22/20 00:15 Pulse 88 03/22/20 11:56 Resp 21 H 03/22/20 13:57 BP 102/59 03/22/20 06:30 Pulse Ox 92 03/22/20 11:56 03/22/20 03/22/20 03/22/20 06:59 14:59 22:59 Intake Total 1172.199 / 2370.944 340.508 / 340.508 Output Total 605 / 965 Balance 567.199 / 1405.944 340.508 / 340.508 Weight last 48 hrs Weight 82.781 kg Weight 82.351 kg Physical Exam Narrative: EXAM NARRATIVE: COMMON NORMALS: normocephalic and atraumatic HEAD & SCALP: normocephalic and atraumatic Eye GENERAL EYE:subconjuctival hemorrhage present in rt eye. Chest OTHER: B/L Basal Crackles present in both solorio.Diminished breath sound B/L. 28 [place] right chest tube placed on 03/17/2020 Resp COMMON NORMALS: normal respiratory effort, No retractions and No use of accessory muscles EFFORT & INSPECTION: Yes symmetric chest movement Cardio OTHER: Irregularly Irregular rhythm . S1S2 Of variable intensity. GI COMMON NORMALS: Normal to inspection, nondistended, normoactive bowel sounds present, Soft to palpation, non-tender, No hepatosplenomegaly present and no masses AUSCULTATION: Yes normoactive bowel sounds PALPATION: Yes Soft to palpation and Yes No hepatosplenomegaly present RECTAL EXAM: deferred Urinary Catheter Management^: Jimenez: Cath Placed During This Visit: yes Reason for Continuing Indwelling Catheter: Accurate Measurement of Urinary Output in Critically Ill Patients Urinary Catheter Date of Insertion: 03/12/20 Urinary Catheter Time of Insertion: 12:34 Data : 03/22/20 03:25 03/22/20 02:40 A&P Assessment and plan (1) ARDS (adult respiratory distress syndrome): Status: Acute (2) Acute hypoxemic respiratory failure due to COVID-19: Status: Acute (3) Asthma exacerbation in COPD: Status: Acute (4) Von Willebrand disease: Status: Acute (5) Sleep apnea: Status: Acute (6) Pulmonary embolus: Status: Acute Acute Hypoxic respiratory failure 2/2 Severe ARDS 2/2 COVID-19/Rt sided PTX - 03/07 - COVID-19 positive - Chest xray - >B/l Ground-glass opacities - Ferritin 361, LDH of 493. - S/p prednisone prior to arrival / Decadron 10 mg IV x 1 in ER. -Initially steroids were held as She has undocumented allergy to steroid - Exact allergic reaction unknown - Will Initiate decadron 6 mg i.v Daily to give her the benefit of steroids.(03/21) - Remdesivir 200 mg IV x 1. - Will do extended 10 day course of Remdesivir -S/P 2 bag Plasma (03/17 ) - Continue albuterol - Advair 1 puff BID - Patient was intubated and placed on MV ( 03/14/20) - Continue sedation with Propofol/Fentanyl /Versed - on Nimbus - Maintain RASS neg 3 - Pulmonary medicine consulted - Monitor CXR Rt Sided Pneumothorax - S/p chest tube placement - Noted to have persistent leak - CT chest w/o contrast performed - Thoravent chest tube placed but removed on 03/17 addition - Initial chest tube removed was removed followed by placement Of new 28 Estonian drain in rt axillary region ( 03/17 ) - CTS on board - ABG Sepsis due to COVID19 with super-imposed Bacterial - Initially Persistent fever has been afebrile lately - Continue remdesivir as noted above - Continue vancomycin pharmacy to dose - Aztreonam 1g IV q12hr (Stopped on 03/17 ) -Imipenam 500 mg q6 h ( 03/17 -TD ) -Azithromycin 500 MG I.V Q24 H (03-17 ) - 03/14/20 - Blood culture x 2 - negative -Repeat Blood Culture Drawn on 03/18 :NTD - 03/14/20 - Sputum culture - negative - Tylenol PRN for fever - Chest x-ray - Droplet precautions Atrial fibrillation with RVR - Initially on Cardizem gtt ( stopped on 03/18 ) - Switched to Amiodarone Drip ( 03/18 ) - Currently on PO Amiodarone 400 mg BID - ECHO : LVEF : Normal, NO RWMA, No pericardial effusion. New-onset Seizure on hx of Meningioma - Started on Keppra 500 mg IV BID - No prior documented seizure disorder - Will consider EEG once off sedatives - CT head - No acute intra-cranial bleed - Seizure precautions - Versed/Ativan PRN for seizure like activity Von Willibrands disease / Pulmonary embolism - Eliquis 2.5 mg PO BID - Continue SCDs Pernicious Anemia - B12 replacement prior DVT ppx - Eliquis 2.5 mg PO BID Lines and Tubes : Rt I.J Rt Chest Tube CODE STATUS : AND Attestations Medical Necessity Statement*: Patient needs to be in hospital for the management of Severe ARDS 2/2 COVID PNA Coding Level of Care Code 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
[2020-03-22] MEDS: azithromycin 500 MG in sodium chloride 0.9% 250 ML 250 MG IV (17:41)
[2020-03-22] MEDS: dexamethasone 4 mg/mL INJ 6 MG IVP (17:43)
[2020-03-22] MEDS: remdesivir 100 MG in sodium chloride 0.9% (100 ml) 100 ML IV (17:44)
--- NOTE | 2020-03-22 18:10 | P.PN_ITS ---
Subjective Subjective: Interval history: -Patient was proned yesterday evening and back to supine position today morning -FiO2 down to 60% and patient is saturating 93% -Chest x-ray did not reveal any pneumothorax - -Off pressors -ABG today a.m. showed pH 7.11/CO2 56/PO2 76/bicarb 20 -increase respiratory rate to 20 and ABG improved to 7.23/49 -Plan is to prone her tonight and repeat ABG -Good urine output Medications: Reviewed: Yes Vitals/I&O/Wt Last Vital Signs Temp 98.6 F 03/22/20 10:00 Pulse 93 03/22/20 16:53 Resp 20 H 03/22/20 17:21 BP 113/50 03/22/20 16:45 Pulse Ox 92 03/22/20 16:53 03/22/20 03/22/20 03/22/20 06:59 14:59 22:59 Intake Total 1172.199 / 2370.944 340.508 / 340.508 84.933 / 425.441 Output Total 605 / 965 Balance 567.199 / 1405.944 340.508 / 340.508 84.933 / 425.441 Weight last 48 hrs Weight 182 lb 8 oz Weight 181 lb 8.846 oz Physical Exam Narrative: EXAM NARRATIVE: PHYSICAL EXAM: General: lying in bed , sedated and intubated. HEENT:NCAT, PERRLA, EOMI Neck: Supple Lungs: Improved diffuse crackles; 28 Kittitian right chest tube placed on 03/17/2020 Heart: s1/s2, RRR Abd: soft, NT, ND, BS + Normoactive Extremities: 1+ pedal edema DARKROOM TECHNICIAN: sedated and limited DARKROOM TECHNICIAN exam possible. SKIN: no rash LDA: # CVC: Right IJ 03/14/2020 # Chest tubes: 28 Kittitian right chest tube placed on 03/17/2020 #Pa: 03/12/2019 Urinary Catheter Management^: Pa: Cath Placed During This Visit: yes Reason for Continuing Indwelling Catheter: Accurate Measurement of Urinary Outp ut in Critically Ill Patients Urinary Catheter Date of Insertion: 03/12/20 Urinary Catheter Time of Insertion: 12:34 Data : 03/22/20 03:25 03/22/20 02:40 A&P Assessment and plan (1) Acute hypoxemic respiratory failure due to COVID-19: Status: Acute (2) Edema: Status: Acute Qualifiers: Edema type: localized Qualified Code(s): R60.0 - Localized edema (3) Asthma exacerbation in COPD: Status: Acute (4) Von Willebrand disease: Status: Acute (5) Pneumothorax on right: Status: Acute Overall # 79-year-old Ms. Haylie Garcia admitted to viral ICU for acute hypoxic respiratory failure due to ARDS secondary to COVID-19 pneumonia requiring mechanical ventilation complicated by pneumothorax s/p chest tube with persistent air leak. -NEURO: #seizures secondary to hypoxia/Meningioma #Sedation- -Currently on in fentanyl/propofol/Precedex- versed -On Nimbex drip -on keppra PULM: #Acute hypoxic and hypercapneic respiratory failure secondary to ARDS due to COVID pna #h/o asthma #right side pnemothorax 03/14/2020 - iatrogenic s/p central line placement vs covid PNA; S/P 1st chest tube 03/14/2020 followed by thoracic vent in 2nd intercostal space on 03/15/2020 - #Persistent air leak with worsening the right-sided subcutaneous emphysema - placed another 28 Kittitian lateral chest tube on 03/17/2020 and remote thoracic vent # Previous h/o PE -No overnight events -1 session of proning yesterday, second session today paralyzed and proned, on CMV 430/20/14/60 percent FiO2 -Overall net +1.4 L over 24 hours; recommended 1 more dose of Lasix 40 mg -Improved right-sided chest subcutaneous emphysema, no air leak noted in the chest tube chamber, -will leave chest tube in until patient completes 3 proning sessions - Recommended hypertonic saline/hour Mucomyst nebulizations and aggressive akbar ctioning -chest x-ray 03/20/20 extensive diffuse bilateral pulmonary infiltrates which are more prominently in the left lung -Recommended -DuoNeb nebulization every 4 hours scheduled -Increased inflammatory markers CRP, ferritin and repeat every 2 days to trend markers of inflammation -Started on dexamethasone 6 mg daily (previously reported as allergy but patient family confirmed that she has mild tremors with steroids) -Recommended to give vancomycin and aztreonam as patient has documented pen icillin allergy, DC azithromycin CVS: # A fib with RVR -Patient also on amiodarone drip for A. fib RVR; patient is in sinus rhythm and rate is controlled-recommended to switch to p.o. Cardizem -hemodynamically stable -Monitor blood pressure -Echo 09/13/2019: Normal LV EF 55% GI: -Start tube feeding tomorrow -H2 chevy for GI prophylaxis -Normal LFTs RENAL: - Creatinine improved with BUN slightly worsened-check FOBT for other causes -/-200 and last 24 hours -Received Lasix yesterday, net -200 mL, but overall renal functions improving; recommended 1 more dose of Lasix 40 mg daily with albumin (albumin 1.9) -Improved right-sided chest subcutaneous emphysema, no air leak noted in the chest tube chamber, -will leave chest tube in until patient completes 3 proning sessions -Continue pa cath -Avoid nephrotoxins -Monitor BUN/creatinine and electrolytes and supplement accordingly to keep K between 4-4.5, Mg >2 HEM: # h/o Von willbrand Disease - H&H stable -DVT prophylaxis on ELLIQUIS 2.5 MG BID ENDO: -Sugars well controlled -monitor sugars and not on scale coverage ID: #Sepsis secondary to COVID pna -Leukocytosis stable at 23K and T-max 100.6 -Repeat cultures negative -elevated procalcitonin 2.67- can also be due to worseing renal parameters -lactate normal -Recommended vancomycin, aztreonam Prognosis: Critical Disposition: Remains in ICU Code:DNR Plan of care and recommendations conveyed to hospitalist on the case, RN and RT ICU CHECKLIST: Problem list updated Verbal orders reviewed and signed Analgesia: Fentanyl Glycemic Control: Not needed Nutrition: Oral feeding as patient is prone Restraint Renewal (within 24 hrs): Yes Ulcer Prophylaxis: H2 chevy Chemical Thromboprophylaxis: Prophylaxis: elliquis Mechanical Thromboprophylaxis: Yes Need for Central line: Yes requiring any infusions sedation and pressors Need for Pa catheter: Yes for urine output monitoring Critical Care Time (No Overlap): 45 min This patient has a high probability of sudden, clinically significant deterioration, which requires the highest level of physician preparedness to intervene urgently. I managed/supervised life or organ supporting interventions that required frequent physician assessment. I devoted my full attention in the ICU to the direct care of this patient for the period of time indicated above. Time I spent with family or surrogate(s) is included only if the patient was incapable of providing necessary information or participating in decision making. Time devoted to teaching and to any procedures I billed separately is not included. Services Provided: Telemetry review Mechanical Ventilation Hemodynamic interpretation, assessment and management Review and interpretation of CXR Review and interpretation of lab values Review and interpretation of microbiologic data and culture results Review of medications and administration Review and interpretation of Nutrition requirements and management Discussion of management with other consultants and services Clinical update to family members Attestations Medical Necessity Statement*: acute hypoxic respiratory failure due to ARDS secondary to COVID-19 pneumonia requiring mechanical ventilation complicated by pneumothorax s/p chest tube with persistent air leak, intubated and prone Time Spent in Patient Care: Greater than 35 minutes (>than 50% of time spent in counselling and/or direct pt care on unit) . Critical Care Time: Critical Care Time (min): 45 Coding Level of Care Code Established Pt Acute Resume Writer for Chg Fwd Patient Type Established History Comprehensive Exam Comprehensive Medical Decision Making High Complexity Diagnoses Acute hypoxemic respiratory failure due to COVID-19 U07.1; J96.01 Edema R60.0 Edema type: localized Asthma exacerbation in COPD J44.1; J45.901 Von Willebrand disease D68.0 Pneumothorax on right J93.9 Time Spent (min) 45
[2020-03-22 19:02] LABS: ABG PCO2 54.4 mmHg (35-45); ABG PH Result 7.19 (7.35-7.45); Arterial Blood Gas Hematocrit 27.9 % (37-47); Base Excess ABG -7.6 mmol/L (-2.0-2.0); Blood Gas Allen Test Pos; Blood Gas Operator Identificat MONRO; Blood Gas Sample Site Radial, left; Blood Gas Sample Type Arterial; Carboxyhemoglobin 1.1 %THgb (0.4-20.1); HCO3 ABG 20.6 mmol/L (22-26); HGB O2 Sat 95.3 % (95-100); Ionized Calcium Level - ABG 1.3 mmol/L (1.1-1.4); Methemoglobin 0.4 % (0.4-1.5); Oxygen Device VENT; Oxygen Saturation ABG 96.7; PO2 ABG 95.1 mmHg (80.0-100.0); Potassium Level - ABG 4.1 mmol/L (3.5-5.0); Total Hemoglobin 9.1 g/dL (12-16)
[2020-03-22 19:03] LABS: Alveolar-Arterial Oxygen Gradi 34.9 mmHg (5-10); Blood Gas Tidal Volume 0.43
--- NOTE | 2020-03-22 20:00 | PC.NURSE ---
BIS: 31, Train of Fours: 0
--- NOTE | 2020-03-22 20:32 | PC.NURSE ---
Received bedside report from Marie SHELTON. Verified drips, vent settings and chest tube with off going RN and myself. Patient is in prone position. Assumed care at this time.
--- NOTE | 2020-03-22 21:00 | PC.NURSE ---
Train of Fours: 0
--- NOTE | 2020-03-22 22:00 | PC.NURSE ---
BIS: 32, Train of Fours: 0
--- NOTE | 2020-03-22 23:00 | PC.NURSE ---
Train of Fours: 0
[2020-03-23] VITALS (98 sets, daily range): BP systolic 120–151; BP diastolic 51–76; PULSE 72–88; RESP 8–23; TEMP 36.1–37; O2SAT 74–99
--- NOTE | 2020-03-23 | PC.NURSE ---
BIS: 30, Train of Fours: 0
[2020-03-23] MEDS: vancomycin 1,500 MG/300 ML PIGGYBACK 300 MG IV (00:14)
[2020-03-23] MEDS: famotidine 20 mg/2 mL INJ IVP ×3 (00:14→23:33)
[2020-03-23] MEDS: cisatracurium 100 MG in sodium chloride 0.9% 50 ML 8.6 MG IV (00:22)
--- NOTE | 2020-03-23 01:00 | PC.NURSE ---
Train of Fours: 0
--- NOTE | 2020-03-23 02:00 | PC.NURSE ---
BIS: 36, Train of Fours: 0
--- NOTE | 2020-03-23 03:00 | PC.NURSE ---
Train of Fours: 0
[2020-03-23] MEDS: sodium chloride 3.5% neb 4 mL Neb INHALATION ×4 (03:27→19:43)
[2020-03-23 03:48] LABS: ABG PCO2 38.8 mmHg (35-45); ABG PH Result 7.34 (7.35-7.45); Arterial Blood Gas Hematocrit 24.8 % (37-47); Base Excess ABG -4.7 mmol/L (-2.0-2.0); Blood Gas Allen Test Pos; Blood Gas Sample Site Radial, left; Blood Gas Sample Type Arterial; HCO3 ABG 20.7 mmol/L (22-26); Oxygen Device VENT; PO2 ABG 58.8 mmHg (80.0-100.0)
--- NOTE | 2020-03-23 04:00 | PC.NURSE ---
BIS: 41, Train of Fours 0
[2020-03-23 04:18] LABS: Basophils # 0.1 10^3/uL (0.0-0.1); Basophils % 0.4 %; Hematocrit 26.7 % (37.0-47.0); Lymphocytes # 0.9 10^3/uL (0.8-4.8); Lymphocytes % 6.4 %; Mean Corpuscular Hemoglobin 30.5 pg (28.0-34.0); Mean Corpuscular Volume 101.9 fL (81-99); Mean Platelet Volume 11.4 fL (7.4-10.4); Monocytes # 0.5 10^3/uL (0.2-0.9); Monocytes % 3.5 %; Neutrophils % 84.3 %; Nucleated Red Blood Cells # 0.1 /100WBC; Platelet Count 266 10^3/cmm (130-400); Red Blood Count 2.62 10^6/uL (4.1-5.3); Red Cell Distribution Width 15.3 % (12.1-15.1); White Blood Count 13.5 10^3/uL (4.0-10.0)
[2020-03-23 04:43] LABS: Alanine Aminotransferase 7 U/L (0-33); Albumin Level 2.5 g/dL (3.5-5.2); Alkaline Phosphatase 73 IU/L (35-105); Anion Gap 15.6 (5-19); Aspartate Amino Transferase 19 U/L (0-32); Blood Urea Nitrogen 60 mg/dL (8-23); Calcium 8.3 mg/dL (8.5-10.5); Carbon Dioxide 22 mmol/L (22-29); Chloride 114 mmol/L (98-107); Globulin 2.6 g/dL (1.3-4.6); Glucose 135 mg/dL (65-115); Magnesium 2.3 mg/dL (1.7-2.3); Osmolality Calculated 325 mOsm/kg (285-295); Potassium 3.6 mmol/L (3.5-5.1); Sodium 148 mmol/L (136-145); Total Bilirubin 0.3 mg/dL (0.15-1.2); Total Protein 5.1 g/dL (6.6-8.7)
--- NOTE | 2020-03-23 05:00 | PC.NURSE ---
Train of Fours: 0
[2020-03-23 05:31] LABS: Slide Review Slide Review Perform
[2020-03-23] MEDS: propofol 1,000 MG/100 ML INJ 10.1 MG IV (05:51)
--- NOTE | 2020-03-23 06:00 | PC.NURSE ---
BIS: 40, Train of Fours: 0
--- NOTE | 2020-03-23 09:09 | PM.PN ---
Subjective Subjective: Interval history: - Patient was proned overnight - ABG after proning 7.1 954/95/20/96% on CMV 60%/430/14 - Changed to PCV with PIP 26, PEEP 6, plateau 23, respiratory rate 20, generating a minute ventilation of 11 and ABG 7.3 07/08/58/20. -Afebrile, improving white count, stable Hb/HCT -Patient was turned supine today morning; plan to prone another session tonight -Maintaining good urine output; +740 cc over the last 24 hours; renal functions stabilized with BUN 60 and creatinine 1.2 and electrolytes within normal limits -if reduced out put by evening - lasix 40 mg and see if she is responds - if renal functions continue to worsen - recommended to involve Nephrology. Medications: Reviewed: Yes Vitals/I&O/Wt Last Vital Signs Temp 96.8 F L 03/22/20 20:00 Pulse 88 03/23/20 08:30 Resp 18 03/23/20 08:25 BP 136/61 03/23/20 06:15 Pulse Ox 81 L 03/23/20 08:21 03/22/20 03/23/20 03/23/20 22:59 06:59 14:59 Intake Total 542.218 / 982.726 738.163 / 1720.889 Output Total 450 / 450 530 / 980 Balance 92.218 / 532.726 208.163 / 740.889 Weight last 48 hrs Weight 182 lb 8 oz Physical Exam Narrative: EXAM NARRATIVE: PHYSICAL EXAM: General: lying in bed , sedated and intubated. HEENT:NCAT, PERRLA, EOMI Neck: Supple Lungs: Improved diffuse crackles; 28 Filipino right chest tube placed on 03/17/2020 Heart: s1/s2, RRR Abd: soft, NT, ND, BS + Normoactive Extremities: 1+ pedal edema ACADEMIC AFFAIRS VICE PRESIDENT: sedated and limited ACADEMIC AFFAIRS VICE PRESIDENT exam possible. SKIN: no rash LDA: # CVC: Right IJ 03/14/2020 # Chest tubes: 28 Filipino right chest tube placed on 03/17/2020 #Pa: 03/12/2019 Urinary Catheter Management^: Pa: Cath Placed During This Visit: yes Reason for Continuing Indwelling Catheter: Accurate Measurement of Urinary Output in Critically Ill Patients Urinary Catheter Date of Insertion: 03/12/20 Urinary Catheter Time of Insertion: 12:34 Data : 03/23/20 03:30 03/23/20 03:30 A&P Assessment and plan (1) Acute hypoxemic respiratory failure due to COVID-19: Status: Acute (2) Edema: Status: Acute Qualifiers: Edema type: localized Qualified Code(s): R60.0 - Localized edema (3) Asthma exacerbation in COPD: Status: Acute (4) Von Willebrand disease: Status: Acute (5) Pneumothorax on right: Status: Acute Overall # 79-year-old Ms. Haylie Garcia admitted to viral ICU for acute hypoxic respiratory failure due to ARDS secondary to COVID-19 pneumonia requiring mechanical ventilation complicated by pneumothorax s/p chest tube with persistent air leak. -NEURO: #seizures secondary to hypoxia/Meningioma #Sedation- -Currently on in fentanyl/propofol/Precedex- versed -On Nimbex drip -on keppra PULM: #Acute hypoxic and hypercapneic respiratory failure secondary to ARDS due to COVID pna #h/o asthma #right side pnemothorax 03/14/2020 - iatrogenic s/p central line placement vs covid PNA; S/P 1st chest tube 03/14/2020 followed by thoracic vent in 2nd intercostal space on 03/15/2020 - #Persistent air leak with worsening the right-sided subcutaneous emphysema -placed another 28 Filipino lateral chest tube on 03/17/2020 and remote thoracic vent # Previous h/o PE -No overnight events -2 session of proning yesterday, third session tonight -Currently on PCV respiratory rate 18/PIP 27/PEEP 10/FiO2 100% -Overall net 760 cc over 24 hours; recommended 1 more dose of Lasix 40 mg -last cxr 03/22/20: Improved right-sided chest subcutaneous emphysema, no air leak noted in the chest tube chamber, -will leave chest tube in until patient completes 3 proning sessions - Recommended hypertonic saline/hour Mucomyst nebulizations and aggressive suctioning -Recommended -DuoNeb nebulization every 4 hours scheduled -Increased inflammatory markers CRP, ferritin and repeat every 2 days to trend markers of inflammation -Started on dexamethasone 6 mg daily (previously reported as allergy but patient family confirmed that she has mild tremors with steroids) -Recommended to give vancomycin and aztreonam as patient has documented penicillin allergy, DC azithromycin CVS: # A fib with RVR -Patient on amiodarone p.o. -hemodynamically stable -Monitor blood pressure -Echo 09/13/2019: Normal LV EF 55% GI: -Start tube feeding tomorrow after 3rd session of proning -H2 chevy for GI prophylaxis -Normal LFTs RENAL: - Creatinine improved with BUN slightly worsened-check FOBT for other causes -/-200 and last 24 hours - net -700 mL, but overall renal functions plateaued; - if reduced out put by evening - lasix 40 mg and see if she is responds - if renal functions continue to worsen - recommended to involve Nephrology. -Continue pa cath -Avoid nephrotoxins -Monitor BUN/creatinine and electrolytes and supplement accordingly to keep K between 4-4.5, Mg >2 HEM: # h/o Von willbrand Disease - H&H stable -DVT prophylaxis on ELLIQUIS 2.5 MG BID ENDO: -Sugars well controlled -monitor sugars and not on scale coverage ID: #Sepsis secondary to COVID pna -Leukocytosis improving and afebrile -Repeat cultures negative -elevated procalcitonin 2.67- can also be due to worseing renal parameters -lactate normal -Recommended vancomycin, aztreonam Prognosis: Critical Disposition: Remains in ICU Code:DNR Plan of care and recommendations conveyed to hospitalist on the case, RN and RT ICU CHECKLIST: Problem list updated Verbal orders reviewed and signed Analgesia: Fentanyl Glycemic Control: Not needed Nutrition: hold feeding as patient is being proned Restraint Renewal (within 24 hrs): Yes Ulcer Prophylaxis: H2 chevy Chemical Thromboprophylaxis: Prophylaxis: elliquis Mechanical Thromboprophylaxis: Yes Need for Central line: Yes requiring any infusions sedation and pressors Need for Pa catheter: Yes for urine output monitoring Critical Care Time (No Overlap): 45 min This patient has a high probability of sudden, clinically significant deterioration, which requires the highest level of physician preparedness to intervene urgently. I managed/supervised life or organ supporting interventions that required frequent physician assessment. I devoted my full attention in the ICU to the direct care of this patient for the period of time indicated above. Time I spent with family or surrogate(s) is included only if the patient was incapable of providing necessary information or participating in decision making. Time devoted to teaching and to any procedures I billed separately is not included. Services Provided: Telemetry review Mechanical Ventilation Hemodynamic interpretation, assessment and management Review and interpretation of CXR Review and interpretation of lab values Review and interpretation of microbiologic data and culture results Review of medications and administration Review and interpretation of Nutrition requirements and management Discussion of management with other consultants and services Clinical update to family members Attestations Medical Necessity Statement*: acute hypoxic respiratory failure due to ARDS secondary to COVID-19 pneumonia requiring mechanical ventilation complicated by pneumothorax s/p chest tube with persistent air leak. Time Spent in Patient Care: Greater than 35 minutes (>than 50% of time spent in counselling and/or direct pt care on unit). Critical Care Time: Critical Care Time (min): 45 Coding Level of Care Code Established Pt Acute Excellence Specialist for Chg Fwd Patient Type Established History Comprehensive Exam Comprehensive Medical Decision Making High Complexity Diagnoses Acute hypoxemic respiratory failure due to COVID-19 U07.1; J96.01 Edema R60.0 Edema type: localized Asthma exacerbation in COPD J44.1; J45.901 Von Willebrand disease D68.0 Pneumothorax on right J93.9 Time Spent (min) 45
[2020-03-23] MEDS: apixaban 5 mg Tablet 2.5 MG PO ×2 (09:24→21:42)
[2020-03-23] MEDS: amiodarone 200 mg Tablet 400 MG PO ×2 (09:26→18:16)
[2020-03-23 12:50] LABS: ABG PCO2 36.5 mmHg (35-45); ABG PH Result 7.37 (7.35-7.45); Arterial Blood Gas Hematocrit 25.6 % (37-47); Base Excess ABG -3.6 mmol/L (-2.0-2.0); Blood Gas Allen Test Pos; Blood Gas Operator Identificat CAK; Blood Gas Sample Site Radial, left; Blood Gas Sample Type Arterial; HCO3 ABG 21.2 mmol/L (22-26); Oxygen Device VENT
--- NOTE | 2020-03-23 13:11 | PM.PN ---
Subjective Subjective: Interval history: Ms.Dennis Stallings is intubated, sedated, paralysed and proned.She has remained afebrile. Her vitals,labs, ABG,Xray chest have been reviewed. Medications: Reviewed: Yes Vitals/I&O/Wt Last Vital Signs Temp 98.6 F 03/23/20 12:00 Pulse 76 03/23/20 12:45 Resp 18 03/23/20 12:00 BP 131/51 03/23/20 12:45 Pulse Ox 90 03/23/20 12:45 03/22/20 03/23/20 03/23/20 22:59 06:59 14:59 Intake Total 542.218 / 982.726 738.163 / 1720.889 550 / 550 Output Total 450 / 450 530 / 980 150 / 150 Balance 92.218 / 532.726 208.163 / 740.889 400 / 400 Weight last 48 hrs Weight 82.781 kg Physical Exam Narrative: EXAM NARRATIVE: Narrative EXAM NARRATIVE: COMMON NORMALS: normocephalic and atraumatic HEAD & SCALP: normocephalic and atraumatic Eye GENERAL EYE:subconjuctival hemorrhage present in rt eye. Chest OTHER: B/L Basal Crackles present in both solorio.Diminished breath sound B/L. 28 Belarusian right chest tube placed on 03/17/2020 Resp COMMON NORMALS: normal respiratory effort, No retractions and No use of accessory muscles EFFORT & INSPECTION: Yes symmetric chest movement Cardio OTHER: Irregularly Irregular rhythm . S1S2 Of variable intensity. GI COMMON NORMALS: Normal to inspection, nondistended, normoactive bowel sounds present, Soft to palpation, non-tender, No hepatosplenomegaly present and no masses AUSCULTATION: Yes normoactive bowel sounds PALPATION: Yes Soft to palpation and Yes No hepatosplenomegaly present RECTAL EXAM: deferred Urinary Catheter Management^: Jimenez: Cath Placed During This Visit: yes Reason for Continuing Indwelling Catheter: Accurate Measurement of Urinary Output in Critically Ill Patients Urinary Catheter Date of Insertion: 03/12/20 Urinary Catheter Time of Insertion: 12:34 Data : 03/23/20 03:30 03/23/20 03:30 A&P Assessment and plan (1) ARDS (adult respiratory distress syndrome): Status: Acute (2) Acute hypoxemic respiratory failure due to COVID-19: Status: Acute (3) Asthma exacerbation in COPD: Status: Acute (4) Von Willebrand disease: Status: Acute (5) Sleep apnea: Status: Acute (6) Pulmonary embolus: Status: Acute Acute Hypoxic respiratory failure 2/2 Severe ARDS 2/2 COVID-19/Rt sided PTX - 03/07 - COVID-19 positive - Chest xray - 03/22: There are extensive diffuse bilateral pulmonary infiltrates which are more prominently in the left lung. These have not significantly changed. ABG : 03/23: Ph : 7.37, PCO2: 36, PO2:53, FIO2: 75 % P/F: 53/0.75 - Ferritin 361, LDH of 493. - S/p prednisone prior to arrival / Decadron 10 mg IV x 1 in ER. -Initially steroids were held as She has undocumented allergy to steroid - Exact allergic reaction unknown - Will Initiate decadron 6 mg i.v Daily to give her the benefit of steroids.(03/21) - Remdesivir 200 mg IV x 1. - Will do extended 10 day course of Remdesivir -S/P 2 bag Plasma (03/17 ) - Eliquis 2.5 mg q12 h daily - Continue albuterol - Advair 1 puff BID - Patient was intubated and placed on MV ( 03/14/20) - Continue sedation with Propofol/Fentanyl /Versed - on Nimbus - Day 3 of Plasma - Maintain RASS neg 3 - Pulmonary medicine consulted - Monitor CXR Rt Sided Pneumothorax - S/p chest tube placement - Noted to have persistent leak - CT chest w/o contrast performed - Thoravent chest tube placed but removed on 03/17 addition - Initial chest tube removed was removed followed by placement Of new 28 Belarusian drain in rt axillary region ( 03/17 ) - CTS on board - ABG Sepsis due to COVID19 with super-imposed Bacterial - Initially Persistent fever has been afebrile lately - Continue remdesivir as noted above - Continue vancomycin pharmacy to dose - Aztreonam 1g IV q12hr (Stopped on 03/17 ) -Imipenam 500 mg q6 h ( 03/17 -TD ) -Azithromycin 500 MG I.V Q24 H (03-17 ) -Off levophed - 03/14/20 - Blood culture x 2 - negative -Repeat Blood Culture Drawn on 03/18 :NTD - 03/14/20 - Sputum culture - negative - Tylenol PRN for fever - Chest x-ray - Droplet precautions Atrial fibrillation with RVR:Currently rate controlled - Initially on Cardizem gtt ( stopped on 03/18 ) - Switched to Amiodarone Drip ( 03/18 ),later DC - Currently on PO Amiodarone 200 mg BID - ECHO : LVEF : Normal, NO RWMA, No pericardial effusion. New-onset Seizure on hx of Meningioma - Started on Keppra 500 mg IV BID during this admission - No prior documented seizure disorder - Will consider EEG once off sedatives - CT head - No acute intra-cranial bleed - Seizure precautions - Versed/Ativan PRN for seizure like activity Von Willibrands disease / Pulmonary embolism - Eliquis 2.5 mg PO BID - Continue SCDs Pernicious Anemia - B12 replacement prior DVT ppx - Eliquis 2.5 mg PO BID Lines and Tubes : Rt I.J Rt Chest Tube CODE STATUS : AND Attestations Medical Necessity Statement*: Patient needs to be in hospital for the management of severe ARDS 2/2 COVID PNA Coding Level of Care Code Acute Senior Technical Support Engineer for [facility] 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
--- NOTE | 2020-03-23 15:14 | PC.NURSE ---
Late note - At 0830, patient was turned form prone to supine.
[2020-03-23] MEDS: cisatracurium 100 MG in sodium chloride 0.9% 50 ML 9.9 MG IV (16:25)
[2020-03-23] MEDS: azithromycin 500 MG in sodium chloride 0.9% 250 ML 250 MG IV (16:48)
[2020-03-23] MEDS: dexamethasone 4 mg/mL INJ 6 MG IVP (16:53)
[2020-03-23] MEDS: propofol 1,000 MG/100 ML INJ 7.6 MG IV (17:00)
--- NOTE | 2020-03-23 17:59 | PC.NURSE ---
Nurse Started Paralytic Nimbex. 04/14 acheived on train of 4. Patient was proned.
[2020-03-23] MEDS: remdesivir 100 MG in sodium chloride 0.9% (100 ml) 100 ML IV (18:15)
[2020-03-24] VITALS (37 sets, daily range): BP systolic 134–179; BP diastolic 57–71; PULSE 75–94; RESP 18–25; TEMP 36.4–37.7; O2SAT 82–96
[2020-03-24] MEDS: propofol 1,000 MG/100 ML INJ 2.5 MG IV (00:01)
[2020-03-24] MEDS: vancomycin 1,500 MG/300 ML PIGGYBACK 200 MG IV (00:55)
[2020-03-24] MEDS: cisatracurium 100 MG in sodium chloride 0.9% 50 ML 11.1 MG IV (00:58)
[2020-03-24 04:24] LABS: ABG PH Result 7.23 (7.35-7.45); Base Excess ABG -5.5 mmol/L (-2.0-2.0); Blood Gas Allen Test YES; Oxygen Device VENT; PO2 ABG 72.3 mmHg (80.0-100.0)
[2020-03-24 04:25] LABS: Blood Gas Drawn By ED; Blood Gas Sample Site RIGHT RADIAL; Blood Gas Sample Type ARTERIAL
[2020-03-24 04:26] LABS: Arterial Blood Gas Hematocrit 28.9 % (37-47)
--- NOTE | 2020-03-24 04:56 | PC.NURSE ---
Train of Four 03/23/20 @ 1900 - 2/4 03/23/20 @ 2000 - 2/4 03/23/20 @ 2100 - 3/03/23/20 @ 2200 - 2/03/23/20 @ 2300 - 2/03/24/20 @ 0000 - 4/03/24/20 @ 0100 - 2/03/24/20 @ 0200 - 2/03/24/20 @ 0300 - 3/03/24/20 @ 0400 - 3/03/24/20 @ 0500 - 3/ BIS 03/23/20 @ 1900 - 21 03/23/20 @ 2100 - 14 03/23/20 @ 2200 - 16 03/23/20 @ 2300 - 20 03/24/20 @ 0000 - 38 03/24/20 @ 0100 - 24 03/24/20 @ 0200 - 22 03/24/20 @ 0300 - 18 03/24/20 @ 0400 - 36 03/24/20 @ 0500 - 24
[2020-03-24] MEDS: apixaban 5 mg Tablet 2.5 MG PO ×2 (06:14→21:57)
--- NOTE | 2020-03-24 07:11 | PC.NURSE ---
Train of Four 03/23/20 @ 1900 - 2/03/23/20 @ 2000 - 2/03/23/20 @ 2100 - 103/23/20 @ 2200 - 203/23/20 @ 2300 - 203/24/20 @ 0000 - 003/24/20 @ 0100 - 04/1403/24/20 @ 0200 - 203/24/20 @ 0300 - 103/24/20 @ 0400 - 03/1403/24/20 @ 0500 - 03/14 BIS 03/23/20 @ 1900 - 21 03/23/20 @ 2100 - 14 03/23/20 @ 2200 - 16 03/23/20 @ 2300 - 20 03/24/20 @ 0000 - 38 03/24/20 @ 0100 - 24 03/24/20 @ 0200 - 22 03/24/20 @ 0300 - 18 03/24/20 @ 0400 - 36 03/24/20 @ 0500 - 24
[2020-03-24] MEDS: sodium chloride 3.5% neb 4 mL Neb INHALATION ×2 (08:18→19:53)
[2020-03-24] MEDS: amiodarone 200 mg Tablet PO ×2 (08:50→18:20)
[2020-03-24] MEDS: famotidine 20 mg/2 mL INJ IVP (11:04)
[2020-03-24 13:27] LABS: Hematocrit 27.4 % (37.0-47.0); Hemoglobin 8.3 g/dL (11.5-15.3); Mean Corpuscular HGB Conc 30.3 g/dL (30.0-36.0); Mean Corpuscular Hemoglobin 30.7 pg (28.0-34.0); Mean Corpuscular Volume 101.5 fL (81-99); Mean Platelet Volume 11.3 fL (7.4-10.4); Platelet Count 274 10^3/cmm (130-400); Red Cell Distribution Width 15.4 % (12.1-15.1); White Blood Count 10.9 10^3/uL (4.0-10.0)
[2020-03-24] MEDS: FUROsemide 10 mg/mL SDV 4mL 40 MG IVP (13:56)
[2020-03-24 13:57] LABS: Slide Review Slide Review Perform
[2020-03-24 13:58] LABS: Absolute Segmented Neutrophil 8.7 10/cmm (1.6-7.1); Band Neutrophils Absolute 0.4 10^3/cmm (0.0-1.2); Eosinophils 0 %; Lymphocytes 6 %; Monocytes Absolute 0.2 10^3/cmm (0.1-0.6); Segmented Neutrophils 80 %; Total Cells Counted 100 (0-100)
[2020-03-24 13:59] LABS: Absolute Neutrophil 9.2 10^3/cmm (1.4-6.5); Platelet Estimate Normal (Normal); Polychromasia 1+
[2020-03-24 14:00] LABS: Alanine Aminotransferase 6 U/L (0-33); Albumin Level 2.4 g/dL (3.5-5.2); Alkaline Phosphatase 57 IU/L (35-105); Anion Gap 14.6 (5-19); Aspartate Amino Transferase 16 U/L (0-32); Blood Urea Nitrogen 64 mg/dL (8-23); Calcium 8.2 mg/dL (8.5-10.5); Carbon Dioxide 22 mmol/L (22-29); Chloride 119 mmol/L (98-107); Globulin 2.5 g/dL (1.3-4.6); Glucose 129 mg/dL (65-115); Magnesium 2.5 mg/dL (1.7-2.3); Osmolality Calculated 334 mOsm/kg (285-295); Potassium 3.6 mmol/L (3.5-5.1); Sodium 152 mmol/L (136-145); Total Bilirubin 0.2 mg/dL (0.15-1.2); Total Protein 4.9 g/dL (6.6-8.7)
--- NOTE | 2020-03-24 14:55 | PC.SOCIAL ---
*IMM* Updated Patient not discharging in the next couple days. Critical.
[2020-03-24] MEDS: dexamethasone 4 mg/mL INJ 6 MG IVP (15:42)
[2020-03-24] MEDS: azithromycin 500 MG in sodium chloride 0.9% 250 ML 250 MG IV (16:08)
--- NOTE | 2020-03-24 17:16 | PM.PN ---
Subjective Subjective: Interval history: Seen Ms. Stallings today morning Ms.Dennis Stallings is intubated, sedated, paralysed and proned. She has remained afebrile. Her vitals,labs, ABG,Xray chest have been reviewed. Plan is to make her supine at 11 AM and slowly come off paralytic and sedation and check her mentation Medications: Reviewed: Yes Vitals/I&O/Wt Last Vital Signs Temp 99.9 F H 03/24/20 16:00 Pulse 90 03/24/20 17:00 Resp 24 H 03/24/20 15:22 BP 164/69 03/24/20 17:00 Pulse Ox 89 L 03/24/20 17:00 03/24/20 03/24/20 03/24/20 06:59 14:59 22:59 Intake Total 666.324 / 2220.531 218.032 / 218.032 Output Total 325 / 1275 420 / 420 1525 / 1945 Balance 341.324 / 945.531 -201.968 / -201.968 -1525 / -1726.968 Weight last 48 hrs Weight 184 lb 3.2 oz Physical Exam Narrative: EXAM NARRATIVE: PHYSICAL EXAM: General: lying in bed in prone position, sedated and intubated. HEENT:NCAT, PERRLA, EOMI Neck: Supple Lungs: Improved diffuse crackles; 28 Khmer right chest tube placed on 03/17/2020 Heart: s1/s2, RRR Abd: soft, NT, ND, BS + Normoactive Extremities: 1+ pedal edema AUTOMATION AND CONTROL ENGINEER: sedated and limited AUTOMATION AND CONTROL ENGINEER exam possible. SKIN: no rash LDA: # CVC: Right IJ 03/14/2020 # Chest tubes: 28 Khmer right chest tube placed on 03/17/2020 #Pa: 03/12/2019 Urinary Catheter Management^: Pa: Cath Placed During This Visit: yes Reason for Continuing Indwelling Catheter: Accurate Measurement of Urinary Output in Critically Ill Patients Urinary Catheter Date of Insertion: 03/12/20 Urinary Catheter Time of Insertion: 12:34 Data : 03/24/20 11:29 03/24/20 11:29 Micro: Microbiology 03/18/20 12:45 Blood Culture - Final Blood NO GROWTH AFTER 5 DAYS 03/18/20 12:30 Blood Culture - Final Blood NO GROWTH AFTER 5 DAYS A&P Assessment and plan (1) Acute hypoxemic respiratory failure due to COVID-19: Status: Acute (2) Edema: Status: Acute Qualifiers: Edema type: localized Qualified Code(s): R60.0 - Localized edema (3) Asthma exacerbation in COPD: Status: Acute (4) Von Willebrand disease: Status: Acute (5) Pneumothorax on right: Status: Acute Overall # 79-year-old Ms. Haylie Garcia admitted to viral ICU for acute hypoxic respiratory failure due to ARDS secondary to COVID-19 pneumonia requiring mechanical ventilation complicated by pneumothorax s/p chest tube with persistent air leak. -NEURO: #seizures secondary to hypoxia/Meningioma #Sedation- -Currently proned and she is on propofol & Nimbex drip -on keppra -Plan is to make her supine at 11 AM and slowly come off paralytic and sedation and check her mentation PULM: #Acute hypoxic and hypercapneic respiratory failure secondary to ARDS due to COVID pna #h/o asthma #right side pnemothorax 03/14/2020 - iatrogenic s/p central line placement vs covid PNA; S/P 1st chest tube 03/14/2020 followed by thoracic vent in 2nd intercostal space on 03/15/2020 - #Persistent air leak with worsening the right-sided subcutaneous emphysema -placed another 28 Khmer lateral chest tube on 03/17/2020 and remote thoracic vent # Previous h/o PE -No overnight events -3 session of proning; today after making her supine will taper sedation and paralytic and try to wake her up -Continue with spontaneous awakening trials and breathing trials tomorrow and aim for extubation -Currently on PCV respiratory rate 18/PIP 27/PEEP 10/FiO2 60% -Overall net 945 cc over 24 hours; recommended 1 more dose of Lasix 40 mg -last cxr 03/22/20: Improved right-sided chest subcutaneous emphysema, no air leak noted in the chest tube chamber, -Chest x-ray tomorrow morning and will remove chest tube - Recommended hypertonic saline/hour Mucomyst nebulizations and aggressive suctioning -Recommended -DuoNeb nebulization every 4 hours scheduled -Increased inflammatory markers CRP, ferritin and repeat every 2 days to trend markers of inflammation -on dexamethasone 6 mg daily (previously reported as allergy but patient family confirmed that she has mild tremors with steroids) -Recommended to give vancomycin and aztreonam as patient has documented penicillin allergy, DC azithromycin CVS: # A fib with RVR -Patient on amiodarone p.o. -hemodynamically stable -Monitor blood pressure -Echo 09/13/2019: Normal LV EF 55% GI: -Start tube feeding tomorrow -H2 chevy for GI prophylaxis -Normal LFTs RENAL: -Worsening renal functions -We will give albumin and Lasix - 980 cc last 24 hours - if renal functions continue to worsen - recommended to involve Nephrology. -Continue pa cath -Avoid nephrotoxins -Monitor BUN/creatinine and electrolytes and supplement accordingly to keep K between 4-4.5, Mg >2 HEM: # h/o Von willbrand Disease - H&H stable -DVT prophylaxis on ELLIQUIS 2.5 MG BID ENDO: -Sugars well controlled -monitor sugars and not on scale coverage ID: #Sepsis secondary to COVID pna -Leukocytosis improving and afebrile -Repeat cultures negative -elevated procalcitonin 2.67- can also be due to worseing renal parameters -lactate normal -Recommended vancomycin, aztreonam Prognosis: Critical Disposition: Remains in ICU Code:DNR Plan of care and recommendations conveyed to hospitalist on the case, RN and RT ICU CHECKLIST: Problem list updated Verbal orders reviewed and signed Analgesia: Fentanyl Glycemic Control: Not needed Nutrition: hold feeding as patient is being proned Restraint Renewal (within 24 hrs): Yes Ulcer Prophylaxis: H2 chevy Chemical Thromboprophylaxis: Prophylaxis: elliquis Mechanical Thromboprophylaxis: Yes Need for Central line: Yes requiring any infusions sedation and pressors Need for Pa catheter: Yes for urine output monitoring Critical Care Time (No Overlap): 45 min This patient has a high probability of sudden, clinically significant deterioration, which requires the highest level of physician preparedness to intervene urgently. I managed/supervised life or organ supporting interventions that required frequent physician assessment. I devoted my full attention in the ICU to the direct care of this patient for the period of time indicated above. Time I spent with family or surrogate(s) is included only if the patient was incapable of providing necessary information or participating in decision making. Time devoted to teaching and to any procedures I billed separately is not included. Services Provided: Telemetry review Mechanical Ventilation Hemodynamic interpretation, assessment and management Review and interpretation of CXR Review and interpretation of lab values Review and interpretation of microbiologic data and culture results Review of medications and administration Review and interpretation of Nutrition requirements and management Discussion of management with other consultants and services Clinical update to family members Attestations Medical Necessity Statement*: acute hypoxic respiratory failure due to ARDS secondary to COVID-19 pneumonia requiring mechanical ventilation complicated by pneumothorax s/p chest tube with persistent air leak. Time Spent in Patient Care: Greater than 35 minutes (>than 50% of time spent in counselling and/or direct pt care on unit). Critical Care Time: Critical Care Time (min): 45 Coding Level of Care Code Established Pt Acute Fourth Mate for Chg Fwd Patient Type Established History Comprehensive Exam Comprehensive Medical Decision Making High Complexity Diagnoses Acute hypoxemic respiratory failure due to COVID-19 U07.1; J96.01 Edema R60.0 Edema type: localized Asthma exacerbation in COPD J44.1; J45.901 Von Willebrand disease D68.0 Pneumothorax on right J93.9 Time Spent (min) 45
--- NOTE | 2020-03-24 17:35 | PM.PN ---
Subjective Subjective: Interval history: Hospital course, labs and vitals noted. Today morning on evaluation patient is intubated and sedated. He is on fentanyl and propofol. Has remained medically stable afebrile last 24 hours. Medications: Reviewed: Yes Vitals/I&O/Wt Last Vital Signs Temp 99.9 F H 03/24/20 16:00 Pulse 90 03/24/20 17:00 Resp 25 H 03/24/20 17:20 BP 164/69 03/24/20 17:00 Pulse Ox 89 L 03/24/20 17:00 03/24/20 03/24/20 03/24/20 06:59 14:59 22:59 Intake Total 666.324 / 2220.531 218.032 / 218.032 Output Total 325 / 1275 420 / 420 1525 / 1945 Balance 341.324 / 945.531 -201.968 / -201.968 -1525 / -1726.968 Weight last 48 hrs Weight 83.552 kg Physical Exam Narrative: EXAM NARRATIVE: General: Intubated, sedated HEENT: PERRLA, pupils bilaterally equal and reactive Chest: Bilateral coarse crackles present rhonchi present, right more than left CVS: S1-S2 regular, no murmurs, no tachycardia, no gallops, no rubs Abdomen: Soft, nontender, no organomegaly, bowel sounds present Neuro: Sedated Ext: Bilateral extremities edema 1+. Urinary Catheter Management^: Jimenez: Cath Placed During This Visit: yes Reason for Continuing Indwelling Catheter: Accurate Measurement of Urinary Output in Critically Ill Patients Urinary Catheter Date of Insertion: 03/12/20 Urinary Catheter Time of Insertion: 12:34 Data : 03/24/20 11:29 03/24/20 11:29 Micro: Microbiology 03/18/20 12:45 Blood Culture - Final Blood NO GROWTH AFTER 5 DAYS 03/18/20 12:30 Blood Culture - Final Blood NO GROWTH AFTER 5 DAYS A&P Assessment and plan (1) ARDS (adult respiratory distress syndrome): Status: Acute (2) Acute hypoxemic respiratory failure due to COVID-19: Status: Acute (3) Asthma exacerbation in COPD: Status: Acute (4) Von Willebrand disease: Status: Acute (5) Sleep apnea: Status: Acute (6) Pulmonary embolus: Status: Acute Additional A&P Information ARDS: Secondary to COVID-19 pneumonia and possible superadded infection: Patient is already completed course of remdesivir, convalescent plasma and multiple courses of antibiotics. Appreciate pulmonology recommendations. Stop remdesivir, dexamethasone. Continue sedation with propofol, fentanyl. Patient has finished 3-day course of proning. Check proBNP, procalcitonin, MRSA swab, LDH, fungal. Stop imipenem, azithromycin. If MRSA is negative can stop vancomycin as well. Patient has remained afebrile. Continue to wean off ventilator keeping saturation over 90%. Daily ABGs. Daily sedation vacation. Start patient on tube feeds for nutrition. Patient has been intubated for more than 10 days now. Start patient on DuoNebs every 4 hours, budesonide twice daily. Echocardiogram shows a normal EF. We will try to keep patient negative. Start patient on IV Lasix 40 mg daily. Hypernatremia: Sodium 152. Free water deficit over 2 L. Start patient on tube feeds with free water flushes 200 cc every 4 hours. Lasix 40 mg IV daily with albumin every 8 hours. Atrial fibrillation: Rapid ventricular response resolved. Continue with amiodarone 200 mg twice daily. New onset seizures: History of meningioma: Continue seizure precautions. Continue with current dose of Keppra. History of von Willebrand's: Continue with Eliquis. Continue to monitor hemoglobin. Tube feeds for nutrition. Eliquis for DVT prophylaxis Famotidine for PUD prophylaxis. Allow natural DNI. Severely guarded prognosis. Appreciate pulmonology recommendations. Attestations Medical Necessity Statement*: Requires further hospitalization for management of ARDS in the setting of COVID-19 pneumonia, hypernatremia, intubated status Critical Care Time: Critical Care Time (min): 80 Coding Level of Care Code Acute Front End Assistant for [facility] 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
[2020-03-24 18:19] LABS: ABG PCO2 36.5 mmHg (35-45); ABG PH Result 7.42 (7.35-7.45); Arterial Blood Gas Hematocrit 28.9 % (37-47); Base Excess ABG -0.4 mmol/L (-2.0-2.0); Blood Gas Allen Test Pos; Blood Gas Operator Identificat Anonymous; Blood Gas Sample Site Radial, left; Blood Gas Sample Type Arterial; HCO3 ABG 23.8 mmol/L (22-26); PO2 ABG 61.6 mmHg (80.0-100.0)
[2020-03-24 18:20] LABS: Oxygen Device VENT
[2020-03-24 18:55] LABS: Procalcitonin 0.86 ng/mL (0-0.5)
[2020-03-24 18:56] LABS: NT Pro B Type Natriuretic Pept 19776 pg/mL (0-450); Thyroid Stimulating Hormone 0.73 uIU/mL (0.27-4.20)
[2020-03-24 19:07] LABS: Iron 48 ug/dL (37-145); Percent Saturation 28.2 % (20-50); Total Iron Binding Capacity 170 mcg/dl; Unsaturated Iron Binding 122 ug/dL (112-347)
[2020-03-24] MEDS: propofol 1,000 MG/100 ML INJ 5.1 MG IV (19:44)
[2020-03-24] MEDS: budesonide 0.5 mg/2 mL Neb INHALATION (19:51)
[2020-03-24] MEDS: ipratropium-albuterol 3 mL Neb INHALATION (20:35)
[2020-03-25] VITALS (42 sets, daily range): BP systolic 111–182; BP diastolic 53–90; PULSE 86–116; RESP 16–24; TEMP 37.3–38; O2SAT 87–96
[2020-03-25 00:08] LABS: Vancomycin Trough 33.4 ug/mL (10-15)
[2020-03-25] MEDS: famotidine 20 mg/2 mL INJ IVP ×3 (00:59→23:13)
[2020-03-25] MEDS: ipratropium-albuterol 3 mL Neb INHALATION ×4 (02:47→20:08)
[2020-03-25 04:43] LABS: ABG PCO2 36.4 mmHg (35-45); ABG PH Result 7.45 (7.35-7.45); Arterial Blood Gas Hematocrit 25.1 % (37-47); Blood Gas Sample Type Arterial; PO2 ABG 52.8 mmHg (80.0-100.0)
[2020-03-25 04:44] LABS: Blood Gas Operator Identificat HARKR; Blood Gas Sample Site Brachial, right; Oxygen Device VENT
--- NOTE | 2020-03-25 05:00 | USCV_ITS ---
Haylie Garcia Age: 79 Gender: F : 1940 Exam Date: 03/25/2020 05:50 Ordering Phys: Wilton Norton MD Technologist: Rin Lozano Exam Location: [facility] – [place] Indication: COVID AND INTUBATED BP: 166 / 65 HR: 91 Rhythm: Sinus Technical Quality: Adequate MEASUREMENTS (Male / Female) Normal Values 2D ECHO LV Diastolic Diameter PLAX 4.7 cm 4.2 - 5.9 / 3.9 - 5.3 cm LV Systolic Diameter PLAX 2.5 cm LV Chamber Size 3.8 cm IVS Diastolic Thickness 1.2 cm 0.6 - 1.0 / 0.6 - 0.9 cm IVS Systolic Thickness 1.4 cm LVPW Diastolic Thickness 1.0 cm 0.6 - 1.0 / 0.6 - 0.9 cm LVPW Systolic Thickness 1.3 cm RV Chamber Size 2.7 cm LVOT Diameter 2.1 cm LV Ejection Fraction 2D Teich 79.4 % LV Ejection Fraction MOD 2C 39.8 % LV Ejection Fraction 2C AL 40.6 % LA Diameter 3.8 cm LA Width 3.6 cm LA Height 4.8 cm RA Width 2.7 cm RA Height 4.0 cm Aorta at Sinotubular Diameter 3.3 cm M-MODE LV Diastolic Diameter MM 5.1 cm 4.2 - 5.9 / 3.9 - 5.3 cm LV Systolic Diameter MM 2.6 cm LV Ejection Fraction MM Teich 80.1 % IVS Diastolic Thickness MM 1.2 cm 0.6 - 1.0 / 0.6 - 0.9 cm IVS Systolic Thickness MM 1.3 cm LVPW Diastolic Thickness MM 1.0 cm 0.6 - 1.0 / 0.6 - 0.9 cm LVPW Systolic Thickness MM 2.0 cm RV Diastolic Diameter MM 2.0 cm Aortic Annulus Diameter 3.5 cm LA Ao Ratio MM 1.3 MV E Point Septal Separation 0.5 cm DOPPLER AV Peak Velocity 208.0 cm/s LVOT Peak Velocity 95.0 cm/s AV Area Cont Eq vti 2.5 cm squared AV Area Cont Eq pk 1.6 cm squared MV Area PHT 3.5 cm squared Mitral E to A Ratio 1.3 MV E' Velocity 70.0 cm/s Mitral E to MV E' Ratio 14.9 Mitral E to LV E' Lateral Ratio 14.7 Mitral E to LV E' Septal Ratio 15.0 TR Peak Velocity 320.0 cm/s TR Peak Gradient 41.0 mmHg TR Mean Velocity 253.4 cm/s TR Mean Gradient 28.5 mmHg TR Velocity Time Integral 106.7 cm TV Peak E Velocity 64.0 cm/s Right Atrial Pressure 15.0 mmHg Pulmonary Artery Systolic Pressu 56.0 mmHg PV Peak Velocity 82.0 cm/s RV Acceleration Time 0.1 s RV Ejection Time 0.3 s RV AcT/ET 0.4 FINDINGS Left Ventricle Normal left ventricular size and systolic function, EF 65%.no regional wall motion abnormalities. Right Ventricle Mildly dilated right ventricle with moderately diminished ejection fraction Right Atrium Normal right atrial size. Left Atrium The left atrium is normal in size. Mitral Valve Mild mitral annular calcification. Aortic Valve Thickened aortic valve. Aortic valve sclerosis. Tricuspid Valve Mild tricuspid valve regurgitation. Pulmonic Valve Pulmonic valve not well visualized. Pericardium Normal pericardium without effusion. Aorta Normal ascending aorta dimension. CONCLUSIONS Normal left ventricular size and systolic function, EF 65%.no regional wall motion abnormalities. Dilated right ventricle with moderately diminished ejection fraction. Mildly Mild mitral annular calcification. Aortic valve sclerosis. There is no pericardial effusion. There are no intracardiac masses. Comparison with the previous study from 03/16/2020 is difficult because the difference in the technical quality. However no gross changes are noted . Dr Salud Mccartney MD [facility] (Electronically Signed) Final Date: 25 March 2020 16:57 S
[2020-03-25 05:35] LABS: Basophils # 0.1 10^3/uL (0.0-0.1); Basophils % 0.4 %; Eosinophils % 0.3 %; Hematocrit 26.1 % (37.0-47.0); Hemoglobin 7.9 g/dL (11.5-15.3); Lymphocytes # 1.8 10^3/uL (0.8-4.8); Lymphocytes % 12.3 %; Mean Corpuscular HGB Conc 30.3 g/dL (30.0-36.0); Mean Corpuscular Hemoglobin 30.2 pg (28.0-34.0); Mean Corpuscular Volume 99.6 fL (81-99); Mean Platelet Volume 11.4 fL (7.4-10.4); Monocytes # 1.2 10^3/uL (0.2-0.9); Monocytes % 8.3 %; Neutrophils % 71.5 %; Nucleated Red Blood Cells # 0.3 /100WBC; Nucleated Red Blood Cells % 1.8 %; Platelet Count 277 10^3/cmm (130-400); Red Blood Count 2.62 10^6/uL (4.1-5.3); Red Cell Distribution Width 15.1 % (12.1-15.1); White Blood Count 14.2 10^3/uL (4.0-10.0)
[2020-03-25] MEDS: apixaban 5 mg Tablet 2.5 MG PO ×2 (05:51→21:29)
[2020-03-25 05:54] LABS: Creatine Phosphokinase 127 U/L (26-192); Ferritin 558 ng/mL (15-150); Lactate Dehydrogenase 412 U/L (135-214)
[2020-03-25 05:57] LABS: Alanine Aminotransferase 8 U/L (0-33); Albumin Level 3.3 g/dL (3.5-5.2); Alkaline Phosphatase 55 IU/L (35-105); Anion Gap 15.1 (5-19); Aspartate Amino Transferase 18 U/L (0-32); Blood Urea Nitrogen 59 mg/dL (8-23); Calcium 8.3 mg/dL (8.5-10.5); Carbon Dioxide 24 mmol/L (22-29); Chloride 119 mmol/L (98-107); Fibrinogen 171 mg/dL (174-498); Globulin 2.2 g/dL (1.3-4.6); Glucose 99 mg/dL (65-115); Osmolality Calculated 337 mOsm/kg (285-295); Potassium 3.1 mmol/L (3.5-5.1); Sodium 155 mmol/L (136-145); Total Bilirubin 0.5 mg/dL (0.15-1.2); Total Protein 5.5 g/dL (6.6-8.7)
--- NOTE | 2020-03-25 06:00 | XR_ITS ---
WS: [id number] Portable AP upright chest, 03/25/2020 Clinical Data: covid Comparison: Portable chest, 03/22/2020. Findings: The diffuse bilateral pulmonary opacities have not changed. The heart size is at the upper limits of normal. The endotracheal tube, nasogastric tube, right internal jugular venous catheter and right chest tube remain in the same position. No pneumothorax is seen. Monitor leads are on the ches t wall. XR/XR chest 1V portable [id number] Impression: 1. No change in bilateral pulmonary opacities. 2. No change in position of multiple tubes.
[2020-03-25 06:04] LABS: Slide Review Slide Review Perform
--- NOTE | 2020-03-25 06:44 | PC.NURSE ---
ASSUMING CARE Patient on ventilator with FiO2 at 65%, PEEP at 10, and rate of 22. Patient is on 10 mcg/kg/min of propofol and 25 mcg/hour of fentanyl. Patient exhibits no response to voice or painful stimuli. Patients arms wrapped in chucks. Right chest tube clamped and suction shut off per Dr. Bravo
--- NOTE | 2020-03-25 06:48 | PC.NURSE ---
VANC TROUGH Patients vanc trough came back critical at 33.7. Pharmacy notified, ordered an additional vanc trough, and retimed the medication.
--- NOTE | 2020-03-25 06:49 | PC.NURSE ---
CHEST TUBE Per Dr. Diaz and day shift nurse, chest tube to be clamped and suction turned off. Dr. Diaz called to clarify order and said to proceed. Possibility of right chest tube removal depending on AM CXR.
--- NOTE | 2020-03-25 07:11 | PC.NURSE ---
ELECTROLYTES Dr. Lackey notified of potassium, sodium, and hemoglobin levels. No new orders received at this time.
[2020-03-25] MEDS: budesonide 0.5 mg/2 mL Neb INHALATION ×2 (07:59→20:07)
[2020-03-25] MEDS: sodium chloride 3.5% neb 4 mL Neb INHALATION (08:04)
[2020-03-25] MEDS: acetaminophen 650 mg/20.3 mL UDC 500 MG OG-TUBE (09:41)
[2020-03-25] MEDS: amiodarone 200 mg Tablet PO ×2 (09:42→18:41)
[2020-03-25] MEDS: propofol 1,000 MG/100 ML INJ 5.1 MG IV (10:19)
--- NOTE | 2020-03-25 11:02 | PC.NURSE ---
called pharmacy for Vinicio to be sent down.
--- NOTE | 2020-03-25 11:42 | PC.NURSE ---
called pharmacy again for Vinicio
[2020-03-25 13:07] LABS: Procalcitonin 0.62 ng/mL (0-0.5)
[2020-03-25] MEDS: FUROsemide 10 mg/mL SDV 4mL 40 MG IVP (14:08)
--- NOTE | 2020-03-25 15:02 | P.PN_ITS ---
Subjective Subjective: Interval history: No events overnight. Patient continues to be intubated and sedated. Today morning patient's T-max 100.4 Fahrenheit. Patient has maintained hemodynamics with mean arterial pressure over 65. Currently patient is on 70% FiO2 with PEEP of 10 with tidal volume of 550 and rate of 14. Urine output in last 24 hours document to be 3 L with -2 L balance. Medications: Reviewed: Yes Vitals/I&O/Wt Last Vital Signs Temp 99.9 F H 03/25/20 13:00 Pulse 98 03/25/20 14:37 Resp 21 H 03/25/20 14:25 BP 131/69 03/25/20 13:00 Pulse Ox 93 03/25/20 14:25 03/25/20 03/25/20 03/25/20 06:59 14:59 22:59 Intake Total 155.845 / 1130.362 209.125 / 209.125 Output Total 1100 / 3045 400 / 400 Balance -944.155 / -1914.638 -190.875 / -190.875 Weight last 48 hrs Weight 87.679 kg Weight 83.552 kg Physical Exam Narrative: EXAM NARRATIVE: General: Intubated, sedated HEENT: PERRLA, pupils bilaterally equal and reactive Chest: Bilateral coarse crackles present rhonchi present, right more than left CVS: S1-S2 regular, no murmurs, no tachycardia, no gallops, no rubs Abdomen: Soft, nontender, no organomegaly, bowel sounds present Neuro: Sedated Ext: Bilateral extremities edema 1+. Urinary Catheter Management^: Jimenez: Cath Placed During This Visit: yes Reason for Continuing Indwelling Catheter: Accurate Measurement of Urinary Output in Critically Ill Patients Urinary Catheter Date of Insertion: 03/12/20 Urinary Catheter Time of Insertion: 12:34 Data : 03/25/20 03:31 03/25/20 03:31 A&P Assessment and plan (1) ARDS (adult respiratory distress syndrome): Status: Acute (2) Acute hypoxemic respiratory failure due to COVID-19: Status: Acute (3) Asthma exacerbation in COPD: Status: Acute (4) Von Willebrand disease: Status: Acute (5) Sleep apnea: Status: Acute (6) Pulmonary embolus: Status: Acute Additional A&P Information ARDS: Secondary to COVID-19 pneumonia and possible superadded infection: Patient is already completed course of remdesivir, convalescent plasma and multiple courses of antibiotics. Appreciate pulmonology recommendations. Continue sedation with propofol, fentanyl. Patient has finished 3-day course of proning. proBNP, procalcitonin, TSH results appreciated. Fungitell, MRSA swab results awaited. Continue with vancomycin for now as patient spiked a fever though it is unlikely it is because of stopping antibiotics as it has been less than 12 hours since last dose of antibiotics. Send urine culture, blood culture, sputum culture from ET tube. If patient continues to spike fever will plan for CT chest, abdomen pelvis.. Tube feeds will be started as directed. Start patient on DuoNebs every 4 hours, budesonide twice daily. Echocardiogram shows a normal EF. We will try to keep patient negative. Continue with IV Lasix 40 mg daily with albumin every 8 hourly. Hypernatremia: Sodium 152. Free water deficit over 2.5 L. Start patient on tube feeds with free water flushes 200 cc every 4 hours. Lasix 40 mg IV daily with albumin every 8 hours. Will monitor BMP daily for now. If not improving will start patient on D5 at 50 cc/h along with Lasix as above. Atrial fibrillation: Rapid ventricular response resolved. Continue with amiodarone 200 mg twice daily. New onset seizures: History of meningioma: Continue seizure precautions. Continue with current dose of Keppra. History of von Willebrand's: Continue with Eliquis. Continue to monitor hemoglobin. Tube feeds for nutrition. Eliquis for DVT prophylaxis Famotidine for PUD prophylaxis. Allow natural DNI. Severely guarded prognosis. Appreciate pulmonology recommendations. Attestations Medical Necessity Statement*: Patient requires further hospitalization for management of severe ARDS with sepsis because of COVID-19 pneumonia, ventilator dependent, hypernatremia. Critical Care Time: Critical Care Time (min): 70 Coding Level of Care Code Acute Community Educator for [facility] Fw Diagnoses ARDS (adult respiratory distress syndrome) J80 Acute hypoxemic respiratory failure due to COVID-19 U07.1; J96.01 Asthma exacerbation in COPD J44.1; J45.901 Von Willebrand disease D68.0 Sleep apnea G47.30 Pulmonary embolus I26.99
--- NOTE | 2020-03-25 15:23 | XR_ITS ---
WS: [id number] Portable AP semiupright chest, 03/25/2020, 1625 hours Clinical Data: increase O2 demand Comparison: Portable chest, 03/25/2020, 0538 hours Findings: The endotracheal tube, nasogastric tube and right internal jugular venous catheter remain i n good position. The right chest tube has been removed and there is no right pneumothorax. The bilate ral patchy interstitial opacities remain unchanged. The heart is enlarged. Monitor leads are on the c hest wall. XR/XR chest 1V portable [id number] Impression: 1. Removal right chest tube with no right pneumothorax. 2. Multiple tubes remain in good position. 3. No change in bilateral interstitial pulmonary opacities. 4. No change in cardiomegaly.
[2020-03-25] MEDS: dexamethasone 4 mg/mL INJ 6 MG IVP (15:37)
--- NOTE | 2020-03-25 16:11 | P.PN_ITS ---
Subjective Subjective: Interval history: -No events overnight. -Patient continues to be intubated and sedated, but slightly overbreathing the vent -Today morning patient's T-max 100.4 Fahrenheit and white count slightly increased to 14 K -Currently patient is on 70% FiO2 with PEEP of 10 with tidal volume of 550 and rate of 14, PIP 26.-Very good urine output in last 24 hours -2 L balance and renal functions better, patient is clinically volume overloaded -Yesterday received 250 cc free water through NG tube but sodium 155 today -After clamping overnight right-sided chest tube, today morning chest x-ray did not show any pneumothorax-removed right-sided chest tube. Medications: Reviewed: Yes Vitals/I&O/Wt Last Vital Signs Temp 99.2 F 03/25/20 15:00 Pulse 102 H 03/25/20 15:00 Resp 22 H 03/25/20 15:19 BP 126/60 03/25/20 15:00 Pulse Ox 88 L 03/25/20 15:00 03/25/20 03/25/20 03/25/20 06:59 14:59 22:59 Intake Total 155.845 / 1130.362 209.125 / 209.125 Output Total 1100 / 3045 400 / 400 1500 / 1900 Balance -944.155 / -1914.638 -190.875 / -190.875 -1500 / -1690.875 Weight last 48 hrs Weight 193 lb 4.8 oz Weight 184 lb 3.2 oz Physical Exam Narrative: EXAM NARRATIVE: PHYSICAL EXAM: General: lying in bed in prone position, sedated and intubated. HEENT:NCAT, PERRLA, EOMI Neck: Supple Lungs: Improved diffuse crackles; 28 Marshallese right chest tube placed on 03/17/2020 Heart: s1/s2, RRR Abd: soft, NT, ND, BS + Normoactive Extremities: 1+ pedal edema EDUCATIONAL ADMINISTRATION TEACHER: sedated and limited EDUCATIONAL ADMINISTRATION TEACHER exam possible. SKIN: no rash LDA: # CVC: Right IJ 03/14/2020 # Chest tubes: 28 Marshallese right chest tube placed on 03/17/2020 #Jimenez: 03/12/2019 Urinary Catheter Management^: Jimenez: Cath Placed During This Visit: yes Reason for Continuing Indwelling Catheter: Accurate Measurement of Urinary Output in Critically Ill Patients Urinary Catheter Date of Insertion: 03/12/20 Urinary Catheter Time of Insertion: 12:34 Data : 03/25/20 03:31 03/25/20 03:31 A&P Assessment and plan (1) Acute hypoxemic respiratory failure due to COVID-19: Status: Acute (2) Edema: Status: Acute Qualifiers: Edema type: localized Qualified Code(s): R60.0 - Localized edema (3) Asthma exacerbation in COPD: Status: Acute (4) Von Willebrand disease: Status: Acute (5) Pneumothorax on right: Status: Acute Overall # 79-year-old Ms. Haylie Garcia admitted to viral ICU for acute hypoxic respiratory failure due to ARDS secondary to COVID-19 pneumonia requiring me chanical ventilation complicated by pneumothorax s/p chest tube. Pneumothorax resolved and chest tube taken out. Proned for 3 sessions and patient is off paralytic. #seizures secondary to hypoxia/Meningioma #Sedation- #Acute hypoxic and hypercapneic respiratory failure secondary to ARDS due to COVID pna #h/o asthma #right side pnemothorax 03/14/2020 - iatrogenic s/p central line placement vs covid PNA; S/P 1st chest tube 03/14/2020 followed by thoracic vent in 2nd intercostal space on 03/15/2020 - #Persistent air leak with worsening the right-sided subcutaneous emphysema - placed another 28 Marshallese lateral chest tube on 03/17/2020 and remote thoracic vent # Previous h/o PE # A fib with RVR #JONATHAN-related to COVID-19 sepsis # h/o Von willbrand Disease #Sepsis secondary to COVID pna -Currently off paralytic and is on propofol 10 and fentanyl 25, patient is overbreathing the vent and recommended to increase fentanyl to 75 -on keppra for seizures -s/p 3 session of proning -Continue with spontaneous awakening trials and breathing trials -Currently on PCV respiratory rate 18/PIP 26/PEEP 10/FiO2 70% -7.4 5/36/52/20 5/96% - Recommended hypertonic saline/hour Mucomyst nebulizations and aggressive suctioning -Recommended -DuoNeb nebulization every 4 hours scheduled -Slightly better inflammatory markers CRP, ferritin and repeat every 2 days to t rend markers of inflammation -on dexamethasone 6 mg daily (previously reported as allergy but patient family confirmed that she has mild tremors with steroids) -On amiodarone p.o. for A. fib RVR -hemodynamically stable; Monitor blood pressure; Echo 09/13/2019: Normal LV EF 55% -Initiate tube feeding; H2 chevy for GI prophylaxis- -Improving renal functions; good urine output -2 L last 24 hours, clinically overloaded -We will give albumin and Lasix -Hypernatremia-started on D5 100 and free water through NG tube tube - if renal functions continue to worsen - recommended to involve Nephrology. -Avoid nephrotoxins -Monitor BUN/creatinine and electrolytes and supplement accordingly to keep K between 4-4.5, Mg >2 - H&H stable; DVT prophylaxis on ELLIQUIS 2.5 MG BID -Sugars well controlled; monitor sugars and not on scale coverage -Mild leukocytosis and temp spike 100.4; send for repeat pancultures blood cultures, tracheal cultures, urine cultures -DC'd imipenem after 12 days currently on only vancomycin - to DC if MRSA nares negative Prognosis: Critical Disposition: Remains in ICU Code:DNR Plan of care and recommendations conveyed to hospitalist on the case, RN and RT Family (daughter) updated ICU CHECKLIST: Problem list updated Verbal orders reviewed and signed Analgesia: Fentanyl Glycemic Control: Not needed Nutrition: hold feeding as patient is being proned Restraint Renewal (within 24 hrs): Yes Ulcer Prophylaxis: H2 chevy Chemical Thromboprophylaxis: Prophylaxis: elliquis Mechanical Thromboprophylaxis: Yes Need for Central line: Yes requiring any infusions sedation Need for Jimenez catheter: Yes for urine output monitoring Critical Care Time (No Overlap): 45 min This patient has a high probability of sudden, clinically significant deterioration, which requires the highest level of physician preparedness to in tervene urgently. I managed/supervised life or organ supporting interventions that required frequent physician assessment. I devoted my full attention in the ICU to the direct care of this patient for the period of time indicated above. Time I spent with family or surrogate(s) is included only if the patient was incapable of providing necessary information or participating in decision making. Time devoted to teaching and to any procedures I billed separately is not included. Services Provided: Telemetry review Mechanical Ventilation Hemodynamic interpretation, assessment and management Review and interpretation of CXR Review and interpretation of lab values Review and interpretation of microbiologic data and culture results Review of medications and administration Review and interpretation of Nutrition requirements and management Discussion of management with other consultants and services Clinical update to family members Attestations Medical Necessity Statement*: acute hypoxic respiratory failure due to ARDS secondary to COVID-19 pneumonia still requiring mechanical ventilation co mplicated by pneumothorax s/p chest tube. Pneumothorax resolved and chest tube taken out. Proned for 3 sessions and patient is off paralytic Time Spent in Patient Care: Greater than 35 minutes (>than 50% of time spent in counselling and/or direct pt care on unit) . Critical Care Time: Critical Care Time (min): 45 Coding Level of Care Code Established Pt Acute Special Education Director for Chg Fwd Patient Type Established History Comprehensive Exam Comprehensive Medical Decision Making High Complexity Diagnoses Acute hypoxemic respiratory failure due to COVID-19 U07.1; J96.01 Edema R60.0 Edema type: localized Asthma exacerbation in COPD J44.1; J45.901 Von Willebrand disease D68.0 Pneumothorax on right J93.9 Time Spent (min) 45
--- NOTE | 2020-03-25 17:19 | PC.NURSE ---
Bel Estrada called to get information regarding pt. Her name was not on the contact list and assembly instructions writer could not find a note stating that it was ok to give information. Caller was very upset and states that Marie SHELTON gave her information on 03/21/20 and that she should have all access since she is medical and family has given permission. She asked for writers name to report to admin. Name given. Explained to her who was on the list and she was welcome to contact them as well.
--- NOTE | 2020-03-25 21:21 | PC.NURSE ---
ASSUMING CARE Patient remains mechanically ventilated, PCV mode, FiO2 at 80%, PEEP 10, and rate of 20. Patient has propofol running at 10 mcg/kg/min and fentanyl at 50 mcg/hour. Jimenez catheter in place. Right mid-axillary chest tube removed on day shift, site has 1 suture and dressing is dry and intact. Per day shift nurse, Dr. Diaz gave permission to change dressing if saturated since suture intact. Patient exhibits no response to verbal or stimulation, but pupils equal, round and reactive. Rectal temperature probe reading of 100.2. Suctioning and oral care provided.
[2020-03-25] MEDS: vancomycin 1,500 MG/300 ML PIGGYBACK 200 MG IV (23:13)
[2020-03-26] VITALS (31 sets, daily range): BP systolic 108–158; BP diastolic 58–88; PULSE 92–109; RESP 17–31; TEMP 37.7–38.7; O2SAT 90–97
[2020-03-26] MEDS: ipratropium-albuterol 3 mL Neb INHALATION ×4 (03:30→20:00)
[2020-03-26 04:26] LABS: Basophils % 0.3 %; Hematocrit 28.1 % (37.0-47.0); Hemoglobin 8.6 g/dL (11.5-15.3); Lymphocytes % 6.4 %; Mean Corpuscular HGB Conc 30.6 g/dL (30.0-36.0); Mean Corpuscular Hemoglobin 30.6 pg (28.0-34.0); Mean Platelet Volume 11.5 fL (7.4-10.4); Monocytes # 0.5 10^3/uL (0.2-0.9); Monocytes % 3.3 %; Neutrophils % 82.8 %; Nucleated Red Blood Cells # 0.2 /100WBC; Nucleated Red Blood Cells % 1.4 %; Platelet Count 244 10^3/cmm (130-400); Red Blood Count 2.81 10^6/uL (4.1-5.3); Red Cell Distribution Width 15.2 % (12.1-15.1)
[2020-03-26 04:44] LABS: Alanine Aminotransferase 11 U/L (0-33); Albumin Level 3.6 g/dL (3.5-5.2); Alkaline Phosphatase 64 IU/L (35-105); Anion Gap 12.2 (5-19); Aspartate Amino Transferase 33 U/L (0-32); Blood Urea Nitrogen 48 mg/dL (8-23); C Reactive Protein 146.4 mg/L (0.0-4.9); Calcium 8.2 mg/dL (8.5-10.5); Carbon Dioxide 30 mmol/L (22-29); Chloride 115 mmol/L (98-107); Creatine Phosphokinase 255 U/L (26-192); Ferritin 602 ng/mL (15-150); Globulin 2.4 g/dL (1.3-4.6); Glucose 169 mg/dL (65-115); Lactate Dehydrogenase 474 U/L (135-214); Osmolality Calculated 335 mOsm/kg (285-295); Potassium 3.2 mmol/L (3.5-5.1); Sodium 154 mmol/L (136-145); Total Bilirubin 0.6 mg/dL (0.15-1.2)
[2020-03-26 04:50] LABS: Slide Review Slide Review Perform
[2020-03-26 04:54] LABS: Fibrinogen 243 mg/dL (174-498)
[2020-03-26] MEDS: apixaban 5 mg Tablet 2.5 MG PO ×2 (05:48→21:16)
--- NOTE | 2020-03-26 06:27 | PC.NURSE ---
SHIFT SUMMARY Patients ventilator settings have remained the same over night. No responses neurologically, but pupils are equal, round and reactive. 1,000 mL urine output this shift. No bowel movement, but had one yesterday. Right chest tube dressing remains dry and intact. No residuals through OG tube and patient is currently at goal rate of 50 mL of hour and tolerating well. No significant events this shift.
[2020-03-26] MEDS: sodium chloride 3.5% neb 4 mL Neb INHALATION ×2 (08:01→20:02)
[2020-03-26] MEDS: budesonide 0.5 mg/2 mL Neb INHALATION ×2 (08:01→20:00)
[2020-03-26] MEDS: amiodarone 200 mg Tablet PO ×2 (08:26→21:16)
[2020-03-26] MEDS: propofol 1,000 MG/100 ML INJ 5.1 MG IV (08:26)
--- NOTE | 2020-03-26 12:15 | PC.SOCIAL ---
IMM not given Pt is not w/n 48hrs of d/c. IMM not updated.
[2020-03-26] MEDS: FUROsemide 10 mg/mL SDV 4mL 40 MG IVP (13:21)
[2020-03-26] MEDS: dextrose 5% 1,000 ML 50 ML IV (13:21)
[2020-03-26] MEDS: dexamethasone 4 mg/mL INJ 6 MG IVP (14:38)
[2020-03-26] MEDS: famotidine 20 mg/2 mL INJ IVP (14:38)
--- NOTE | 2020-03-26 16:56 | CTR_ITS ---
PROCEDURE INFORMATION: Exam: CT Head Without Contrast Exam date and time: 03/26/2020 9:26 PM Age: 79 years old Clinical indication: Altered mental status/memory loss; Additional info: R/O anoxic brain injury/edema TECHNIQUE: Imaging protocol: Computed tomography of the head without contrast. Radiation optimization: All CT scans at this facility use at least one of these dose optimization techniques: automated exposure control; mA and/or kV adjustment per patient size (includes targeted exams where dose is matched to clinical indication); or iterative reconstruction. COMPARISON: CT head wo con* [id number] 03/15/2020 10:06 AM RADIATION DOSE METRICS: Total DLP (mGy-cm): 705.66 FINDINGS: Brain: There is a 4.8 x 3.7 cm area of edema in the right posterior cerebral artery territory, consistent with subacute infarct. Additional foci of edema are seen throughout the bilateral subcortical white matter, consistent with multiple bilateral subacute infarcts, measuring up to 10 mm in diameter. The elizabeth matter/white matter differentiation is maintained. No global cerebral edema demonstrated. No intracranial hemorrhage noted. Cerebral ventricles: The ventricles are proportional to the sulci. No hydrocephalus is noted. Bones/joints: No fracture or other acute osseous abnormality. Paranasal sinuses: No air-fluid levels in the paranasal sinuses. Postop changes of the maxillary and ethmoid sinuses. Mastoid air cells: Bilateral mastoid effusions. Soft tissues: Unremarkable. CT/CT head wo con* [id number] IMPRESSION: 1. There is a 4.8 x 3.7 cm area of edema in the right posterior cerebral artery territory, consistent with subacute infarct. This is new when compared to 03/15/2020. 2. Additional foci of edema are seen throughout the bilateral subcortical white matter, consistent with multiple bilateral subacute infarcts, measuring up to 10 mm in diameter. This is also new when compared to the prior study. 3. Bilateral mastoid effusions. Radiation Dose CTDIVOL = (mGy): DLP = 705.66 (mGy-cm)
--- NOTE | 2020-03-26 16:56 | CTR_ITS ---
PROCEDURE INFORMATION: Exam: CT Chest With Contrast; Diagnostic Exam date and time: 03/26/2020 9:26 PM Age: 79 years old Clinical indication: Fever; Additional info: Covid, persistent fevers, TECHNIQUE: Imaging protocol: Diagnostic computed tomography of the chest with intravenous contrast. Radiation optimization: All CT scans at this facility use at least one of these dose optimization techniques: automated exposure control; mA and/or kV adjustment per patient size (includes targeted exams where dose is matched to clinical indication); or iterative reconstruction. Contrast material: VISI; Contrast volume: 95 ml; Contrast route: INTRAVENOUS (IV); COMPARISON: CT chest [facility] [id number] 03/15/2020 10:10 AM RADIATION DOSE METRICS: Total DLP (mGy-cm): 2528.6 FINDINGS: Lungs: Diffuse patchy ground-glass opacities throughout both lungs with patchy consolidation in the dependent portions of the lower lobes. Pleural space: Small bilateral pleural effusions. Heart: Unremarkable. No cardiomegaly. No pericardial effusion. Mediastinal space: Intubation with tip in the distal thoracic trachea. Aorta: Unremarkable. No aortic aneurysm. Lymph nodes: Unremarkable. No enlarged lymph nodes. Bones/joints: Mild thoracic scoliosis. No compression fracture. Soft tissues: Unremarkable. IMPRESSION: 1. Multilobar opacities, consistent with COVID-19 pneumonia. Superimposed ARDS is not excluded. 2. Small pleural effusions. PROCEDURE INFORMATION: Exam: CT Abdomen And Pelvis With Contrast Exam date and time: 03/26/2020 9:26 PM Age: 79 years old Clinical indication: Fever; Additional info: Covid, persistent fevers, TECHNIQUE: Imaging protocol: Computed tomography of the abdomen and pelvis with intravenous contrast. Radiation optimization: All CT scans at this facility use at least one of these dose optimization techniques: automated exposure control; mA and/or kV adjustment per patient size (includes targeted exams where dose is matched to clinical indication); or iterative reconstruction. Contrast material: VISI; Contrast volume: 95 ml; Contrast route: INTRAVENOUS (IV); COMPARISON: CT chest [facility] [id number] 03/15/2020 10:10 AM RADIATION DOSE METRICS: Total DLP (mGy-cm): 2528.6 FINDINGS: Tubes, catheters and devices: NG tube tip in the mid stomach. Rectal catheter in place. Liver: Normal. No mass. Gallbladder and bile ducts: Normal. No calcified stones. No ductal dilation. Pancreas: Normal. No ductal dilation. Spleen: Normal. No splenomegaly. Adrenal glands: Normal. No mass. Kidneys and ureters: Mild perinephric stranding is most likely physiologic. The kidneys are normal. No hydronephrosis. Stomach and bowel: Fluid in the rectum. Diverticulosis of the descending and sigmoid colon without diverticulitis. The colon is decompressed with a few small air-fluid levels proximally. Small amount of fluid in the stomach. The small bowel is decompressed. Appendix: The appendix is not visualized. No secondary signs of appendicitis. Intraperitoneal space: Unremarkable. No free air. No significant fluid collection. Vasculature: Unremarkable. No abdominal aortic aneurysm. Lymph nodes: Unremarkable. No enlarged lymph nodes. Urinary bladder: Decompressed urinary bladder with a Jimenez catheter in place. Reproductive: Unremarkable as visualized. Bones/joints: Mild chronic appearing inferior L2 compression fracture with large Schmorl's node. No acute fracture. Soft tissues: Mild soft tissue edema in the flank and lower abdominal wall region, extending to the pubic mons. CT/CT chest abd pel w con* IMPRESSION: 1. No acute abnormality identified. 2. Mild body wall edema. Cellulitis in the lower abdominal wall and pubic mons region is not excluded. Clinical correlation recommended. Radiation Dose CTDIVOL = (mGy): DLP = 2528.6~2528.6 (mGy-cm)
--- NOTE | 2020-03-26 16:58 | P.PN_ITS ---
Subjective Subjective: Interval history: Documents overnight. Patient remains intubated and sedated. Off sedation since morning but does not have any meaningful brain activity. Pupils sluggishly reactive. T-max in last 24 hours 101 Fahrenheit. Has remained hemodynamically stable. Currently on fentanyl 10 cc only. Ventilator setting of 80% FiO2, PEEP of 10, rate of 16 saturating 92%. Mean arterial pressures have been maintained over 65 off Levophed. Medications: Reviewed: Yes Vitals/I&O/Wt Last Vital Signs Temp 101.5 F H 03/26/20 16:00 Pulse 106 H 03/26/20 16:18 Resp 26 H 03/26/20 16:18 BP 138/72 03/26/20 16:00 Pulse Ox 91 03/26/20 16:18 03/26/20 03/26/20 03/26/20 06:59 14:59 22:59 Intake Total 1379.958 / 1929.083 919.665 / 919.665 0 / 919.665 Output Total 1000 / 4650 900 / 900 Balance 379.958 / -2720.917 19.665 / 19.665 0 / 19.665 Weight last 48 hrs Weight 84.277 kg Weight 87.679 kg Physical Exam Narrative: EXAM NARRATIVE: General: Intubated, sedated HEENT: PERRLA, pupils bilaterally equal and reactive Chest: Bilateral coarse crackles present rhonchi present, right more than left CVS: S1-S2 regular, no murmurs, no tachycardia, no gallops, no rubs Abdomen: Soft, nontender, no organomegaly, bowel sounds present Neuro: Sedated Ext: Bilateral extremities edema 1+. Urinary Catheter Management^: Jimenez: Cath Placed During This Visit: yes Reason for Continuing Indwelling Catheter: Accurate Measurement of Urinary Output in Critically Ill Patients Urinary Catheter Date of Insertion: 03/12/20 Urinary Catheter Time of Insertion: 12:34 Data : 03/26/20 03:27 03/26/20 03:27 Micro: Microbiology 03/26/20 13:40 Blood Culture - Preliminary Blood SPECIMEN COLLECTED 03/25/20 13:50 Gram Stain - Final Sputum - Endotracheal Tube Aspirate A&P Assessment and plan (1) ARDS (adult respiratory distress syndrome): Status: Acute (2) Acute hypoxemic respiratory failure due to COVID-19: Status: Acute (3) Asthma exacerbation in COPD: Status: Acute (4) Von Willebrand disease: Status: Acute (5) Sleep apnea: Status: Acute (6) Pulmonary embolus: Status: Acute (7) AMS (altered mental status): Status: Acute Additional A&P Information Altered mental status: Patient not waking up even off sedation for more than 6 hours. Most likely secondary to toxic metabolic encephalopathy because of severe illness, prolonged sedation, hypernatremia but cannot rule out anoxic brain injury as patient was hypoxic to 70s for more than 45 minutes earlier in this admission after which patient had also developed seizures. We will do CT head. For hypernatremia continue with free water flushes 200 cc every 4 hours. Start patient on D5 at 50 cc/h. We will have to monitor for fluid overload. BMP to be checked daily for now. Patient has already been antibiotics for prolonged course during this hospitalization so chances of meningitis are low and lumbar puncture will be very low yield. ARDS: Secondary to COVID-19 pneumonia and possible superadded infection: Patient is already completed course of remdesivir, convalescent plasma and multiple courses of antibiotics. Appreciate pulmonology recommendations. Continue sedation with propofol, fentanyl. Patient has finished 3-day course of proning. Continue sedation vacation. proBNP, procalcitonin, TSH results appreciated. Fungitell, MRSA swab results awaited. As patient continues to spike fever which could be secondary to central fevers for now as blood culture, urine culture, sputum culture awaited we will continue vancomycin and add imipenem. Check CT chest abdomen pelvis with contrast. Continue with tube feeds. Start patient on DuoNebs every 4 hours, budesonide twice daily. Echocardiogram shows a normal EF. We will try to keep patient negative. Continue with IV Lasix 40 mg twice daily. With albumin every 8 hourly. Strict input output charting, daily weights. Net 2.7 L negative in last 24 hours but around 5 L positive since admission. Hypernatremia: Sodium 152. Free water deficit over 2.5 L. Start patient on tube feeds with free water flushes 200 cc every 4 hours. D5 as above. Lasix 40 mg IV daily with albumin every 8 hours. Will monitor BMP daily for now. If does not improve will involve nephrology tomorrow. Atrial fibrillation: Rapid ventricular response resolved. Continue with amiodarone 200 mg twice daily. New onset seizures: History of meningioma: Continue seizure precautions. Stop Keppra now. Will monitor for seizure activities. History of von Willebrand's: Continue with Eliquis. Continue to monitor hemoglobin. Tube feeds for nutrition. Eliquis for DVT prophylaxis Famotidine for PUD prophylaxis. Allow natural DNI. Severely guarded prognosis. Appreciate pulmonology recommendations. Had a detailed discussion regarding patient's mental status, severe ARDS, ventilator dependence with patient's daughter and at bedside. All the questions were answered. Attestations Medical Necessity Statement*: Requires further hospitalization for management of ARDS, altered mental status, ventilator dependence, hypernatremia. Critical Care Time: Critical Care Time (min): 80 Coding Level of Care Code Acute Electronic Musical Instrument Repairer for Julio Francis Diagnoses ARDS (adult respiratory distress syndrome) J80 Acute hypoxemic respiratory failure due to COVID-19 U07.1; J96.01 Asthma exacerbation in COPD J44.1; J45.901 Von Willebrand disease D68.0 Sleep apnea G47.30 Pulmonary embolus I26.99 AMS (altered mental status) R41.82
[2020-03-26] MEDS: iodixanol 320 mg/mL 100mL Btl IV (22:01)
[2020-03-27] VITALS (12 sets, daily range): BP systolic 112–142; BP diastolic 56–79; PULSE 81–108; RESP 14–24; TEMP 37.7–39.1; O2SAT 35–96
[2020-03-27] MEDS: FUROsemide 10 mg/mL SDV 4mL 40 MG IVP (00:57)
[2020-03-27] MEDS: acetaminophen 650 mg/20.3 mL UDC 500 MG OG-TUBE (01:31)
[2020-03-27] MEDS: famotidine 20 mg/2 mL INJ IVP (02:18)
[2020-03-27] MEDS: ipratropium-albuterol 3 mL Neb INHALATION ×2 (02:47→08:26)
--- NOTE | 2020-03-27 03:21 | PC.NURSE ---
ASSUMING CARE Patient resting in bed and mechanically ventilated. Patients FiO2 at 85%. 5% dextrose running at 50 mL/hour, fentanyl running at 75 mcg/hour, propofol at 10 mcg/kg/min, and pulmocare tube feeding running at 50 mL/hour. Patient has no residuals, oral care done, and rectal temperature probe reading at 101.7. Day shift nurse gave IV tylenol at 1910.
--- NOTE | 2020-03-27 03:24 | PC.NURSE ---
CT SCAN Patient was taken to CT by nurse, respiratory therapist, and residential monitor. When patient laid flat on CT table, patients pre-existing abdominal breathing appeared to have worsened and patient sustained an oxygen saturation at 89% for entirety of scan. Dr. Mustafa called unit to speak with nurse about findings on head CT. He reported that there was no bleed, but that there were subacute infarcts bilaterally throughout the cerebral cortex and also in occipital lobe. Nurse notified Dr. Lackey via telephone to report findings to her. No new orders at this time.
--- NOTE | 2020-03-27 04:57 | PC.NURSE ---
TEMPERATURE Patients temperature has continuously been rising throughout the shift despite tylenol administration. Ice packs placed on patient and cooling pad machine being initiated with cooling pad under patient to regulate temperature. Dr. Lackey notified, no new orders at this time and to continue giving orogastric tylenol as ordered and interventions in place at this time.
[2020-03-27 05:37] LABS: Basophils # 0.1 10^3/uL (0.0-0.1); Basophils % 0.3 %; Hematocrit 27.9 % (37.0-47.0); Hemoglobin 8.3 g/dL (11.5-15.3); Lymphocytes % 5.4 %; Mean Corpuscular HGB Conc 29.7 g/dL (30.0-36.0); Mean Corpuscular Hemoglobin 30.7 pg (28.0-34.0); Mean Corpuscular Volume 103.3 fL (81-99); Mean Platelet Volume 12.5 fL (7.4-10.4); Monocytes # 0.9 10^3/uL (0.2-0.9); Monocytes % 4.5 %; Neutrophils # 15.95 10^3/uL (1.8-7.7); Neutrophils % 83.1 %; Nucleated Red Blood Cells # 0.9 /100WBC; Nucleated Red Blood Cells % 4.5 %; Platelet Count 243 10^3/cmm (130-400); Red Cell Distribution Width 16.4 % (12.1-15.1); White Blood Count 19.2 10^3/uL (4.0-10.0)
[2020-03-27] MEDS: apixaban 5 mg Tablet 2.5 MG PO (05:48)
--- NOTE | 2020-03-27 06:00 | XRR_ITS ---
PROCEDURE INFORMATION: Exam: XR Chest, 1 View Exam date and time: 03/27/2020 4:57 AM Age: 79 years old Clinical indication: Dyspnea; Additional info: Covid TECHNIQUE: Imaging protocol: XR of the chest Views: 1 view. COMPARISON: CT chest abd pel w con* 03/26/2020 9:50 PM FINDINGS: Tubes, catheters and devices: An endotracheal tube is present with its tip 3 cm above the mily. A right jugular venous catheter projects on the SVC. An orogastric tube is present but its tip is only about 4 cm below the diaphragm and should be advanced further into the stomach. Lungs: There are extensive bilateral pulmonary infiltrates especially in the left lung. The left lung infiltrates have significantly worsened since previous examination on 03/25/2020. Pleural space: Unremarkable. No pleural effusion. No pneumothorax. Heart/Mediastinum: Unremarkable. No cardiomegaly. Bones/joints: Unremarkable. XR/XR chest 1V portable [id number] IMPRESSION: Diffuse bilateral pulmonary infiltrates significantly worsening in the left lung.
[2020-03-27 06:09] LABS: C Reactive Protein 88.7 mg/L (0.0-4.9); Lactate Dehydrogenase 564 U/L (135-214)
[2020-03-27 06:15] LABS: Fibrinogen 165 mg/dL (174-498)
[2020-03-27 06:32] LABS: Ferritin 1036 ng/mL (15-150)
[2020-03-27 06:33] LABS: Creatine Phosphokinase 476 U/L (26-192)
--- NOTE | 2020-03-27 06:52 | PC.NURSE ---
SHIFT SUMMARY Patient continues to have no neurological response to painful stimuli or any intervention such as turning. Patient has fentanyl running at 75 mcg/hour, and propofol was shut off early this morning to further assess neurological status after no response when transferring for CT scan. Patient started to attempt to cut off breath when ventilator to deliver inspiratory breath, so propofol restarted and patient is no longer doing that. Patient has had 1450 mL urine output this shift with no bowel movement. Temperature down to 101.5 at this time after ice packs placed on patient.
[2020-03-27 06:57] LABS: Alanine Aminotransferase 14 U/L (0-33); Albumin Level 4.5 g/dL (3.5-5.2); Alkaline Phosphatase 56 IU/L (35-105); Anion Gap 17.6 (5-19); Aspartate Amino Transferase 32 U/L (0-32); Blood Urea Nitrogen 51 mg/dL (8-23); Calcium 8.3 mg/dL (8.5-10.5); Carbon Dioxide 30 mmol/L (22-29); Chloride 110 mmol/L (98-107); Globulin 1.6 g/dL (1.3-4.6); Glucose 238 mg/dL (65-115); Osmolality Calculated 339 mOsm/kg (285-295); Potassium 3.6 mmol/L (3.5-5.1); Sodium 154 mmol/L (136-145); Total Bilirubin 0.8 mg/dL (0.15-1.2); Total Protein 6.1 g/dL (6.6-8.7)
[2020-03-27 07:32] LABS: Slide Review Slide Review Perform
[2020-03-27] MEDS: sodium chloride 3.5% neb 4 mL Neb INHALATION (08:26)
[2020-03-27] MEDS: budesonide 0.5 mg/2 mL Neb INHALATION (08:26)
[2020-03-27] MEDS: amiodarone 200 mg Tablet PO (09:51)
[2020-03-27] MEDS: dextrose 5% 1,000 ML 50 ML IV (09:51)
--- NOTE | 2020-03-27 11:26 | PM.PN ---
Subjective Subjective: Interval history: Documents overnight. Patient remains intubated and sedated. Off sedation since morning but does not have any meaningful brain activity. Pupils sluggishly reactive. T-max in last 24 hours 101 Fahrenheit. Has remained hemodynamically stable. Currently on fentanyl 10 cc only. Ventilator setting of 80% FiO2, PEEP of 10, rate of 16 saturating 92%. Mean arterial pressures have been maintained over 65 off Levophed. Medications: Reviewed: Yes Vitals/I&O/Wt Last Vital Signs Temp 99.9 F H 03/27/20 10:00 Pulse 81 03/27/20 10:00 Resp 16 03/27/20 11:14 BP 112/56 03/27/20 10:00 Pulse Ox 96 03/27/20 10:00 03/26/20 03/27/20 03/27/20 22:59 06:59 14:59 Intake Total 842.86 / 1762.525 328.972 / 2091.497 2200 / 2200 Output Total 1100 / 2000 1450 / 3450 0 / 0 Balance -257.14 / -237.475 -1121.028 / -1333.900 7470 / 2200 Weight last 48 hrs Weight 86.06 kg Weight 84.277 kg Physical Exam Narrative: EXAM NARRATIVE: General: Intubated, sedated HEENT: PERRLA, pupils bilaterally equal and reactive Chest: Bilateral coarse crackles present rhonchi present, right more than left CVS: S1-S2 regular, no murmurs, no tachycardia, no gallops, no rubs Abdomen: Soft, nontender, no organomegaly, bowel sounds present Neuro: Sedated Ext: Bilateral extremities edema 1+. Urinary Catheter Management^: Jimenez: Cath Placed During This Visit: yes Reason for Continuing Indwelling Catheter: Accurate Measurement of Urinary Output in Critically Ill Patients Urinary Catheter Date of Insertion: 03/12/20 Urinary Catheter Time of Insertion: 12:34 Data : 03/27/20 04:09 03/27/20 04:09 Micro: Microbiology 03/25/20 13:50 Gram Stain - Final Sputum - Endotracheal Tube Aspirate Sputum Culture - Preliminary 03/27/20 09:50 Occult Blood (FIT) - Final Stool Routine Collection 03/25/20 14:00 Urine Culture - Preliminary Urine Catheterized Yeast 03/26/20 13:40 Blood Culture - Preliminary Blood SPECIMEN COLLECTED A&P Assessment and plan (1) ARDS (adult respiratory distress syndrome): Status: Acute (2) Acute hypoxemic respiratory failure due to COVID-19: Status: Acute (3) Asthma exacerbation in COPD: Status: Acute (4) Von Willebrand disease: Status: Acute (5) Sleep apnea: Status: Acute (6) Pulmonary embolus: Status: Acute (7) AMS (altered mental status): Status: Acute Additional A&P Information Altered mental status: Patient not waking up even off sedation for more than 6 hours. Most likely secondary to toxic metabolic encephalopathy because of severe illness, prolonged sedation, hypernatremia but cannot rule out anoxic brain injury as patient was hypoxic to 70s for more than 45 minutes earlier in this admission after which patient had also developed seizures. We will do CT head. For hypernatremia continue with free water flushes 200 cc every 4 hours. Start patient on D5 at 50 cc/h. We will have to monitor for fluid overload. BMP to be checked daily for now. Patient has already been antibiotics for prolonged course during this hospitalization so chances of meningitis are low and lumbar puncture will be very low yield. ARDS: Secondary to COVID-19 pneumonia and possible superadded infection: Patient is already completed course of remdesivir, convalescent plasma and multiple courses of antibiotics. Appreciate pulmonology recommendations. Continue sedation with propofol, fentanyl. Patient has finished 3-day course of proning. Continue sedation vacation. proBNP, procalcitonin, TSH results appreciated. Fungitell, MRSA swab results awaited. As patient continues to spike fever which could be secondary to central fevers for now as blood culture, urine culture, sputum culture awaited we will continue vancomycin and add imipenem. Check CT chest abdomen pelvis with contrast. Continue with tube feeds. Start patient on DuoNebs every 4 hours, budesonide twice daily. Echocardiogram shows a normal EF. We will try to keep patient negative. Continue with IV Lasix 40 mg twice daily. With albumin every 8 hourly. Strict input output charting, daily weights. Net 2.7 L negative in last 24 hours but around 5 L positive since admission. Hypernatremia: Sodium 152. Free water deficit over 2.5 L. Start patient on tube feeds with free water flushes 200 cc every 4 hours. D5 as above. Lasix 40 mg IV daily with albumin every 8 hours. Will monitor BMP daily for now. If does not improve will involve nephrology tomorrow. Atrial fibrillation: Rapid ventricular response resolved. Continue with amiodarone 200 mg twice daily. New onset seizures: History of meningioma: Continue seizure precautions. Stop Keppra now. Will monitor for seizure activities. History of von Willebrand's: Continue with Eliquis. Continue to monitor hemoglobin. Tube feeds for nutrition. Eliquis for DVT prophylaxis Famotidine for PUD prophylaxis. Allow natural DNI. Severely guarded prognosis. Appreciate pulmonology recommendations. Had a detailed discussion regarding patient's mental status, severe ARDS, ventilator dependence with patient's daughter and at bedside. All the questions were answered. Coding Level of Care Code Acute Electron Microprobe Operator for [facility] Diagnoses ARDS (adult respiratory distress syndrome) J80 Acute hypoxemic respiratory failure due to COVID-19 U07.1; J96.01 Asthma exacerbation in COPD J44.1; J45.901 Von Willebrand disease D68.0 Sleep apnea G47.30 Pulmonary embolus I26.99 AMS (altered mental status) R41.82
[2020-03-27] MEDS: LORazepam 2 mg/mL INJ 1 mL IVP (13:35)
[2020-03-27] MEDS: morphine 4 mg/mL SDV 1 mL IVP ×2 (13:35→13:48)
--- NOTE | 2020-03-27 14:15 | PC.NURSE ---
TERMINAL EXTUBATION FAMILY CHOSE TO TERMINALLY EXTUBATE PT AFTER FINDING OUT ABOUT STROKE. DAUGHTER ALLEN SAID THAT THEY JUST HER TO BE COMFORTABLE & WITHOUT PAIN. DR KEITA ALSO SPOKE TO FAMILY & PUT ORDERS IN FOR COMFORT CARE. 1230-SEDATION MEDS, TUBE FEEDING & IVF STOPPED. 1330-PT HR 160'S, RT & THIS PUBLIC SERVICES ASSISTANT AT BEDSIDE, PT MEDICATED WITH MORPHINE 4MG IVP & ATIVAN 2MG IVP PRIOR TO EXTUBATION. 1335-BROOKS PERKINS NOTIFIED OF TERMINAL EXTUBATION 1337-TUBE PULLED, PT O2 SAT DROPPED TO 30'S, HR DROPPED TO 60'S THEN PROCEEDED TO [place]YSTOLE AT 1352. CONFIRMED BY RN & MATEO RT. 1357-NOTIFED PAULA VILLA @ [phone], TRANSFER BODY TO [facility]. 1400-DR KEITA NOTIFIED OF TIME OF . 1424-NOTIFIED RUPERTO AT [facility] [phone]. REGARDING ANDROID UI DEVELOPER.
--- NOTE | 2020-03-27 14:30 | PM.DDS ---
Discharge Providers DDS Date of Admission: 03/11/20 14:34 Date Summary Completed: 03/27/20 Attending Provider at Admission: Eileen Sequeira Time of : 13:52 Attending Provider at Discharge: Wilton Norton MD Consults: Dryer And Washer Mechanic:Dr. Diaz Primary Care Provider: Roslyn Reeder MD DS Diagnoses Hospital Diagnoses (1) ARDS (adult respiratory distress syndrome): (2) Acute hypoxemic respiratory failure due to COVID-19: (3) Asthma exacerbation in COPD: (4) Von Willebrand disease: (5) Sleep apnea: (6) Pulmonary embolus: (7) AMS (altered mental status): (8) Stroke due to embolism: Reason for Visit Reason for Visit: COVID POSTIVE Summary Date and Time of Date of : 03/27/20 Time of : 13:52 Summary Summary: 79-year-old female with past medical history significant for Von Willebrand's disease with subsequent pulmonary embolism on eliquis 2.5 mg PO BID, gastroesophageal reflux disease, osteoporosis, hypertension, pernicious anemia on b21 replacement, meningioma with associated mass effect, paroxysmal atrial fibrillation, peripheral vascular disease, obstructive sleep apnea non compliant with CPAP, and chronic obstructive pulmonary disease who is presenting to ER with shortness of breath. patient was recently seen by primary care physician with a complaint of upper respiratory tract infection. She was prescribed azithromycin and prednisone. COVID-19 test was later found to be positive on 03/07. Continued to have ongoing fever, chills, bellyaches, headache and intermittent cough. Due to this patient presented to the ER for evaluation. Patient was apparently having labored respiration. She was placed on BiPAP after which oxygen saturations had improved to 92% however she was requiring 65% FiO2. Emergency room patient was given Decadron 10 mg IV x1. This was listed as patient's allergy and thus not continued as patient noted severe myalgias. Laboratory workup on arrival showed a WBC of 9.2, hemoglobin 10.7, hematocrit 33.4 and a platelet count of 290. sodium 145, potassium 3.5, chloride 105, bicarb 28, BUN 13 and creatinine is 0.7. Arterial blood gases showed a pH 7.44, pCO2 38.3, PO2 of 73.8 and a bicarb 25.9. Ferritin of 361, LDH of 493, troponin of 14, proBNP of 1402. Patient was admitted on March 11. Patient had a long complicated hospitalization. She was treated for COVID-19 pneumonia with antiviral treatment, steroids, inhalation treatment. On day 4 patient was desaturating and required intubation. Later that night, patient developed pneumothorax after central line placement and required a chest tube placement. On day 5 patient had episodes of seizures and also desaturated and CT chest revealed normal resolution of right-sided pneumothorax despite chest tube, increasing entering into the atelectatic lung. A Thora vent was placed anteriorly in second intercostal space with a CT surgeon Dr. Mckeon and patient saturations improved and later imaging showed resolution of pneumothorax. After 24 hours, on day 6 the first chest tube was removed as there was no air leak in the chamber and left Thora vent in place due to persistent air leak in the atrium. Patient was treated with paralyzing and proning for 3 days. During hospitalization patient also developed seizures which was treated with antiseizure medication was thought to be because of meningioma in the past. Patient continued to spike fever which was treated with multiple antimicrobials including antibacterial, antifungal and antiviral medications. Hospitalization was also complicated by waxing and waning acute kidney injury, hypernatremia. Eventually antimicrobials were withheld as patient continued to spike fevers. Patient was tried multiple times with sedation vacation though patient did not have any meaningful mental activity for which CT head was done which is consistent with subacute right LEARNING AND DEVELOPMENT DIRECTOR infarct along with multiple small subacute infarcts in the right subcortical matter. This was discussed in detail with neurology on-call [facility]. Given all the above further goals of care discussions were made with patient's daughter and on phone. Patient's stated that given the multiple comorbidities and prolonged hospitalization his would have not wanted to remain in vegetative state and he does not want her to suffer and wanted to change the goals of care to comfort measures. As per the wishes of family patient was terminally extubated and comfortably at 1:52 PM on March 27. Additional Data Confirmation of as documented by pronouncing clinician: no pulse Family: contacted Additional persons at bedside: nursing staff Attending/PCP notified?: I am attending Was code activated?: No Autopsy requested?: No Advance directives?: Yes Hospice patient?: No Discharge Plan Discharge Patient Disposition: Home Condition: Stable Prescriptions: No Action ferrous sulfate 325 mg (65 mg iron) tablet 325 mg PO DAILY@06 RF: 0 albuterol sulfate [ProAir HFA] 90 mcg/actuation HFA aerosol inhaler 2 puff INHALATION QID PRN (Reason: Shortness Of Breath) RF: 0 Eliquis 2.5 mg tablet 2.5 mg PO BID@,21 RF: 0 verapamil 300 mg capsule, [address] 300 mg PO DAILY@21 RF: 0 ropinirole 0.5 mg tablet 2 mg PO BEDTIME@21 RF: 0 potassium chloride 20 mEq tablet extended release 20 meq PO DAILY@06 RF: 0 azithromycin 250 mg tablet See Rx Instructions PO .COMPLEX Qty: 6 RF: 0 ondansetron HCl [Zofran] 4 mg tablet 4 mg PO Q6H PRN (Reason: nausea and vomiting) Qty: 10 RF: 0 prednisone 20 mg tablet 20 mg PO DAILY Qty: 20 RF: 0 etodolac 400 mg Tablet 400 mg PO BID@,21 RF: 0 cyanocobalamin (vitamin B-12) 1,000 mcg/mL Kit 1,000 mcg IM Q30D RF: 0 fluticasone propion-salmeterol [Advair Diskus] 250-50 mcg/dose blister with device 1 inh INHALATION BID@, RF: 0 gabapentin [Neurontin] 600 mg tablet See Rx Instructions .ROUTE .COMPLEX RF: 0 isosorbide mononitrate 30 mg tablet extended release 24 hr 30 mg PO DAILY@06 RF: 0 metoprolol succinate 100 mg tablet extended release 24 hr 100 mg PO DAILY@21 RF: 0 omeprazole 20 mg capsule,delayed release(DR/EC) 20 mg PO DAILY@12 RF: 0 Referrals: Roslyn Reeder MD [Primary Care Provider] - DS Attestations Time Spent in /Discharge Care*: greater than 30 min Quality - AMI: AMI present?: No Quality - Stroke: CVA present?: Yes Quality - VTE: VTE present?: No Coding Level of Care Code Acute Rfid Strategist for [facility] 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 AMS (altered mental status) R41.82 Stroke due to embolism I63.9
--- NOTE | 2020-03-27 15:38 | PC.NURSE ---
FENTANYL DRIP 30ML WASTED, Fareed RIOS RN.
--- NOTE | 2020-03-27 17:14 | PC.NURSE ---
[facility] HERE TO TRANSPORT PT TO HOME. PERSONAL BELONGINGS SENT WITH DRAMA TEACHER. BLUE BAG, COAT, SHOES, MED ALERT BRACELET.
[2020-03-28 18:42] LABS: ABG PH Result 7.17 (7.35-7.45)
== END 2020-03-27 16:00 | disposition expired | DRG 853 ==
LOC: ER 14:43 → ICU 19:45
PROVIDERS: Internal Medicine; Internal Medicine Pulmonary Disease; Registered Nurse; Admitting Provider Hospitalist; Emergency Provider Emergency Medicine; PCP Family Medicine; Visit Provider Student in an Organized Health Care Education/Training Program
DX: A41.9 Sepsis, unspecified organism (principal); U07.1 COVID-19; J12.82 Pneumonia due to coronavirus disease 2019; J80 Acute respiratory distress syndrome; G92 Toxic encephalopathy; I26.99 Other pulmonary embolism without acute cor pulmonale; I63.431 Cerebral infarction due to embolism of right posterior cerebral artery; D68.0 Von Willebrand disease; J45.901 Unspecified asthma with (acute) exacerbation; J93.9 Pneumothorax, unspecified; J93.82 Other air leak; T79.7XXA Traumatic subcutaneous emphysema, initial encounter; E87.0 Hyperosmolality and hypernatremia; N17.9 Acute kidney failure, unspecified; Z86.711 Personal history of pulmonary embolism; K21.9 Gastro-esophageal reflux disease without esophagitis; M81.0 Age-related osteoporosis without current pathological fracture; I10 Essential (primary) hypertension; D51.0 Vitamin B12 deficiency anemia due to intrinsic factor deficiency; D32.9 Benign neoplasm of meninges, unspecified; I48.91 Unspecified atrial fibrillation; I73.9 Peripheral vascular disease, unspecified; G47.33 Obstructive sleep apnea (adult) (pediatric); J44.9 Chronic obstructive pulmonary disease, unspecified; E87.6 Hypokalemia; Z66 Do not resuscitate; R56.9 Unspecified convulsions; X58.XXXA Exposure to other specified factors, initial encounter; Z51.5 Encounter for palliative care
CPT/HCPCS: 12345; 32551; 36415; 36416; 36430; 36592; 36600; 51702; 70450; 71045; 71250; 71260; 74177; 80048; 80051; 80053; 80202; 82274; 82330; 82550; 82728; 82803; 82805; 82962; 83540; 83550; 83605; 83615; 83735; 83880; 84100; 84145; 84443; 84484; 85007; 85018; 85025; 85378; 85384; 86140; 86900; 86927; 87040; 87070; 87081; 87086; 87106; 87205; 87493; 87641; 92523; 92610; 93005; 93306; 93308; 94002; 94003; 94640; 94660; 94799; 99284; A4570; C1751; J0131; J0153; J0282; J0360; J0456; J0743; J1100; J1885; J1940; J1953; J2060; J2250; J2270; J2405; J2704; J3010; J3370; J3475; J3480; J3490; J7030; J7040; J7050; J7060; J7608; J7611; J7626; P9017; P9047; Q9967